=== PATIENT | female | born 1955 ===

== ENCOUNTER 2017-09-01 08:58 | Inpatient (IN) | payer MEDICARE ==
[2017-09-01] MEDS ORDERED: Albuterol 0.083% Inhal Sol (2.5 mg/3 mL) UD IH STA (09:25)
[2017-09-01] MEDS ORDERED: Sodium Chloride 0.9% 1,000 ML IV ONE ×2 (09:25→11:57)
[2017-09-01 09:26] VITALS: BMI 26.6
[2017-09-01] MEDS ORDERED: Piperacill/Tazo 3.375gm in Dex 3.375 GM/50 ML BAG IVPB STA (09:26)
[2017-09-01] MEDS ORDERED: Vancomycin 1 gm/NS 200 ml 1 GM/200 ML BAG IVPB STA (09:26)
--- NOTE | 2017-09-01 09:43 | C.PDOC ---
History Of Present Illness <Gloria Lopez - Last Filed: 09/01/17 17:07> <Kaitlin Baez - Last Filed: 09/08/17 03:34> 62 year old female, with PMHx of diabetes, HTN, hypercholesterolemia, presents to ED for evaluation of flu-like symptoms including runny nose, sore throat, cough, and fever for the past week. Pt reports being seen by PMD, had positive influenza result, was given Rx of Tamiflu which pt completed, however, pt states symptoms have worsened since last night. Pt states she developed productive dry cough with clear sputum, shortness of breath, and generalized weakness. At present time, pt appears sick, is hyperventilating, in respiratory distress. (Gloria Lopez) History Per: Patient History/Exam Limitations: no limitations Onset/Duration Of Symptoms: Days Current Symptoms Are (Timing): Still Present Exacerbating Factor(s): Coughing Associated Symptoms: Productive Cough. denies: Bloody Cough, Heart Racing, Leg/ Calf Pain, Dizziness, Light-headedness Recent travel outside of the [place]: No Additional History Per: Patient <Gloria Lopez - Last Filed: 09/01/17 17:07> <Kaitlin Baez - Last Filed: 09/08/17 03:34> Time Seen by Provider: 09/01/17 09:01 Chief Complaint (Nursing): Shortness Of Breath Past Medical History Reviewed: Historical Data, Nursing Documentation, Vital Signs - Medical History PMH: HTN, Hypercholesterolemia Family History: States: Unknown Family Hx - Social History Hx Alcohol Use: No Hx Substance Use: No - Immunization History Hx Tetanus Toxoid Vaccination: No Hx Influenza Vaccination: Yes Hx Pneumococcal Vaccination: No <Gloria Lopez - Last Filed: 09/01/17 17:07> Vital Signs: Last Vital Signs Temp 99.6 F 09/08/17 01:33 Pulse 87 09/08/17 03:00 Resp 16 09/08/17 03:00 BP 117/53 L 09/08/17 02:59 Pulse Ox 98 09/08/17 03:00 Review Of Systems Except As Marked, All Systems Reviewed And Found Negative. Constitutional: Positive for: Fever, Weakness ENT: Positive for: Nose Discharge (runny nose), Throat Pain Cardiovascular: Negative for: Chest Pain, Palpitations, Light Headedness Respiratory: Positive for: Cough, Shortness of Breath, Sputum. Negative for: Hemoptysis Gastrointestinal: Negative for: Nausea, Vomiting, Abdominal Pain Neurological: Negative for: Headache, Dizziness <JohnGloria - Last Filed: 09/01/17 17:07> Physical Exam - Physical Exam Appears: Non-toxic, Other (sick, in respiratory distress) Skin: Warm, Dry, Pale Head: Normacephalic Eye(s): bilateral: PERRL Oral Mucosa: Moist, No Drooling Neck: Supple Cardiovascular: Rhythm Regular, No Murmur Respiratory: Decreased Breath Sounds, Accessory Muscle Use, Wheezing Gastrointestinal/Abdominal: Soft, No Tenderness Extremity: Normal ROM, No Deformity Neurological/Psych: Oriented x3, Normal Speech <Gloria Lopez - Last Filed: 09/01/17 17:07> ED Course And Treatment - Laboratory Results Result Diagrams: 09/01/17 09:49 09/01/17 09:49 Lab Interpretation: Abnormal ECG: Interpreted By Me, Viewed By Me () Interpretation Of ECG: Sinus tachy@102/min,LAD, Left fascicular block O2 Sat by Pulse Oximetry: 92 Pulse Ox Interpretation: Abnormal - Radiology CXR: Interpreted by Me CXR Interpretation: Yes: Infiltrates - Other Rad CXR X-Ray: Read By Radiologist Interpretation: FINDINGS: LUNGS: 3.3 x 4.3 cm left lateral mid lung zone masslike opacity. Numerous additional smaller nodules throughout both lungs. Interstitial prominence. Biapical pleural thickening. Please note that chest x- ray has limited sensitivity for the detection of pulmonary masses. PLEURA: No significant pleural effusion identified. No definite pneumothorax . CARDIOVASCULAR: Mild cardiomegaly. OSSEOUS STRUCTURES: Degenerative changes. VISUALIZED UPPER ABDOMEN: Unremarkable. OTHER FINDINGS: None. IMPRESSION: 3.3 x 4.3 cm left lateral mid lung zone masslike opacity. Numerous additional smaller nodules throughout both lungs. Interstitial prominence. Biapical pleural thickening. Recommend CT of the chest with IV contrast for further evaluation. Progress Note: After my initial evaluation, was notified about case, pt was evaluated and treatment plan, further care discussed, pt was closely monitored at all time, while in ED. After ABG review, Bipap applied. card monitor. Code sepsis called at 10:02. Abx, tx, hydration intiated as per protocol. Case discussed with , admisison to ICU arranged. Generator Operator Dr. Balbuena consulted, pt admitted to ICU. <Gloria Lopez - Last Filed: 09/01/17 17:07> - Laboratory Results Result Diagrams: 09/07/17 06:32 09/07/17 06:32 <Kaitlin Baez - Last Filed: 09/08/17 03:34> Critical Care Time - Critical Care Note Total Time (in mins): 45 Documented critical care: time excludes all time spent performing seperately billable procedures. <Gloria Lopez - Last Filed: 09/01/17 17:07> Disposition - Disposition Disposition Time: 10:53 <Gloria Lopez - Last Filed: 09/01/17 17:07> <Kaitlin Baez - Last Filed: 09/08/17 03:34> - Disposition Disposition: HOSPITALIZED Condition: CRITICAL - Clinical Impression Clinical Impression: Sepsis, DKA (diabetic ketoacidoses) - PA / EMERGENCY SERVICE RESTORER / Resident Statement MD/DO has reviewed & agrees with the documentation as recorded. - Scribe Statement The provider has reviewed the documentation as recorded by the Scribe <Gloria Lopez - Last Filed: 09/01/17 17:07> <Kaitlin Baez - Last Filed: 09/08/17 03:34> - Scribe Statement Basil Balbuena All medical record entries made by the Scribe were at my direction and personally dictated by me. I have reviewed the chart and agree that the record accurately reflects my personal performance of the history, physical exam, medical decision making, and the department course for this patient. I have also personally directed, reviewed, and agree with the discharge instructions and disposition. (Gloria Lopez)
[2017-09-01 09:54] LABS: BASO # 0.1 K/uL (0.0-0.2); BASO % 0.3 % (0.0-2.0); EOS # 0.1 K/uL (0.0-0.7); EOS % 0.3 % (0.0-4.0); HEMOGLOBIN 15.1 g/dL (11.0-16.0); LYMPH # 1.5 K/uL (1.0-4.3); LYMPH % 4.7 % (20.0-40.0); MEAN CELL VOLUME 77.9 fL (81.0-99.0); MEAN CORPUSCULAR HEMOGLOBIN 25.2 pg (27.0-31.0); MEAN CORPUSCULAR HGB CONC 32.3 g/dL (33.0-37.0); MEAN PLATELET VOLUME 7.8 fL (7.2-11.7); MONO # 2.1 K/uL (0.0-0.8); MONO % 6.5 % (0.0-10.0); NEUT # 28.5 K/uL (1.8-7.0); NEUT % 88.2 % (50.0-75.0); NRBC % 0.1 % (0.0-2.0); PLATELET COUNT 573 K/uL (130-400); RBC 6.02 Mil/uL (3.80-5.20); RED CELL DISTRIBUTION WIDTH 14.8 % (11.5-14.5)
[2017-09-01] MEDS ORDERED: Albuterol 0.083% Inhal Sol (2.5 mg/3 mL) UD ONE (09:54)
[2017-09-01 09:55] LABS: VENOUS BLOOD GAS BASE EXCESS -22.9 mmol/L (0.0-2.0); VENOUS BLOOD GAS PCO2 28 mmHg (40-60); VENOUS BLOOD GAS PO2 31 mm/Hg (30-55); VENOUS BLOOD PH 7.01 (7.32-7.43)
[2017-09-01 10:00] LABS: WHITE BLOOD COUNT 32.3 K/uL (4.8-10.8)
[2017-09-01 10:06] LABS: INR 1.2; PROTHROMBIN TIME 14.3 SECONDS (9.7-12.2)
[2017-09-01] MEDS ORDERED: Sodium Chloride 0.9% 1,000 ML ONE (10:12)
[2017-09-01 10:24] LABS: ALB/GLOB RATIO 0.8 (1.0-2.1); ALBUMIN 3.8 g/dL (3.5-5.0); ALT/SGPT 11 U/L (9-52); AST/SGOT 16 U/L (14-36); BLOOD UREA NITROGEN 16 mg/dL (7-17); GFR AFRICAN-AMERICAN > 60; GFR NON-AFRICAN AMERICAN > 60
--- NOTE | 2017-09-01 10:30 | RAD ---
HISTORY: Sepsis Patient COMPARISON: None available. TECHNIQUE: Chest, one view. FINDINGS: LUNGS: 3.3 x 4.3 cm left lateral mid lung zone masslike opacity. Numerous additional smaller nodules throughout both lungs. Interstitial prominence. Biapical pleural thickening. Please note that chest x-ray has limited sensitivity for the detection of pulmonary masses. PLEURA: No significant pleural effusion identified. No definite pneumothorax . CARDIOVASCULAR: Mild cardiomegaly. OSSEOUS STRUCTURES: Degenerative changes. VISUALIZED UPPER ABDOMEN: Unremarkable. OTHER FINDINGS: None. IMPRESSION: 3.3 x 4.3 cm left lateral mid lung zone masslike opacity. Numerous additional smaller nodules throughout both lungs. Interstitial prominence. Biapical pleural thickening. Recommend CT of the chest with IV contrast for further evaluation.
[2017-09-01 10:41] LABS: B-TYPE NATRIURETIC PEPTIDE 334 pg/mL (0-900)
[2017-09-01 10:51] LABS: BANDS 34 % (0-2); GIANT PLATELETS PRESENT; LARGE PLATELETS PRESENT; LYMPHOCYTE 12 % (20-40); METAMYELOCYTE 1 % (0-0); MONOCYTE 3 % (0-10); NEUTROPHIL 49 % (50-75); PLATELET ESTIMATE INCREASED (NORMAL); REACTIVE LYMPHOCYTES 1 % (0-0); TOTAL CELLS COUNTED 100
[2017-09-01 10:52] LABS: TOXIC GRANULATION PRESENT
[2017-09-01 11:02] LABS: ABG ALLEN TEST POS; ARTERIAL BLOOD GAS HCO3 7.3 mmol/L (21-28); ARTERIAL BLOOD GAS HEMOGLOBIN 13.8 g/dL (11.7-17.4); ARTERIAL BLOOD GAS O2 SAT 100.4 % (95-98); ARTERIAL BLOOD GAS PCO2 19 mm/Hg (35-45); ARTERIAL BLOOD GAS PH 7.08 (7.35-7.45); ARTERIAL BLOOD GAS PO2 246 mm/Hg (80-100); ARTERIAL BLOOD GAS TCO2 6.2 mmol/L (22-28)
[2017-09-01] MEDS ORDERED: Insulin Human Regular 100 UNIT in Sodium Chloride 0.9% 99 ML IV STA (11:09)
[2017-09-01] MEDS ORDERED: Insulin Human Regular 100 UNIT in Sodium Chloride 0.9% 99 ML IV ONE (11:43)
[2017-09-01] MEDS ORDERED: Sodium Bicarbonate (8.4%) 50 Meq Syringe IVP STA (11:48)
[2017-09-01] MEDS ORDERED: Piperacillin/Tazobact 3.375 GM in Sodium Chloride 100 ML IVPB SCH (12:00)
[2017-09-01] MEDS ORDERED: Sodium Bicarbonate (8.4%) 50 Meq Syringe ONE ×3 (12:20→13:14)
[2017-09-01] MEDS ORDERED: Labetalol 25mg/5ml Syringe IVP STA (12:22)
[2017-09-01 12:51] LABS: VENOUS BLOOD GAS BASE EXCESS -22.1 mmol/L (0.0-2.0); VENOUS BLOOD GAS PCO2 42 mmHg (40-60); VENOUS BLOOD GAS PO2 22 mm/Hg (30-55); VENOUS BLOOD PH 6.96 (7.32-7.43)
--- NOTE | 2017-09-01 13:07 | CP.PCM.CON ---
<Afshin Macias - Last Filed: 09/01/17 13:07> Past Patient History - Past Social History Smoking Status: Never Smoked - CARDIAC Hx Hypercholesterolemia: Yes Hx Hypertension: Yes - ENDOCRINE/METABOLIC Hx Diabetes Mellitus Type 1: Yes - PSYCHIATRIC Hx Substance Use: No - SURGICAL HISTORY Hx Surgeries: Yes Other/Comment: oophorectomy; tubal ligation - ANESTHESIA Hx Anesthesia: Yes Hx Anesthesia Reactions: No Meds Allergies/Adverse Reactions: Allergies Allergy/AdvReac Type Severity Reaction Status Date / Time No Known Allergies Allergy Verified 09/01/17 09:17 - Medications Medications: Current Medications Albuterol/Ipratropium (Duoneb 3 Mg/0.5 Mg (3 Ml) Ud) 3 ml INH RQ6 WILLIAM Insulin Human Regular 100 unit (/ Sodium Chloride) 100 mls @ 2 mls/hr IV .Q24H ONE PRN Reason: Protocol Stop: 09/02/17 11:42 Vancomycin/Sodium Chloride (Vancomycin 1 Gm/Ns 200 Ml) 1 gm in 200 mls @ 133.333 mls/hr IVPB Q24H [facility] Stop: 09/07/17 08:01 Piperacillin Sod/Tazobactam Sod (Zosyn 3.375 Gm Iv Premix) 3.375 gm in 50 mls @ 100 mls/hr IVPB Q6H [facility] Oseltamivir Phosphate (Tamiflu Cap) 75 mg PO BID WILL[facility] Stop: 09/06/17 11:54 Results - Vital Signs Recent Vital Signs: Last Vital Signs Temp 98.5 F 09/01/17 09:18 Pulse 97 H 09/01/17 10:31 Resp 33 H 09/01/17 10:31 BP 175/87 H 09/01/17 10:31 Pulse Ox 92 L 09/01/17 11:34 - Labs Result Diagrams: 09/01/17 09:49 09/01/17 09:49 Labs: Laboratory Results - last 24 hr 09/01/17 09/01/17 09/01/17 09:49 09:49 09:49 WBC 32.3 H RBC 6.02 H Hgb 15.1 Hct 46.9 MCV 77.9 L MCH 25.2 L MCHC 32.3 L RDW 14.8 H Plt Count 573 H MPV 7.8 Neut % (Auto) 88.2 H Lymph % (Auto) 4.7 L [place] % (Auto) 6.5 Eos % (Auto) 0.3 Baso % (Auto) 0.3 Neut # 28.5 H Lymph # 1.5 [place] # 2.1 H Eos # 0.1 Baso # 0.1 Neutrophils % (Manual) 49 L Band Neutrophils % 34 H* Lymphocytes % (Manual) 12 L Reactive Lymphs % 1 H Monocytes % (Manual) 3 Metamyelocytes % 1 H Toxic Granulation Present Platelet Estimate Increased H Large Platelets Present Giant Platelets Present RBC Morphology Normal PT 14.3 H INR 1.2 APTT 32 Puncture Site pCO2 pO2 HCO3 ABG pH ABG Total CO2 ABG O2 Saturation ABG Base Excess ABG Hemoglobin ABG Carboxyhemoglobin POC ABG HHb (Measured) ABG Methemoglobin Vince Test VBG pH VBG pCO2 VBG HCO3 VBG Total CO2 VBG O2 Sat (Calc) VBG Base Excess VBG Potassium A-a O2 Difference Respiratory Index Hgb O2 Saturation Glucose Lactate Vent Mode FiO2 Inspiratory BiPAP Expiratory BiPAP Crit Value Called To Crit Value Called By Crit Value Read Back Blood Gas Notified Time Sodium 135 Potassium 4.4 Chloride 103 Carbon Dioxide 6 L* Anion Gap 30 H BUN 16 Creatinine 0.9 Est GFR ( Amer) > 60 Est GFR (Non-Af Amer) > 60 Random Glucose 517 H* Calcium 10.0 Total Bilirubin 0.7 AST 16 ALT 11 Alkaline Phosphatase 221 H Troponin I < 0.0120 NT-Pro-B Natriuret Pep 334 Total Protein 8.6 H Albumin 3.8 Globulin 4.9 H Albumin/Globulin Ratio 0.8 L Venous Blood Potassium Serum Ketones Moderate Influenza Typ A,B (EIA) 09/01/17 09/01/17 09/01/17 09:52 10:57 11:30 WBC RBC Hgb Hct MCV MCH MCHC RDW Plt Count MPV Neut % (Auto) Lymph % (Auto) [place] % (Auto) Eos % (Auto) Baso % (Auto) Neut # Lymph # [place] # Eos # Baso # Neutrophils % (Manual) Band Neutrophils % Lymphocytes % (Manual) Reactive Lymphs % Monocytes % (Manual) Metamyelocytes % Toxic Granulation Platelet Estimate Large Platelets Giant Platelets RBC Morphology PT INR APTT Puncture Site Rr pCO2 19 L* pO2 31 246 H HCO3 7.3 L* ABG pH 7.08 L* ABG Total CO2 6.2 L ABG O2 Saturation 100.4 H ABG Base Excess -22.6 L ABG Hemoglobin 13.8 ABG Carboxyhemoglobin 2.1 H POC ABG HHb (Measured) -0.4 L ABG Methemoglobin 1.6 Vince Test Pos VBG pH 7.01 L* VBG pCO2 28 L VBG HCO3 5.2 VBG Total CO2 8.0 L VBG O2 Sat (Calc) 82.7 H VBG Base Excess -22.9 L VBG Potassium 4.5 A-a O2 Difference 158.0 Respiratory Index 0.6 Hgb O2 Saturation 96.8 Glucose 508 H* Lactate 2.3 H Vent Mode Bipap FiO2 60.0 Inspiratory BiPAP 10 Expiratory BiPAP 5 Crit Value Called To Bhakti larkin Crit Value Called By Ananth thompson bass fisher Safia metcalf bass fisher Crit Value Read Back Y Y Blood Gas Notified Time 956 1105 Sodium 140.0 Potassium Chloride 102.0 Carbon Dioxide Anion Gap BUN Creatinine Est GFR ( Amer) Est GFR (Non-Af Amer) Random Glucose Calcium Total Bilirubin AST ALT Alkaline Phosphatase Troponin I NT-Pro-B Natriuret Pep Total Protein Albumin Globulin Albumin/Globulin Ratio Venous Blood Potassium 4.5 Serum Ketones Influenza Typ A,B (EIA) Negative for flu a/b 09/01/17 12:48 WBC RBC Hgb Hct MCV MCH MCHC RDW Plt Count MPV Neut % (Auto) Lymph % (Auto) [place] % (Auto) Eos % (Auto) Baso % (Auto) Neut # Lymph # [place] # Eos # Baso # Neutrophils % (Manual) Band Neutrophils % Lymphocytes % (Manual) Reactive Lymphs % Monocytes % (Manual) Metamyelocytes % Toxic Granulation Platelet Estimate Large Platelets Giant Platelets RBC Morphology PT INR APTT Puncture Site pCO2 pO2 22 L HCO3 ABG pH ABG Total CO2 ABG O2 Saturation ABG Base Excess ABG Hemoglobin ABG Carboxyhemoglobin POC ABG HHb (Measured) ABG Methemoglobin Vince Test VBG pH 6.96 L* VBG pCO2 42 VBG HCO3 5.4 VBG Total CO2 10.7 L VBG O2 Sat (Calc) 35.6 L VBG Base Excess -22.1 L VBG Potassium 4.2 A-a O2 Difference Respiratory Index Hgb O2 Saturation Glucose 366 H Lactate 2.9 H Vent Mode FiO2 Inspiratory BiPAP Expiratory BiPAP Crit Value Called To Mary tieing machine operator Crit Value Called By David Crit Value Read Back Y Blood Gas Notified Time 1251 Sodium 137.0 Potassium Chloride 111.0 H Carbon Dioxide Anion Gap BUN Creatinine Est GFR ( Amer) Est GFR (Non-Af Amer) Random Glucose Calcium Total Bilirubin AST ALT Alkaline Phosphatase Troponin I NT-Pro-B Natriuret Pep Total Protein Albumin Globulin Albumin/Globulin Ratio Venous Blood Potassium 4.2 Serum Ketones Influenza Typ A,B (EIA) <Leeanne Javier - Last Filed: 09/01/17 17:49> History of Present Illness - History of Present Illness History of Present Illness: 62 y/o female with pmx of DM, HTN presents to [facility] with c/o cough, worsening, dyspnea and SOB. Patient was noted to have severe Metabolix acidosis with DKA. (+)cough being treated by PMD with methyprednisolone, azithromycin and cough supressant with codiene and tamiflu. Patient's clinical condition worsened and patient came to ER. (+)conugh, no runny nose, no fevers, Took solumedrol before comming to [facility] no chest pain, no dysuria, (+)polyuria and polydyspnea Review of Systems - Constitutional Constitutional: Fatigue - Cardiovascular Cardiovascular: absent: Chest Pain with Activity, Dyspnea on Exertion, Edema, Lightheadedness - Respiratory Respiratory: Cough, Dyspnea, Chest Congestion. absent: Wheezing - Gastrointestinal Gastrointestinal: absent: Constipation, Cramping, Dyspepsia, Dysphagia - Genitourinary Genitourinary: absent: Hematuria - Endocrine Endocrine: Polydipsia, Polyphagia, Polyuria Past Patient History - Tetanus Immunizations Tetanus Immunization: Unknown - Past Medical History & Family History Past Medical History?: Yes - Past Social History Chewing Tobacco Use: No Cigar Use: No Occupation: unemployed Alcohol: None Drugs: Denies Home Situation {Lives}: With Family Meds - Medications Medications: Current Medications Albuterol/Ipratropium (Duoneb 3 Mg/0.5 Mg (3 Ml) Ud) 3 ml INH RQ6 WILLIAM Last Admin: 09/01/17 14:30 Dose: 3 ml Albuterol/Ipratropium (Duoneb 3 Mg/0.5 Mg (3 Ml) Ud) 3 ml INH RQ6 WILLIAM Guaifenesin/Dextromethorphan (Robitussin Dm) 5 ml PO Q4H PRN PRN Reason: Cough Insulin Human Regular 100 unit (/ Sodium Chloride) 100 mls @ 2 mls/hr IV .Q24H ONE PRN Reason: Protocol Stop: 09/02/17 11:42 Last Admin: 09/01/17 13:10 Dose: 2 unit/hr, 2 mls/hr Vancomycin/Sodium Chloride (Vancomycin 1 Gm/Ns 200 Ml) 1 gm in 200 mls @ 133.333 mls/hr IVPB Q24H [facility] Stop: 09/07/17 08:01 Piperacillin Sod/Tazobactam Sod (Zosyn 3.375 Gm Iv Premix) 3.375 gm in 50 mls @ 100 mls/hr IVPB Q6H [facility] Lactated Ringer's (Lactated Ringer's) 1,000 mls @ 100 mls/hr IV .Q10H [facility] Last Admin: 09/01/17 15:09 Dose: 100 mls/hr Potassium Phosphate 15 mmole/ (Sodium Chloride) 255 mls @ 63 mls/hr IV ONCE ONE Stop: 09/01/17 19:32 Potassium Chloride (Potassium Chloride 10 Meq/100 Ml) 10 meq in 100 mls @ 100 mls/hr IVPB Q1H [facility] Stop: 09/01/17 19:59 Last Admin: 09/01/17 15:44 Dose: 100 mls/hr Labetalol HCl (Trandate) 10 mg IVP Q4H PRN PRN Reason: Systolic Blood Pressure >150 Last Admin: 09/01/17 15:58 Dose: 10 mg Oseltamivir Phosphate (Tamiflu Cap) 75 mg PO BID [facility] Stop: 09/06/17 11:54 Last Admin: 09/01/17 13:45 Dose: 75 mg Physical Exam - Head Exam Head Exam: ATRAUMATIC, NORMAL INSPECTION, NORMOCEPHALIC - Eye Exam Eye Exam: Normal appearance - ENT Exam ENT Exam: Mucous Membranes Dry - Respiratory Exam Respiratory Exam: Accessory Muscle Use. absent: Rales, Rhonchi - Cardiovascular Exam Cardiovascular Exam: Tachycardia, +S1, +S2, +S4 - GI/Abdominal Exam GI & Abdominal Exam: Normal Bowel Sounds, Soft. absent: Guarding - Extremities Exam Extremities exam: Positive for: normal inspection - Neurological Exam Neurological exam: Alert, Oriented x3 - Skin Skin Exam: Dry Results - Vital Signs Recent Vital Signs: Last Vital Signs Temp 97.6 F 09/01/17 13:45 Pulse 114 H 09/01/17 13:45 Resp 32 H 09/01/17 13:45 BP 184/95 H 09/01/17 13:45 Pulse Ox 100 09/01/17 13:09 - Labs Result Diagrams: 09/01/17 09:49 09/01/17 16:38 Labs: Laboratory Results - last 24 hr 09/01/17 09/01/17 09/01/17 09:49 09:49 09:49 WBC 32.3 H RBC 6.02 H Hgb 15.1 Hct 46.9 MCV 77.9 L MCH 25.2 L MCHC 32.3 L RDW 14.8 H Plt Count 573 H MPV 7.8 Neut % (Auto) 88.2 H Lymph % (Auto) 4.7 L [place] % (Auto) 6.5 Eos % (Auto) 0.3 Baso % (Auto) 0.3 Neut # 28.5 H Lymph # 1.5 [place] # 2.1 H Eos # 0.1 Baso # 0.1 Neutrophils % (Manual) 49 L Band Neutrophils % 34 H* Lymphocytes % (Manual) 12 L Reactive Lymphs % 1 H Monocytes % (Manual) 3 Metamyelocytes % 1 H Toxic Granulation Present Platelet Estimate Increased H Large Platelets Present Giant Platelets Present RBC Morphology Normal PT 14.3 H INR 1.2 APTT 32 Puncture Site pCO2 pO2 HCO3 ABG pH ABG Total CO2 ABG O2 Saturation ABG Base Excess ABG Hemoglobin ABG Carboxyhemoglobin POC ABG HHb (Measured) ABG Methemoglobin Vince Test VBG pH VBG pCO2 VBG HCO3 VBG Total CO2 VBG O2 Sat (Calc) VBG Base Excess VBG Potassium A-a O2 Difference Respiratory Index Hgb O2 Saturation Glucose Lactate Vent Mode FiO2 Inspiratory BiPAP Expiratory BiPAP Crit Value Called To Crit Value Called By Crit Value Read Back Blood Gas Notified Time Sodium 135 Potassium 4.4 Chloride 103 Carbon Dioxide 6 L* Anion Gap 30 H BUN 16 Creatinine 0.9 Est GFR ( Amer) > 60 Est GFR (Non-Af Amer) > 60 POC Glucose (mg/dL) Random Glucose 517 H* Calcium 10.0 Total Bilirubin 0.7 AST 16 ALT 11 Alkaline Phosphatase 221 H Troponin I < 0.0120 NT-Pro-B Natriuret Pep 334 Total Protein 8.6 H Albumin 3.8 Globulin 4.9 H Albumin/Globulin Ratio 0.8 L Venous Blood Potassium Urine Color Urine Clarity Urine pH Ur Specific [place] Urine Protein Urine Glucose (UA) Urine Ketones Urine Blood Urine Nitrate Urine Bilirubin Urine Urobilinogen Ur Leukocyte Esterase Urine WBC (Auto) Urine RBC (Auto) Ur Squamous Epith Cells Urine Bacteria Hyaline Casts Serum Ketones Moderate Influenza Typ A,B (EIA) 09/01/17 09/01/17 09/01/17 09:52 10:57 11:30 WBC RBC Hgb Hct MCV MCH MCHC RDW Plt Count MPV Neut % (Auto) Lymph % (Auto) [place] % (Auto) Eos % (Auto) Baso % (Auto) Neut # Lymph # [place] # Eos # Baso # Neutrophils % (Manual) Band Neutrophils % Lymphocytes % (Manual) Reactive Lymphs % Monocytes % (Manual) Metamyelocytes % Toxic Granulation Platelet Estimate Large Platelets Giant Platelets RBC Morphology PT INR APTT Puncture Site Rr pCO2 19 L* pO2 31 246 H HCO3 7.3 L* ABG pH 7.08 L* ABG Total CO2 6.2 L ABG O2 Saturation 100.4 H ABG Base Excess -22.6 L ABG Hemoglobin 13.8 ABG Carboxyhemoglobin 2.1 H POC ABG HHb (Measured) -0.4 L ABG Methemoglobin 1.6 Vince Test Pos VBG pH 7.01 L* VBG pCO2 28 L VBG HCO3 5.2 VBG Total CO2 8.0 L VBG O2 Sat (Calc) 82.7 H VBG Base Excess -22.9 L VBG Potassium 4.5 A-a O2 Difference 158.0 Respiratory Index 0.6 Hgb O2 Saturation 96.8 Glucose 508 H* Lactate 2.3 H Vent Mode Bipap FiO2 60.0 Inspiratory BiPAP 10 Expiratory BiPAP 5 Crit Value Called To Bhakti larkin Crit Value Called By Ananth thompson bass fisher Safia metcalf bass fisher Crit Value Read Back Y Y Blood Gas Notified Time 956 1105 Sodium 140.0 Potassium Chloride 102.0 Carbon Dioxide Anion Gap BUN Creatinine Est GFR ( Amer) Est GFR (Non-Af Amer) POC Glucose (mg/dL) Random Glucose Calcium Total Bilirubin AST ALT Alkaline Phosphatase Troponin I NT-Pro-B Natriuret Pep Total Protein Albumin Globulin Albumin/Globulin Ratio Venous Blood Potassium 4.5 Urine Color Urine Clarity Urine pH Ur Specific [place] Urine Protein Urine Glucose (UA) Urine Ketones Urine Blood Urine Nitrate Urine Bilirubin Urine Urobilinogen Ur Leukocyte Esterase Urine WBC (Auto) Urine RBC (Auto) Ur Squamous Epith Cells Urine Bacteria Hyaline Casts Serum Ketones Influenza Typ A,B (EIA) Negative for flu a/b 09/01/17 09/01/17 09/01/17 12:48 12:53 13:07 WBC RBC Hgb Hct MCV MCH MCHC RDW Plt Count MPV Neut % (Auto) Lymph % (Auto) [place] % (Auto) Eos % (Auto) Baso % (Auto) Neut # Lymph # [place] # Eos # Baso # Neutrophils % (Manual) Band Neutrophils % Lymphocytes % (Manual) Reactive Lymphs % Monocytes % (Manual) Metamyelocytes % Toxic Granulation Platelet Estimate Large Platelets Giant Platelets RBC Morphology PT INR APTT Puncture Site pCO2 pO2 22 L HCO3 ABG pH ABG Total CO2 ABG O2 Saturation ABG Base Excess ABG Hemoglobin ABG Carboxyhemoglobin POC ABG HHb (Measured) ABG Methemoglobin Vince Test VBG pH 6.96 L* VBG pCO2 42 VBG HCO3 5.4 VBG Total CO2 10.7 L VBG O2 Sat (Calc) 35.6 L VBG Base Excess -22.1 L VBG Potassium 4.2 A-a O2 Difference Respiratory Index Hgb O2 Saturation Glucose 366 H Lactate 2.9 H Vent Mode FiO2 Inspiratory BiPAP Expiratory BiPAP Crit Value Called To Mary haro rn Crit Value Called By David Crit Value Read Back Y Blood Gas Notified Time 1251 Sodium 137.0 Potassium Chloride 111.0 H Carbon Dioxide Anion Gap BUN Creatinine Est GFR ( Amer) Est GFR (Non-Af Amer) POC Glucose (mg/dL) 343 H Random Glucose Calcium Total Bilirubin AST ALT Alkaline Phosphatase Troponin I NT-Pro-B Natriuret Pep Total Protein Albumin Globulin Albumin/Globulin Ratio Venous Blood Potassium 4.2 Urine Color Yellow Urine Clarity Clear Urine pH 5.0 Ur Specific [place] 1.023 Urine Protein 2+ H Urine Glucose (UA) 3+ H Urine Ketones 2+ H Urine Blood 1+ H Urine Nitrate Negative Urine Bilirubin Negative Urine Urobilinogen Normal Ur Leukocyte Esterase Neg Urine WBC (Auto) 1 Urine RBC (Auto) 5 H Ur Squamous Epith Cells < 1 Urine Bacteria Occ H Hyaline Casts 3-5 H Serum Ketones Influenza Typ A,B (EIA) 09/01/17 09/01/17 09/01/17 13:45 14:28 15:56 WBC RBC Hgb Hct MCV MCH MCHC RDW Plt Count MPV Neut % (Auto) Lymph % (Auto) [place] % (Auto) Eos % (Auto) Baso % (Auto) Neut # Lymph # [place] # Eos # Baso # Neutrophils % (Manual) Band Neutrophils % Lymphocytes % (Manual) Reactive Lymphs % Monocytes % (Manual) Metamyelocytes % Toxic Granulation Platelet Estimate Large Platelets Giant Platelets RBC Morphology PT INR APTT Puncture Site pCO2 pO2 125 H HCO3 ABG pH ABG Total CO2 ABG O2 Saturation ABG Base Excess ABG Hemoglobin ABG Carboxyhemoglobin POC ABG HHb (Measured) ABG Methemoglobin Vince Test VBG pH 7.17 L* VBG pCO2 19 L* VBG HCO3 9.7 VBG Total CO2 7.5 L VBG O2 Sat (Calc) 99.4 H VBG Base Excess -19.5 L VBG Potassium 1.6 L* A-a O2 Difference Respiratory Index Hgb O2 Saturation Glucose 159 H Lactate 1.2 Vent Mode FiO2 Inspiratory BiPAP Expiratory BiPAP Crit Value Called To Anna lopez Crit Value Called By Yosi javier,bass fisher Crit Value Read Back Y Blood Gas Notified Time 1355 Sodium 154.0 H Potassium Chloride 132.0 H Carbon Dioxide Anion Gap BUN Creatinine Est GFR ( Amer) Est GFR (Non-Af Amer) POC Glucose (mg/dL) 280 H 256 H Random Glucose Calcium Total Bilirubin AST ALT Alkaline Phosphatase Troponin I NT-Pro-B Natriuret Pep Total Protein Albumin Globulin Albumin/Globulin Ratio Venous Blood Potassium 1.6 L* Urine Color Urine Clarity Urine pH Ur Specific [place] Urine Protein Urine Glucose (UA) Urine Ketones Urine Blood Urine Nitrate Urine Bilirubin Urine Urobilinogen Ur Leukocyte Esterase Urine WBC (Auto) Urine RBC (Auto) Ur Squamous Epith Cells Urine Bacteria Hyaline Casts Serum Ketones Influenza Typ A,B (EIA) Assessment & Plan - Assessment and Plan (Free Text) Plan: Patinet with PMx of DM, HTN, likely CAD [facility] with cough, SOB and high blood sugar (being treated as outpatient by primary physician with tamiflu, azithro and methylprednisolone) -DKA: ketone (+), beta hydroxy butyrate pending, lactic normal, start IVF LR at 100 ml/hr and Insulin ggt at 0.1 units/kg/hr, BGm q1hrs, CMP/mag/phos q6hrs, VBG q2hrs -Patient with cough: perviously treated by primary physician with tamiflu and then azithromycin, patient (+)productice sputum, suspect URTI, check CT Chest r/ o infiltrate/mass, check procalcitonin, and strt vanco, zosyn and doxy, obtain sputum culture, serial lactic until resolves. -a risk of CAD: obtain EKG, trop and bnp, start asa -DM: check HBA1c, insulin ggt -Lactic normal -DVT ppx heparin SQ -PUD ppx protonix Patient's clinical situation of uncontrolled, Dm with oral methyprednisolone resulting in DKA and possible staph infection post viral infection. -Sputum culture, serial lactic and IVF at 100 ml/hr -Patient was on placed on bi-pap with productive sputum. Majority of clinical symptoms 2nd metabolic acidosis. -prognosis guarded as multiple diagnostic tests not available. vbg/cmp/mag/phos/ abg/CT chest. d/w ICu team cc time 40 minutes - Date & Time Date: 09/01/17 Time: 16:52
[2017-09-01 13:10] LABS: SQUAMOUS EPITHIAL < 1 /hpf (0-5); URINE BACTERIA OCC (<OCC); URINE BILIRUBIN NEGATIVE (NEGATIVE); URINE BLOOD 1+ (NEGATIVE); URINE CLARITY Clear (Clear); URINE COLOR Yellow (YELLOW); URINE GLUCOSE (UA) 3+ mg/dL (Normal); URINE LEUKOCYTE ESTERASE NEG Leu/uL (Negative); URINE NITRATE NEGATIVE (NEGATIVE); URINE PROTEIN 2+ mg/dL (NEGATIVE); URINE UROBILINOGEN NORMAL mg/dL (0.2-1.0)
[2017-09-01] MEDS ORDERED: Sodium Bicarbonate (8.4%) 50 Meq Syringe IVP ONE (13:10)
[2017-09-01] MEDS ORDERED: Sodium Chloride 0.9% 250 ML IV ONE (13:20)
[2017-09-01 13:50] LABS: VENOUS BLOOD GAS BASE EXCESS -19.5 mmol/L (0.0-2.0); VENOUS BLOOD GAS PCO2 19 mmHg (40-60); VENOUS BLOOD GAS PO2 125 mm/Hg (30-55); VENOUS BLOOD PH 7.17 (7.32-7.43)
[2017-09-01] MEDS ORDERED: guaiFENesin DM 100 mg-10 mg/5 ml UD PO PRN (13:52)
[2017-09-01] MEDS ORDERED: Lactated Ringer's 1,000 ML IV SCH (14:00)
[2017-09-01] MEDS ORDERED: Albuterol-Ipratrop 3 mg / 0.5 (3 ml) UD INH SCH ×2 (14:00→20:00)
[2017-09-01] MEDS ORDERED: Lidocaine 1% Inj (20ml) IV ONE (14:05)
[2017-09-01] MEDS: Magnesium Sulfate 1 gm in D5W 1 GM/100 ML BAG IVPB SCH ×2 (15:08→17:07)
[2017-09-01] MEDS: Piperacill/Tazo 3.375gm in Dex 3.375 GM/50 ML BAG IVPB SCH ×2 (15:30→22:00)
[2017-09-01] MEDS: Labetalol 25mg/5ml Syringe IVP PRN ×2 (15:58→22:00)
--- NOTE | 2017-09-01 16:09 | CP.PCM.CON ---
History of Present Illness - History of Present Illness History of Present Illness: reason for consultation: shortness of breath and pneumonia 62-year-old female with history of diabetes, hypertension presented to emergency room complaining off cough and fever for the past week. Patient was seen by PMD and started on antibiotics, Tamiflu and steroids. Patient symptoms have worsened with increasing shortness of breath, generalized weakness and productive cough. In the emergency room patient found to be very acidotic with elevated lactate level and bilateral pneumonia. Patient also found to have elevated glucose with positive ketones. started on insulin drip and admitted to intensive care unit. Review of Systems - Review of Systems All systems: reviewed and no additional remarkable complaints except (shortness of breath, generalized weakness) Past Patient History - Past Social History Smoking Status: Never Smoked - CARDIAC Hx Hypercholesterolemia: Yes Hx Hypertension: Yes - ENDOCRINE/METABOLIC Hx Diabetes Mellitus Type 1: Yes - MUSCULOSKELETAL/RHEUMATOLOGICAL Hx Falls: No - PSYCHIATRIC Hx Substance Use: No - SURGICAL HISTORY Hx Surgeries: Yes Other/Comment: oophorectomy; tubal ligation - ANESTHESIA Hx Anesthesia: Yes Hx Anesthesia Reactions: No Meds Allergies/Adverse Reactions: Allergies Allergy/AdvReac Type Severity Reaction Status Date / Time No Known Allergies Allergy Verified 09/01/17 09:17 - Medications Medications: Current Medications Albuterol/Ipratropium (Duoneb 3 Mg/0.5 Mg (3 Ml) Ud) 3 ml INH RQ6 WILLIAM Last Admin: 09/01/17 14:30 Dose: 3 ml Albuterol/Ipratropium (Duoneb 3 Mg/0.5 Mg (3 Ml) Ud) 3 ml INH RQ6 WILLIAM Guaifenesin/Dextromethorphan (Robitussin Dm) 5 ml PO Q4H PRN PRN Reason: Cough Insulin Human Regular 100 unit (/ Sodium Chloride) 100 mls @ 2 mls/hr IV .Q24H ONE PRN Reason: Protocol Stop: 09/02/17 11:42 Last Admin: 09/01/17 13:10 Dose: 2 unit/hr, 2 mls/hr Vancomycin/Sodium Chloride (Vancomycin 1 Gm/Ns 200 Ml) 1 gm in 200 mls @ 133.333 mls/hr IVPB Q24H [facility] Stop: 09/07/17 08:01 Piperacillin Sod/Tazobactam Sod (Zosyn 3.375 Gm Iv Premix) 3.375 gm in 50 mls @ 100 mls/hr IVPB Q6H [facility] Lactated Ringer's (Lactated Ringer's) 1,000 mls @ 100 mls/hr IV .Q10H [facility] Last Admin: 09/01/17 15:09 Dose: 100 mls/hr Potassium Phosphate 15 mmole/ (Sodium Chloride) 255 mls @ 63 mls/hr IV ONCE ONE Stop: 09/01/17 19:32 Potassium Chloride (Potassium Chloride 10 Meq/100 Ml) 10 meq in 100 mls @ 100 mls/hr IVPB Q1H [facility] Stop: 09/01/17 19:59 Last Admin: 09/01/17 15:44 Dose: 100 mls/hr Labetalol HCl (Trandate) 10 mg IVP Q4H PRN PRN Reason: Systolic Blood Pressure >150 Oseltamivir Phosphate (Tamiflu Cap) 75 mg PO BID [facility] Stop: 09/06/17 11:54 Last Admin: 09/01/17 13:45 Dose: 75 mg Physical Exam - Head Exam Head Exam: ATRAUMATIC, NORMOCEPHALIC - ENT Exam ENT Exam: Mucous Membranes Moist - Respiratory Exam Respiratory Exam: Rales - Cardiovascular Exam Cardiovascular Exam: REGULAR RHYTHM - GI/Abdominal Exam GI & Abdominal Exam: Normal Bowel Sounds, Soft - Extremities Exam Extremities exam: Positive for: normal inspection - Neurological Exam Neurological exam: Alert, Oriented x3 Results - Vital Signs Recent Vital Signs: Last Vital Signs Temp 97.6 F 09/01/17 13:45 Pulse 114 H 09/01/17 13:45 Resp 32 H 09/01/17 13:45 BP 184/95 H 09/01/17 13:45 Pulse Ox 100 09/01/17 13:09 - Labs Result Diagrams: 09/01/17 09:49 09/01/17 09:49 Labs: Laboratory Results - last 24 hr 09/01/17 09/01/17 09/01/17 09:49 09:49 09:49 WBC 32.3 H RBC 6.02 H Hgb 15.1 Hct 46.9 MCV 77.9 L MCH 25.2 L MCHC 32.3 L RDW 14.8 H Plt Count 573 H MPV 7.8 Neut % (Auto) 88.2 H Lymph % (Auto) 4.7 L [place] % (Auto) 6.5 Eos % (Auto) 0.3 Baso % (Auto) 0.3 Neut # 28.5 H Lymph # 1.5 [place] # 2.1 H Eos # 0.1 Baso # 0.1 Neutrophils % (Manual) 49 L Band Neutrophils % 34 H* Lymphocytes % (Manual) 12 L Reactive Lymphs % 1 H Monocytes % (Manual) 3 Metamyelocytes % 1 H Toxic Granulation Present Platelet Estimate Increased H Large Platelets Present Giant Platelets Present RBC Morphology Normal PT 14.3 H INR 1.2 APTT 32 Puncture Site pCO2 pO2 HCO3 ABG pH ABG Total CO2 ABG O2 Saturation ABG Base Excess ABG Hemoglobin ABG Carboxyhemoglobin POC ABG HHb (Measured) ABG Methemoglobin Vince Test VBG pH VBG pCO2 VBG HCO3 VBG Total CO2 VBG O2 Sat (Calc) VBG Base Excess VBG Potassium A-a O2 Difference Respiratory Index Hgb O2 Saturation Glucose Lactate Vent Mode FiO2 Inspiratory BiPAP Expiratory BiPAP Crit Value Called To Crit Value Called By Crit Value Read Back Blood Gas Notified Time Sodium 135 Potassium 4.4 Chloride 103 Carbon Dioxide 6 L* Anion Gap 30 H BUN 16 Creatinine 0.9 Est GFR ( Amer) > 60 Est GFR (Non-Af Amer) > 60 POC Glucose (mg/dL) Random Glucose 517 H* Calcium 10.0 Total Bilirubin 0.7 AST 16 ALT 11 Alkaline Phosphatase 221 H Troponin I < 0.0120 NT-Pro-B Natriuret Pep 334 Total Protein 8.6 H Albumin 3.8 Globulin 4.9 H Albumin/Globulin Ratio 0.8 L Venous Blood Potassium Urine Color Urine Clarity Urine pH Ur Specific [place] Urine Protein Urine Glucose (UA) Urine Ketones Urine Blood Urine Nitrate Urine Bilirubin Urine Urobilinogen Ur Leukocyte Esterase Urine WBC (Auto) Urine RBC (Auto) Ur Squamous Epith Cells Urine Bacteria Hyaline Casts Serum Ketones Moderate Influenza Typ A,B (EIA) 09/01/17 09/01/17 09/01/17 09:52 10:57 11:30 WBC RBC Hgb Hct MCV MCH MCHC RDW Plt Count MPV Neut % (Auto) Lymph % (Auto) [place] % (Auto) Eos % (Auto) Baso % (Auto) Neut # Lymph # [place] # Eos # Baso # Neutrophils % (Manual) Band Neutrophils % Lymphocytes % (Manual) Reactive Lymphs % Monocytes % (Manual) Metamyelocytes % Toxic Granulation Platelet Estimate Large Platelets Giant Platelets RBC Morphology PT INR APTT Puncture Site Rr pCO2 19 L* pO2 31 246 H HCO3 7.3 L* ABG pH 7.08 L* ABG Total CO2 6.2 L ABG O2 Saturation 100.4 H ABG Base Excess -22.6 L ABG Hemoglobin 13.8 ABG Carboxyhemoglobin 2.1 H POC ABG HHb (Measured) -0.4 L ABG Methemoglobin 1.6 Vince Test Pos VBG pH 7.01 L* VBG pCO2 28 L VBG HCO3 5.2 VBG Total CO2 8.0 L VBG O2 Sat (Calc) 82.7 H VBG Base Excess -22.9 L VBG Potassium 4.5 A-a O2 Difference 158.0 Respiratory Index 0.6 Hgb O2 Saturation 96.8 Glucose 508 H* Lactate 2.3 H Vent Mode Bipap FiO2 60.0 Inspiratory BiPAP 10 Expiratory BiPAP 5 Crit Value Called To Bhakti larkin Crit Value Called By Ananth thompson banquet line cook Safia metcalf banquet line cook Crit Value Read Back Y Y Blood Gas Notified Time 956 1105 Sodium 140.0 Potassium Chloride 102.0 Carbon Dioxide Anion Gap BUN Creatinine Est GFR ( Amer) Est GFR (Non-Af Amer) POC Glucose (mg/dL) Random Glucose Calcium Total Bilirubin AST ALT Alkaline Phosphatase Troponin I NT-Pro-B Natriuret Pep Total Protein Albumin Globulin Albumin/Globulin Ratio Venous Blood Potassium 4.5 Urine Color Urine Clarity Urine pH Ur Specific [place] Urine Protein Urine Glucose (UA) Urine Ketones Urine Blood Urine Nitrate Urine Bilirubin Urine Urobilinogen Ur Leukocyte Esterase Urine WBC (Auto) Urine RBC (Auto) Ur Squamous Epith Cells Urine Bacteria Hyaline Casts Serum Ketones Influenza Typ A,B (EIA) Negative for flu a/b 09/01/17 09/01/17 09/01/17 12:48 12:53 13:07 WBC RBC Hgb Hct MCV MCH MCHC RDW Plt Count MPV Neut % (Auto) Lymph % (Auto) [place] % (Auto) Eos % (Auto) Baso % (Auto) Neut # Lymph # [place] # Eos # Baso # Neutrophils % (Manual) Band Neutrophils % Lymphocytes % (Manual) Reactive Lymphs % Monocytes % (Manual) Metamyelocytes % Toxic Granulation Platelet Estimate Large Platelets Giant Platelets RBC Morphology PT INR APTT Puncture Site pCO2 pO2 22 L HCO3 ABG pH ABG Total CO2 ABG O2 Saturation ABG Base Excess ABG Hemoglobin ABG Carboxyhemoglobin POC ABG HHb (Measured) ABG Methemoglobin Vince Test VBG pH 6.96 L* VBG pCO2 42 VBG HCO3 5.4 VBG Total CO2 10.7 L VBG O2 Sat (Calc) 35.6 L VBG Base Excess -22.1 L VBG Potassium 4.2 A-a O2 Difference Respiratory Index Hgb O2 Saturation Glucose 366 H Lactate 2.9 H Vent Mode FiO2 Inspiratory BiPAP Expiratory BiPAP Crit Value Called To Mary haro rn Crit Value Called By Sachinl Crit Value Read Back Y Blood Gas Notified Time 1251 Sodium 137.0 Potassium Chloride 111.0 H Carbon Dioxide Anion Gap BUN Creatinine Est GFR ( Amer) Est GFR (Non-Af Amer) POC Glucose (mg/dL) 343 H Random Glucose Calcium Total Bilirubin AST ALT Alkaline Phosphatase Troponin I NT-Pro-B Natriuret Pep Total Protein Albumin Globulin Albumin/Globulin Ratio Venous Blood Potassium 4.2 Urine Color Yellow Urine Clarity Clear Urine pH 5.0 Ur Specific [place] 1.023 Urine Protein 2+ H Urine Glucose (UA) 3+ H Urine Ketones 2+ H Urine Blood 1+ H Urine Nitrate Negative Urine Bilirubin Negative Urine Urobilinogen Normal Ur Leukocyte Esterase Neg Urine WBC (Auto) 1 Urine RBC (Auto) 5 H Ur Squamous Epith Cells < 1 Urine Bacteria Occ H Hyaline Casts 3-5 H Serum Ketones Influenza Typ A,B (EIA) 09/01/17 09/01/17 13:45 14:28 WBC RBC Hgb Hct MCV MCH MCHC RDW Plt Count MPV Neut % (Auto) Lymph % (Auto) [place] % (Auto) Eos % (Auto) Baso % (Auto) Neut # Lymph # [place] # Eos # Baso # Neutrophils % (Manual) Band Neutrophils % Lymphocytes % (Manual) Reactive Lymphs % Monocytes % (Manual) Metamyelocytes % Toxic Granulation Platelet Estimate Large Platelets Giant Platelets RBC Morphology PT INR APTT Puncture Site pCO2 pO2 125 H HCO3 ABG pH ABG Total CO2 ABG O2 Saturation ABG Base Excess ABG Hemoglobin ABG Carboxyhemoglobin POC ABG HHb (Measured) ABG Methemoglobin Vince Test VBG pH 7.17 L* VBG pCO2 19 L* VBG HCO3 9.7 VBG Total CO2 7.5 L VBG O2 Sat (Calc) 99.4 H VBG Base Excess -19.5 L VBG Potassium 1.6 L* A-a O2 Difference Respiratory Index Hgb O2 Saturation Glucose 159 H Lactate 1.2 Vent Mode FiO2 Inspiratory BiPAP Expiratory BiPAP Crit Value Called To Anna lopez Crit Value Called By Yosi javier,banquet line cook Crit Value Read Back Y Blood Gas Notified Time 1355 Sodium 154.0 H Potassium Chloride 132.0 H Carbon Dioxide Anion Gap BUN Creatinine Est GFR ( Amer) Est GFR (Non-Af Amer) POC Glucose (mg/dL) 280 H Random Glucose Calcium Total Bilirubin AST ALT Alkaline Phosphatase Troponin I NT-Pro-B Natriuret Pep Total Protein Albumin Globulin Albumin/Globulin Ratio Venous Blood Potassium 1.6 L* Urine Color Urine Clarity Urine pH Ur Specific [place] Urine Protein Urine Glucose (UA) Urine Ketones Urine Blood Urine Nitrate Urine Bilirubin Urine Urobilinogen Ur Leukocyte Esterase Urine WBC (Auto) Urine RBC (Auto) Ur Squamous Epith Cells Urine Bacteria Hyaline Casts Serum Ketones Influenza Typ A,B (EIA) Assessment & Plan (1) Pneumonia Status: Acute Comment: continue IV antibiotics. CAT scan of the chest. Followup lactate and pro calcitonin. Followup culture and sensitivity (2) DKA (diabetic ketoacidoses) Status: Acute Comment: insulin drip. Monitor potassium level/ketones and anion gap. Followup ABG (3) Sepsis Status: Acute
[2017-09-01 16:54] LABS: ABG ALLEN TEST POS; ARTERIAL BLOOD GAS HCO3 15.2 mmol/L (21-28); ARTERIAL BLOOD GAS O2 SAT 97.3 % (95-98); ARTERIAL BLOOD GAS PCO2 34 mm/Hg (35-45); ARTERIAL BLOOD GAS PH 7.23 (7.35-7.45); ARTERIAL BLOOD GAS PO2 73 mm/Hg (80-100); ARTERIAL BLOOD GAS TCO2 15.2 mmol/L (22-28)
[2017-09-01] MEDS ORDERED: Magnesium Sulfate 1 gm in D5W 1 GM/100 ML BAG IVPB SCH (17:00)
[2017-09-01 17:10] LABS: ALB/GLOB RATIO 0.8 (1.0-2.1); ALBUMIN 2.9 g/dL (3.5-5.0); ALT/SGPT 25 U/L (9-52); AST/SGOT 32 U/L (14-36); BLOOD UREA NITROGEN 12 mg/dL (7-17); CALCIUM 8.2 mg/dl (8.6-10.4); GFR AFRICAN-AMERICAN > 60; GFR NON-AFRICAN AMERICAN > 60
--- NOTE | 2017-09-01 18:28 | CP.PCM.CON ---
History of Present Illness - History of Present Illness History of Present Illness: 62 year old female, with PMHx of diabetes, HTN, hypercholesterolemia, presents to ED for evaluation of flu-like symptoms including runny nose, sore throat, cough, and fever for the past week. Pt reports being seen by PMD, had positive influenza result, was given Rx of Tamiflu which pt completed, however, pt states symptoms have worsened since last night. Pt states she developed productive dry cough with clear sputum, shortness of breath, and generalized weakness. transferred to ICU with sepsis resp failure bilat pneumonia and severe metabolic acidosis - Medical History PMH: HTN, Hypercholesterolemia Family History: States: Unknown Family Hx Review of Systems - Constitutional Constitutional: As Per HPI - EENT Eyes: absent: As Per HPI, Blind Spots, Blurred Vision, Change in Vision, Decreased Night Vision, Diplopia, Discharge, Dry Eye, Exophthalmos, Floaters, Irritation, Itchy Eyes, Loss of Peripheral Vision, Pain, Photophobia, Requires Corrective Lenses, Sees Flashes, Spots in Vision, Tunnel Vision, Other Visual Disturbances, Loss of Vision, Other Ears: absent: As Per HPI, Decreased Hearing, Ear Discharge, Ear Pain, Tinnitus, Abnormal Hearing, Disequilibrium, Dizziness, Other Nose/Mouth/Throat: absent: As Per HPI, Epistaxis, Nasal Congestion, Nasal Discharge, Nasal Obstruction, Nasal Trauma, Nose Pain, Post Nasal Drip, Sinus Pain, Sinus Pressure, Bleeding Gums, Change in Voice, Dental Pain, Dry Mouth, Dysphagia, Halitosis, Hoarsness, Lip Swelling, Mouth Lesions, Mouth Pain, Odynophagia, Sore Throat, Throat Swelling, Tongue Swelling, Facial Pain, Neck Pain, Neck Mass, Other - Breasts Breasts: absent: As Per HPI, Change in Shape, Mass, Pain, Nipple Discharge, Nipple Inversion, Skin Changes, Swelling, Other - Cardiovascular Cardiovascular: As Per HPI - Respiratory Respiratory: As Per HPI, Cough, Dyspnea. absent: Hemoptysis - Gastrointestinal Gastrointestinal: absent: As Per HPI, Abdominal Pain, Belching, Bloating, Change in Bowel Habits, Change in Stool Character, Coffee Ground Emesis, Constipation, Cramping, Diarrhea, Dyspepsia, Dysphagia, Early Satiety, Excessive Flatus, Fecal Incontinence, Heartburn, Hematemesis, Hematochezia, Loose Stools, Melena, Nausea, Odynophagia, Temesmus, Vomiting, Other - Genitourinary Genitourinary: absent: As Per HPI, Change in Urinary Stream, Difficulty Urinating, Dysuria, Flank Pain, Hematuria, Pyuria, Nocturia, Urinary Incontinence, Urinary Frequency, Urinary Hesitance, Urinary Urgency, Voiding Freq/Small Amts, Freq UTI, Hx Renal/Bladder Calculi, Hx /Renal Surgery, Bladder Distension, Other - Reproductive: Female Reproductive:Female: absent: As Per HPI, Amenorrhea, Amenorrhea/ Control, Currently Menstual, Cycle <21 Days, Cycle >35 Days, Cycle Variable, Menses 1-7 Days, Menses >/= 8 Days, Menses Variable, Cycle > 4 Weeks Between, No Menses for 6 Months, Heavy Menses, Light Menses, Normal Menses, Spotting Between Cycles , S/P Hysterectomy, Menopausal, Post Menopausal, Premenarche, Abnormal Vaginal Bleeding, Dysmenorrhea, Dyspareunia, Genital Lesions, Genital Pruritis, Pelvic Pain, Prolapse Symptoms, Sexual Dysfunction, Vaginal Discharge, Vaginal Dryness , Vaginal Odor, Vaginal Pruritis, Other - Menstruation Menstruation: absent: As Per HPI, Amenorrhea, Amenorrhea/ Control, Currently Menstual, Cycle <21 Days, Cycle >35 Days, Cycle Variable, Menses 1-7 Days, Menses >/= 8 Days, Menses Variable, Cycle > 4 Weeks Between, No Menses for 6 Months, Heavy Menses, Light Menses, Normal Menses, Spotting Between Cycles , S/P Hysterectomy, Menopausal, Post Menopausal, Premenarche, Abnormal Vaginal Bleeding, Dysmenorrhea, Other - Musculoskeletal Musculoskeletal: absent: As Per HPI, Abnormal Gait, Arthralgias, Atrophy, Back Pain, Deformity, Joint Swelling, Limited Range of Motion, Loss of Height, Muscle Cramps, Muscle Weakness, Myalgias, Neck Pain, Numbness, Radiating Pain into Limb, Stiffness, Tingling, Other - Integumentary Integumentary: absent: As Per HPI, Acne, Alopecia, Bleeding Lesions, Change in Hair, Change in Nails, Change in Pigmentation, Changing Lesions, Dry Skin, Erythema, Furuncle, Hirsutism, Lesions, New Lesions, Non-Healing Lesions, Photosensitivity, Pruritus, Rash, Skin Pain, Skin Ulcer, Sores, Striae, Swelling , Unusual Bruising, Wounds, Jaundice, Other - Neurological Neurological: absent: As Per HPI, Abnormal Gait, Abnormal Hearing, Abnormal Movements, Abnormal Speech, Behavioral Changes, Burning Sensations, Confusion, Convulsions, Disequilibrium, Dizziness, Numbness, Focal Weakness, Frequent Falls , Headaches, Lack of Coordination, Loss of Vision, Memory Loss, Paresthesias, Radicular Pain, Restless Legs, Sensory Deficit, Syncope, Tingling, Tremor, Vertigo, Weakness, Other Visual Disturbances, Other - Psychiatric Psychiatric: absent: As Per HPI, Abnormal Sleep Pattern, Anhedonia, Anxiety, Auditory Hallucinations, Behavioral Changes, Change in Appetite, Change in Libido, Confusion, Depression, Difficulty Concentrating, Hallucinations, Homicidal Ideation, Hopelessness, Irritability, Memory Loss, Mood Swings, Panic Attacks, Paranoia, Suicidal Ideation, Visual Hallucinations, Tactile Hallucinations, Other - Endocrine Endocrine: absent: As Per HPI, Change in Body Appearance, Change in Libido, Cold Intolorance, Deepening of Voice, Excessive Sweating, Fatigue, Flushing, Heat Intolorance, Increase in Ring/Shoe/Hat Size, Palpitations, Polydipsia, Polyphagia, Polyuria, Other - Hematologic/Lymphatic Hematologic: absent: As Per HPI, Easy Bleeding, Easy Bruising, Lymphadenopathy, Other Past Patient History - Tetanus Immunizations Tetanus Immunization: Unknown - Past Medical History & Family History Past Medical History?: Yes - Past Social History Chewing Tobacco Use: No Cigar Use: No Occupation: unemployed Alcohol: None Drugs: Denies Home Situation {Lives}: With Family - CARDIAC Hx Hypercholesterolemia: Yes Hx Hypertension: Yes - ENDOCRINE/METABOLIC Hx Diabetes Mellitus Type 1: Yes - MUSCULOSKELETAL/RHEUMATOLOGICAL Hx Falls: No - PSYCHIATRIC Hx Substance Use: No - SURGICAL HISTORY Hx Surgeries: Yes Other/Comment: oophorectomy; tubal ligation - ANESTHESIA Hx Anesthesia: Yes Hx Anesthesia Reactions: No Meds Allergies/Adverse Reactions: Allergies Allergy/AdvReac Type Severity Reaction Status Date / Time No Known Allergies Allergy Verified 09/01/17 09:17 - Medications Medications: Current Medications Albuterol/Ipratropium (Duoneb 3 Mg/0.5 Mg (3 Ml) Ud) 3 ml INH RQ4 [facility] Guaifenesin/Dextromethorphan (Robitussin Dm) 5 ml PO Q4H PRN PRN Reason: Cough Insulin Human Regular 100 unit (/ Sodium Chloride) 100 mls @ 2 mls/hr IV .Q24H ONE PRN Reason: Protocol Stop: 09/02/17 11:42 Last Titration: 09/01/17 17:07 Dose: 3 unit/hr, 3 mls/hr Vancomycin/Sodium Chloride (Vancomycin 1 Gm/Ns 200 Ml) 1 gm in 200 mls @ 133.333 mls/hr IVPB Q24H [facility] Stop: 09/07/17 08:01 Piperacillin Sod/Tazobactam Sod (Zosyn 3.375 Gm Iv Premix) 3.375 gm in 50 mls @ 100 mls/hr IVPB Q6H [facility] Last Admin: 09/01/17 15:30 Dose: 100 mls/hr Lactated Ringer's (Lactated Ringer's) 1,000 mls @ 100 mls/hr IV .Q10H [facility] Last Admin: 09/01/17 15:09 Dose: 100 mls/hr Potassium Phosphate 15 mmole/ (Sodium Chloride) 255 mls @ 63 mls/hr IV ONCE ONE Stop: 09/01/17 19:32 Potassium Chloride (Potassium Chloride 10 Meq/100 Ml) 10 meq in 100 mls @ 100 mls/hr IVPB Q1H [facility] Stop: 09/01/17 19:59 Last Admin: 09/01/17 17:13 Dose: 100 mls/hr Doxycycline Hyclate 100 mg/ (Sodium Chloride) 100 mls @ 100 mls/hr IVPB Q12H [facility] Labetalol HCl (Trandate) 10 mg IVP Q4H PRN PRN Reason: Systolic Blood Pressure >150 Last Admin: 09/01/17 15:58 Dose: 10 mg Oseltamivir Phosphate (Tamiflu Cap) 75 mg PO BID [facility] Stop: 09/06/17 11:54 Last Admin: 09/01/17 13:45 Dose: 75 mg Physical Exam - Constitutional Appears: Toxic, In Acute Distress - Head Exam Head Exam: ATRAUMATIC, NORMAL INSPECTION, NORMOCEPHALIC - Eye Exam Eye Exam: PERRL. absent: Scleral icterus - ENT Exam ENT Exam: Mucous Membranes Dry, Normal External Ear Exam - Neck Exam Neck exam: Negative for: Lymphadenopathy, Thyromegaly - Respiratory Exam Respiratory Exam: Decreased Breath Sounds, Prolonged Expiratory Phase, Rales, Rhonchi - Cardiovascular Exam Cardiovascular Exam: REGULAR RHYTHM, +S1, +S2 - GI/Abdominal Exam GI & Abdominal Exam: Diminished Bowel Sounds, Distended, Soft. absent: Rebound , Rigid, Tenderness - Rectal Exam Rectal Exam: Deferred - Exam Exam: NORMAL INSPECTION - Extremities Exam Extremities exam: Positive for: pedal pulses present. Negative for: calf tenderness, pedal edema, tenderness - Back Exam Back exam: absent: CVA tenderness (L), CVA tenderness (R), paraspinal tenderness - Neurological Exam Neurological exam: Alert, CN II-XII Intact, Oriented x3, Reflexes Normal - Psychiatric Exam Psychiatric exam: Depressed - Skin Skin Exam: Dry, Intact Results - Vital Signs Recent Vital Signs: Last Vital Signs Temp 97.6 F 09/01/17 13:45 Pulse 114 H 09/01/17 13:45 Resp 32 H 09/01/17 13:45 BP 184/95 H 09/01/17 13:45 Pulse Ox 92 L 09/01/17 17:29 - Labs Result Diagrams: 09/01/17 09:49 09/01/17 16:38 Labs: Laboratory Results - last 24 hr 09/01/17 09/01/17 09/01/17 09:49 09:49 09:49 WBC 32.3 H RBC 6.02 H Hgb 15.1 Hct 46.9 MCV 77.9 L MCH 25.2 L MCHC 32.3 L RDW 14.8 H Plt Count 573 H MPV 7.8 Neut % (Auto) 88.2 H Lymph % (Auto) 4.7 L Floyd % (Auto) 6.5 Eos % (Auto) 0.3 Baso % (Auto) 0.3 Neut # 28.5 H Lymph # 1.5 Floyd # 2.1 H Eos # 0.1 Baso # 0.1 Neutrophils % (Manual) 49 L Band Neutrophils % 34 H* Lymphocytes % (Manual) 12 L Reactive Lymphs % 1 H Monocytes % (Manual) 3 Metamyelocytes % 1 H Toxic Granulation Present Platelet Estimate Increased H Large Platelets Present Giant Platelets Present RBC Morphology Normal PT 14.3 H INR 1.2 APTT 32 Puncture Site pCO2 pO2 HCO3 ABG pH ABG Total CO2 ABG O2 Saturation ABG Base Excess ABG Hemoglobin ABG Carboxyhemoglobin POC ABG HHb (Measured) ABG Methemoglobin Vince Test ABG Potassium VBG pH VBG pCO2 VBG HCO3 VBG Total CO2 VBG O2 Sat (Calc) VBG Base Excess VBG Potassium A-a O2 Difference Respiratory Index Hgb O2 Saturation Glucose Lactate Vent Mode FiO2 Inspiratory BiPAP Expiratory BiPAP Crit Value Called To Crit Value Called By Crit Value Read Back Blood Gas Notified Time Sodium 135 Potassium 4.4 Chloride 103 Carbon Dioxide 6 L* Anion Gap 30 H BUN 16 Creatinine 0.9 Est GFR ( Amer) > 60 Est GFR (Non-Af Amer) > 60 POC Glucose (mg/dL) Random Glucose 517 H* Calcium 10.0 Total Bilirubin 0.7 AST 16 ALT 11 Alkaline Phosphatase 221 H Troponin I < 0.0120 NT-Pro-B Natriuret Pep 334 Total Protein 8.6 H Albumin 3.8 Globulin 4.9 H Albumin/Globulin Ratio 0.8 L Arterial Blood Potassium Venous Blood Potassium Urine Color Urine Clarity Urine pH Ur Specific [place] Urine Protein Urine Glucose (UA) Urine Ketones Urine Blood Urine Nitrate Urine Bilirubin Urine Urobilinogen Ur Leukocyte Esterase Urine WBC (Auto) Urine RBC (Auto) Ur Squamous Epith Cells Urine Bacteria Hyaline Casts Serum Ketones Moderate Influenza Typ A,B (EIA) 09/01/17 09/01/17 09/01/17 09:52 10:57 11:30 WBC RBC Hgb Hct MCV MCH MCHC RDW Plt Count MPV Neut % (Auto) Lymph % (Auto) Floyd % (Auto) Eos % (Auto) Baso % (Auto) Neut # Lymph # Floyd # Eos # Baso # Neutrophils % (Manual) Band Neutrophils % Lymphocytes % (Manual) Reactive Lymphs % Monocytes % (Manual) Metamyelocytes % Toxic Granulation Platelet Estimate Large Platelets Giant Platelets RBC Morphology PT INR APTT Puncture Site Rr pCO2 19 L* pO2 31 246 H HCO3 7.3 L* ABG pH 7.08 L* ABG Total CO2 6.2 L ABG O2 Saturation 100.4 H ABG Base Excess -22.6 L ABG Hemoglobin 13.8 ABG Carboxyhemoglobin 2.1 H POC ABG HHb (Measured) -0.4 L ABG Methemoglobin 1.6 Vince Test Pos ABG Potassium VBG pH 7.01 L* VBG pCO2 28 L VBG HCO3 5.2 VBG Total CO2 8.0 L VBG O2 Sat (Calc) 82.7 H VBG Base Excess -22.9 L VBG Potassium 4.5 A-a O2 Difference 158.0 Respiratory Index 0.6 Hgb O2 Saturation 96.8 Glucose 508 H* Lactate 2.3 H Vent Mode Bipap FiO2 60.0 Inspiratory BiPAP 10 Expiratory BiPAP 5 Crit Value Called To Bhakti larkin Crit Value Called By Ananth thompson casing sewer Safia metcalf casing sewer Crit Value Read Back Y Y Blood Gas Notified Time 956 1105 Sodium 140.0 Potassium Chloride 102.0 Carbon Dioxide Anion Gap BUN Creatinine Est GFR ( Amer) Est GFR (Non-Af Amer) POC Glucose (mg/dL) Random Glucose Calcium Total Bilirubin AST ALT Alkaline Phosphatase Troponin I NT-Pro-B Natriuret Pep Total Protein Albumin Globulin Albumin/Globulin Ratio Arterial Blood Potassium Venous Blood Potassium 4.5 Urine Color Urine Clarity Urine pH Ur Specific [place] Urine Protein Urine Glucose (UA) Urine Ketones Urine Blood Urine Nitrate Urine Bilirubin Urine Urobilinogen Ur Leukocyte Esterase Urine WBC (Auto) Urine RBC (Auto) Ur Squamous Epith Cells Urine Bacteria Hyaline Casts Serum Ketones Influenza Typ A,B (EIA) Negative for flu a/b 09/01/17 09/01/17 09/01/17 12:48 12:53 13:07 WBC RBC Hgb Hct MCV MCH MCHC RDW Plt Count MPV Neut % (Auto) Lymph % (Auto) Floyd % (Auto) Eos % (Auto) Baso % (Auto) Neut # Lymph # Floyd # Eos # Baso # Neutrophils % (Manual) Band Neutrophils % Lymphocytes % (Manual) Reactive Lymphs % Monocytes % (Manual) Metamyelocytes % Toxic Granulation Platelet Estimate Large Platelets Giant Platelets RBC Morphology PT INR APTT Puncture Site pCO2 pO2 22 L HCO3 ABG pH ABG Total CO2 ABG O2 Saturation ABG Base Excess ABG Hemoglobin ABG Carboxyhemoglobin POC ABG HHb (Measured) ABG Methemoglobin Vince Test ABG Potassium VBG pH 6.96 L* VBG pCO2 42 VBG HCO3 5.4 VBG Total CO2 10.7 L VBG O2 Sat (Calc) 35.6 L VBG Base Excess -22.1 L VBG Potassium 4.2 A-a O2 Difference Respiratory Index Hgb O2 Saturation Glucose 366 H Lactate 2.9 H Vent Mode FiO2 Inspiratory BiPAP Expiratory BiPAP Crit Value Called To Mary pole lift operator Crit Value Called By David Crit Value Read Back Y Blood Gas Notified Time 1251 Sodium 137.0 Potassium Chloride 111.0 H Carbon Dioxide Anion Gap BUN Creatinine Est GFR ( Amer) Est GFR (Non-Af Amer) POC Glucose (mg/dL) 343 H Random Glucose Calcium Total Bilirubin AST ALT Alkaline Phosphatase Troponin I NT-Pro-B Natriuret Pep Total Protein Albumin Globulin Albumin/Globulin Ratio Arterial Blood Potassium Venous Blood Potassium 4.2 Urine Color Yellow Urine Clarity Clear Urine pH 5.0 Ur Specific [place] 1.023 Urine Protein 2+ H Urine Glucose (UA) 3+ H Urine Ketones 2+ H Urine Blood 1+ H Urine Nitrate Negative Urine Bilirubin Negative Urine Urobilinogen Normal Ur Leukocyte Esterase Neg Urine WBC (Auto) 1 Urine RBC (Auto) 5 H Ur Squamous Epith Cells < 1 Urine Bacteria Occ H Hyaline Casts 3-5 H Serum Ketones Influenza Typ A,B (EIA) 09/01/17 09/01/17 09/01/17 13:45 14:28 15:56 WBC RBC Hgb Hct MCV MCH MCHC RDW Plt Count MPV Neut % (Auto) Lymph % (Auto) Floyd % (Auto) Eos % (Auto) Baso % (Auto) Neut # Lymph # Floyd # Eos # Baso # Neutrophils % (Manual) Band Neutrophils % Lymphocytes % (Manual) Reactive Lymphs % Monocytes % (Manual) Metamyelocytes % Toxic Granulation Platelet Estimate Large Platelets Giant Platelets RBC Morphology PT INR APTT Puncture Site pCO2 pO2 125 H HCO3 ABG pH ABG Total CO2 ABG O2 Saturation ABG Base Excess ABG Hemoglobin ABG Carboxyhemoglobin POC ABG HHb (Measured) ABG Methemoglobin Vince Test ABG Potassium VBG pH 7.17 L* VBG pCO2 19 L* VBG HCO3 9.7 VBG Total CO2 7.5 L VBG O2 Sat (Calc) 99.4 H VBG Base Excess -19.5 L VBG Potassium 1.6 L* A-a O2 Difference Respiratory Index Hgb O2 Saturation Glucose 159 H Lactate 1.2 Vent Mode FiO2 Inspiratory BiPAP Expiratory BiPAP Crit Value Called To Anna lopez Crit Value Called By Yosi javier,casing sewer Crit Value Read Back Y Blood Gas Notified Time 1355 Sodium 154.0 H Potassium Chloride 132.0 H Carbon Dioxide Anion Gap BUN Creatinine Est GFR ( Amer) Est GFR (Non-Af Amer) POC Glucose (mg/dL) 280 H 256 H Random Glucose Calcium Total Bilirubin AST ALT Alkaline Phosphatase Troponin I NT-Pro-B Natriuret Pep Total Protein Albumin Globulin Albumin/Globulin Ratio Arterial Blood Potassium Venous Blood Potassium 1.6 L* Urine Color Urine Clarity Urine pH Ur Specific [place] Urine Protein Urine Glucose (UA) Urine Ketones Urine Blood Urine Nitrate Urine Bilirubin Urine Urobilinogen Ur Leukocyte Esterase Urine WBC (Auto) Urine RBC (Auto) Ur Squamous Epith Cells Urine Bacteria Hyaline Casts Serum Ketones Influenza Typ A,B (EIA) 09/01/17 09/01/17 09/01/17 16:38 16:45 17:03 WBC RBC Hgb Hct MCV MCH MCHC RDW Plt Count MPV Neut % (Auto) Lymph % (Auto) Floyd % (Auto) Eos % (Auto) Baso % (Auto) Neut # Lymph # Floyd # Eos # Baso # Neutrophils % (Manual) Band Neutrophils % Lymphocytes % (Manual) Reactive Lymphs % Monocytes % (Manual) Metamyelocytes % Toxic Granulation Platelet Estimate Large Platelets Giant Platelets RBC Morphology PT INR APTT Puncture Site Rra pCO2 34 L pO2 73 L HCO3 15.2 L ABG pH 7.23 L ABG Total CO2 15.2 L ABG O2 Saturation 97.3 ABG Base Excess -12.3 L ABG Hemoglobin ABG Carboxyhemoglobin POC ABG HHb (Measured) ABG Methemoglobin Vince Test Pos ABG Potassium 2.6 L VBG pH VBG pCO2 VBG HCO3 VBG Total CO2 VBG O2 Sat (Calc) VBG Base Excess VBG Potassium A-a O2 Difference 170.0 Respiratory Index 2.3 Hgb O2 Saturation Glucose 271 H Lactate 1.4 Vent Mode FiO2 40.0 Inspiratory BiPAP 10 Expiratory BiPAP 5 Crit Value Called To Crit Value Called By Crit Value Read Back Blood Gas Notified Time Sodium 139 142.0 Potassium 2.7 L Chloride 110 H 112.0 H Carbon Dioxide 15 L Anion Gap 16 BUN 12 Creatinine 0.5 L Est GFR ( Amer) > 60 Est GFR (Non-Af Amer) > 60 POC Glucose (mg/dL) 231 H Random Glucose 287 H Calcium 8.2 L Total Bilirubin 0.6 AST 32 ALT 25 Alkaline Phosphatase 137 H D Troponin I NT-Pro-B Natriuret Pep Total Protein 6.6 Albumin 2.9 L D Globulin 3.8 Albumin/Globulin Ratio 0.8 L Arterial Blood Potassium 2.6 L Venous Blood Potassium Urine Color Urine Clarity Urine pH Ur Specific [place] Urine Protein Urine Glucose (UA) Urine Ketones Urine Blood Urine Nitrate Urine Bilirubin Urine Urobilinogen Ur Leukocyte Esterase Urine WBC (Auto) Urine RBC (Auto) Ur Squamous Epith Cells Urine Bacteria Hyaline Casts Serum Ketones Influenza Typ A,B (EIA) Assessment & Plan (1) DKA (diabetic ketoacidoses) Status: Acute (2) Pneumonia Status: Acute (3) Sepsis Status: Acute - Assessment and Plan (Free Text) Assessment: May need intubation if compensatory mechanisms become depleted Agree with IV antibiotics await cultures Cont Vanco / Zosyn
[2017-09-01 18:47] LABS: MAGNESIUM 2.1 mg/dL (1.6-2.3)
[2017-09-01 19:18] LABS: ALB/GLOB RATIO 0.8 (1.0-2.1); ALBUMIN 2.9 g/dL (3.5-5.0); ALT/SGPT 19 U/L (9-52); AST/SGOT 30 U/L (14-36); BLOOD UREA NITROGEN 12 mg/dL (7-17); CALCIUM 8.4 mg/dl (8.6-10.4); GFR AFRICAN-AMERICAN > 60; GFR NON-AFRICAN AMERICAN > 60; MAGNESIUM 2.1 mg/dL (1.6-2.3)
[2017-09-01 19:21] LABS: B-TYPE NATRIURETIC PEPTIDE 1290 pg/mL (0-900)
--- NOTE | 2017-09-01 19:41 | CT ---
EXAM: CT Chest Without Intravenous Contrast EXAM DATE/TIME: 09/01/2017 1:46 PM CLINICAL HISTORY: 62 years old, female; Signs and symptoms; Shortness of breath; Additional info: SOB TECHNIQUE: Axial computed tomography images of the chest without intravenous contrast. All CT scans at this facility use one or more dose reduction techniques, viz.: automated exposure control; ma/kV adjustment per patient size (including targeted exams where dose is matched to indication; i.e. head); or iterative reconstruction technique. Coronal and sagittal reformatted images were created and reviewed. COMPARISON: No relevant prior studies available. FINDINGS: LIMITATIONS: Mild respiratory motion artifact. LUNGS: Multifocal areas of dense consolidation are seen in the lungs bilaterally, highly suspicious for an extensive, bilateral pneumonia. This involves all 5 lobes. There are also multiple tree in bud opacities and small ill-defined nodules in the lungs bilaterally, most likely due to an infectious bronchiolitis/pneumonia, in an acute setting. No evidence of diffuse pulmonary vascular congestion. PLEURAL SPACE: No pneumothorax or significant pleural effusions seen. HEART: Coronary artery calcification. No significant cardiomegaly. No evidence of significant pericardial effusion. MEDIASTINUM: Small to moderate hiatal hernia. BONES/JOINTS: No acute fractures or other acute bony abnormality noted. SOFT TISSUES: No acute abnormality of the visualized soft tissues is seen. VASCULATURE: Exam is nondiagnostic for aortic dissection and pulmonary emboli, secondary to unenhanced technique. LYMPH NODES: Multiple small lymph nodes seen in the mediastinum, none appearing pathologically enlarged. This is a nonspecific finding. No evidence of diffuse pathologic lymphadenopathy. KIDNEYS AND URETERS: Large round mass incidentally noted in the left abdomen, which is incompletely visualized limits exam. This arises from the left kidney, and projects anteriorly. It is composed of fat density and soft tissue density, and has well-defined margins. It has a CT appearance most compatible with a large left renal angiomyolipoma. It measures 9.5 cm maximally. IMPRESSION: - Findings highly suspicious for an extensive, multifocal bilateral pneumonia, as described. Followup is recommended to document clearing, as this has a micronodular component. - Otherwise, no evidence of significant acute process on this unenhanced exam. 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 - See above for remaining findings.
[2017-09-01] MEDS: Albuterol-Ipratrop 3 mg / 0.5 (3 ml) UD INH SCH (19:55)
--- NOTE | 2017-09-01 20:01 | CP.PCM.PN ---
Subjective - Date & Time of Evaluation Date of Evaluation: 09/01/17 Time of Evaluation: 19:59 - Subjective Subjective: sick looking. Objective - Vital Signs/Intake and Output Vital Signs (last 24 hours): Temp Pulse Resp BP Pulse Ox 97.6 F 114 H 32 H 184/95 H 92 L 09/01/17 13:45 09/01/17 15:45 09/01/17 13:45 09/01/17 13:45 09/01/17 17:29 Intake and Output: 09/01/17 09/02/17 18:59 06:59 Intake Total 10 Balance 10 - Medications Medications: Current Medications Albuterol/Ipratropium (Duoneb 3 Mg/0.5 Mg (3 Ml) Ud) 3 ml INH RQ4 [facility] Last Admin: 09/01/17 19:55 Dose: 3 ml Guaifenesin/Dextromethorphan (Robitussin Dm) 5 ml PO Q4H PRN PRN Reason: Cough Insulin Human Regular 100 unit (/ Sodium Chloride) 100 mls @ 2 mls/hr IV .Q24H ONE PRN Reason: Protocol Stop: 09/02/17 11:42 Last Titration: 09/01/17 17:07 Dose: 3 unit/hr, 3 mls/hr Vancomycin/Sodium Chloride (Vancomycin 1 Gm/Ns 200 Ml) 1 gm in 200 mls @ 133.333 mls/hr IVPB Q24H [facility] Stop: 09/07/17 08:01 Piperacillin Sod/Tazobactam Sod (Zosyn 3.375 Gm Iv Premix) 3.375 gm in 50 mls @ 100 mls/hr IVPB Q6H [facility] Last Admin: 09/01/17 15:30 Dose: 100 mls/hr Lactated Ringer's (Lactated Ringer's) 1,000 mls @ 100 mls/hr IV .Q10H [facility] Last Admin: 09/01/17 15:09 Dose: 100 mls/hr Doxycycline Hyclate 100 mg/ (Sodium Chloride) 100 mls @ 100 mls/hr IVPB Q12H [facility] Last Admin: 09/01/17 18:50 Dose: 100 mls/hr Azithromycin (Zithromax 500mg In Ns Addvantage) 500 mg in 250 mls @ 167 mls/hr IVPB Q24H [facility] Labetalol HCl (Trandate) 10 mg IVP Q4H PRN PRN Reason: Systolic Blood Pressure >150 Last Admin: 09/01/17 15:58 Dose: 10 mg Oseltamivir Phosphate (Tamiflu Cap) 75 mg PO BID [facility] Stop: 09/06/17 11:54 Last Admin: 09/01/17 18:49 Dose: 75 mg - Labs Labs: 09/01/17 09:49 09/01/17 18:51 PT 14.3 SECONDS (9.7-12.2) H 09/01/17 09:49 INR 1.2 09/01/17 09:49 APTT 32 SECONDS (21-34) 09/01/17 09:49 - Constitutional Appears: Toxic - Head Exam Head Exam: NORMOCEPHALIC - Neck Exam Neck Exam: Normal Inspection - Respiratory Exam Respiratory Exam: Rhonchi - Cardiovascular Exam Cardiovascular Exam: Tachycardia, REGULAR RHYTHM - GI/Abdominal Exam GI & Abdominal Exam: Soft - Extremities Exam Extremities Exam: absent: Pedal Edema - Neurological Exam Neurological Exam: Alert, Oriented x3 Assessment and Plan - Assessment and Plan (Free Text) Assessment: dka,getting better. ct noted,extensive pneumonia. seen by pul & id . diss with family re critical condition.
[2017-09-01] MEDS: Potassium Phosphate 15 MMOLE in Sodium Chloride 0.9% 250 ML IV ONE ×2 (21:00→21:36)
--- NOTE | 2017-09-01 21:18 | HP ---
HISTORY OF PRESENT ILLNESS: A 62-year-old female was brought in with a history of increasing cough, shortness of breath to the emergency room. The patient is noted to have history of hypertension, diabetes, and high cholesterol. She was in her usual state of health up until a week ago when she developed cough, fever, went to see another MD and was positive for flu by nasal swab. She was placed on Tamiflu, Medrol Dosepak, and cough medicines. She did not get better, came to the office on 08/29/2017, three days ago with cough. At that time, the vital signs were stable. Lungs, there were no exudates and scattered rhonchi were noted. The patient was given Zithromax, Phenergan with Codeine, and Advair samples were given. The patient was given prescription for chest x-ray also if it did not get better and advised to return to emergency room p.r.n. Case was discussed with the patient and her . This morning, she got worse. Today, was her 5th day for Tamiflu and 3rd day for Zithromax. PAST MEDICAL HISTORY: Hysterectomy. ALLERGIC: SHE IS ALLERGIC TO PENICILLIN. FAMILY HISTORY: Negative for premature coronary artery disease. MEDICATIONS: At home, she is on Diovan 80/12.5 mg, multivitamin 1 a day, Glucovance 5/500, Levemir, Lipitor 40 mg, and Prilosec. REVIEW OF SYSTEMS: Generalized weakness is noted. No fever. No chills. Nonproductive cough, wheeze. No visual disturbances. Denies any chest pains. History of hypertension. No hematemesis. No melena. History of arthritis involving multiple joints. At times, she had some incontinence. Neurologically, no history of TIAs or CVAs. Echocardiogram done in the past had shown normal LV systolic function. PHYSICAL EXAMINATION: GENERAL: Shows middle-aged female, in obvious respiratory distress. VITAL SIGNS: Blood pressure is 170/70, heart rate of 120, respiratory rate of 24. She is afebrile. HEENT: Head is normocephalic. Eyes: No pallor. No icterus. LUNGS: Show diffuse inspiratory and expiratory wheeze. HEART: Heart sounds are distant and tachycardic. ABDOMEN: Soft. EXTREMITIES: No cyanosis, clubbing, or edema. Distal pulses are intact. Chest x-ray shows pneumonia. ASSESSMENT: A 62-year-old female with a history of diabetes, has developed pneumonitis, post flu. PLAN: At this point, is to admit to ICU. Case was explained to Dr. Wilder, the Pulmonary cyber security consultant and discussed also with Dr. Gage and also with ICU physician, Dr. Balbuena. The patient's blood sugar is high and she is likely acidotic. The picture is consistent with diabetic ketoacidosis, secondary to pneumonia. At this point, we will hold off any steroids, pulmonary care, and ID care. Care of plan was explained to the patient's daughter, who was at the bedside and her . CONDITION: Critical. Nikhil Vargas MD
[2017-09-01] MEDS: Azithromycin 500mg/250ML NS 500 MG/250 ML BAG IVPB SCH ×2 (22:00→22:30)
[2017-09-02] MEDS: Albuterol-Ipratrop 3 mg / 0.5 (3 ml) UD INH SCH ×6 (01:40→23:47)
[2017-09-02] MEDS: Piperacill/Tazo 3.375gm in Dex 3.375 GM/50 ML BAG IVPB SCH ×4 (03:47→20:56)
[2017-09-02 05:41] LABS: VENOUS BLOOD GAS BASE EXCESS -4.7 mmol/L (0.0-2.0); VENOUS BLOOD GAS PCO2 33 mmHg (40-60); VENOUS BLOOD GAS PO2 54 mm/Hg (30-55); VENOUS BLOOD PH 7.38 (7.32-7.43)
[2017-09-02 06:18] LABS: BASO # 0.1 K/uL (0.0-0.2); BASO % 0.2 % (0.0-2.0); HEMOGLOBIN 13.7 g/dL (11.0-16.0); LYMPH % 4.3 % (20.0-40.0); MEAN CELL VOLUME 73.4 fL (81.0-99.0); MEAN CORPUSCULAR HEMOGLOBIN 24.3 pg (27.0-31.0); MEAN CORPUSCULAR HGB CONC 33.1 g/dL (33.0-37.0); MEAN PLATELET VOLUME 7.6 fL (7.2-11.7); MONO # 0.8 K/uL (0.0-0.8); MONO % 3.4 % (0.0-10.0); NEUT # 21.9 K/uL (1.8-7.0); NEUT % 92.1 % (50.0-75.0); NRBC % 0.1 % (0.0-2.0); PLATELET COUNT 391 K/uL (130-400); RBC 5.65 Mil/uL (3.80-5.20); RED CELL DISTRIBUTION WIDTH 14.5 % (11.5-14.5); WHITE BLOOD COUNT 23.8 K/uL (4.8-10.8)
[2017-09-02] MEDS: Labetalol 25mg/5ml Syringe IVP PRN ×2 (06:34→11:27)
[2017-09-02 06:38] LABS: ALB/GLOB RATIO 0.8 (1.0-2.1); ALBUMIN 2.8 g/dL (3.5-5.0); ALT/SGPT 16 U/L (9-52); AST/SGOT 24 U/L (14-36); BLOOD UREA NITROGEN 12 mg/dL (7-17); CALCIUM 8.4 mg/dl (8.6-10.4); GFR AFRICAN-AMERICAN > 60; GFR NON-AFRICAN AMERICAN > 60
[2017-09-02] MEDS ORDERED: Vancomycin 1 gm/NS 200 ml 1 GM/200 ML BAG IVPB SCH (08:00)
[2017-09-02] MEDS: (Novolin R) Insulin Human Regular 100 units/ml vial SC SCH ×4 (08:15→20:00)
[2017-09-02 08:19] LABS: BARBITURATES, UR NEGATIVE (NEGATIVE); BENZODIAZEPINES, UR NEGATIVE (NEGATIVE); PHENCYCLIDINE, UR NEGATIVE (NEGATIVE)
[2017-09-02 08:45] LABS: BANDS 40 % (0-2); LYMPHOCYTE 9 % (20-40); METAMYELOCYTE 6 % (0-0); MONOCYTE 9 % (0-10); MYELOCYTE 3 % (0-0); NEUTROPHIL 33 % (50-75); PLATELET ESTIMATE NORMAL (NORMAL); TOTAL CELLS COUNTED 100
[2017-09-02 08:46] LABS: ANISOCYTOSIS SLIGHT; LARGE PLATELETS PRESENT; TOXIC GRANULATION PRESENT
[2017-09-02 08:47] LABS: GIANT PLATELETS PRESENT; MICROCYTOSIS SLIGHT; POLYCHROMIC SLIGHT
[2017-09-02] MEDS ORDERED: Potassium Phosphate 15 MMOLE in Sodium Chloride 0.9% 250 ML IVPB ONE (10:00)
--- NOTE | 2017-09-02 10:56 | RAD ---
Chest x-ray single frontal view History: Infiltrate. Comparison: 09/01/2017 Findings: Prominent increased confluent bilateral airspace opacities throughout both lungs suggestive for worsening infiltrate and or edema. Post treatment interval followup would be helpful to ensure resolution. Tortuous aorta. Mild cardiomegaly. Degenerative changes in the spine and shoulders. Impression: Prominent increased confluent bilateral airspace opacities throughout both lungs suggestive for worsening infiltrate and or edema. Post treatment interval followup would be helpful to ensure resolution. Tortuous aorta. Mild cardiomegaly.
--- NOTE | 2017-09-02 11:29 | CP.CCUPN ---
CCU Subjective - Physician Review Subjective (Free Text): Patient continues to improve Acid base better cmpared to yesterday, Anion gap closed, alctic normalized, continues bi-pap and aerosol mask. Patient, daughter and agrees to temporary ventilator to improve pulmonay toilet 09/02/17 11:25 Critical Care Time Spent (in minutes): 45 CCU Objective - Vital Signs / Intake & Output Vital Signs (Last 4 hours): Vital Signs Pulse Resp BP Pulse Ox 09/02/17 10:00 111 H 48 H 96 09/02/17 09:56 107 H 44 H 163/89 H 96 09/02/17 09:00 96 H 13 94 L 09/02/17 08:57 102 H 24 167/91 H 93 L 09/02/17 08:00 88 42 H 95 09/02/17 07:57 85 44 H 181/86 H 95 Intake and Output (Last 8hrs): Intake & Output 09/01/17 09/02/17 09/02/17 22:59 06:59 14:59 Intake Total 1039 381 0 Output Total 900 700 Balance 139 -319 0 Weight 154 lb 0.9 oz Intake: IV 14 Intake, IV Amount 1025 381 0 Left Antecubital 150 Left Forearm 167 133 Right Antecubital 22 22 0 Right Hand 410 100 Right Hand #2 276 126 Output: Urine 900 700 Urine, Voided 900 700 Other: # Voids Urine, Voided 1 # Bowel Movements 0 - Physical Exam Physical Exam Limitations: Negative for: Altered Mental Status Head: Positive for: Atraumatic, Normocephalic Pupils: Positive for: PERRL Conjunctiva: Positive for: Normal Mouth: Positive for: Moist Mucous Membranes Respiratory/Chest: Positive for: Accessory Muscle Use, Wheezes, Rhonchi, Tachypneic Cardiovascular: Positive for: Regular Rate and Rhythm, Normal S1, S2 - Medications Active Medications: Active Medications Generic Name Dose Route Start Last Admin Trade Name Freq PRN Reason Stop Dose Admin Albuterol/Ipratropium 3 ml 09/01/17 20:00 09/02/17 08:53 Duoneb 3 Mg/0.5 Mg (3 Ml) Ud INH 3 ml RQ4 WILLIAM Administration Aspirin 81 mg 09/02/17 10:00 09/02/17 09:29 Aspirin Chewable PO 81 mg DAILY WILLIAM Administration Guaifenesin/Dextromethorphan 5 ml 09/01/17 13:52 09/01/17 22:56 Robitussin Dm PO 5 ml Q4H PRN Administration Cough Heparin Sodium (Porcine) 5,000 units 09/02/17 06:00 09/02/17 06:28 Heparin SC 5,000 units Q8 WILLIAM Administration Vancomycin/Sodium Chloride 1 gm in 200 mls @ 133.333 mls/hr 09/02/17 08:00 07:55 Vancomycin 1 Gm/Ns 200 Ml IVPB 09/07/17 08:01 133.333 mls/hr Q24H WILLIAM Administration Piperacillin Sod/Tazobactam Sod 3.375 gm in 50 mls @ 100 mls/hr 09/01/17 15: 00 09/02/17 09:29 Zosyn 3.375 Gm Iv Premix IVPB 100 mls/hr Q6H WILLIAM Administration Doxycycline Hyclate 100 mg/ 100 mls @ 100 mls/hr 09/01/17 19:00 09/02/17 06: 35 Sodium Chloride IVPB 100 mls/hr Q12H WILLIAM Administration Potassium Chloride 10 meq in 100 mls @ 100 mls/hr 09/02/17 08:30 09/02/17 10: 34 Potassium Chloride 10 Meq/100 Ml IVPB 09/02/17 12:29 100 mls/hr Q1H WILLIAM Administration Potassium Phosphate 15 mmole/ 255 mls @ 42.5 mls/hr 09/02/17 10:00 09/02/17 10:09 Sodium Chloride IVPB 09/02/17 15:59 42.5 mls/hr ONCE ONE Administration Azithromycin 500 mg/ Sodium 250 mls @ 167 mls/hr 09/02/17 19:00 Chloride IVPB Q24H WILLIAM Propofol 1,000 mg in 100 mls @ 2.096 mls/hr 09/02/17 11:23 Diprivan IV .Q24H PRN TITRATE PER MD ORDER Protocol 5 MCG/KG/MIN Insulin Human Regular 0 unit 09/02/17 07:30 09/02/17 08:15 Novolin R SC 3 unit ACHS WILLIAM Administration Protocol Labetalol HCl 10 mg 09/01/17 14:36 09/02/17 06:34 Trandate IVP 10 mg Q4H PRN Administration Systolic Blood Pressure >150 Oseltamivir Phosphate 75 mg 09/01/17 12:00 09/02/17 09:29 Tamiflu Cap PO 09/06/17 11:54 75 mg BID WILLIAM Administration - Patient Studies Lab Studies: Lab Studies 09/02/17 09/02/17 09/02/17 Range/Units 08:02 07:35 06:11 WBC (4.8-10.8) K/uL RBC (3.80-5.20) Mil/uL Hgb (11.0-16.0) g/dL Hct (34.0-47.0) % MCV (81.0-99.0) fL MCH (27.0-31.0) pg MCHC (33.0-37.0) g/dL RDW (11.5-14.5) % Plt Count (130-400) K/uL MPV (7.2-11.7) fL Neut % (Auto) (50.0-75.0) % Lymph % (Auto) (20.0-40.0) % [place] % (Auto) (0.0-10.0) % Eos % (Auto) (0.0-4.0) % Baso % (Auto) (0.0-2.0) % Neut # (1.8-7.0) K/uL Lymph # (1.0-4.3) K/uL [place] # (0.0-0.8) K/uL Eos # (0.0-0.7) K/uL Baso # (0.0-0.2) K/uL Neutrophils % (Manual) (50-75) % Band Neutrophils % (0-2) % Lymphocytes % (Manual) (20-40) % Monocytes % (Manual) (0-10) % Metamyelocytes % (0-0) % Myelocytes % (0-0) % Toxic Granulation Platelet Estimate (NORMAL) Large Platelets Giant Platelets Polychromasia Anisocytosis (manual) Microcytosis (manual) Puncture Site pCO2 (35-45) mm/Hg pO2 (30-55) mm/Hg HCO3 (21-28) mmol/L ABG pH (7.35-7.45) ABG Total CO2 (22-28) mmol/L ABG O2 Saturation (95-98) % ABG Base Excess (-2.0-3.0) mmol/L Vince Test ABG Potassium (3.6-5.2) mmol/L VBG pH (7.32-7.43) VBG pCO2 (40-60) mmHg VBG HCO3 mmol/L VBG Total CO2 (22-28) mmol/L VBG O2 Sat (Calc) (40-65) % VBG Base Excess (0.0-2.0) mmol/L VBG Potassium (3.6-5.2) mmol/L A-a O2 Difference mm/Hg Respiratory Index Glucose (65-105) mg/dl Lactate (0.7-2.1) mmol/L FiO2 % Inspiratory BiPAP Expiratory BiPAP Crit Value Called To Crit Value Called By Crit Value Read Back Blood Gas Notified Time Sodium (132-148) mmol/L Potassium (3.6-5.2) mmol/L Chloride (98-107) mmol/L Carbon Dioxide (22-30) mmol/L Anion Gap (10-20) BUN (7-17) mg/dL Creatinine (0.7-1.2) mg/dL Est GFR ( Amer) Est GFR (Non-Af Amer) POC Glucose (mg/dL) 222 H 191 H (65-110) mg/dL Random Glucose (65-105) mg/dL Hemoglobin A1c (4.2-6.5) % Calcium (8.6-10.4) mg/dl Phosphorus (2.5-4.5) mg/dL Magnesium (1.6-2.3) mg/dL Total Bilirubin (0.2-1.3) mg/dL AST (14-36) U/L ALT (9-52) U/L Alkaline Phosphatase (38-126) U/L Troponin I (0.00-0.120) ng/mL NT-Pro-B Natriuret Pep (0-900) pg/mL Total Protein (6.3-8.3) g/dL Albumin (3.5-5.0) g/dL Globulin (2.2-3.9) gm/dL Albumin/Globulin Ratio (1.0-2.1) Procalcitonin (0.19-0.49) NG/ML Arterial Blood Potassium (3.6-5.2) mmol/L Venous Blood Potassium (3.6-5.2) mmol/L Urine Color (YELLOW) Urine Clarity (Clear) Urine pH (5.0-8.0) Ur Specific [place] (1.003-1.030) Urine Protein (NEGATIVE) mg/dL Urine Glucose (UA) (Normal) mg/dL Urine Ketones (NEGATIVE) mg/dL Urine Blood (NEGATIVE) Urine Nitrate (NEGATIVE) Urine Bilirubin (NEGATIVE) Urine Urobilinogen (0.2-1.0) mg/dL Ur Leukocyte Esterase (Negative) Mariam/uL Urine WBC (Auto) (0-5) /hpf Urine RBC (Auto) (0-3) /hpf Ur Squamous Epith Cells (0-5) /hpf Urine Bacteria (<OCC) Hyaline Casts (0-2) /lpf Urine Methadone Screen Negative (NEGATIVE) Ur Barbiturates Screen Negative (NEGATIVE) Ur Phencyclidine Scrn Negative (NEGATIVE) U Benzodiazepines Scrn Negative (NEGATIVE) U Oth Cocaine Metabols Negative (NEGATIVE) U Cannabinoids Screen Negative (NEGATIVE) Serum Ketones (NEGATIVE) Influenza Typ A,B (EIA) (NEGATIVE) 09/02/17 09/02/17 09/02/17 Range/Units 06:11 06:11 06:11 WBC 23.8 H (4.8-10.8) K/uL RBC 5.65 H (3.80-5.20) Mil/uL Hgb 13.7 (11.0-16.0) g/dL Hct 41.4 (34.0-47.0) % MCV 73.4 L D (81.0-99.0) fL MCH 24.3 L (27.0-31.0) pg MCHC 33.1 (33.0-37.0) g/dL RDW 14.5 (11.5-14.5) % Plt Count 391 D (130-400) K/uL MPV 7.6 (7.2-11.7) fL Neut % (Auto) 92.1 H (50.0-75.0) % Lymph % (Auto) 4.3 L (20.0-40.0) % [place] % (Auto) 3.4 (0.0-10.0) % Eos % (Auto) 0.0 (0.0-4.0) % Baso % (Auto) 0.2 (0.0-2.0) % Neut # 21.9 H (1.8-7.0) K/uL Lymph # 1.0 (1.0-4.3) K/uL [place] # 0.8 (0.0-0.8) K/uL Eos # 0.0 (0.0-0.7) K/uL Baso # 0.1 (0.0-0.2) K/uL Neutrophils % (Manual) 33 L (50-75) % Band Neutrophils % 40 H* (0-2) % Lymphocytes % (Manual) 9 L (20-40) % Monocytes % (Manual) 9 (0-10) % Metamyelocytes % 6 H (0-0) % Myelocytes % 3 H (0-0) % Toxic Granulation Present Platelet Estimate Normal (NORMAL) Large Platelets Present Giant Platelets Present Polychromasia Slight Anisocytosis (manual) Slight Microcytosis (manual) Slight Puncture Site pCO2 (35-45) mm/Hg pO2 (30-55) mm/Hg HCO3 (21-28) mmol/L ABG pH (7.35-7.45) ABG Total CO2 (22-28) mmol/L ABG O2 Saturation (95-98) % ABG Base Excess (-2.0-3.0) mmol/L Vince Test ABG Potassium (3.6-5.2) mmol/L VBG pH (7.32-7.43) VBG pCO2 (40-60) mmHg VBG HCO3 mmol/L VBG Total CO2 (22-28) mmol/L VBG O2 Sat (Calc) (40-65) % VBG Base Excess (0.0-2.0) mmol/L VBG Potassium (3.6-5.2) mmol/L A-a O2 Difference mm/Hg Respiratory Index Glucose (65-105) mg/dl Lactate (0.7-2.1) mmol/L FiO2 % Inspiratory BiPAP Expiratory BiPAP Crit Value Called To Crit Value Called By Crit Value Read Back Blood Gas Notified Time Sodium 141 (132-148) mmol/L Potassium 3.1 L (3.6-5.2) mmol/L Chloride 112 H (98-107) mmol/L Carbon Dioxide 19 L (22-30) mmol/L Anion Gap 14 (10-20) BUN 12 (7-17) mg/dL Creatinine 0.5 L (0.7-1.2) mg/dL Est GFR ( Amer) > 60 Est GFR (Non-Af Amer) > 60 POC Glucose (mg/dL) (65-110) mg/dL Random Glucose 208 H (65-105) mg/dL Hemoglobin A1c (4.2-6.5) % Calcium 8.4 L (8.6-10.4) mg/dl Phosphorus 1.6 L (2.5-4.5) mg/dL Magnesium 2.0 (1.6-2.3) mg/dL Total Bilirubin 0.6 (0.2-1.3) mg/dL AST 24 (14-36) U/L ALT 16 (9-52) U/L Alkaline Phosphatase 109 (38-126) U/L Troponin I < 0.0120 (0.00-0.120) ng/mL NT-Pro-B Natriuret Pep (0-900) pg/mL Total Protein 6.5 (6.3-8.3) g/dL Albumin 2.8 L (3.5-5.0) g/dL Globulin 3.7 (2.2-3.9) gm/dL Albumin/Globulin Ratio 0.8 L (1.0-2.1) Procalcitonin (0.19-0.49) NG/ML Arterial Blood Potassium (3.6-5.2) mmol/L Venous Blood Potassium (3.6-5.2) mmol/L Urine Color (YELLOW) Urine Clarity (Clear) Urine pH (5.0-8.0) Ur Specific [place] (1.003-1.030) Urine Protein (NEGATIVE) mg/dL Urine Glucose (UA) (Normal) mg/dL Urine Ketones (NEGATIVE) mg/dL Urine Blood (NEGATIVE) Urine Nitrate (NEGATIVE) Urine Bilirubin (NEGATIVE) Urine Urobilinogen (0.2-1.0) mg/dL Ur Leukocyte Esterase (Negative) Mariam/uL Urine WBC (Auto) (0-5) /hpf Urine RBC (Auto) (0-3) /hpf Ur Squamous Epith Cells (0-5) /hpf Urine Bacteria (<OCC) Hyaline Casts (0-2) /lpf Urine Methadone Screen (NEGATIVE) Ur Barbiturates Screen (NEGATIVE) Ur Phencyclidine Scrn (NEGATIVE) U Benzodiazepines Scrn (NEGATIVE) U Oth Cocaine Metabols (NEGATIVE) U Cannabinoids Screen (NEGATIVE) Serum Ketones (NEGATIVE) Influenza Typ A,B (EIA) (NEGATIVE) 09/02/17 09/02/17 09/02/17 Range/Units 05:36 05:08 03:58 WBC (4.8-10.8) K/uL RBC (3.80-5.20) Mil/uL Hgb (11.0-16.0) g/dL Hct (34.0-47.0) % MCV (81.0-99.0) fL MCH (27.0-31.0) pg MCHC (33.0-37.0) g/dL RDW (11.5-14.5) % Plt Count (130-400) K/uL MPV (7.2-11.7) fL Neut % (Auto) (50.0-75.0) % Lymph % (Auto) (20.0-40.0) % [place] % (Auto) (0.0-10.0) % Eos % (Auto) (0.0-4.0) % Baso % (Auto) (0.0-2.0) % Neut # (1.8-7.0) K/uL Lymph # (1.0-4.3) K/uL [place] # (0.0-0.8) K/uL Eos # (0.0-0.7) K/uL Baso # (0.0-0.2) K/uL Neutrophils % (Manual) (50-75) % Band Neutrophils % (0-2) % Lymphocytes % (Manual) (20-40) % Monocytes % (Manual) (0-10) % Metamyelocytes % (0-0) % Myelocytes % (0-0) % Toxic Granulation Platelet Estimate (NORMAL) Large Platelets Giant Platelets Polychromasia Anisocytosis (manual) Microcytosis (manual) Puncture Site pCO2 (35-45) mm/Hg pO2 54 (30-55) mm/Hg HCO3 (21-28) mmol/L ABG pH (7.35-7.45) ABG Total CO2 (22-28) mmol/L ABG O2 Saturation (95-98) % ABG Base Excess (-2.0-3.0) mmol/L Vince Test ABG Potassium (3.6-5.2) mmol/L VBG pH 7.38 (7.32-7.43) VBG pCO2 33 L (40-60) mmHg VBG HCO3 21.0 mmol/L VBG Total CO2 20.5 L (22-28) mmol/L VBG O2 Sat (Calc) 92.8 H (40-65) % VBG Base Excess -4.7 L (0.0-2.0) mmol/L VBG Potassium 2.9 L (3.6-5.2) mmol/L A-a O2 Difference mm/Hg Respiratory Index Glucose 234 H (65-105) mg/dl Lactate 1.7 (0.7-2.1) mmol/L FiO2 40.0 % Inspiratory BiPAP Expiratory BiPAP 5 Crit Value Called To Crit Value Called By Crit Value Read Back Blood Gas Notified Time Sodium 144.0 (132-148) mmol/L Potassium (3.6-5.2) mmol/L Chloride 114.0 H (98-107) mmol/L Carbon Dioxide (22-30) mmol/L Anion Gap (10-20) BUN (7-17) mg/dL Creatinine (0.7-1.2) mg/dL Est GFR ( Amer) Est GFR (Non-Af Amer) POC Glucose (mg/dL) 191 H 215 H (65-110) mg/dL Random Glucose (65-105) mg/dL Hemoglobin A1c (4.2-6.5) % Calcium (8.6-10.4) mg/dl Phosphorus (2.5-4.5) mg/dL Magnesium (1.6-2.3) mg/dL Total Bilirubin (0.2-1.3) mg/dL AST (14-36) U/L ALT (9-52) U/L Alkaline Phosphatase (38-126) U/L Troponin I (0.00-0.120) ng/mL NT-Pro-B Natriuret Pep (0-900) pg/mL Total Protein (6.3-8.3) g/dL Albumin (3.5-5.0) g/dL Globulin (2.2-3.9) gm/dL Albumin/Globulin Ratio (1.0-2.1) Procalcitonin (0.19-0.49) NG/ML Arterial Blood Potassium (3.6-5.2) mmol/L Venous Blood Potassium 2.9 L (3.6-5.2) mmol/L Urine Color (YELLOW) Urine Clarity (Clear) Urine pH (5.0-8.0) Ur Specific [place] (1.003-1.030) Urine Protein (NEGATIVE) mg/dL Urine Glucose (UA) (Normal) mg/dL Urine Ketones (NEGATIVE) mg/dL Urine Blood (NEGATIVE) Urine Nitrate (NEGATIVE) Urine Bilirubin (NEGATIVE) Urine Urobilinogen (0.2-1.0) mg/dL Ur Leukocyte Esterase (Negative) Mariam/uL Urine WBC (Auto) (0-5) /hpf Urine RBC (Auto) (0-3) /hpf Ur Squamous Epith Cells (0-5) /hpf Urine Bacteria (<OCC) Hyaline Casts (0-2) /lpf Urine Methadone Screen (NEGATIVE) Ur Barbiturates Screen (NEGATIVE) Ur Phencyclidine Scrn (NEGATIVE) U Benzodiazepines Scrn (NEGATIVE) U Oth Cocaine Metabols (NEGATIVE) U Cannabinoids Screen (NEGATIVE) Serum Ketones (NEGATIVE) Influenza Typ A,B (EIA) (NEGATIVE) 09/02/17 09/02/17 09/02/17 Range/Units 03:12 02:24 01:12 WBC (4.8-10.8) K/uL RBC (3.80-5.20) Mil/uL Hgb (11.0-16.0) g/dL Hct (34.0-47.0) % MCV (81.0-99.0) fL MCH (27.0-31.0) pg MCHC (33.0-37.0) g/dL RDW (11.5-14.5) % Plt Count (130-400) K/uL MPV (7.2-11.7) fL Neut % (Auto) (50.0-75.0) % Lymph % (Auto) (20.0-40.0) % [place] % (Auto) (0.0-10.0) % Eos % (Auto) (0.0-4.0) % Baso % (Auto) (0.0-2.0) % Neut # (1.8-7.0) K/uL Lymph # (1.0-4.3) K/uL [place] # (0.0-0.8) K/uL Eos # (0.0-0.7) K/uL Baso # (0.0-0.2) K/uL Neutrophils % (Manual) (50-75) % Band Neutrophils % (0-2) % Lymphocytes % (Manual) (20-40) % Monocytes % (Manual) (0-10) % Metamyelocytes % (0-0) % Myelocytes % (0-0) % Toxic Granulation Platelet Estimate (NORMAL) Large Platelets Giant Platelets Polychromasia Anisocytosis (manual) Microcytosis (manual) Puncture Site pCO2 (35-45) mm/Hg pO2 (30-55) mm/Hg HCO3 (21-28) mmol/L ABG pH (7.35-7.45) ABG Total CO2 (22-28) mmol/L ABG O2 Saturation (95-98) % ABG Base Excess (-2.0-3.0) mmol/L Vince Test ABG Potassium (3.6-5.2) mmol/L VBG pH (7.32-7.43) VBG pCO2 (40-60) mmHg VBG HCO3 mmol/L VBG Total CO2 (22-28) mmol/L VBG O2 Sat (Calc) (40-65) % VBG Base Excess (0.0-2.0) mmol/L VBG Potassium (3.6-5.2) mmol/L A-a O2 Difference mm/Hg Respiratory Index Glucose (65-105) mg/dl Lactate (0.7-2.1) mmol/L FiO2 % Inspiratory BiPAP Expiratory BiPAP Crit Value Called To Crit Value Called By Crit Value Read Back Blood Gas Notified Time Sodium (132-148) mmol/L Potassium (3.6-5.2) mmol/L Chloride (98-107) mmol/L Carbon Dioxide (22-30) mmol/L Anion Gap (10-20) BUN (7-17) mg/dL Creatinine (0.7-1.2) mg/dL Est GFR ( Amer) Est GFR (Non-Af Amer) POC Glucose (mg/dL) 206 H 227 H 212 H (65-110) mg/dL Random Glucose (65-105) mg/dL Hemoglobin A1c (4.2-6.5) % Calcium (8.6-10.4) mg/dl Phosphorus (2.5-4.5) mg/dL Magnesium (1.6-2.3) mg/dL Total Bilirubin (0.2-1.3) mg/dL AST (14-36) U/L ALT (9-52) U/L Alkaline Phosphatase (38-126) U/L Troponin I (0.00-0.120) ng/mL NT-Pro-B Natriuret Pep (0-900) pg/mL Total Protein (6.3-8.3) g/dL Albumin (3.5-5.0) g/dL Globulin (2.2-3.9) gm/dL Albumin/Globulin Ratio (1.0-2.1) Procalcitonin (0.19-0.49) NG/ML Arterial Blood Potassium (3.6-5.2) mmol/L Venous Blood Potassium (3.6-5.2) mmol/L Urine Color (YELLOW) Urine Clarity (Clear) Urine pH (5.0-8.0) Ur Specific [place] (1.003-1.030) Urine Protein (NEGATIVE) mg/dL Urine Glucose (UA) (Normal) mg/dL Urine Ketones (NEGATIVE) mg/dL Urine Blood (NEGATIVE) Urine Nitrate (NEGATIVE) Urine Bilirubin (NEGATIVE) Urine Urobilinogen (0.2-1.0) mg/dL Ur Leukocyte Esterase (Negative) Mariam/uL Urine WBC (Auto) (0-5) /hpf Urine RBC (Auto) (0-3) /hpf Ur Squamous Epith Cells (0-5) /hpf Urine Bacteria (<OCC) Hyaline Casts (0-2) /lpf Urine Methadone Screen (NEGATIVE) Ur Barbiturates Screen (NEGATIVE) Ur Phencyclidine Scrn (NEGATIVE) U Benzodiazepines Scrn (NEGATIVE) U Oth Cocaine Metabols (NEGATIVE) U Cannabinoids Screen (NEGATIVE) Serum Ketones (NEGATIVE) Influenza Typ A,B (EIA) (NEGATIVE) 09/01/17 09/01/17 09/01/17 Range/Units 23:55 22:52 22:16 WBC (4.8-10.8) K/uL RBC (3.80-5.20) Mil/uL Hgb (11.0-16.0) g/dL Hct (34.0-47.0) % MCV (81.0-99.0) fL MCH (27.0-31.0) pg MCHC (33.0-37.0) g/dL RDW (11.5-14.5) % Plt Count (130-400) K/uL MPV (7.2-11.7) fL Neut % (Auto) (50.0-75.0) % Lymph % (Auto) (20.0-40.0) % [place] % (Auto) (0.0-10.0) % Eos % (Auto) (0.0-4.0) % Baso % (Auto) (0.0-2.0) % Neut # (1.8-7.0) K/uL Lymph # (1.0-4.3) K/uL [place] # (0.0-0.8) K/uL Eos # (0.0-0.7) K/uL Baso # (0.0-0.2) K/uL Neutrophils % (Manual) (50-75) % Band Neutrophils % (0-2) % Lymphocytes % (Manual) (20-40) % Monocytes % (Manual) (0-10) % Metamyelocytes % (0-0) % Myelocytes % (0-0) % Toxic Granulation Platelet Estimate (NORMAL) Large Platelets Giant Platelets Polychromasia Anisocytosis (manual) Microcytosis (manual) Puncture Site pCO2 (35-45) mm/Hg pO2 (30-55) mm/Hg HCO3 (21-28) mmol/L ABG pH (7.35-7.45) ABG Total CO2 (22-28) mmol/L ABG O2 Saturation (95-98) % ABG Base Excess (-2.0-3.0) mmol/L Vince Test ABG Potassium (3.6-5.2) mmol/L VBG pH (7.32-7.43) VBG pCO2 (40-60) mmHg VBG HCO3 mmol/L VBG Total CO2 (22-28) mmol/L VBG O2 Sat (Calc) (40-65) % VBG Base Excess (0.0-2.0) mmol/L VBG Potassium (3.6-5.2) mmol/L A-a O2 Difference mm/Hg Respiratory Index Glucose (65-105) mg/dl Lactate (0.7-2.1) mmol/L FiO2 % Inspiratory BiPAP Expiratory BiPAP Crit Value Called To Crit Value Called By Crit Value Read Back Blood Gas Notified Time Sodium (132-148) mmol/L Potassium (3.6-5.2) mmol/L Chloride (98-107) mmol/L Carbon Dioxide (22-30) mmol/L Anion Gap (10-20) BUN (7-17) mg/dL Creatinine (0.7-1.2) mg/dL Est GFR ( Amer) Est GFR (Non-Af Amer) POC Glucose (mg/dL) 243 H 235 H 223 H (65-110) mg/dL Random Glucose (65-105) mg/dL Hemoglobin A1c (4.2-6.5) % Calcium (8.6-10.4) mg/dl Phosphorus (2.5-4.5) mg/dL Magnesium (1.6-2.3) mg/dL Total Bilirubin (0.2-1.3) mg/dL AST (14-36) U/L ALT (9-52) U/L Alkaline Phosphatase (38-126) U/L Troponin I (0.00-0.120) ng/mL NT-Pro-B Natriuret Pep (0-900) pg/mL Total Protein (6.3-8.3) g/dL Albumin (3.5-5.0) g/dL Globulin (2.2-3.9) gm/dL Albumin/Globulin Ratio (1.0-2.1) Procalcitonin (0.19-0.49) NG/ML Arterial Blood Potassium (3.6-5.2) mmol/L Venous Blood Potassium (3.6-5.2) mmol/L Urine Color (YELLOW) Urine Clarity (Clear) Urine pH (5.0-8.0) Ur Specific [place] (1.003-1.030) Urine Protein (NEGATIVE) mg/dL Urine Glucose (UA) (Normal) mg/dL Urine Ketones (NEGATIVE) mg/dL Urine Blood (NEGATIVE) Urine Nitrate (NEGATIVE) Urine Bilirubin (NEGATIVE) Urine Urobilinogen (0.2-1.0) mg/dL Ur Leukocyte Esterase (Negative) Mariam/uL Urine WBC (Auto) (0-5) /hpf Urine RBC (Auto) (0-3) /hpf Ur Squamous Epith Cells (0-5) /hpf Urine Bacteria (<OCC) Hyaline Casts (0-2) /lpf Urine Methadone Screen (NEGATIVE) Ur Barbiturates Screen (NEGATIVE) Ur Phencyclidine Scrn (NEGATIVE) U Benzodiazepines Scrn (NEGATIVE) U Oth Cocaine Metabols (NEGATIVE) U Cannabinoids Screen (NEGATIVE) Serum Ketones (NEGATIVE) Influenza Typ A,B (EIA) (NEGATIVE) 09/01/17 09/01/17 09/01/17 Range/Units 21:03 19:19 18:51 WBC (4.8-10.8) K/uL RBC (3.80-5.20) Mil/uL Hgb (11.0-16.0) g/dL Hct (34.0-47.0) % MCV (81.0-99.0) fL MCH (27.0-31.0) pg MCHC (33.0-37.0) g/dL RDW (11.5-14.5) % Plt Count (130-400) K/uL MPV (7.2-11.7) fL Neut % (Auto) (50.0-75.0) % Lymph % (Auto) (20.0-40.0) % [place] % (Auto) (0.0-10.0) % Eos % (Auto) (0.0-4.0) % Baso % (Auto) (0.0-2.0) % Neut # (1.8-7.0) K/uL Lymph # (1.0-4.3) K/uL [place] # (0.0-0.8) K/uL Eos # (0.0-0.7) K/uL Baso # (0.0-0.2) K/uL Neutrophils % (Manual) (50-75) % Band Neutrophils % (0-2) % Lymphocytes % (Manual) (20-40) % Monocytes % (Manual) (0-10) % Metamyelocytes % (0-0) % Myelocytes % (0-0) % Toxic Granulation Platelet Estimate (NORMAL) Large Platelets Giant Platelets Polychromasia Anisocytosis (manual) Microcytosis (manual) Puncture Site pCO2 (35-45) mm/Hg pO2 (30-55) mm/Hg HCO3 (21-28) mmol/L ABG pH (7.35-7.45) ABG Total CO2 (22-28) mmol/L ABG O2 Saturation (95-98) % ABG Base Excess (-2.0-3.0) mmol/L Vince Test ABG Potassium (3.6-5.2) mmol/L VBG pH (7.32-7.43) VBG pCO2 (40-60) mmHg VBG HCO3 mmol/L VBG Total CO2 (22-28) mmol/L VBG O2 Sat (Calc) (40-65) % VBG Base Excess (0.0-2.0) mmol/L VBG Potassium (3.6-5.2) mmol/L A-a O2 Difference mm/Hg Respiratory Index Glucose (65-105) mg/dl Lactate (0.7-2.1) mmol/L FiO2 % Inspiratory BiPAP Expiratory BiPAP Crit Value Called To Crit Value Called By Crit Value Read Back Blood Gas Notified Time Sodium 136 (132-148) mmol/L Potassium 2.8 L (3.6-5.2) mmol/L Chloride 109 H (98-107) mmol/L Carbon Dioxide 21 L (22-30) mmol/L Anion Gap 10 (10-20) BUN 12 (7-17) mg/dL Creatinine 0.5 L (0.7-1.2) mg/dL Est GFR ( Amer) > 60 Est GFR (Non-Af Amer) > 60 POC Glucose (mg/dL) 233 H 190 H (65-110) mg/dL Random Glucose 236 H (65-105) mg/dL Hemoglobin A1c (4.2-6.5) % Calcium 8.4 L (8.6-10.4) mg/dl Phosphorus 0.9 L* (2.5-4.5) mg/dL Magnesium 2.1 (1.6-2.3) mg/dL Total Bilirubin 0.7 (0.2-1.3) mg/dL AST 30 (14-36) U/L ALT 19 (9-52) U/L Alkaline Phosphatase 128 H (38-126) U/L Troponin I (0.00-0.120) ng/mL NT-Pro-B Natriuret Pep 1290 H (0-900) pg/mL Total Protein 6.7 (6.3-8.3) g/dL Albumin 2.9 L (3.5-5.0) g/dL Globulin 3.8 (2.2-3.9) gm/dL Albumin/Globulin Ratio 0.8 L (1.0-2.1) Procalcitonin (0.19-0.49) NG/ML Arterial Blood Potassium (3.6-5.2) mmol/L Venous Blood Potassium (3.6-5.2) mmol/L Urine Color (YELLOW) Urine Clarity (Clear) Urine pH (5.0-8.0) Ur Specific [place] (1.003-1.030) Urine Protein (NEGATIVE) mg/dL Urine Glucose (UA) (Normal) mg/dL Urine Ketones (NEGATIVE) mg/dL Urine Blood (NEGATIVE) Urine Nitrate (NEGATIVE) Urine Bilirubin (NEGATIVE) Urine Urobilinogen (0.2-1.0) mg/dL Ur Leukocyte Esterase (Negative) Mariam/uL Urine WBC (Auto) (0-5) /hpf Urine RBC (Auto) (0-3) /hpf Ur Squamous Epith Cells (0-5) /hpf Urine Bacteria (<OCC) Hyaline Casts (0-2) /lpf Urine Methadone Screen (NEGATIVE) Ur Barbiturates Screen (NEGATIVE) Ur Phencyclidine Scrn (NEGATIVE) U Benzodiazepines Scrn (NEGATIVE) U Oth Cocaine Metabols (NEGATIVE) U Cannabinoids Screen (NEGATIVE) Serum Ketones (NEGATIVE) Influenza Typ A,B (EIA) (NEGATIVE) 09/01/17 09/01/17 09/01/17 Range/Units 18:51 18:51 18:38 WBC (4.8-10.8) K/uL RBC (3.80-5.20) Mil/uL Hgb (11.0-16.0) g/dL Hct (34.0-47.0) % MCV (81.0-99.0) fL MCH (27.0-31.0) pg MCHC (33.0-37.0) g/dL RDW (11.5-14.5) % Plt Count (130-400) K/uL MPV (7.2-11.7) fL Neut % (Auto) (50.0-75.0) % Lymph % (Auto) (20.0-40.0) % [place] % (Auto) (0.0-10.0) % Eos % (Auto) (0.0-4.0) % Baso % (Auto) (0.0-2.0) % Neut # (1.8-7.0) K/uL Lymph # (1.0-4.3) K/uL [place] # (0.0-0.8) K/uL Eos # (0.0-0.7) K/uL Baso # (0.0-0.2) K/uL Neutrophils % (Manual) (50-75) % Band Neutrophils % (0-2) % Lymphocytes % (Manual) (20-40) % Monocytes % (Manual) (0-10) % Metamyelocytes % (0-0) % Myelocytes % (0-0) % Toxic Granulation Platelet Estimate (NORMAL) Large Platelets Giant Platelets Polychromasia Anisocytosis (manual) Microcytosis (manual) Puncture Site pCO2 (35-45) mm/Hg pO2 (30-55) mm/Hg HCO3 (21-28) mmol/L ABG pH (7.35-7.45) ABG Total CO2 (22-28) mmol/L ABG O2 Saturation (95-98) % ABG Base Excess (-2.0-3.0) mmol/L Vince Test ABG Potassium (3.6-5.2) mmol/L VBG pH (7.32-7.43) VBG pCO2 (40-60) mmHg VBG HCO3 mmol/L VBG Total CO2 (22-28) mmol/L VBG O2 Sat (Calc) (40-65) % VBG Base Excess (0.0-2.0) mmol/L VBG Potassium (3.6-5.2) mmol/L A-a O2 Difference mm/Hg Respiratory Index Glucose (65-105) mg/dl Lactate (0.7-2.1) mmol/L FiO2 % Inspiratory BiPAP Expiratory BiPAP Crit Value Called To Crit Value Called By Crit Value Read Back Blood Gas Notified Time Sodium (132-148) mmol/L Potassium (3.6-5.2) mmol/L Chloride (98-107) mmol/L Carbon Dioxide (22-30) mmol/L Anion Gap (10-20) BUN (7-17) mg/dL Creatinine (0.7-1.2) mg/dL Est GFR ( Amer) Est GFR (Non-Af Amer) POC Glucose (mg/dL) (65-110) mg/dL Random Glucose (65-105) mg/dL Hemoglobin A1c 14.7 H (4.2-6.5) % Calcium (8.6-10.4) mg/dl Phosphorus 1.4 L (2.5-4.5) mg/dL Magnesium 2.1 (1.6-2.3) mg/dL Total Bilirubin (0.2-1.3) mg/dL AST (14-36) U/L ALT (9-52) U/L Alkaline Phosphatase (38-126) U/L Troponin I < 0.0120 (0.00-0.120) ng/mL NT-Pro-B Natriuret Pep (0-900) pg/mL Total Protein (6.3-8.3) g/dL Albumin (3.5-5.0) g/dL Globulin (2.2-3.9) gm/dL Albumin/Globulin Ratio (1.0-2.1) Procalcitonin 19.38 H (0.19-0.49) NG/ML Arterial Blood Potassium (3.6-5.2) mmol/L Venous Blood Potassium (3.6-5.2) mmol/L Urine Color (YELLOW) Urine Clarity (Clear) Urine pH (5.0-8.0) Ur Specific [place] (1.003-1.030) Urine Protein (NEGATIVE) mg/dL Urine Glucose (UA) (Normal) mg/dL Urine Ketones (NEGATIVE) mg/dL Urine Blood (NEGATIVE) Urine Nitrate (NEGATIVE) Urine Bilirubin (NEGATIVE) Urine Urobilinogen (0.2-1.0) mg/dL Ur Leukocyte Esterase (Negative) Mariam/uL Urine WBC (Auto) (0-5) /hpf Urine RBC (Auto) (0-3) /hpf Ur Squamous Epith Cells (0-5) /hpf Urine Bacteria (<OCC) Hyaline Casts (0-2) /lpf Urine Methadone Screen (NEGATIVE) Ur Barbiturates Screen (NEGATIVE) Ur Phencyclidine Scrn (NEGATIVE) U Benzodiazepines Scrn (NEGATIVE) U Oth Cocaine Metabols (NEGATIVE) U Cannabinoids Screen (NEGATIVE) Serum Ketones (NEGATIVE) Influenza Typ A,B (EIA) (NEGATIVE) 09/01/17 09/01/17 09/01/17 Range/Units 18:18 17:03 16:45 WBC (4.8-10.8) K/uL RBC (3.80-5.20) Mil/uL Hgb (11.0-16.0) g/dL Hct (34.0-47.0) % MCV (81.0-99.0) fL MCH (27.0-31.0) pg MCHC (33.0-37.0) g/dL RDW (11.5-14.5) % Plt Count (130-400) K/uL MPV (7.2-11.7) fL Neut % (Auto) (50.0-75.0) % Lymph % (Auto) (20.0-40.0) % [place] % (Auto) (0.0-10.0) % Eos % (Auto) (0.0-4.0) % Baso % (Auto) (0.0-2.0) % Neut # (1.8-7.0) K/uL Lymph # (1.0-4.3) K/uL [place] # (0.0-0.8) K/uL Eos # (0.0-0.7) K/uL Baso # (0.0-0.2) K/uL Neutrophils % (Manual) (50-75) % Band Neutrophils % (0-2) % Lymphocytes % (Manual) (20-40) % Monocytes % (Manual) (0-10) % Metamyelocytes % (0-0) % Myelocytes % (0-0) % Toxic Granulation Platelet Estimate (NORMAL) Large Platelets Giant Platelets Polychromasia Anisocytosis (manual) Microcytosis (manual) Puncture Site Rra pCO2 34 L (35-45) mm/Hg pO2 73 L (30-55) mm/Hg HCO3 15.2 L (21-28) mmol/L ABG pH 7.23 L (7.35-7.45) ABG Total CO2 15.2 L (22-28) mmol/L ABG O2 Saturation 97.3 (95-98) % ABG Base Excess -12.3 L (-2.0-3.0) mmol/L Vince Test Pos ABG Potassium 2.6 L (3.6-5.2) mmol/L VBG pH (7.32-7.43) VBG pCO2 (40-60) mmHg VBG HCO3 mmol/L VBG Total CO2 (22-28) mmol/L VBG O2 Sat (Calc) (40-65) % VBG Base Excess (0.0-2.0) mmol/L VBG Potassium (3.6-5.2) mmol/L A-a O2 Difference 170.0 mm/Hg Respiratory Index 2.3 Glucose 271 H (65-105) mg/dl Lactate 1.4 (0.7-2.1) mmol/L FiO2 40.0 % Inspiratory BiPAP 10 Expiratory BiPAP 5 Crit Value Called To Crit Value Called By Crit Value Read Back Blood Gas Notified Time Sodium 142.0 (132-148) mmol/L Potassium (3.6-5.2) mmol/L Chloride 112.0 H (98-107) mmol/L Carbon Dioxide (22-30) mmol/L Anion Gap (10-20) BUN (7-17) mg/dL Creatinine (0.7-1.2) mg/dL Est GFR ( Amer) Est GFR (Non-Af Amer) POC Glucose (mg/dL) 208 H 231 H (65-110) mg/dL Random Glucose (65-105) mg/dL Hemoglobin A1c (4.2-6.5) % Calcium (8.6-10.4) mg/dl Phosphorus (2.5-4.5) mg/dL Magnesium (1.6-2.3) mg/dL Total Bilirubin (0.2-1.3) mg/dL AST (14-36) U/L ALT (9-52) U/L Alkaline Phosphatase (38-126) U/L Troponin I (0.00-0.120) ng/mL NT-Pro-B Natriuret Pep (0-900) pg/mL Total Protein (6.3-8.3) g/dL Albumin (3.5-5.0) g/dL Globulin (2.2-3.9) gm/dL Albumin/Globulin Ratio (1.0-2.1) Procalcitonin (0.19-0.49) NG/ML Arterial Blood Potassium 2.6 L (3.6-5.2) mmol/L Venous Blood Potassium (3.6-5.2) mmol/L Urine Color (YELLOW) Urine Clarity (Clear) Urine pH (5.0-8.0) Ur Specific [place] (1.003-1.030) Urine Protein (NEGATIVE) mg/dL Urine Glucose (UA) (Normal) mg/dL Urine Ketones (NEGATIVE) mg/dL Urine Blood (NEGATIVE) Urine Nitrate (NEGATIVE) Urine Bilirubin (NEGATIVE) Urine Urobilinogen (0.2-1.0) mg/dL Ur Leukocyte Esterase (Negative) Mariam/uL Urine WBC (Auto) (0-5) /hpf Urine RBC (Auto) (0-3) /hpf Ur Squamous Epith Cells (0-5) /hpf Urine Bacteria (<OCC) Hyaline Casts (0-2) /lpf Urine Methadone Screen (NEGATIVE) Ur Barbiturates Screen (NEGATIVE) Ur Phencyclidine Scrn (NEGATIVE) U Benzodiazepines Scrn (NEGATIVE) U Oth Cocaine Metabols (NEGATIVE) U Cannabinoids Screen (NEGATIVE) Serum Ketones (NEGATIVE) Influenza Typ A,B (EIA) (NEGATIVE) 09/01/17 09/01/17 09/01/17 Range/Units 16:38 16:38 15:56 WBC (4.8-10.8) K/uL RBC (3.80-5.20) Mil/uL Hgb (11.0-16.0) g/dL Hct (34.0-47.0) % MCV (81.0-99.0) fL MCH (27.0-31.0) pg MCHC (33.0-37.0) g/dL RDW (11.5-14.5) % Plt Count (130-400) K/uL MPV (7.2-11.7) fL Neut % (Auto) (50.0-75.0) % Lymph % (Auto) (20.0-40.0) % [place] % (Auto) (0.0-10.0) % Eos % (Auto) (0.0-4.0) % Baso % (Auto) (0.0-2.0) % Neut # (1.8-7.0) K/uL Lymph # (1.0-4.3) K/uL [place] # (0.0-0.8) K/uL Eos # (0.0-0.7) K/uL Baso # (0.0-0.2) K/uL Neutrophils % (Manual) (50-75) % Band Neutrophils % (0-2) % Lymphocytes % (Manual) (20-40) % Monocytes % (Manual) (0-10) % Metamyelocytes % (0-0) % Myelocytes % (0-0) % Toxic Granulation Platelet Estimate (NORMAL) Large Platelets Giant Platelets Polychromasia Anisocytosis (manual) Microcytosis (manual) Puncture Site pCO2 (35-45) mm/Hg pO2 (30-55) mm/Hg HCO3 (21-28) mmol/L ABG pH (7.35-7.45) ABG Total CO2 (22-28) mmol/L ABG O2 Saturation (95-98) % ABG Base Excess (-2.0-3.0) mmol/L Vince Test ABG Potassium (3.6-5.2) mmol/L VBG pH (7.32-7.43) VBG pCO2 (40-60) mmHg VBG HCO3 mmol/L VBG Total CO2 (22-28) mmol/L VBG O2 Sat (Calc) (40-65) % VBG Base Excess (0.0-2.0) mmol/L VBG Potassium (3.6-5.2) mmol/L A-a O2 Difference mm/Hg Respiratory Index Glucose (65-105) mg/dl Lactate (0.7-2.1) mmol/L FiO2 % Inspiratory BiPAP Expiratory BiPAP Crit Value Called To Crit Value Called By Crit Value Read Back Blood Gas Notified Time Sodium 139 (132-148) mmol/L Potassium 2.7 L (3.6-5.2) mmol/L Chloride 110 H (98-107) mmol/L Carbon Dioxide 15 L (22-30) mmol/L Anion Gap 16 (10-20) BUN 12 (7-17) mg/dL Creatinine 0.5 L (0.7-1.2) mg/dL Est GFR ( Amer) > 60 Est GFR (Non-Af Amer) > 60 POC Glucose (mg/dL) 256 H (65-110) mg/dL Random Glucose 287 H (65-105) mg/dL Hemoglobin A1c (4.2-6.5) % Calcium 8.2 L (8.6-10.4) mg/dl Phosphorus (2.5-4.5) mg/dL Magnesium (1.6-2.3) mg/dL Total Bilirubin 0.6 (0.2-1.3) mg/dL AST 32 (14-36) U/L ALT 25 (9-52) U/L Alkaline Phosphatase 137 H D (38-126) U/L Troponin I (0.00-0.120) ng/mL NT-Pro-B Natriuret Pep (0-900) pg/mL Total Protein 6.6 (6.3-8.3) g/dL Albumin 2.9 L D (3.5-5.0) g/dL Globulin 3.8 (2.2-3.9) gm/dL Albumin/Globulin Ratio 0.8 L (1.0-2.1) Procalcitonin 13.43 H (0.19-0.49) NG/ML Arterial Blood Potassium (3.6-5.2) mmol/L Venous Blood Potassium (3.6-5.2) mmol/L Urine Color (YELLOW) Urine Clarity (Clear) Urine pH (5.0-8.0) Ur Specific [place] (1.003-1.030) Urine Protein (NEGATIVE) mg/dL Urine Glucose (UA) (Normal) mg/dL Urine Ketones (NEGATIVE) mg/dL Urine Blood (NEGATIVE) Urine Nitrate (NEGATIVE) Urine Bilirubin (NEGATIVE) Urine Urobilinogen (0.2-1.0) mg/dL Ur Leukocyte Esterase (Negative) Mariam/uL Urine WBC (Auto) (0-5) /hpf Urine RBC (Auto) (0-3) /hpf Ur Squamous Epith Cells (0-5) /hpf Urine Bacteria (<OCC) Hyaline Casts (0-2) /lpf Urine Methadone Screen (NEGATIVE) Ur Barbiturates Screen (NEGATIVE) Ur Phencyclidine Scrn (NEGATIVE) U Benzodiazepines Scrn (NEGATIVE) U Oth Cocaine Metabols (NEGATIVE) U Cannabinoids Screen (NEGATIVE) Serum Ketones (NEGATIVE) Influenza Typ A,B (EIA) (NEGATIVE) 09/01/17 09/01/17 09/01/17 Range/Units 14:28 13:45 13:07 WBC (4.8-10.8) K/uL RBC (3.80-5.20) Mil/uL Hgb (11.0-16.0) g/dL Hct (34.0-47.0) % MCV (81.0-99.0) fL MCH (27.0-31.0) pg MCHC (33.0-37.0) g/dL RDW (11.5-14.5) % Plt Count (130-400) K/uL MPV (7.2-11.7) fL Neut % (Auto) (50.0-75.0) % Lymph % (Auto) (20.0-40.0) % [place] % (Auto) (0.0-10.0) % Eos % (Auto) (0.0-4.0) % Baso % (Auto) (0.0-2.0) % Neut # (1.8-7.0) K/uL Lymph # (1.0-4.3) K/uL [place] # (0.0-0.8) K/uL Eos # (0.0-0.7) K/uL Baso # (0.0-0.2) K/uL Neutrophils % (Manual) (50-75) % Band Neutrophils % (0-2) % Lymphocytes % (Manual) (20-40) % Monocytes % (Manual) (0-10) % Metamyelocytes % (0-0) % Myelocytes % (0-0) % Toxic Granulation Platelet Estimate (NORMAL) Large Platelets Giant Platelets Polychromasia Anisocytosis (manual) Microcytosis (manual) Puncture Site pCO2 (35-45) mm/Hg pO2 125 H (30-55) mm/Hg HCO3 (21-28) mmol/L ABG pH (7.35-7.45) ABG Total CO2 (22-28) mmol/L ABG O2 Saturation (95-98) % ABG Base Excess (-2.0-3.0) mmol/L Vince Test ABG Potassium (3.6-5.2) mmol/L VBG pH 7.17 L* (7.32-7.43) VBG pCO2 19 L* (40-60) mmHg VBG HCO3 9.7 mmol/L VBG Total CO2 7.5 L (22-28) mmol/L VBG O2 Sat (Calc) 99.4 H (40-65) % VBG Base Excess -19.5 L (0.0-2.0) mmol/L VBG Potassium 1.6 L* (3.6-5.2) mmol/L A-a O2 Difference mm/Hg Respiratory Index Glucose 159 H (65-105) mg/dl Lactate 1.2 (0.7-2.1) mmol/L FiO2 % Inspiratory BiPAP Expiratory BiPAP Crit Value Called To Anna lopez Crit Value Called By Yosi javier,samantha Crit Value Read Back Y Blood Gas Notified Time 1355 Sodium 154.0 H (132-148) mmol/L Potassium (3.6-5.2) mmol/L Chloride 132.0 H (98-107) mmol/L Carbon Dioxide (22-30) mmol/L Anion Gap (10-20) BUN (7-17) mg/dL Creatinine (0.7-1.2) mg/dL Est GFR ( Amer) Est GFR (Non-Af Amer) POC Glucose (mg/dL) 280 H 343 H (65-110) mg/dL Random Glucose (65-105) mg/dL Hemoglobin A1c (4.2-6.5) % Calcium (8.6-10.4) mg/dl Phosphorus (2.5-4.5) mg/dL Magnesium (1.6-2.3) mg/dL Total Bilirubin (0.2-1.3) mg/dL AST (14-36) U/L ALT (9-52) U/L Alkaline Phosphatase (38-126) U/L Troponin I (0.00-0.120) ng/mL NT-Pro-B Natriuret Pep (0-900) pg/mL Total Protein (6.3-8.3) g/dL Albumin (3.5-5.0) g/dL Globulin (2.2-3.9) gm/dL Albumin/Globulin Ratio (1.0-2.1) Procalcitonin (0.19-0.49) NG/ML Arterial Blood Potassium (3.6-5.2) mmol/L Venous Blood Potassium 1.6 L* (3.6-5.2) mmol/L Urine Color (YELLOW) Urine Clarity (Clear) Urine pH (5.0-8.0) Ur Specific [place] (1.003-1.030) Urine Protein (NEGATIVE) mg/dL Urine Glucose (UA) (Normal) mg/dL Urine Ketones (NEGATIVE) mg/dL Urine Blood (NEGATIVE) Urine Nitrate (NEGATIVE) Urine Bilirubin (NEGATIVE) Urine Urobilinogen (0.2-1.0) mg/dL Ur Leukocyte Esterase (Negative) Mariam/uL Urine WBC (Auto) (0-5) /hpf Urine RBC (Auto) (0-3) /hpf Ur Squamous Epith Cells (0-5) /hpf Urine Bacteria (<OCC) Hyaline Casts (0-2) /lpf Urine Methadone Screen (NEGATIVE) Ur Barbiturates Screen (NEGATIVE) Ur Phencyclidine Scrn (NEGATIVE) U Benzodiazepines Scrn (NEGATIVE) U Oth Cocaine Metabols (NEGATIVE) U Cannabinoids Screen (NEGATIVE) Serum Ketones (NEGATIVE) Influenza Typ A,B (EIA) (NEGATIVE) 09/01/17 09/01/17 09/01/17 Range/Units 12:53 12:48 11:30 WBC (4.8-10.8) K/uL RBC (3.80-5.20) Mil/uL Hgb (11.0-16.0) g/dL Hct (34.0-47.0) % MCV (81.0-99.0) fL MCH (27.0-31.0) pg MCHC (33.0-37.0) g/dL RDW (11.5-14.5) % Plt Count (130-400) K/uL MPV (7.2-11.7) fL Neut % (Auto) (50.0-75.0) % Lymph % (Auto) (20.0-40.0) % [place] % (Auto) (0.0-10.0) % Eos % (Auto) (0.0-4.0) % Baso % (Auto) (0.0-2.0) % Neut # (1.8-7.0) K/uL Lymph # (1.0-4.3) K/uL [place] # (0.0-0.8) K/uL Eos # (0.0-0.7) K/uL Baso # (0.0-0.2) K/uL Neutrophils % (Manual) (50-75) % Band Neutrophils % (0-2) % Lymphocytes % (Manual) (20-40) % Monocytes % (Manual) (0-10) % Metamyelocytes % (0-0) % Myelocytes % (0-0) % Toxic Granulation Platelet Estimate (NORMAL) Large Platelets Giant Platelets Polychromasia Anisocytosis (manual) Microcytosis (manual) Puncture Site pCO2 (35-45) mm/Hg pO2 22 L (30-55) mm/Hg HCO3 (21-28) mmol/L ABG pH (7.35-7.45) ABG Total CO2 (22-28) mmol/L ABG O2 Saturation (95-98) % ABG Base Excess (-2.0-3.0) mmol/L Vince Test ABG Potassium (3.6-5.2) mmol/L VBG pH 6.96 L* (7.32-7.43) VBG pCO2 42 (40-60) mmHg VBG HCO3 5.4 mmol/L VBG Total CO2 10.7 L (22-28) mmol/L VBG O2 Sat (Calc) 35.6 L (40-65) % VBG Base Excess -22.1 L (0.0-2.0) mmol/L VBG Potassium 4.2 (3.6-5.2) mmol/L A-a O2 Difference mm/Hg Respiratory Index Glucose 366 H (65-105) mg/dl Lactate 2.9 H (0.7-2.1) mmol/L FiO2 % Inspiratory BiPAP Expiratory BiPAP Crit Value Called To Mary haro rn Crit Value Called By Sachinl Crit Value Read Back Y Blood Gas Notified Time 1251 Sodium 137.0 (132-148) mmol/L Potassium (3.6-5.2) mmol/L Chloride 111.0 H (98-107) mmol/L Carbon Dioxide (22-30) mmol/L Anion Gap (10-20) BUN (7-17) mg/dL Creatinine (0.7-1.2) mg/dL Est GFR ( Amer) Est GFR (Non-Af Amer) POC Glucose (mg/dL) (65-110) mg/dL Random Glucose (65-105) mg/dL Hemoglobin A1c (4.2-6.5) % Calcium (8.6-10.4) mg/dl Phosphorus (2.5-4.5) mg/dL Magnesium (1.6-2.3) mg/dL Total Bilirubin (0.2-1.3) mg/dL AST (14-36) U/L ALT (9-52) U/L Alkaline Phosphatase (38-126) U/L Troponin I (0.00-0.120) ng/mL NT-Pro-B Natriuret Pep (0-900) pg/mL Total Protein (6.3-8.3) g/dL Albumin (3.5-5.0) g/dL Globulin (2.2-3.9) gm/dL Albumin/Globulin Ratio (1.0-2.1) Procalcitonin (0.19-0.49) NG/ML Arterial Blood Potassium (3.6-5.2) mmol/L Venous Blood Potassium 4.2 (3.6-5.2) mmol/L Urine Color Yellow (YELLOW) Urine Clarity Clear (Clear) Urine pH 5.0 (5.0-8.0) Ur Specific [place] 1.023 (1.003-1.030) Urine Protein 2+ H (NEGATIVE) mg/dL Urine Glucose (UA) 3+ H (Normal) mg/dL Urine Ketones 2+ H (NEGATIVE) mg/dL Urine Blood 1+ H (NEGATIVE) Urine Nitrate Negative (NEGATIVE) Urine Bilirubin Negative (NEGATIVE) Urine Urobilinogen Normal (0.2-1.0) mg/dL Ur Leukocyte Esterase Neg (Negative) Mariam/uL Urine WBC (Auto) 1 (0-5) /hpf Urine RBC (Auto) 5 H (0-3) /hpf Ur Squamous Epith Cells < 1 (0-5) /hpf Urine Bacteria Occ H (<OCC) Hyaline Casts 3-5 H (0-2) /lpf Urine Methadone Screen (NEGATIVE) Ur Barbiturates Screen (NEGATIVE) Ur Phencyclidine Scrn (NEGATIVE) U Benzodiazepines Scrn (NEGATIVE) U Oth Cocaine Metabols (NEGATIVE) U Cannabinoids Screen (NEGATIVE) Serum Ketones (NEGATIVE) Influenza Typ A,B (EIA) Negative for flu a/b (NEGATIVE) 09/01/17 Range/Units 09:49 WBC (4.8-10.8) K/uL RBC (3.80-5.20) Mil/uL Hgb (11.0-16.0) g/dL Hct (34.0-47.0) % MCV (81.0-99.0) fL MCH (27.0-31.0) pg MCHC (33.0-37.0) g/dL RDW (11.5-14.5) % Plt Count (130-400) K/uL MPV (7.2-11.7) fL Neut % (Auto) (50.0-75.0) % Lymph % (Auto) (20.0-40.0) % [place] % (Auto) (0.0-10.0) % Eos % (Auto) (0.0-4.0) % Baso % (Auto) (0.0-2.0) % Neut # (1.8-7.0) K/uL Lymph # (1.0-4.3) K/uL [place] # (0.0-0.8) K/uL Eos # (0.0-0.7) K/uL Baso # (0.0-0.2) K/uL Neutrophils % (Manual) (50-75) % Band Neutrophils % (0-2) % Lymphocytes % (Manual) (20-40) % Monocytes % (Manual) (0-10) % Metamyelocytes % (0-0) % Myelocytes % (0-0) % Toxic Granulation Platelet Estimate (NORMAL) Large Platelets Giant Platelets Polychromasia Anisocytosis (manual) Microcytosis (manual) Puncture Site pCO2 (35-45) mm/Hg pO2 (30-55) mm/Hg HCO3 (21-28) mmol/L ABG pH (7.35-7.45) ABG Total CO2 (22-28) mmol/L ABG O2 Saturation (95-98) % ABG Base Excess (-2.0-3.0) mmol/L Vince Test ABG Potassium (3.6-5.2) mmol/L VBG pH (7.32-7.43) VBG pCO2 (40-60) mmHg VBG HCO3 mmol/L VBG Total CO2 (22-28) mmol/L VBG O2 Sat (Calc) (40-65) % VBG Base Excess (0.0-2.0) mmol/L VBG Potassium (3.6-5.2) mmol/L A-a O2 Difference mm/Hg Respiratory Index Glucose (65-105) mg/dl Lactate (0.7-2.1) mmol/L FiO2 % Inspiratory BiPAP Expiratory BiPAP Crit Value Called To Crit Value Called By Crit Value Read Back Blood Gas Notified Time Sodium 135 (132-148) mmol/L Potassium 4.4 (3.6-5.2) mmol/L Chloride 103 (98-107) mmol/L Carbon Dioxide 6 L* (22-30) mmol/L Anion Gap 30 H (10-20) BUN 16 (7-17) mg/dL Creatinine 0.9 (0.7-1.2) mg/dL Est GFR ( Amer) > 60 Est GFR (Non-Af Amer) > 60 POC Glucose (mg/dL) (65-110) mg/dL Random Glucose 517 H* (65-105) mg/dL Hemoglobin A1c (4.2-6.5) % Calcium 10.0 (8.6-10.4) mg/dl Phosphorus (2.5-4.5) mg/dL Magnesium (1.6-2.3) mg/dL Total Bilirubin 0.7 (0.2-1.3) mg/dL AST 16 (14-36) U/L ALT 11 (9-52) U/L Alkaline Phosphatase 221 H (38-126) U/L Troponin I < 0.0120 (0.00-0.120) ng/mL NT-Pro-B Natriuret Pep 334 (0-900) pg/mL Total Protein 8.6 H (6.3-8.3) g/dL Albumin 3.8 (3.5-5.0) g/dL Globulin 4.9 H (2.2-3.9) gm/dL Albumin/Globulin Ratio 0.8 L (1.0-2.1) Procalcitonin (0.19-0.49) NG/ML Arterial Blood Potassium (3.6-5.2) mmol/L Venous Blood Potassium (3.6-5.2) mmol/L Urine Color (YELLOW) Urine Clarity (Clear) Urine pH (5.0-8.0) Ur Specific [place] (1.003-1.030) Urine Protein (NEGATIVE) mg/dL Urine Glucose (UA) (Normal) mg/dL Urine Ketones (NEGATIVE) mg/dL Urine Blood (NEGATIVE) Urine Nitrate (NEGATIVE) Urine Bilirubin (NEGATIVE) Urine Urobilinogen (0.2-1.0) mg/dL Ur Leukocyte Esterase (Negative) Mariam/uL Urine WBC (Auto) (0-5) /hpf Urine RBC (Auto) (0-3) /hpf Ur Squamous Epith Cells (0-5) /hpf Urine Bacteria (<OCC) Hyaline Casts (0-2) /lpf Urine Methadone Screen (NEGATIVE) Ur Barbiturates Screen (NEGATIVE) Ur Phencyclidine Scrn (NEGATIVE) U Benzodiazepines Scrn (NEGATIVE) U Oth Cocaine Metabols (NEGATIVE) U Cannabinoids Screen (NEGATIVE) Serum Ketones Moderate (NEGATIVE) Influenza Typ A,B (EIA) (NEGATIVE) Laboratory Results - last 24 hr 09/01/17 09/01/17 09/01/17 09:49 11:30 12:48 WBC RBC Hgb Hct MCV MCH MCHC RDW Plt Count MPV Neut % (Auto) Lymph % (Auto) [place] % (Auto) Eos % (Auto) Baso % (Auto) Neut # Lymph # [place] # Eos # Baso # Neutrophils % (Manual) Band Neutrophils % Lymphocytes % (Manual) Monocytes % (Manual) Metamyelocytes % Myelocytes % Toxic Granulation Platelet Estimate Large Platelets Giant Platelets Polychromasia Anisocytosis (manual) Microcytosis (manual) Puncture Site pCO2 pO2 22 L HCO3 ABG pH ABG Total CO2 ABG O2 Saturation ABG Base Excess Vince Test ABG Potassium VBG pH 6.96 L* VBG pCO2 42 VBG HCO3 5.4 VBG Total CO2 10.7 L VBG O2 Sat (Calc) 35.6 L VBG Base Excess -22.1 L VBG Potassium 4.2 A-a O2 Difference Respiratory Index Glucose 366 H Lactate 2.9 H FiO2 Inspiratory BiPAP Expiratory BiPAP Crit Value Called To Mary haro rn Crit Value Called By David Crit Value Read Back Y Blood Gas Notified Time 1251 Sodium 135 137.0 Potassium 4.4 Chloride 103 111.0 H Carbon Dioxide 6 L* Anion Gap 30 H BUN 16 Creatinine 0.9 Est GFR ( Amer) > 60 Est GFR (Non-Af Amer) > 60 POC Glucose (mg/dL) Random Glucose 517 H* Hemoglobin A1c Calcium 10.0 Phosphorus Magnesium Total Bilirubin 0.7 AST 16 ALT 11 Alkaline Phosphatase 221 H Troponin I < 0.0120 NT-Pro-B Natriuret Pep 334 Total Protein 8.6 H Albumin 3.8 Globulin 4.9 H Albumin/Globulin Ratio 0.8 L Procalcitonin Arterial Blood Potassium Venous Blood Potassium 4.2 Urine Color Urine Clarity Urine pH Ur Specific [place] Urine Protein Urine Glucose (UA) Urine Ketones Urine Blood Urine Nitrate Urine Bilirubin Urine Urobilinogen Ur Leukocyte Esterase Urine WBC (Auto) Urine RBC (Auto) Ur Squamous Epith Cells Urine Bacteria Hyaline Casts Urine Methadone Screen Ur Barbiturates Screen Ur Phencyclidine Scrn U Benzodiazepines Scrn U Oth Cocaine Metabols U Cannabinoids Screen Serum Ketones Moderate Influenza Typ A,B (EIA) Negative for flu a/b 09/01/17 09/01/17 09/01/17 12:53 13:07 13:45 WBC RBC Hgb Hct MCV MCH MCHC RDW Plt Count MPV Neut % (Auto) Lymph % (Auto) [place] % (Auto) Eos % (Auto) Baso % (Auto) Neut # Lymph # [place] # Eos # Baso # Neutrophils % (Manual) Band Neutrophils % Lymphocytes % (Manual) Monocytes % (Manual) Metamyelocytes % Myelocytes % Toxic Granulation Platelet Estimate Large Platelets Giant Platelets Polychromasia Anisocytosis (manual) Microcytosis (manual) Puncture Site pCO2 pO2 125 H HCO3 ABG pH ABG Total CO2 ABG O2 Saturation ABG Base Excess Vince Test ABG Potassium VBG pH 7.17 L* VBG pCO2 19 L* VBG HCO3 9.7 VBG Total CO2 7.5 L VBG O2 Sat (Calc) 99.4 H VBG Base Excess -19.5 L VBG Potassium 1.6 L* A-a O2 Difference Respiratory Index Glucose 159 H Lactate 1.2 FiO2 Inspiratory BiPAP Expiratory BiPAP Crit Value Called To Anna lopez Crit Value Called By Yosi javier,solar photovoltaic installer Crit Value Read Back Y Blood Gas Notified Time 1355 Sodium 154.0 H Potassium Chloride 132.0 H Carbon Dioxide Anion Gap BUN Creatinine Est GFR ( Amer) Est GFR (Non-Af Amer) POC Glucose (mg/dL) 343 H Random Glucose Hemoglobin A1c Calcium Phosphorus Magnesium Total Bilirubin AST ALT Alkaline Phosphatase Troponin I NT-Pro-B Natriuret Pep Total Protein Albumin Globulin Albumin/Globulin Ratio Procalcitonin Arterial Blood Potassium Venous Blood Potassium 1.6 L* Urine Color Yellow Urine Clarity Clear Urine pH 5.0 Ur Specific [place] 1.023 Urine Protein 2+ H Urine Glucose (UA) 3+ H Urine Ketones 2+ H Urine Blood 1+ H Urine Nitrate Negative Urine Bilirubin Negative Urine Urobilinogen Normal Ur Leukocyte Esterase Neg Urine WBC (Auto) 1 Urine RBC (Auto) 5 H Ur Squamous Epith Cells < 1 Urine Bacteria Occ H Hyaline Casts 3-5 H Urine Methadone Screen Ur Barbiturates Screen Ur Phencyclidine Scrn U Benzodiazepines Scrn U Oth Cocaine Metabols U Cannabinoids Screen Serum Ketones Influenza Typ A,B (EIA) 09/01/17 09/01/17 09/01/17 14:28 15:56 16:38 WBC RBC Hgb Hct MCV MCH MCHC RDW Plt Count MPV Neut % (Auto) Lymph % (Auto) [place] % (Auto) Eos % (Auto) Baso % (Auto) Neut # Lymph # [place] # Eos # Baso # Neutrophils % (Manual) Band Neutrophils % Lymphocytes % (Manual) Monocytes % (Manual) Metamyelocytes % Myelocytes % Toxic Granulation Platelet Estimate Large Platelets Giant Platelets Polychromasia Anisocytosis (manual) Microcytosis (manual) Puncture Site pCO2 pO2 HCO3 ABG pH ABG Total CO2 ABG O2 Saturation ABG Base Excess Vince Test ABG Potassium VBG pH VBG pCO2 VBG HCO3 VBG Total CO2 VBG O2 Sat (Calc) VBG Base Excess VBG Potassium A-a O2 Difference Respiratory Index Glucose Lactate FiO2 Inspiratory BiPAP Expiratory BiPAP Crit Value Called To Crit Value Called By Crit Value Read Back Blood Gas Notified Time Sodium Potassium Chloride Carbon Dioxide Anion Gap BUN Creatinine Est GFR ( Amer) Est GFR (Non-Af Amer) POC Glucose (mg/dL) 280 H 256 H Random Glucose Hemoglobin A1c Calcium Phosphorus Magnesium Total Bilirubin AST ALT Alkaline Phosphatase Troponin I NT-Pro-B Natriuret Pep Total Protein Albumin Globulin Albumin/Globulin Ratio Procalcitonin 13.43 H Arterial Blood Potassium Venous Blood Potassium Urine Color Urine Clarity Urine pH Ur Specific [place] Urine Protein Urine Glucose (UA) Urine Ketones Urine Blood Urine Nitrate Urine Bilirubin Urine Urobilinogen Ur Leukocyte Esterase Urine WBC (Auto) Urine RBC (Auto) Ur Squamous Epith Cells Urine Bacteria Hyaline Casts Urine Methadone Screen Ur Barbiturates Screen Ur Phencyclidine Scrn U Benzodiazepines Scrn U Oth Cocaine Metabols U Cannabinoids Screen Serum Ketones Influenza Typ A,B (EIA) 09/01/17 09/01/17 09/01/17 16:38 16:45 17:03 WBC RBC Hgb Hct MCV MCH MCHC RDW Plt Count MPV Neut % (Auto) Lymph % (Auto) [place] % (Auto) Eos % (Auto) Baso % (Auto) Neut # Lymph # [place] # Eos # Baso # Neutrophils % (Manual) Band Neutrophils % Lymphocytes % (Manual) Monocytes % (Manual) Metamyelocytes % Myelocytes % Toxic Granulation Platelet Estimate Large Platelets Giant Platelets Polychromasia Anisocytosis (manual) Microcytosis (manual) Puncture Site Rra pCO2 34 L pO2 73 L HCO3 15.2 L ABG pH 7.23 L ABG Total CO2 15.2 L ABG O2 Saturation 97.3 ABG Base Excess -12.3 L Vince Test Pos ABG Potassium 2.6 L VBG pH VBG pCO2 VBG HCO3 VBG Total CO2 VBG O2 Sat (Calc) VBG Base Excess VBG Potassium A-a O2 Difference 170.0 Respiratory Index 2.3 Glucose 271 H Lactate 1.4 FiO2 40.0 Inspiratory BiPAP 10 Expiratory BiPAP 5 Crit Value Called To Crit Value Called By Crit Value Read Back Blood Gas Notified Time Sodium 139 142.0 Potassium 2.7 L Chloride 110 H 112.0 H Carbon Dioxide 15 L Anion Gap 16 BUN 12 Creatinine 0.5 L Est GFR ( Amer) > 60 Est GFR (Non-Af Amer) > 60 POC Glucose (mg/dL) 231 H Random Glucose 287 H Hemoglobin A1c Calcium 8.2 L Phosphorus Magnesium Total Bilirubin 0.6 AST 32 ALT 25 Alkaline Phosphatase 137 H D Troponin I NT-Pro-B Natriuret Pep Total Protein 6.6 Albumin 2.9 L D Globulin 3.8 Albumin/Globulin Ratio 0.8 L Procalcitonin Arterial Blood Potassium 2.6 L Venous Blood Potassium Urine Color Urine Clarity Urine pH Ur Specific [place] Urine Protein Urine Glucose (UA) Urine Ketones Urine Blood Urine Nitrate Urine Bilirubin Urine Urobilinogen Ur Leukocyte Esterase Urine WBC (Auto) Urine RBC (Auto) Ur Squamous Epith Cells Urine Bacteria Hyaline Casts Urine Methadone Screen Ur Barbiturates Screen Ur Phencyclidine Scrn U Benzodiazepines Scrn U Oth Cocaine Metabols U Cannabinoids Screen Serum Ketones Influenza Typ A,B (EIA) 09/01/17 09/01/17 09/01/17 18:18 18:38 18:51 WBC RBC Hgb Hct MCV MCH MCHC RDW Plt Count MPV Neut % (Auto) Lymph % (Auto) [place] % (Auto) Eos % (Auto) Baso % (Auto) Neut # Lymph # [place] # Eos # Baso # Neutrophils % (Manual) Band Neutrophils % Lymphocytes % (Manual) Monocytes % (Manual) Metamyelocytes % Myelocytes % Toxic Granulation Platelet Estimate Large Platelets Giant Platelets Polychromasia Anisocytosis (manual) Microcytosis (manual) Puncture Site pCO2 pO2 HCO3 ABG pH ABG Total CO2 ABG O2 Saturation ABG Base Excess Vince Test ABG Potassium VBG pH VBG pCO2 VBG HCO3 VBG Total CO2 VBG O2 Sat (Calc) VBG Base Excess VBG Potassium A-a O2 Difference Respiratory Index Glucose Lactate FiO2 Inspiratory BiPAP Expiratory BiPAP Crit Value Called To Crit Value Called By Crit Value Read Back Blood Gas Notified Time Sodium Potassium Chloride Carbon Dioxide Anion Gap BUN Creatinine Est GFR ( Amer) Est GFR (Non-Af Amer) POC Glucose (mg/dL) 208 H Random Glucose Hemoglobin A1c Calcium Phosphorus 1.4 L Magnesium 2.1 Total Bilirubin AST ALT Alkaline Phosphatase Troponin I < 0.0120 NT-Pro-B Natriuret Pep Total Protein Albumin Globulin Albumin/Globulin Ratio Procalcitonin 19.38 H Arterial Blood Potassium Venous Blood Potassium Urine Color Urine Clarity Urine pH Ur Specific [place] Urine Protein Urine Glucose (UA) Urine Ketones Urine Blood Urine Nitrate Urine Bilirubin Urine Urobilinogen Ur Leukocyte Esterase Urine WBC (Auto) Urine RBC (Auto) Ur Squamous Epith Cells Urine Bacteria Hyaline Casts Urine Methadone Screen Ur Barbiturates Screen Ur Phencyclidine Scrn U Benzodiazepines Scrn U Oth Cocaine Metabols U Cannabinoids Screen Serum Ketones Influenza Typ A,B (EIA) 09/01/17 09/01/17 09/01/17 18:51 18:51 19:19 WBC RBC Hgb Hct MCV MCH MCHC RDW Plt Count MPV Neut % (Auto) Lymph % (Auto) [place] % (Auto) Eos % (Auto) Baso % (Auto) Neut # Lymph # [place] # Eos # Baso # Neutrophils % (Manual) Band Neutrophils % Lymphocytes % (Manual) Monocytes % (Manual) Metamyelocytes % Myelocytes % Toxic Granulation Platelet Estimate Large Platelets Giant Platelets Polychromasia Anisocytosis (manual) Microcytosis (manual) Puncture Site pCO2 pO2 HCO3 ABG pH ABG Total CO2 ABG O2 Saturation ABG Base Excess Vince Test ABG Potassium VBG pH VBG pCO2 VBG HCO3 VBG Total CO2 VBG O2 Sat (Calc) VBG Base Excess VBG Potassium A-a O2 Difference Respiratory Index Glucose Lactate FiO2 Inspiratory BiPAP Expiratory BiPAP Crit Value Called To Crit Value Called By Crit Value Read Back Blood Gas Notified Time Sodium 136 Potassium 2.8 L Chloride 109 H Carbon Dioxide 21 L Anion Gap 10 BUN 12 Creatinine 0.5 L Est GFR ( Amer) > 60 Est GFR (Non-Af Amer) > 60 POC Glucose (mg/dL) 190 H Random Glucose 236 H Hemoglobin A1c 14.7 H Calcium 8.4 L Phosphorus 0.9 L* Magnesium 2.1 Total Bilirubin 0.7 AST 30 ALT 19 Alkaline Phosphatase 128 H Troponin I NT-Pro-B Natriuret Pep 1290 H Total Protein 6.7 Albumin 2.9 L Globulin 3.8 Albumin/Globulin Ratio 0.8 L Procalcitonin Arterial Blood Potassium Venous Blood Potassium Urine Color Urine Clarity Urine pH Ur Specific [place] Urine Protein Urine Glucose (UA) Urine Ketones Urine Blood Urine Nitrate Urine Bilirubin Urine Urobilinogen Ur Leukocyte Esterase Urine WBC (Auto) Urine RBC (Auto) Ur Squamous Epith Cells Urine Bacteria Hyaline Casts Urine Methadone Screen Ur Barbiturates Screen Ur Phencyclidine Scrn U Benzodiazepines Scrn U Oth Cocaine Metabols U Cannabinoids Screen Serum Ketones Influenza Typ A,B (EIA) 09/01/17 09/01/17 09/01/17 21:03 22:16 22:52 WBC RBC Hgb Hct MCV MCH MCHC RDW Plt Count MPV Neut % (Auto) Lymph % (Auto) [place] % (Auto) Eos % (Auto) Baso % (Auto) Neut # Lymph # [place] # Eos # Baso # Neutrophils % (Manual) Band Neutrophils % Lymphocytes % (Manual) Monocytes % (Manual) Metamyelocytes % Myelocytes % Toxic Granulation Platelet Estimate Large Platelets Giant Platelets Polychromasia Anisocytosis (manual) Microcytosis (manual) Puncture Site pCO2 pO2 HCO3 ABG pH ABG Total CO2 ABG O2 Saturation ABG Base Excess Vince Test ABG Potassium VBG pH VBG pCO2 VBG HCO3 VBG Total CO2 VBG O2 Sat (Calc) VBG Base Excess VBG Potassium A-a O2 Difference Respiratory Index Glucose Lactate FiO2 Inspiratory BiPAP Expiratory BiPAP Crit Value Called To Crit Value Called By Crit Value Read Back Blood Gas Notified Time Sodium Potassium Chloride Carbon Dioxide Anion Gap BUN Creatinine Est GFR ( Amer) Est GFR (Non-Af Amer) POC Glucose (mg/dL) 233 H 223 H 235 H Random Glucose Hemoglobin A1c Calcium Phosphorus Magnesium Total Bilirubin AST ALT Alkaline Phosphatase Troponin I NT-Pro-B Natriuret Pep Total Protein Albumin Globulin Albumin/Globulin Ratio Procalcitonin Arterial Blood Potassium Venous Blood Potassium Urine Color Urine Clarity Urine pH Ur Specific [place] Urine Protein Urine Glucose (UA) Urine Ketones Urine Blood Urine Nitrate Urine Bilirubin Urine Urobilinogen Ur Leukocyte Esterase Urine WBC (Auto) Urine RBC (Auto) Ur Squamous Epith Cells Urine Bacteria Hyaline Casts Urine Methadone Screen Ur Barbiturates Screen Ur Phencyclidine Scrn U Benzodiazepines Scrn U Oth Cocaine Metabols U Cannabinoids Screen Serum Ketones Influenza Typ A,B (EIA) 09/01/17 09/02/17 09/02/17 23:55 01:12 02:24 WBC RBC Hgb Hct MCV MCH MCHC RDW Plt Count MPV Neut % (Auto) Lymph % (Auto) [place] % (Auto) Eos % (Auto) Baso % (Auto) Neut # Lymph # [place] # Eos # Baso # Neutrophils % (Manual) Band Neutrophils % Lymphocytes % (Manual) Monocytes % (Manual) Metamyelocytes % Myelocytes % Toxic Granulation Platelet Estimate Large Platelets Giant Platelets Polychromasia Anisocytosis (manual) Microcytosis (manual) Puncture Site pCO2 pO2 HCO3 ABG pH ABG Total CO2 ABG O2 Saturation ABG Base Excess Vince Test ABG Potassium VBG pH VBG pCO2 VBG HCO3 VBG Total CO2 VBG O2 Sat (Calc) VBG Base Excess VBG Potassium A-a O2 Difference Respiratory Index Glucose Lactate FiO2 Inspiratory BiPAP Expiratory BiPAP Crit Value Called To Crit Value Called By Crit Value Read Back Blood Gas Notified Time Sodium Potassium Chloride Carbon Dioxide Anion Gap BUN Creatinine Est GFR ( Amer) Est GFR (Non-Af Amer) POC Glucose (mg/dL) 243 H 212 H 227 H Random Glucose Hemoglobin A1c Calcium Phosphorus Magnesium Total Bilirubin AST ALT Alkaline Phosphatase Troponin I NT-Pro-B Natriuret Pep Total Protein Albumin Globulin Albumin/Globulin Ratio Procalcitonin Arterial Blood Potassium Venous Blood Potassium Urine Color Urine Clarity Urine pH Ur Specific [place] Urine Protein Urine Glucose (UA) Urine Ketones Urine Blood Urine Nitrate Urine Bilirubin Urine Urobilinogen Ur Leukocyte Esterase Urine WBC (Auto) Urine RBC (Auto) Ur Squamous Epith Cells Urine Bacteria Hyaline Casts Urine Methadone Screen Ur Barbiturates Screen Ur Phencyclidine Scrn U Benzodiazepines Scrn U Oth Cocaine Metabols U Cannabinoids Screen Serum Ketones Influenza Typ A,B (EIA) 09/02/17 09/02/17 09/02/17 03:12 03:58 05:08 WBC RBC Hgb Hct MCV MCH MCHC RDW Plt Count MPV Neut % (Auto) Lymph % (Auto) [place] % (Auto) Eos % (Auto) Baso % (Auto) Neut # Lymph # [place] # Eos # Baso # Neutrophils % (Manual) Band Neutrophils % Lymphocytes % (Manual) Monocytes % (Manual) Metamyelocytes % Myelocytes % Toxic Granulation Platelet Estimate Large Platelets Giant Platelets Polychromasia Anisocytosis (manual) Microcytosis (manual) Puncture Site pCO2 pO2 HCO3 ABG pH ABG Total CO2 ABG O2 Saturation ABG Base Excess Vince Test ABG Potassium VBG pH VBG pCO2 VBG HCO3 VBG Total CO2 VBG O2 Sat (Calc) VBG Base Excess VBG Potassium A-a O2 Difference Respiratory Index Glucose Lactate FiO2 Inspiratory BiPAP Expiratory BiPAP Crit Value Called To Crit Value Called By Crit Value Read Back Blood Gas Notified Time Sodium Potassium Chloride Carbon Dioxide Anion Gap BUN Creatinine Est GFR ( Amer) Est GFR (Non-Af Amer) POC Glucose (mg/dL) 206 H 215 H 191 H Random Glucose Hemoglobin A1c Calcium Phosphorus Magnesium Total Bilirubin AST ALT Alkaline Phosphatase Troponin I NT-Pro-B Natriuret Pep Total Protein Albumin Globulin Albumin/Globulin Ratio Procalcitonin Arterial Blood Potassium Venous Blood Potassium Urine Color Urine Clarity Urine pH Ur Specific [place] Urine Protein Urine Glucose (UA) Urine Ketones Urine Blood Urine Nitrate Urine Bilirubin Urine Urobilinogen Ur Leukocyte Esterase Urine WBC (Auto) Urine RBC (Auto) Ur Squamous Epith Cells Urine Bacteria Hyaline Casts Urine Methadone Screen Ur Barbiturates Screen Ur Phencyclidine Scrn U Benzodiazepines Scrn U Oth Cocaine Metabols U Cannabinoids Screen Serum Ketones Influenza Typ A,B (EIA) 09/02/17 09/02/17 09/02/17 05:36 06:11 06:11 WBC RBC Hgb Hct MCV MCH MCHC RDW Plt Count MPV Neut % (Auto) Lymph % (Auto) [place] % (Auto) Eos % (Auto) Baso % (Auto) Neut # Lymph # [place] # Eos # Baso # Neutrophils % (Manual) Band Neutrophils % Lymphocytes % (Manual) Monocytes % (Manual) Metamyelocytes % Myelocytes % Toxic Granulation Platelet Estimate Large Platelets Giant Platelets Polychromasia Anisocytosis (manual) Microcytosis (manual) Puncture Site pCO2 pO2 54 HCO3 ABG pH ABG Total CO2 ABG O2 Saturation ABG Base Excess Vince Test ABG Potassium VBG pH 7.38 VBG pCO2 33 L VBG HCO3 21.0 VBG Total CO2 20.5 L VBG O2 Sat (Calc) 92.8 H VBG Base Excess -4.7 L VBG Potassium 2.9 L A-a O2 Difference Respiratory Index Glucose 234 H Lactate 1.7 FiO2 40.0 Inspiratory BiPAP Expiratory BiPAP 5 Crit Value Called To Crit Value Called By Crit Value Read Back Blood Gas Notified Time Sodium 144.0 141 Potassium 3.1 L Chloride 114.0 H 112 H Carbon Dioxide 19 L Anion Gap 14 BUN 12 Creatinine 0.5 L Est GFR ( Amer) > 60 Est GFR (Non-Af Amer) > 60 POC Glucose (mg/dL) Random Glucose 208 H Hemoglobin A1c Calcium 8.4 L Phosphorus 1.6 L Magnesium 2.0 Total Bilirubin 0.6 AST 24 ALT 16 Alkaline Phosphatase 109 Troponin I < 0.0120 NT-Pro-B Natriuret Pep Total Protein 6.5 Albumin 2.8 L Globulin 3.7 Albumin/Globulin Ratio 0.8 L Procalcitonin Arterial Blood Potassium Venous Blood Potassium 2.9 L Urine Color Urine Clarity Urine pH Ur Specific [place] Urine Protein Urine Glucose (UA) Urine Ketones Urine Blood Urine Nitrate Urine Bilirubin Urine Urobilinogen Ur Leukocyte Esterase Urine WBC (Auto) Urine RBC (Auto) Ur Squamous Epith Cells Urine Bacteria Hyaline Casts Urine Methadone Screen Ur Barbiturates Screen Ur Phencyclidine Scrn U Benzodiazepines Scrn U Oth Cocaine Metabols U Cannabinoids Screen Serum Ketones Influenza Typ A,B (EIA) 09/02/17 09/02/17 09/02/17 06:11 06:11 07:35 WBC 23.8 H RBC 5.65 H Hgb 13.7 Hct 41.4 MCV 73.4 L D MCH 24.3 L MCHC 33.1 RDW 14.5 Plt Count 391 D MPV 7.6 Neut % (Auto) 92.1 H Lymph % (Auto) 4.3 L [place] % (Auto) 3.4 Eos % (Auto) 0.0 Baso % (Auto) 0.2 Neut # 21.9 H Lymph # 1.0 [place] # 0.8 Eos # 0.0 Baso # 0.1 Neutrophils % (Manual) 33 L Band Neutrophils % 40 H* Lymphocytes % (Manual) 9 L Monocytes % (Manual) 9 Metamyelocytes % 6 H Myelocytes % 3 H Toxic Granulation Present Platelet Estimate Normal Large Platelets Present Giant Platelets Present Polychromasia Slight Anisocytosis (manual) Slight Microcytosis (manual) Slight Puncture Site pCO2 pO2 HCO3 ABG pH ABG Total CO2 ABG O2 Saturation ABG Base Excess Vince Test ABG Potassium VBG pH VBG pCO2 VBG HCO3 VBG Total CO2 VBG O2 Sat (Calc) VBG Base Excess VBG Potassium A-a O2 Difference Respiratory Index Glucose Lactate FiO2 Inspiratory BiPAP Expiratory BiPAP Crit Value Called To Crit Value Called By Crit Value Read Back Blood Gas Notified Time Sodium Potassium Chloride Carbon Dioxide Anion Gap BUN Creatinine Est GFR ( Amer) Est GFR (Non-Af Amer) POC Glucose (mg/dL) 191 H Random Glucose Hemoglobin A1c Calcium Phosphorus Magnesium Total Bilirubin AST ALT Alkaline Phosphatase Troponin I NT-Pro-B Natriuret Pep Total Protein Albumin Globulin Albumin/Globulin Ratio Procalcitonin Arterial Blood Potassium Venous Blood Potassium Urine Color Urine Clarity Urine pH Ur Specific [place] Urine Protein Urine Glucose (UA) Urine Ketones Urine Blood Urine Nitrate Urine Bilirubin Urine Urobilinogen Ur Leukocyte Esterase Urine WBC (Auto) Urine RBC (Auto) Ur Squamous Epith Cells Urine Bacteria Hyaline Casts Urine Methadone Screen Negative Ur Barbiturates Screen Negative Ur Phencyclidine Scrn Negative U Benzodiazepines Scrn Negative U Oth Cocaine Metabols Negative U Cannabinoids Screen Negative Serum Ketones Influenza Typ A,B (EIA) 09/02/17 08:02 WBC RBC Hgb Hct MCV MCH MCHC RDW Plt Count MPV Neut % (Auto) Lymph % (Auto) [place] % (Auto) Eos % (Auto) Baso % (Auto) Neut # Lymph # [place] # Eos # Baso # Neutrophils % (Manual) Band Neutrophils % Lymphocytes % (Manual) Monocytes % (Manual) Metamyelocytes % Myelocytes % Toxic Granulation Platelet Estimate Large Platelets Giant Platelets Polychromasia Anisocytosis (manual) Microcytosis (manual) Puncture Site pCO2 pO2 HCO3 ABG pH ABG Total CO2 ABG O2 Saturation ABG Base Excess Vince Test ABG Potassium VBG pH VBG pCO2 VBG HCO3 VBG Total CO2 VBG O2 Sat (Calc) VBG Base Excess VBG Potassium A-a O2 Difference Respiratory Index Glucose Lactate FiO2 Inspiratory BiPAP Expiratory BiPAP Crit Value Called To Crit Value Called By Crit Value Read Back Blood Gas Notified Time Sodium Potassium Chloride Carbon Dioxide Anion Gap BUN Creatinine Est GFR ( Amer) Est GFR (Non-Af Amer) POC Glucose (mg/dL) 222 H Random Glucose Hemoglobin A1c Calcium Phosphorus Magnesium Total Bilirubin AST ALT Alkaline Phosphatase Troponin I NT-Pro-B Natriuret Pep Total Protein Albumin Globulin Albumin/Globulin Ratio Procalcitonin Arterial Blood Potassium Venous Blood Potassium Urine Color Urine Clarity Urine pH Ur Specific [place] Urine Protein Urine Glucose (UA) Urine Ketones Urine Blood Urine Nitrate Urine Bilirubin Urine Urobilinogen Ur Leukocyte Esterase Urine WBC (Auto) Urine RBC (Auto) Ur Squamous Epith Cells Urine Bacteria Hyaline Casts Urine Methadone Screen Ur Barbiturates Screen Ur Phencyclidine Scrn U Benzodiazepines Scrn U Oth Cocaine Metabols U Cannabinoids Screen Serum Ketones Influenza Typ A,B (EIA) Fingerstick Blood Sugar Results: 222 Assessment/Plan - Assessment and Plan (Free Text) Plan: [place] with PMx of DM, HTN, presents to [facility] with cough, SOB and high blood sugar (being treated as outpatient by primary physician with tamiflu , azithro and methylprednisolone) -DKA(resolved):anion gap closed, currently off IV insulin and IVF, ISS aspart -Multilobar PNA: pending sputum culture, continue barod spectrum abx, post flu bacteria liekly staph, check vanco, contineu tamiflu, vanco/zosyn/tamiflu and doxy (QTC 471) -ACS ruled out: trop neg, EKG and echo reveals diastolic herat failure: restart home antihypertensive medications -DM: check HBA1c, insulin Sliding scale q4hrs, DKA resolved -Lactic normalized -DVT ppx heparin SQ -PUD ppx protonix Patient's clinical situation improved but patient still not able to expectorate on bi-pap I have offered intubation for 2 days to help decrease work of breathing and help pulmonary toilet. Patient, her daughter and father were informed the risks benefits and alternatives. They discussed this with their PMD Dr. AGUILAR and decided to intubate patient to help clear secretions -Anesthesia to intubate -will restart NG tube feeds, ISS lispro, IVF at 84 ml/hr Prognosis guarded pending culture results cc time 45 minutes - Date & Time Date: 09/02/17 Time: 11:40
[2017-09-02 11:33] LABS: OPIATES, UR POSITIVE (NEGATIVE)
[2017-09-02] MEDS ORDERED: Propofol 10 mg/ml Inj (20 ML) ONE (11:40)
[2017-09-02] MEDS ORDERED: Lidocaine 2% Inj (20ml) ONE (11:41)
[2017-09-02] MEDS: Propofol 10 mg/ml 1,000 MG/100 ML VIAL IV PRN ×3 (12:05→20:53)
--- NOTE | 2017-09-02 12:08 | PCM.ANES ---
Anesthesia Emergent Intubation - Diagnosis Working Diagnosis:: respiratory distress - Consult Reason for Consult:: emergent endotracheal intubation - Intubation Attempts Previous Number of Intubation Attempts:: 0 - Pre-Intubation Vital Signs Blood Pressure: 162/79 Heart Rate: 98 Respiratory Rate: 28 O2 Sat: 93 FIO2: 1 Oxygen Delivery Method: BiPAP Level Of Consciousness: Awake/Alert/Oriented x 3 Intubation Meds Given: Propofol (120mg), Succinylcholine (100mg, lidocaine 80mg , and rocuromium 10mg) - Airway Management Oropharyngeal Area Suctioned: No PreOxygenation: 1 (ambubag) Rapid Sequence: Yes Cricoid Pressure: Yes Possible Aspiration: No - Method of Intubation Intubation Method: Oral ETT ETT Size: 8 Lipline@: 21cm Easy: Yes Atramatic: Yes - Intubation Devices Yefri Blade Size Used: 3 Tom Forcepts Used: No [place] Scope Used: No Fiber Optic Scope: No - Placement Confirmation Breath Sounds Present & Equal Bilaterally: Yes Gurgling Sounds Not Audible at Epigastrum: Yes Positive EtCO2: Yes Portable CXR: Yes Recommendations: Ventilator, Chest X Ray, ABG - Post-Intubation Vital Signs Blood Pressure: 80/50 (IV bolus, BP improved to 117/72) Heart Rate: 92 Respiratory Rate: 10 O2 Sat: 100 FIO2: 100
[2017-09-02] MEDS: Lactated Ringer's 1,000 ML IV SCH (12:48)
--- NOTE | 2017-09-02 13:43 | RAD ---
Chest x-ray single frontal view History: Endotracheal tube placement. Comparison: 09/02/2017 Findings: Endotracheal tube extending into the midthoracic trachea. NG tube extending into the stomach. Persistent diffuse confluent bilateral airspace opacities. Cardiomegaly. Degenerative changes in the spine and shoulders. Impression: Endotracheal tube extending into the midthoracic trachea. NG tube extending into the stomach. Persistent diffuse confluent bilateral airspace opacities. Cardiomegaly.
--- NOTE | 2017-09-02 14:55 | CP.PCM.PN ---
Subjective - Date & Time of Evaluation Date of Evaluation: 09/02/17 Time of Evaluation: 11:00 - Subjective Subjective: The patient seen and examined. Intubated for respiratory distress and hypoxemia Being treated for an pneumonia Afebrile sedated on ventilatory support Objective - Vital Signs/Intake and Output Vital Signs (last 24 hours): Temp Pulse Resp BP Pulse Ox 98.4 F 104 H 18 184/88 H 95 09/01/17 20:00 09/02/17 14:08 09/02/17 14:08 09/02/17 14:08 09/02/17 14:08 Intake and Output: 09/02/17 09/02/17 06:59 18:59 Intake Total 798 218 Output Total 1000 300 Balance -202 -82 - Medications Medications: Current Medications Albuterol/Ipratropium (Duoneb 3 Mg/0.5 Mg (3 Ml) Ud) 3 ml INH RQ4 [facility] Last Admin: 09/02/17 08:53 Dose: 3 ml Aspirin (Aspirin Chewable) 81 mg PO DAILY [facility] Last Admin: 09/02/17 09:29 Dose: 81 mg Famotidine (Pepcid) 40 mg PO DAILY [facility] Guaifenesin/Dextromethorphan (Robitussin Dm) 5 ml PO Q4H PRN PRN Reason: Cough Last Admin: 09/01/17 22:56 Dose: 5 ml Heparin Sodium (Porcine) (Heparin) 5,000 units SC Q8 [facility] Last Admin: 09/02/17 13:41 Dose: 5,000 units Vancomycin/Sodium Chloride (Vancomycin 1 Gm/Ns 200 Ml) 1 gm in 200 mls @ 133.333 mls/hr IVPB Q24H [facility] Stop: 09/07/17 08:01 Last Admin: 09/02/17 07:55 Dose: 133.333 mls/hr Piperacillin Sod/Tazobactam Sod (Zosyn 3.375 Gm Iv Premix) 3.375 gm in 50 mls @ 100 mls/hr IVPB Q6H [facility] Last Admin: 09/02/17 14:09 Dose: 100 mls/hr Potassium Phosphate 15 mmole/ (Sodium Chloride) 255 mls @ 42.5 mls/hr IVPB ONCE ONE Stop: 09/02/17 15:59 Last Admin: 09/02/17 10:09 Dose: 42.5 mls/hr Azithromycin 500 mg/ Sodium (Chloride) 250 mls @ 167 mls/hr IVPB Q24H [facility] Propofol (Diprivan) 1,000 mg in 100 mls @ 2.096 mls/hr IV .Q24H PRN; Protocol; 5 MCG/KG/MIN PRN Reason: TITRATE PER MD ORDER Last Titration: 09/02/17 14:00 Dose: 50 mcg/kg/min, 20.964 mls/hr Lactated Ringer's (Lactated Ringer's) 1,000 mls @ 84 mls/hr IV .[id number] [facility] Last Admin: 09/02/17 12:48 Dose: 84 mls/hr Insulin Human Regular (Novolin R) 0 unit SC ACHS [facility] PRN Reason: Protocol Last Admin: 09/02/17 12:39 Dose: 3 unit Labetalol HCl (Trandate) 10 mg IVP Q4H PRN PRN Reason: Systolic Blood Pressure >150 Last Admin: 09/02/17 11:27 Dose: 10 mg Oseltamivir Phosphate (Tamiflu Cap) 75 mg PO BID [facility] Stop: 09/06/17 11:54 Last Admin: 09/02/17 09:29 Dose: 75 mg - Labs Labs: 09/02/17 06:11 09/02/17 06:11 PT 14.3 SECONDS (9.7-12.2) H 09/01/17 09:49 INR 1.2 09/01/17 09:49 APTT 32 SECONDS (21-34) 09/01/17 09:49 - Head Exam Head Exam: ATRAUMATIC, NORMOCEPHALIC - ENT Exam ENT Exam: Mucous Membranes Moist - Respiratory Exam Respiratory Exam: Rales, Rhonchi - Cardiovascular Exam Cardiovascular Exam: REGULAR RHYTHM - GI/Abdominal Exam GI & Abdominal Exam: Soft, Normal Bowel Sounds - Extremities Exam Extremities Exam: Normal Inspection Assessment and Plan (1) Acute respiratory failure with hypoxemia Assessment & Plan: Continue ventilatory support IV sedation Continue antibiotics Gram-positive cocci in the blood followup sensitivity OGT feeding DKA resolved Status: Acute (2) Pneumonia Status: Acute (3) DKA (diabetic ketoacidoses) Status: Acute (4) Sepsis Status: Acute
--- NOTE | 2017-09-02 15:07 | CP.PCM.PN ---
Subjective - Date & Time of Evaluation Date of Evaluation: 09/02/17 Time of Evaluation: 15:06 - Subjective Subjective: intubated,on vent. Objective - Vital Signs/Intake and Output Vital Signs (last 24 hours): Temp Pulse Resp BP Pulse Ox 98.4 F 104 H 18 184/88 H 95 09/01/17 20:00 09/02/17 14:08 09/02/17 14:08 09/02/17 14:08 09/02/17 14:08 Intake and Output: 09/02/17 09/02/17 06:59 18:59 Intake Total 798 680.5 Output Total 1000 300 Balance -202 380.5 - Medications Medications: Current Medications Albuterol/Ipratropium (Duoneb 3 Mg/0.5 Mg (3 Ml) Ud) 3 ml INH RQ4 [facility] Last Admin: 09/02/17 08:53 Dose: 3 ml Aspirin (Aspirin Chewable) 81 mg PO DAILY [facility] Last Admin: 09/02/17 09:29 Dose: 81 mg Famotidine (Pepcid) 40 mg PO DAILY [facility] Guaifenesin/Dextromethorphan (Robitussin Dm) 5 ml PO Q4H PRN PRN Reason: Cough Last Admin: 09/01/17 22:56 Dose: 5 ml Heparin Sodium (Porcine) (Heparin) 5,000 units SC Q8 [facility] Last Admin: 09/02/17 13:41 Dose: 5,000 units Vancomycin/Sodium Chloride (Vancomycin 1 Gm/Ns 200 Ml) 1 gm in 200 mls @ 133.333 mls/hr IVPB Q24H [facility] Stop: 09/07/17 08:01 Last Admin: 09/02/17 07:55 Dose: 133.333 mls/hr Piperacillin Sod/Tazobactam Sod (Zosyn 3.375 Gm Iv Premix) 3.375 gm in 50 mls @ 100 mls/hr IVPB Q6H [facility] Last Admin: 09/02/17 14:09 Dose: 100 mls/hr Potassium Phosphate 15 mmole/ (Sodium Chloride) 255 mls @ 42.5 mls/hr IVPB ONCE ONE Stop: 09/02/17 15:59 Last Admin: 09/02/17 10:09 Dose: 42.5 mls/hr Azithromycin 500 mg/ Sodium (Chloride) 250 mls @ 167 mls/hr IVPB Q24H [facility] Propofol (Diprivan) 1,000 mg in 100 mls @ 2.096 mls/hr IV .Q24H PRN; Protocol; 5 MCG/KG/MIN PRN Reason: TITRATE PER MD ORDER Last Titration: 09/02/17 14:00 Dose: 50 mcg/kg/min, 20.964 mls/hr Lactated Ringer's (Lactated Ringer's) 1,000 mls @ 84 mls/hr IV .[id number] [facility] Last Admin: 09/02/17 12:48 Dose: 84 mls/hr Insulin Human Regular (Novolin R) 0 unit SC ACHS [facility] PRN Reason: Protocol Last Admin: 09/02/17 12:39 Dose: 3 unit Labetalol HCl (Trandate) 10 mg IVP Q4H PRN PRN Reason: Systolic Blood Pressure >150 Last Admin: 09/02/17 11:27 Dose: 10 mg Oseltamivir Phosphate (Tamiflu Cap) 75 mg PO BID [facility] Stop: 09/06/17 11:54 Last Admin: 09/02/17 09:29 Dose: 75 mg - Labs Labs: 09/02/17 06:11 09/02/17 06:11 PT 14.3 SECONDS (9.7-12.2) H 09/01/17 09:49 INR 1.2 09/01/17 09:49 APTT 32 SECONDS (21-34) 09/01/17 09:49 - Constitutional Appears: Toxic - Head Exam Head Exam: NORMOCEPHALIC - ENT Exam ENT Exam: Mucous Membranes Moist - Respiratory Exam Respiratory Exam: Rhonchi - Cardiovascular Exam Cardiovascular Exam: REGULAR RHYTHM - GI/Abdominal Exam GI & Abdominal Exam: Soft - Extremities Exam Extremities Exam: absent: Pedal Edema Assessment and Plan - Assessment and Plan (Free Text) Assessment: sedated,on antibiotics, diss with critical care md,dr sheikh & family
[2017-09-02 16:03] LABS: ARTERIAL BLOOD GAS HCO3 17.1 mmol/L (21-28); ARTERIAL BLOOD GAS O2 SAT 96.8 % (95-98); ARTERIAL BLOOD GAS PCO2 30 mm/Hg (35-45); ARTERIAL BLOOD GAS PH 7.31 (7.35-7.45); ARTERIAL BLOOD GAS PO2 70 mm/Hg (80-100)
[2017-09-02] MEDS ORDERED: Acetylcysteine 20% Inhal Soln (4ml) INH STA (16:07)
[2017-09-02] MEDS ORDERED: Potassium Chloride 20 mEq/15 ml LIQ UD PO ONE (16:15)
--- NOTE | 2017-09-02 18:28 | CARD ---
APPROVED REPORT EXAM: Two-dimensional and M-mode echocardiogram with Doppler and color Doppler. Other Information Quality : TDSRhythm : INDICATION LV Function:Systolic Flu-like Symptoms 2D DIMENSIONS IVSd1.1 (0.7-1.1cm)LVDd3.4 (3.9-5.9cm) PWd1.0 (0.7-1.1cm)LVDs2.3 (2.5-4.0cm) FS (%) 32.5 %LVEF (%)61.9 (>50%) M-Mode DIMENSIONS Left Atrium (MM)3.55 (2.5-4.0cm)Aortic Root2.89 (2.2-3.7cm) Aortic Cusp Exc.1.74 (1.5-2.0cm) Mitral Valve MV E Hxdbilir13.1cm/sMV A Kdqpcctv971.0cm/sE/A ratio0.6 TDI E/Lateral E'0.0E/Medial E'0.0 Tricuspid Valve TR Peak Lphmljmb589tq/sTR Peak Gr.[id number] LEFT VENTRICLE The left ventricle is normal size. There is normal left ventricular wall thickness. The left ventricular function is normal. The left ventricular ejection fraction is within the normal range. 61% No regional wall motion abnormalities noted. Transmitral Doppler flow pattern is Grade I-abnormal relaxation pattern. No left ventricle thrombus noted on this study. There is no ventricular septal defect visualized. There is no left ventricular aneurysm. There is no mass noted in the left ventricle. RIGHT VENTRICLE The right ventricle is normal size. There is normal right ventricular wall thickness. The right ventricular systolic function is normal. ATRIA The left atrium size is normal. The right atrium size is normal. The interatrial septum is intact with no evidence for an atrial septal defect. AORTIC VALVE The aortic valve is normal in structure and function. No aortic regurgitation is present. There is no aortic valvular stenosis. There is no aortic valvular vegetation. MITRAL VALVE The mitral valve is normal in structure and function. There is no evidence of mitral valve prolapse. There is no mitral valve stenosis. There is no mitral valve regurgitation noted. TRICUSPID VALVE The tricuspid valve is normal in structure and function. There is no tricuspid valve regurgitation noted. There is no tricuspid valve prolapse or vegetation. There is no tricuspid valve stenosis. PULMONIC VALVE The pulmonary valve is normal in structure and function. There is no pulmonic valvular regurgitation. There is no pulmonic valvular stenosis. GREAT VESSELS The aortic root is normal in size. The ascending aorta is normal in size. The pulmonary artery is normal. The IVC is normal in size and collapses >50% with inspiration. PERICARDIAL EFFUSION The pericardium appears normal. There is no pleural effusion. <Conclusion> Normal left ventricular systolic function. Normal Doppler. Transmitral Doppler flow pattern is Grade I-abnormal relaxation pattern.
--- NOTE | 2017-09-02 18:35 | CARD ---
APPROVED REPORT EKG Measurement Heart [id number] <Conclusion> Sinus tachycardia with premature atrial complexes Left anterior fascicular block Abnormal ECG
[2017-09-02] MEDS ORDERED: Azithromycin 500 MG in Sodium Chloride 0.9% 250 ML IVPB SCH (19:00)
[2017-09-02] MEDS: Vancomycin 1 gm/NS 200 ml 1 GM/200 ML BAG IVPB SCH (20:00)
[2017-09-03] MEDS: Propofol 10 mg/ml 1,000 MG/100 ML VIAL IV PRN ×5 (00:02→19:16)
[2017-09-03] MEDS: Lactated Ringer's 1,000 ML IV SCH ×3 (00:23→10:14)
[2017-09-03] MEDS: Piperacill/Tazo 3.375gm in Dex 3.375 GM/50 ML BAG IVPB SCH ×2 (02:23→09:31)
[2017-09-03] MEDS: Albuterol-Ipratrop 3 mg / 0.5 (3 ml) UD INH SCH ×6 (03:27→23:34)
[2017-09-03] MEDS: (Novolin R) Insulin Human Regular 100 units/ml vial SC SCH ×5 (04:41→17:38)
[2017-09-03 06:04] LABS: VENOUS BLOOD GAS PCO2 27 mmHg (40-60); VENOUS BLOOD GAS PO2 48 mm/Hg (30-55); VENOUS BLOOD PH 7.31 (7.32-7.43)
[2017-09-03 06:38] LABS: BASO # 0.1 K/uL (0.0-0.2); BASO % 0.3 % (0.0-2.0); HEMOGLOBIN 12.7 g/dL (11.0-16.0); LYMPH % 4.1 % (20.0-40.0); MEAN CORPUSCULAR HEMOGLOBIN 24.5 pg (27.0-31.0); MEAN CORPUSCULAR HGB CONC 33.1 g/dL (33.0-37.0); MONO # 0.7 K/uL (0.0-0.8); MONO % 2.8 % (0.0-10.0); NEUT # 23.4 K/uL (1.8-7.0); NEUT % 92.8 % (50.0-75.0); NRBC % 0.1 % (0.0-2.0); PLATELET COUNT 322 K/uL (130-400); WHITE BLOOD COUNT 25.2 K/uL (4.8-10.8)
[2017-09-03 06:48] LABS: ALB/GLOB RATIO 0.7 (1.0-2.1); ALBUMIN 2.5 g/dL (3.5-5.0); ALT/SGPT 17 U/L (9-52); AST/SGOT 21 U/L (14-36); BLOOD UREA NITROGEN 23 mg/dL (7-17); CALCIUM 8.6 mg/dl (8.6-10.4); GFR AFRICAN-AMERICAN > 60; GFR NON-AFRICAN AMERICAN > 60
--- NOTE | 2017-09-03 07:57 | RAD ---
Chest x-ray single frontal view History: Ventilator. Comparison: 09/02/2017 Findings: Lines and tubes in stable position. Prominent ill-defined consolidative airspace opacities throughout both lungs. Heart size within normal limits. Degenerative changes in the spine and shoulders. Impression: No significant interval change.
[2017-09-03] MEDS: Vancomycin 1 gm/NS 200 ml 1 GM/200 ML BAG IVPB SCH (08:06)
--- NOTE | 2017-09-03 08:51 | CP.CCUPN ---
CCU Subjective - Physician Review Events Since Last Encounter (Free Text): 09/03/17 08:50 Patient is a 62-year-old female with a history of diabetes and hypertension admitted to the hospital with acute respiratory insufficiency following an acute pneumonia. Patient was treated with Tamiflu for possible influenza. Upon arrival to the emergency room patient was having increasing respiratory insufficiency, and intubated. Patient is currently on 40% FiO2, blood pressure is on the stable side. Sedated, but is restless. On examination: Chest bilateral good air entry wheezing noted irregular heart sounds nontender abdomen no pedal edema Chest x-ray showing worsening infiltrative changes. Labs reviewed Elevated WBC. Slight improvement. Lactate is normal. We will repeat the blood gas analysis Assessment and recommendation: 61-year-old female diabetes and hypertension. Admitted with acute hypoxic respiratory insufficiency following a diffuse pneumonia. On ventilator. On antibiotic. Continue the ICU monitoring. Prognosis is guarded. Follow-up the patient Critical Care Time Spent (in minutes): 45 CCU Objective - Vital Signs / Intake & Output Vital Signs (Last 4 hours): Vital Signs Pulse Resp BP Pulse Ox 09/03/17 08:00 97 H 19 96 09/03/17 07:59 98 H 19 122/61 96 09/03/17 07:00 102 H 25 H 95 09/03/17 06:59 104 H 24 129/62 95 09/03/17 05:59 110 H 23 134/64 97 09/03/17 05:00 105 H 23 98 09/03/17 04:59 105 H 24 125/56 L 98 Intake and Output (Last 8hrs): Intake & Output 09/02/17 09/03/17 09/03/17 22:59 06:59 14:59 Intake Total 1533.4 1381.2 297 Output Total 525 370 70 Balance 1008.4 1011.2 227 Weight 155 lb 0.2 oz Intake: IV 202 253 27 Intake, IV Amount 1181.4 898.2 210 Left External Jugular 209.4 218.2 42 Left Forearm 972 680 168 Tube Feeding 90 230 60 Other 60 Output: Urine 525 370 70 Urethral (Nascimento) 525 370 70 Other: # Bowel Movements 0 0 0 - Physical Exam Head: Positive for: Atraumatic, Normocephalic Pupils: Positive for: PERRL Conjunctiva: Positive for: Normal Mouth: Positive for: Moist Mucous Membranes Respiratory/Chest: Positive for: Accessory Muscle Use, Wheezes, Rhonchi, Tachypneic Cardiovascular: Positive for: Regular Rate and Rhythm, Normal S1, S2 - Medications Active Medications: Active Medications Generic Name Dose Route Start Last Admin Trade Name Freq PRN Reason Stop Dose Admin Acetaminophen 650 mg 09/03/17 08:43 Tylenol 325mg Tab PO Q6 PRN Temperature Albuterol/Ipratropium 3 ml 09/01/17 20:00 09/03/17 07:48 Duoneb 3 Mg/0.5 Mg (3 Ml) Ud INH 3 ml RQ4 WILLIAM Administration Aspirin 81 mg 09/02/17 10:00 09/02/17 09:29 Aspirin Chewable PO 81 mg DAILY WILLIAM Administration Famotidine 40 mg 09/02/17 14:00 09/02/17 16:19 Pepcid PO 40 mg DAILY WILLIAM Administration Heparin Sodium (Porcine) 5,000 units 09/02/17 06:00 09/03/17 06:48 Heparin SC 5,000 units Q8 WILLIAM Administration Piperacillin Sod/Tazobactam Sod 3.375 gm in 50 mls @ 100 mls/hr 09/01/17 15: 00 09/03/17 02:23 Zosyn 3.375 Gm Iv Premix IVPB 100 mls/hr Q6H WILLIAM Administration Azithromycin 500 mg/ Sodium 250 mls @ 167 mls/hr 09/02/17 19:00 09/02/17 18: 02 Chloride IVPB 167 mls/hr Q24H WILLIAM Administration Propofol 1,000 mg in 100 mls @ 2.096 mls/hr 09/02/17 11:23 09/03/17 07:59 Diprivan IV 50.08 mcg/kg/min .Q24H PRN 21 mls/hr TITRATE PER MD ORDER Administration Protocol 5 MCG/KG/MIN Vancomycin/Sodium Chloride 1 gm in 200 mls @ 133.333 mls/hr 09/02/17 20:00 08:06 Vancomycin 1 Gm/Ns 200 Ml IVPB 09/07/17 20:01 133.333 mls/hr Q12H WILLIAM Administration Potassium Phosphate 15 mmole/ 255 mls @ 42.5 mls/hr 09/03/17 08:42 Sodium Chloride IVPB 09/03/17 14:41 ONCE ONE Lactated Ringer's 1,000 mls @ 40 mls/hr 09/03/17 08:43 Lactated Ringer's IV .Q24H WILLIAM Insulin Human Regular 0 unit 09/02/17 16:01 09/03/17 08:15 Novolin R SC 6 unit Q4H WILLIAM Administration Protocol Oseltamivir Phosphate 75 mg 09/01/17 12:00 09/02/17 18:03 Tamiflu Cap PO 09/06/17 11:54 75 mg BID WILLIAM Administration - Patient Studies Lab Studies: Microbiology Studies 09/02/17 12:10 Gram Stain - Final Trachasp 09/01/17 16:22 Urine Culture - Final Urine No Growth (<1,000 CFU/ML) 09/01/17 10:20 Blood Culture - Preliminary Blood Gram Positive Cocci Gram Stain - Final 09/01/17 09:20 S.aureus & Coag-Neg Staph PNA FISH - Final Blood Blood Culture - Preliminary Gram Positive Cocci Gram Stain - Final Lab Studies 09/03/17 09/03/17 09/03/17 Range/Units 07:58 06:24 06:24 WBC (4.8-10.8) K/uL RBC (3.80-5.20) Mil/uL Hgb (11.0-16.0) g/dL Hct (34.0-47.0) % MCV (81.0-99.0) fL MCH (27.0-31.0) pg MCHC (33.0-37.0) g/dL RDW (11.5-14.5) % Plt Count (130-400) K/uL MPV (7.2-11.7) fL Neut % (Auto) (50.0-75.0) % Lymph % (Auto) (20.0-40.0) % [place] % (Auto) (0.0-10.0) % Eos % (Auto) (0.0-4.0) % Baso % (Auto) (0.0-2.0) % Neut # (1.8-7.0) K/uL Lymph # (1.0-4.3) K/uL [place] # (0.0-0.8) K/uL Eos # (0.0-0.7) K/uL Baso # (0.0-0.2) K/uL Puncture Site pCO2 (35-45) mm/Hg pO2 (80-100) mm/Hg HCO3 (21-28) mmol/L ABG pH (7.35-7.45) ABG Total CO2 (22-28) mmol/L ABG O2 Saturation (95-98) % ABG Base Excess (-2.0-3.0) mmol/L Vince Test ABG Potassium (3.6-5.2) mmol/L VBG pH (7.32-7.43) VBG pCO2 (40-60) mmHg VBG HCO3 mmol/L VBG Total CO2 (22-28) mmol/L VBG O2 Sat (Calc) (40-65) % VBG Base Excess (0.0-2.0) mmol/L VBG Potassium (3.6-5.2) mmol/L A-a O2 Difference mm/Hg Respiratory Index Sodium 140 (132-148) mmol/l Chloride 114 H (98-107) mmol/L Glucose (65-105) mg/dl Lactate (0.7-2.1) mmol/L Vent Mode FiO2 % Tidal Volume PEEP Crit Value Called To Crit Value Called By Crit Value Read Back Blood Gas Notified Time Potassium 3.6 (3.6-5.2) mmol/L Carbon Dioxide 17 L (22-30) mmol/L Anion Gap 13 (10-20) BUN 23 H (7-17) mg/dL Creatinine 0.6 L (0.7-1.2) mg/dL Est GFR ( Amer) > 60 Est GFR (Non-Af Amer) > 60 POC Glucose (mg/dL) 324 H (65-110) mg/dL Random Glucose 357 H (65-105) mg/dL Calcium 8.6 (8.6-10.4) mg/dl Phosphorus 1.7 L (2.5-4.5) mg/dL Magnesium 2.0 (1.6-2.3) mg/dL Total Bilirubin 0.6 (0.2-1.3) mg/dL AST 21 (14-36) U/L ALT 17 (9-52) U/L Alkaline Phosphatase 168 H D (38-126) U/L Total Protein 6.0 L (6.3-8.3) g/dL Albumin 2.5 L (3.5-5.0) g/dL Globulin 3.5 (2.2-3.9) gm/dL Albumin/Globulin Ratio 0.7 L (1.0-2.1) Arterial Blood Potassium (3.6-5.2) mmol/L Venous Blood Potassium (3.6-5.2) mmol/L Vancomycin Trough 12.7 H (5.0-10.0) ug/mL Urine Opiates Screen (NEGATIVE) Ur Amphetamines Screen (NEGATIVE) 09/03/17 09/03/17 09/03/17 Range/Units 06:23 05:55 04:11 WBC 25.2 H (4.8-10.8) K/uL RBC 5.20 (3.80-5.20) Mil/uL Hgb 12.7 (11.0-16.0) g/dL Hct 38.5 (34.0-47.0) % MCV 74.0 L (81.0-99.0) fL MCH 24.5 L (27.0-31.0) pg MCHC 33.1 (33.0-37.0) g/dL RDW 15.0 H (11.5-14.5) % Plt Count 322 (130-400) K/uL MPV 8.0 (7.2-11.7) fL Neut % (Auto) 92.8 H (50.0-75.0) % Lymph % (Auto) 4.1 L (20.0-40.0) % [place] % (Auto) 2.8 (0.0-10.0) % Eos % (Auto) 0.0 (0.0-4.0) % Baso % (Auto) 0.3 (0.0-2.0) % Neut # 23.4 H (1.8-7.0) K/uL Lymph # 1.0 (1.0-4.3) K/uL [place] # 0.7 (0.0-0.8) K/uL Eos # 0.0 (0.0-0.7) K/uL Baso # 0.1 (0.0-0.2) K/uL Puncture Site pCO2 (35-45) mm/Hg pO2 48 (80-100) mm/Hg HCO3 (21-28) mmol/L ABG pH (7.35-7.45) ABG Total CO2 (22-28) mmol/L ABG O2 Saturation (95-98) % ABG Base Excess (-2.0-3.0) mmol/L Vince Test ABG Potassium (3.6-5.2) mmol/L VBG pH 7.31 L (7.32-7.43) VBG pCO2 27 L (40-60) mmHg VBG HCO3 15.8 mmol/L VBG Total CO2 14.4 L (22-28) mmol/L VBG O2 Sat (Calc) 89.5 H (40-65) % VBG Base Excess -11.0 L (0.0-2.0) mmol/L VBG Potassium 2.3 L* (3.6-5.2) mmol/L A-a O2 Difference mm/Hg Respiratory Index Sodium 150.0 H (132-148) mmol/l Chloride 123.0 H (98-107) mmol/L Glucose 287 H (65-105) mg/dl Lactate 1.5 (0.7-2.1) mmol/L Vent Mode FiO2 % Tidal Volume PEEP Crit Value Called To Merry jones/rn Crit Value Called By Natan keith/rt Crit Value Read Back Y Blood Gas Notified Time 605 Potassium (3.6-5.2) mmol/L Carbon Dioxide (22-30) mmol/L Anion Gap (10-20) BUN (7-17) mg/dL Creatinine (0.7-1.2) mg/dL Est GFR ( Amer) Est GFR (Non-Af Amer) POC Glucose (mg/dL) 310 H (65-110) mg/dL Random Glucose (65-105) mg/dL Calcium (8.6-10.4) mg/dl Phosphorus (2.5-4.5) mg/dL Magnesium (1.6-2.3) mg/dL Total Bilirubin (0.2-1.3) mg/dL AST (14-36) U/L ALT (9-52) U/L Alkaline Phosphatase (38-126) U/L Total Protein (6.3-8.3) g/dL Albumin (3.5-5.0) g/dL Globulin (2.2-3.9) gm/dL Albumin/Globulin Ratio (1.0-2.1) Arterial Blood Potassium (3.6-5.2) mmol/L Venous Blood Potassium 2.3 L* (3.6-5.2) mmol/L Vancomycin Trough (5.0-10.0) ug/mL Urine Opiates Screen (NEGATIVE) Ur Amphetamines Screen (NEGATIVE) 09/02/17 09/02/17 09/02/17 Range/Units 23:54 20:55 16:05 WBC (4.8-10.8) K/uL RBC (3.80-5.20) Mil/uL Hgb (11.0-16.0) g/dL Hct (34.0-47.0) % MCV (81.0-99.0) fL MCH (27.0-31.0) pg MCHC (33.0-37.0) g/dL RDW (11.5-14.5) % Plt Count (130-400) K/uL MPV (7.2-11.7) fL Neut % (Auto) (50.0-75.0) % Lymph % (Auto) (20.0-40.0) % [place] % (Auto) (0.0-10.0) % Eos % (Auto) (0.0-4.0) % Baso % (Auto) (0.0-2.0) % Neut # (1.8-7.0) K/uL Lymph # (1.0-4.3) K/uL [place] # (0.0-0.8) K/uL Eos # (0.0-0.7) K/uL Baso # (0.0-0.2) K/uL Puncture Site pCO2 (35-45) mm/Hg pO2 (80-100) mm/Hg HCO3 (21-28) mmol/L ABG pH (7.35-7.45) ABG Total CO2 (22-28) mmol/L ABG O2 Saturation (95-98) % ABG Base Excess (-2.0-3.0) mmol/L Vince Test ABG Potassium (3.6-5.2) mmol/L VBG pH (7.32-7.43) VBG pCO2 (40-60) mmHg VBG HCO3 mmol/L VBG Total CO2 (22-28) mmol/L VBG O2 Sat (Calc) (40-65) % VBG Base Excess (0.0-2.0) mmol/L VBG Potassium (3.6-5.2) mmol/L A-a O2 Difference mm/Hg Respiratory Index Sodium (132-148) mmol/l Chloride (98-107) mmol/L Glucose (65-105) mg/dl Lactate (0.7-2.1) mmol/L Vent Mode FiO2 % Tidal Volume PEEP Crit Value Called To Crit Value Called By Crit Value Read Back Blood Gas Notified Time Potassium (3.6-5.2) mmol/L Carbon Dioxide (22-30) mmol/L Anion Gap (10-20) BUN (7-17) mg/dL Creatinine (0.7-1.2) mg/dL Est GFR ( Amer) Est GFR (Non-Af Amer) POC Glucose (mg/dL) 245 H 264 H 245 H (65-110) mg/dL Random Glucose (65-105) mg/dL Calcium (8.6-10.4) mg/dl Phosphorus (2.5-4.5) mg/dL Magnesium (1.6-2.3) mg/dL Total Bilirubin (0.2-1.3) mg/dL AST (14-36) U/L ALT (9-52) U/L Alkaline Phosphatase (38-126) U/L Total Protein (6.3-8.3) g/dL Albumin (3.5-5.0) g/dL Globulin (2.2-3.9) gm/dL Albumin/Globulin Ratio (1.0-2.1) Arterial Blood Potassium (3.6-5.2) mmol/L Venous Blood Potassium (3.6-5.2) mmol/L Vancomycin Trough (5.0-10.0) ug/mL Urine Opiates Screen (NEGATIVE) Ur Amphetamines Screen (NEGATIVE) 09/02/17 09/02/17 09/02/17 Range/Units 15:59 12:32 07:35 WBC (4.8-10.8) K/uL RBC (3.80-5.20) Mil/uL Hgb (11.0-16.0) g/dL Hct (34.0-47.0) % MCV (81.0-99.0) fL MCH (27.0-31.0) pg MCHC (33.0-37.0) g/dL RDW (11.5-14.5) % Plt Count (130-400) K/uL MPV (7.2-11.7) fL Neut % (Auto) (50.0-75.0) % Lymph % (Auto) (20.0-40.0) % [place] % (Auto) (0.0-10.0) % Eos % (Auto) (0.0-4.0) % Baso % (Auto) (0.0-2.0) % Neut # (1.8-7.0) K/uL Lymph # (1.0-4.3) K/uL [place] # (0.0-0.8) K/uL Eos # (0.0-0.7) K/uL Baso # (0.0-0.2) K/uL Puncture Site Rra pCO2 30 L (35-45) mm/Hg pO2 70 L (80-100) mm/Hg HCO3 17.1 L (21-28) mmol/L ABG pH 7.31 L (7.35-7.45) ABG Total CO2 16.0 L (22-28) mmol/L ABG O2 Saturation 96.8 (95-98) % ABG Base Excess -9.8 L (-2.0-3.0) mmol/L Vince Test Na ABG Potassium 3.4 L (3.6-5.2) mmol/L VBG pH (7.32-7.43) VBG pCO2 (40-60) mmHg VBG HCO3 mmol/L VBG Total CO2 (22-28) mmol/L VBG O2 Sat (Calc) (40-65) % VBG Base Excess (0.0-2.0) mmol/L VBG Potassium (3.6-5.2) mmol/L A-a O2 Difference 213.0 mm/Hg Respiratory Index 3.0 Sodium 144.0 (132-148) mmol/l Chloride 112.0 H (98-107) mmol/L Glucose 285 H (65-105) mg/dl Lactate 1.5 (0.7-2.1) mmol/L Vent Mode Prvc FiO2 45.0 % Tidal Volume 450 PEEP 5 Crit Value Called To Crit Value Called By Crit Value Read Back Blood Gas Notified Time Potassium (3.6-5.2) mmol/L Carbon Dioxide (22-30) mmol/L Anion Gap (10-20) BUN (7-17) mg/dL Creatinine (0.7-1.2) mg/dL Est GFR ( Amer) Est GFR (Non-Af Amer) POC Glucose (mg/dL) 206 H (65-110) mg/dL Random Glucose (65-105) mg/dL Calcium (8.6-10.4) mg/dl Phosphorus (2.5-4.5) mg/dL Magnesium (1.6-2.3) mg/dL Total Bilirubin (0.2-1.3) mg/dL AST (14-36) U/L ALT (9-52) U/L Alkaline Phosphatase (38-126) U/L Total Protein (6.3-8.3) g/dL Albumin (3.5-5.0) g/dL Globulin (2.2-3.9) gm/dL Albumin/Globulin Ratio (1.0-2.1) Arterial Blood Potassium 3.4 L (3.6-5.2) mmol/L Venous Blood Potassium (3.6-5.2) mmol/L Vancomycin Trough (5.0-10.0) ug/mL Urine Opiates Screen Positive H (NEGATIVE) Ur Amphetamines Screen Negative (NEGATIVE) Laboratory Results - last 24 hr 09/02/17 09/02/17 09/02/17 07:35 12:32 15:59 WBC RBC Hgb Hct MCV MCH MCHC RDW Plt Count MPV Neut % (Auto) Lymph % (Auto) [place] % (Auto) Eos % (Auto) Baso % (Auto) Neut # Lymph # [place] # Eos # Baso # Puncture Site Rra pCO2 30 L pO2 70 L HCO3 17.1 L ABG pH 7.31 L ABG Total CO2 16.0 L ABG O2 Saturation 96.8 ABG Base Excess -9.8 L Vince Test Na ABG Potassium 3.4 L VBG pH VBG pCO2 VBG HCO3 VBG Total CO2 VBG O2 Sat (Calc) VBG Base Excess VBG Potassium A-a O2 Difference 213.0 Respiratory Index 3.0 Sodium 144.0 Chloride 112.0 H Glucose 285 H Lactate 1.5 Vent Mode Prvc FiO2 45.0 Tidal Volume 450 PEEP 5 Crit Value Called To Crit Value Called By Crit Value Read Back Blood Gas Notified Time Potassium Carbon Dioxide Anion Gap BUN Creatinine Est GFR ( Amer) Est GFR (Non-Af Amer) POC Glucose (mg/dL) 206 H Random Glucose Calcium Phosphorus Magnesium Total Bilirubin AST ALT Alkaline Phosphatase Total Protein Albumin Globulin Albumin/Globulin Ratio Arterial Blood Potassium 3.4 L Venous Blood Potassium Vancomycin Trough Urine Opiates Screen Positive H Ur Amphetamines Screen Negative 09/02/17 09/02/17 09/02/17 16:05 20:55 23:54 WBC RBC Hgb Hct MCV MCH MCHC RDW Plt Count MPV Neut % (Auto) Lymph % (Auto) [place] % (Auto) Eos % (Auto) Baso % (Auto) Neut # Lymph # [place] # Eos # Baso # Puncture Site pCO2 pO2 HCO3 ABG pH ABG Total CO2 ABG O2 Saturation ABG Base Excess Vince Test ABG Potassium VBG pH VBG pCO2 VBG HCO3 VBG Total CO2 VBG O2 Sat (Calc) VBG Base Excess VBG Potassium A-a O2 Difference Respiratory Index Sodium Chloride Glucose Lactate Vent Mode FiO2 Tidal Volume PEEP Crit Value Called To Crit Value Called By Crit Value Read Back Blood Gas Notified Time Potassium Carbon Dioxide Anion Gap BUN Creatinine Est GFR ( Amer) Est GFR (Non-Af Amer) POC Glucose (mg/dL) 245 H 264 H 245 H Random Glucose Calcium Phosphorus Magnesium Total Bilirubin AST ALT Alkaline Phosphatase Total Protein Albumin Globulin Albumin/Globulin Ratio Arterial Blood Potassium Venous Blood Potassium Vancomycin Trough Urine Opiates Screen Ur Amphetamines Screen 09/03/17 09/03/17 09/03/17 04:11 05:55 06:23 WBC 25.2 H RBC 5.20 Hgb 12.7 Hct 38.5 MCV 74.0 L MCH 24.5 L MCHC 33.1 RDW 15.0 H Plt Count 322 MPV 8.0 Neut % (Auto) 92.8 H Lymph % (Auto) 4.1 L [place] % (Auto) 2.8 Eos % (Auto) 0.0 Baso % (Auto) 0.3 Neut # 23.4 H Lymph # 1.0 [place] # 0.7 Eos # 0.0 Baso # 0.1 Puncture Site pCO2 pO2 48 HCO3 ABG pH ABG Total CO2 ABG O2 Saturation ABG Base Excess Vince Test ABG Potassium VBG pH 7.31 L VBG pCO2 27 L VBG HCO3 15.8 VBG Total CO2 14.4 L VBG O2 Sat (Calc) 89.5 H VBG Base Excess -11.0 L VBG Potassium 2.3 L* A-a O2 Difference Respiratory Index Sodium 150.0 H Chloride 123.0 H Glucose 287 H Lactate 1.5 Vent Mode FiO2 Tidal Volume PEEP Crit Value Called To Merry jones/rn Crit Value Called By Natan keith/rt Crit Value Read Back Y Blood Gas Notified Time 605 Potassium Carbon Dioxide Anion Gap BUN Creatinine Est GFR ( Amer) Est GFR (Non-Af Amer) POC Glucose (mg/dL) 310 H Random Glucose Calcium Phosphorus Magnesium Total Bilirubin AST ALT Alkaline Phosphatase Total Protein Albumin Globulin Albumin/Globulin Ratio Arterial Blood Potassium Venous Blood Potassium 2.3 L* Vancomycin Trough Urine Opiates Screen Ur Amphetamines Screen 09/03/17 09/03/17 09/03/17 06:24 06:24 07:58 WBC RBC Hgb Hct MCV MCH MCHC RDW Plt Count MPV Neut % (Auto) Lymph % (Auto) [place] % (Auto) Eos % (Auto) Baso % (Auto) Neut # Lymph # [place] # Eos # Baso # Puncture Site pCO2 pO2 HCO3 ABG pH ABG Total CO2 ABG O2 Saturation ABG Base Excess Vince Test ABG Potassium VBG pH VBG pCO2 VBG HCO3 VBG Total CO2 VBG O2 Sat (Calc) VBG Base Excess VBG Potassium A-a O2 Difference Respiratory Index Sodium 140 Chloride 114 H Glucose Lactate Vent Mode FiO2 Tidal Volume PEEP Crit Value Called To Crit Value Called By Crit Value Read Back Blood Gas Notified Time Potassium 3.6 Carbon Dioxide 17 L Anion Gap 13 BUN 23 H Creatinine 0.6 L Est GFR ( Amer) > 60 Est GFR (Non-Af Amer) > 60 POC Glucose (mg/dL) 324 H Random Glucose 357 H Calcium 8.6 Phosphorus 1.7 L Magnesium 2.0 Total Bilirubin 0.6 AST 21 ALT 17 Alkaline Phosphatase 168 H D Total Protein 6.0 L Albumin 2.5 L Globulin 3.5 Albumin/Globulin Ratio 0.7 L Arterial Blood Potassium Venous Blood Potassium Vancomycin Trough 12.7 H Urine Opiates Screen Ur Amphetamines Screen Fingerstick Blood Sugar Results: 324
[2017-09-03 09:10] LABS: BANDS 20 % (0-2); LYMPHOCYTE 3 % (20-40); METAMYELOCYTE 2 % (0-0); MONOCYTE 5 % (0-10); NEUTROPHIL 70 % (50-75); TOTAL CELLS COUNTED 100
[2017-09-03 09:11] LABS: ANISOCYTOSIS SLIGHT; MICROCYTOSIS SLIGHT; PLATELET ESTIMATE NORMAL (NORMAL); POIKILOCYTOSIS SLIGHT; TOXIC GRANULATION PRESENT
[2017-09-03 09:12] LABS: HYPOCHROMIC SLIGHT; LARGE PLATELETS PRESENT; POLYCHROMIC SLIGHT
[2017-09-03 09:13] LABS: BURR CELLS SLIGHT; TEARDROP CELLS SLIGHT
[2017-09-03 09:14] LABS: ARTERIAL BLOOD GAS HCO3 18.6 mmol/L (21-28); ARTERIAL BLOOD GAS HEMOGLOBIN 13.4 g/dL (11.7-17.4); ARTERIAL BLOOD GAS O2 SAT 98.2 % (95-98); ARTERIAL BLOOD GAS PCO2 25 mm/Hg (35-45); ARTERIAL BLOOD GAS PH 7.39 (7.35-7.45); ARTERIAL BLOOD GAS PO2 74 mm/Hg (80-100); ARTERIAL BLOOD GAS TCO2 15.9 mmol/L (22-28)
[2017-09-03] MEDS ORDERED: Potassium Phosphate 15 MMOLE in Sodium Chloride 0.9% 250 ML IVPB ONE (09:30)
--- NOTE | 2017-09-03 12:23 | CP.PCM.PN ---
Subjective - Date & Time of Evaluation Date of Evaluation: 09/03/17 Time of Evaluation: 12:21 - Subjective Subjective: intubated,sedated.labs chest x ray all noted.diss with dr robertson & family. Objective - Vital Signs/Intake and Output Vital Signs (last 24 hours): Temp Pulse Resp BP Pulse Ox 100.6 F H 104 H 27 H 104/36 L 95 09/03/17 08:00 09/03/17 12:00 09/03/17 12:00 09/03/17 12:00 09/03/17 12:00 Intake and Output: 09/03/17 09/03/17 06:59 18:59 Intake Total 2150.2 809.0 Output Total 595 245 Balance 1555.2 564.0 - Medications Medications: Current Medications Acetaminophen (Tylenol 325mg Tab) 650 mg PO Q6 PRN PRN Reason: Temperature Last Admin: 09/03/17 09:54 Dose: 650 mg Albuterol/Ipratropium (Duoneb 3 Mg/0.5 Mg (3 Ml) Ud) 3 ml INH RQ4 [facility] Last Admin: 09/03/17 11:19 Dose: 3 ml Aspirin (Aspirin Chewable) 81 mg PO DAILY [facility] Last Admin: 09/03/17 09:54 Dose: 81 mg Famotidine (Pepcid) 40 mg PO DAILY [facility] Last Admin: 09/03/17 10:10 Dose: 40 mg Heparin Sodium (Porcine) (Heparin) 5,000 units SC Q8 [facility] Last Admin: 09/03/17 06:48 Dose: 5,000 units Azithromycin 500 mg/ Sodium (Chloride) 250 mls @ 167 mls/hr IVPB Q24H [facility] Last Admin: 09/02/17 18:02 Dose: 167 mls/hr Propofol (Diprivan) 1,000 mg in 100 mls @ 2.096 mls/hr IV .Q24H PRN; Protocol; 5 MCG/KG/MIN PRN Reason: TITRATE PER MD ORDER Last Admin: 09/03/17 07:59 Dose: 50.08 mcg/kg/min, 21 mls/hr Vancomycin/Sodium Chloride (Vancomycin 1 Gm/Ns 200 Ml) 1 gm in 200 mls @ 133.333 mls/hr IVPB Q12H [facility] Stop: 09/07/17 20:01 Last Admin: 09/03/17 08:06 Dose: 133.333 mls/hr Potassium Phosphate 15 mmole/ (Sodium Chloride) 255 mls @ 42.5 mls/hr IVPB ONCE ONE Stop: 09/03/17 15:29 Last Admin: 09/03/17 09:55 Dose: 42.5 mls/hr Lactated Ringer's (Lactated Ringer's) 1,000 mls @ 40 mls/hr IV .Q24H [facility] Last Admin: 09/03/17 10:14 Dose: 40 mls/hr Piperacillin Sod/Tazobactam (Sod 3.375 gm/ Sodium Chloride) 100 mls @ 100 mls/ hr IVPB Q6H [facility] Insulin Glargine (Lantus) 5 unit SC Q12 [facility] Insulin Human Regular (Novolin R) 0 unit SC Q6 [facility] PRN Reason: Protocol Lorazepam (Ativan) 1 mg IVP Q6H PRN PRN Reason: Anxiety Last Admin: 09/03/17 11:10 Dose: 1 mg Morphine Sulfate (Morphine) 2 mg IVP Q6 PRN PRN Reason: Pain, moderate (4-7) Oseltamivir Phosphate (Tamiflu Cap) 75 mg PO BID [facility] Stop: 09/06/17 11:54 Last Admin: 09/03/17 09:54 Dose: 75 mg - Labs Labs: 09/03/17 06:23 09/03/17 06:24 PT 14.3 SECONDS (9.7-12.2) H 09/01/17 09:49 INR 1.2 09/01/17 09:49 APTT 32 SECONDS (21-34) 09/01/17 09:49 - Head Exam Head Exam: NORMOCEPHALIC - Neck Exam Neck Exam: Normal Inspection - Respiratory Exam Respiratory Exam: Decreased Breath Sounds - Cardiovascular Exam Cardiovascular Exam: REGULAR RHYTHM - GI/Abdominal Exam GI & Abdominal Exam: Soft - Extremities Exam Extremities Exam: absent: Pedal Edema Assessment and Plan - Assessment and Plan (Free Text) Assessment: vitals are stable.on vent.labs noted.bands are down. will ct current rx.may extubate in am
[2017-09-03] MEDS: (Lantus) Insulin Glargine, Recombinant SC SCH ×2 (12:36→21:21)
--- NOTE | 2017-09-03 14:37 | CP.PCM.PN ---
Subjective - Date & Time of Evaluation Date of Evaluation: 09/03/17 Time of Evaluation: 09:00 - Subjective Subjective: intubated sedated on vent Objective - Vital Signs/Intake and Output Vital Signs (last 24 hours): Temp Pulse Resp BP Pulse Ox 100.6 F H 104 H 27 H 104/36 L 95 09/03/17 08:00 09/03/17 12:00 09/03/17 12:00 09/03/17 12:00 09/03/17 12:00 Intake and Output: 09/03/17 09/03/17 06:59 18:59 Intake Total 2150.2 909.0 Output Total 595 245 Balance 1555.2 664.0 - Medications Medications: Current Medications Acetaminophen (Tylenol 325mg Tab) 650 mg PO Q6 PRN PRN Reason: Temperature Last Admin: 09/03/17 09:54 Dose: 650 mg Albuterol/Ipratropium (Duoneb 3 Mg/0.5 Mg (3 Ml) Ud) 3 ml INH RQ4 [facility] Last Admin: 09/03/17 11:19 Dose: 3 ml Aspirin (Aspirin Chewable) 81 mg PO DAILY [facility] Last Admin: 09/03/17 09:54 Dose: 81 mg Famotidine (Pepcid) 40 mg PO DAILY [facility] Last Admin: 09/03/17 10:10 Dose: 40 mg Heparin Sodium (Porcine) (Heparin) 5,000 units SC Q8 [facility] Last Admin: 09/03/17 14:29 Dose: 5,000 units Propofol (Diprivan) 1,000 mg in 100 mls @ 2.096 mls/hr IV .Q24H PRN; Protocol; 5 MCG/KG/MIN PRN Reason: TITRATE PER MD ORDER Last Admin: 09/03/17 14:29 Dose: 40 mcg/kg/min, 16.771 mls/hr Potassium Phosphate 15 mmole/ (Sodium Chloride) 255 mls @ 42.5 mls/hr IVPB ONCE ONE Stop: 09/03/17 15:29 Last Admin: 09/03/17 09:55 Dose: 42.5 mls/hr Lactated Ringer's (Lactated Ringer's) 1,000 mls @ 40 mls/hr IV .Q24H [facility] Last Admin: 09/03/17 10:14 Dose: 40 mls/hr Piperacillin Sod/Tazobactam (Sod 3.375 gm/ Sodium Chloride) 100 mls @ 100 mls/ hr IVPB Q6H [facility] Linezolid (Zyvox 600mg/300ml D5w) 600 mg in 300 mls @ 200 mls/hr IVPB Q12 [facility] Insulin Glargine (Lantus) 5 unit SC Q12 [facility] Last Admin: 09/03/17 12:36 Dose: 5 unit Insulin Human Regular (Novolin R) 0 unit SC Q6 [facility] PRN Reason: Protocol Lorazepam (Ativan) 1 mg IVP Q6H PRN PRN Reason: Anxiety Last Admin: 09/03/17 11:10 Dose: 1 mg Morphine Sulfate (Morphine) 2 mg IVP Q6 PRN PRN Reason: Pain, moderate (4-7) Oseltamivir Phosphate (Tamiflu Cap) 75 mg PO BID [facility] Stop: 09/06/17 11:54 Last Admin: 09/03/17 09:54 Dose: 75 mg - Labs Labs: 09/03/17 06:23 09/03/17 06:24 PT 14.3 SECONDS (9.7-12.2) H 09/01/17 09:49 INR 1.2 09/01/17 09:49 APTT 32 SECONDS (21-34) 09/01/17 09:49 - Constitutional Appears: Toxic - Head Exam Head Exam: NORMOCEPHALIC - Eye Exam Eye Exam: PERRL - ENT Exam ENT Exam: absent: Mucous Membranes Dry - Neck Exam Neck Exam: absent: Lymphadenopathy - Respiratory Exam Respiratory Exam: Decreased Breath Sounds - Cardiovascular Exam Cardiovascular Exam: REGULAR RHYTHM - GI/Abdominal Exam GI & Abdominal Exam: Distended - Rectal Exam Rectal Exam: Deferred - Exam Exam: NORMAL INSPECTION - Extremities Exam Extremities Exam: absent: Pedal Edema - Back Exam Back Exam: absent: CVA tenderness (L), CVA tenderness (R) - Neurological Exam Neurological Exam: Altered Neuro motor strength exam: Left Upper Extremity: 4, Right Upper Extremity: 4, Left Lower Extremity: 4, Right Lower Extremity: 4 - Psychiatric Exam Psychiatric exam: Depressed - Skin Skin Exam: Dry Assessment and Plan (1) DKA (diabetic ketoacidoses) Status: Acute (2) Pneumonia Status: Acute (3) Sepsis Status: Acute - Assessment and Plan (Free Text) Assessment: MRSA pneumonia and sepsis failing on Vanco- switch to Zyvox consider d/c other antibiotics consider echo / MAY if bacteremia persists
[2017-09-03] MEDS: Piperacillin/Tazobact 3.375 GM in Sodium Chloride 0.9% 100 ML IVPB SCH ×2 (14:42→20:28)
--- NOTE | 2017-09-03 19:22 | CP.PCM.PN ---
Subjective - Date & Time of Evaluation Date of Evaluation: 09/03/17 Time of Evaluation: 17:00 - Subjective Subjective: the patient seen and examined And remained intubated on ventilatory support FiO2 45% with saturation in the upper 90s Sedated on Diprivan Tolerating feeding Minimal secretions from the ET tube No bowel movement but passing gas Objective - Vital Signs/Intake and Output Vital Signs (last 24 hours): Temp Pulse Resp BP Pulse Ox 100.6 F H 100 H 21 141/66 97 09/03/17 08:00 09/03/17 18:00 09/03/17 18:00 09/03/17 17:59 09/03/17 18:00 Intake and Output: 09/03/17 09/04/17 18:59 06:59 Intake Total 1489.0 100 Output Total 530 Balance 959.0 100 - Medications Medications: Current Medications Acetaminophen (Tylenol 325mg Tab) 650 mg PO Q6 PRN PRN Reason: Temperature Last Admin: 09/03/17 09:54 Dose: 650 mg Albuterol/Ipratropium (Duoneb 3 Mg/0.5 Mg (3 Ml) Ud) 3 ml INH RQ4 [facility] Last Admin: 09/03/17 16:56 Dose: 3 ml Aspirin (Aspirin Chewable) 81 mg PO DAILY [facility] Last Admin: 09/03/17 09:54 Dose: 81 mg Famotidine (Pepcid) 40 mg PO DAILY [facility] Last Admin: 09/03/17 10:10 Dose: 40 mg Heparin Sodium (Porcine) (Heparin) 5,000 units SC Q8 [facility] Last Admin: 09/03/17 14:29 Dose: 5,000 units Propofol (Diprivan) 1,000 mg in 100 mls @ 2.096 mls/hr IV .Q24H PRN; Protocol; 5 MCG/KG/MIN PRN Reason: TITRATE PER MD ORDER Last Admin: 09/03/17 19:16 Dose: 40 mcg/kg/min, 16.771 mls/hr Lactated Ringer's (Lactated Ringer's) 1,000 mls @ 40 mls/hr IV .Q24H [facility] Last Admin: 09/03/17 10:14 Dose: 40 mls/hr Piperacillin Sod/Tazobactam (Sod 3.375 gm/ Sodium Chloride) 100 mls @ 100 mls/ hr IVPB Q6H [facility] Last Admin: 09/03/17 14:42 Dose: 100 mls/hr Linezolid (Zyvox 600mg/300ml D5w) 600 mg in 300 mls @ 200 mls/hr IVPB Q12 [facility] Insulin Glargine (Lantus) 5 unit SC Q12 [facility] Last Admin: 09/03/17 12:36 Dose: 5 unit Insulin Human Regular (Novolin R) 0 unit SC Q6 [facility] PRN Reason: Protocol Last Admin: 09/03/17 17:38 Dose: 6 unit Lorazepam (Ativan) 1 mg IVP Q6H PRN PRN Reason: Anxiety Last Admin: 09/03/17 17:55 Dose: 1 mg Morphine Sulfate (Morphine) 2 mg IVP Q6 PRN PRN Reason: Pain, moderate (4-7) Last Admin: 09/03/17 14:42 Dose: 2 mg Oseltamivir Phosphate (Tamiflu Cap) 75 mg PO BID [facility] Stop: 09/06/17 11:54 Last Admin: 09/03/17 17:39 Dose: 75 mg - Labs Labs: 09/03/17 06:23 09/03/17 06:24 PT 14.3 SECONDS (9.7-12.2) H 09/01/17 09:49 INR 1.2 09/01/17 09:49 APTT 32 SECONDS (21-34) 09/01/17 09:49 - Head Exam Head Exam: ATRAUMATIC, NORMOCEPHALIC - ENT Exam ENT Exam: Mucous Membranes Moist - Neck Exam Neck Exam: Normal Inspection - Respiratory Exam Respiratory Exam: Rales - Cardiovascular Exam Cardiovascular Exam: REGULAR RHYTHM - GI/Abdominal Exam GI & Abdominal Exam: Soft Assessment and Plan (1) Acute respiratory failure with hypoxemia Assessment & Plan: continue ventilatory support Weaning trial in a.m. Sedation vacation Continue antibiotics Increase feeding as tolerated Status: Acute (2) Pneumonia Status: Acute (3) DKA (diabetic ketoacidoses) Status: Acute (4) Sepsis Status: Acute
[2017-09-03] MEDS: Linezolid 600 mg in D5W 300 ml 600 MG/300 ML BAG IVPB SCH (21:18)
[2017-09-04] MEDS: (Novolin R) Insulin Human Regular 100 units/ml vial SC SCH ×4 (00:53→18:16)
[2017-09-04] MEDS: Propofol 10 mg/ml 1,000 MG/100 ML VIAL IV PRN ×6 (01:23→23:00)
[2017-09-04] MEDS: Piperacillin/Tazobact 3.375 GM in Sodium Chloride 0.9% 100 ML IVPB SCH ×4 (02:48→20:49)
[2017-09-04] MEDS: Albuterol-Ipratrop 3 mg / 0.5 (3 ml) UD INH SCH ×5 (03:14→19:42)
[2017-09-04 04:19] LABS: ABG ALLEN TEST POS; ARTERIAL BLOOD GAS HCO3 27.1 mmol/L (21-28); ARTERIAL BLOOD GAS HEMOGLOBIN 11.9 g/dL (11.7-17.4); ARTERIAL BLOOD GAS O2 SAT 98.2 % (95-98); ARTERIAL BLOOD GAS PCO2 34 mm/Hg (35-45); ARTERIAL BLOOD GAS PH 7.49 (7.35-7.45); ARTERIAL BLOOD GAS PO2 74 mm/Hg (80-100); ARTERIAL BLOOD GAS TCO2 26.9 mmol/L (22-28)
[2017-09-04 06:36] LABS: BASO # 0.1 K/uL (0.0-0.2); BASO % 0.4 % (0.0-2.0); EOS # 0.1 K/uL (0.0-0.7); EOS % 0.2 % (0.0-4.0); HEMOGLOBIN 11.8 g/dL (11.0-16.0); LYMPH # 1.8 K/uL (1.0-4.3); LYMPH % 6.5 % (20.0-40.0); MEAN CELL VOLUME 73.5 fL (81.0-99.0); MEAN CORPUSCULAR HEMOGLOBIN 24.4 pg (27.0-31.0); MEAN CORPUSCULAR HGB CONC 33.2 g/dL (33.0-37.0); MONO # 0.6 K/uL (0.0-0.8); MONO % 2.3 % (0.0-10.0); NEUT # 24.5 K/uL (1.8-7.0); NEUT % 90.6 % (50.0-75.0); NRBC % 0.1 % (0.0-2.0); PLATELET COUNT 219 K/uL (130-400); RBC 4.84 Mil/uL (3.80-5.20); RED CELL DISTRIBUTION WIDTH 14.7 % (11.5-14.5)
[2017-09-04 06:58] LABS: ALB/GLOB RATIO 0.7 (1.0-2.1); ALBUMIN 2.3 g/dL (3.5-5.0); ALT/SGPT 13 U/L (9-52); AST/SGOT 20 U/L (14-36); BLOOD UREA NITROGEN 24 mg/dL (7-17); CALCIUM 8.2 mg/dl (8.6-10.4); GFR AFRICAN-AMERICAN > 60; GFR NON-AFRICAN AMERICAN > 60
[2017-09-04 08:15] LABS: BANDS 6 % (0-2); LYMPHOCYTE 4 % (20-40); METAMYELOCYTE 1 % (0-0); MONOCYTE 1 % (0-10); MYELOCYTE 2 % (0-0); NEUTROPHIL 86 % (50-75); PLATELET ESTIMATE NORMAL (NORMAL); TOTAL CELLS COUNTED 100
[2017-09-04 08:16] LABS: LARGE PLATELETS PRESENT
--- NOTE | 2017-09-04 08:19 | RAD ---
Chest x-ray single frontal view History: Pneumonia. Comparison: 09/03/2017 Findings: Lines and tubes in stable position. Dense confluent consolidative opacities throughout both lungs. Post treatment interval followup would be helpful to ensure resolution and exclude underlying lesion. Heart size within normal limits. Degenerative changes in the spine and shoulders. Impression: Lines and tubes in stable position. Dense confluent consolidative opacities throughout both lungs. Post treatment interval followup would be helpful to ensure resolution and exclude underlying lesion.
[2017-09-04] MEDS: Lactated Ringer's 1,000 ML IV SCH (08:30)
[2017-09-04] MEDS ORDERED: Vancomycin 1 GM in Sodium Chloride 0.9% 200 ML IVPB SCH (10:00)
[2017-09-04] MEDS: (Lantus) Insulin Glargine, Recombinant SC SCH ×2 (10:31→22:16)
[2017-09-04] MEDS: Linezolid 600 mg in D5W 300 ml 600 MG/300 ML BAG IVPB SCH ×2 (10:33→22:16)
--- NOTE | 2017-09-04 11:44 | CP.CCUPN ---
CCU Subjective - Physician Review Subjective (Free Text): 09/04/17 11:34 patient seen and examined at bedside. intubated PICC today cultures grew MRSA. MRSA in the Blood and sputum family at bedside CCU Objective - Vital Signs / Intake & Output Intake and Output (Last 8hrs): Intake & Output 09/03/17 09/04/17 09/04/17 22:59 06:59 14:59 Intake Total 1212.8 1021.7 188.9 Output Total 365 335 35 Balance 847.8 686.7 153.9 Weight 157 lb Intake: IV 100 200 100 Intake, IV Amount 872.8 581.7 58.9 Left External Jugular 142.8 161.7 18.9 Left Forearm 730 420 40 Tube Feeding 240 240 30 Output: Urine 365 335 35 Urethral (Nascimento) 365 335 35 - Physical Exam Head: Positive for: Atraumatic, Normocephalic Pupils: Positive for: PERRL Conjunctiva: Positive for: Normal Mouth: Positive for: Moist Mucous Membranes Respiratory/Chest: Positive for: Accessory Muscle Use, Wheezes, Rhonchi, Tachypneic Cardiovascular: Positive for: Regular Rate and Rhythm, Normal S1, S2 - Medications Active Medications: Active Medications Generic Name Dose Route Start Last Admin Trade Name Freq PRN Reason Stop Dose Admin Acetaminophen 650 mg 09/03/17 08:43 09/03/17 21:18 Tylenol 325mg Tab PO 650 mg Q6 PRN Administration Temperature Albuterol/Ipratropium 3 ml 09/01/17 20:00 09/04/17 07:50 Duoneb 3 Mg/0.5 Mg (3 Ml) Ud INH 3 ml RQ4 [facility] Administration Aspirin 81 mg 09/02/17 10:00 09/04/17 10:28 Aspirin Chewable PO 81 mg DAILY [facility] Administration Famotidine 40 mg 09/03/17 10:15 09/04/17 10:28 Pepcid PO 40 mg DAILY [facility] Administration Heparin Sodium (Porcine) 5,000 units 09/02/17 06:00 09/04/17 06:18 Heparin SC 5,000 units Q8 [facility] Administration Propofol 1,000 mg in 100 mls @ 2.096 mls/hr 09/02/17 11:23 09/04/17 10:00 Diprivan IV 50.08 mcg/kg/min .Q24H PRN 20.997 mls/hr TITRATE PER MD ORDER Administration Protocol 5 MCG/KG/MIN Piperacillin Sod/Tazobactam 100 mls @ 100 mls/hr 09/03/17 15:00 09/04/17 08: 29 Sod 3.375 gm/ Sodium Chloride IVPB 100 mls/hr Q6H [facility] Administration Linezolid 600 mg in 300 mls @ 200 mls/hr 09/03/17 22:00 09/04/17 10:33 Zyvox 600mg/300ml D5w IVPB 200 mls/hr Q12 [facility] Administration Potassium Chloride 10 meq in 100 mls @ 100 mls/hr 09/04/17 08:00 09/04/17 11: 15 Potassium Chloride 10 Meq/100 Ml IVPB 09/04/17 11:59 100 mls/hr Q1H [facility] Administration Insulin Glargine 5 unit 09/03/17 12:15 09/04/17 10:31 Lantus SC 5 unit Q12 [facility] Administration Insulin Human Regular 0 unit 09/03/17 12:01 09/04/17 06:25 Novolin R SC 6 unit Q6 [facility] Administration Protocol Lorazepam 1 mg 09/03/17 10:49 09/03/17 17:55 Ativan IVP 1 mg Q6H PRN Administration Anxiety Morphine Sulfate 2 mg 09/03/17 10:49 09/03/17 14:42 Morphine IVP 2 mg Q6 PRN Administration Pain, moderate (4-7) Oseltamivir Phosphate 75 mg 09/01/17 12:00 09/04/17 10:30 Tamiflu Cap PO 09/06/17 11:54 75 mg BID [facility] Administration - Patient Studies Lab Studies: Microbiology Studies 09/02/17 12:10 Gram Stain - Final Trachasp Sputum Culture - Final Methicillin Resistant S Aureus 09/01/17 10:20 Blood Culture - Final Blood Methicillin Resistant S Aureus Gram Stain - Final 09/01/17 09:20 S.aureus & Coag-Neg Staph PNA FISH - Final Blood Blood Culture - Final Methicillin Resistant S Aureus Gram Stain - Final 09/01/17 16:56 MRSA Culture (Admit) - Final Nose MRSA DETECTED Lab Studies 09/04/17 09/04/17 09/04/17 Range/Units 06:25 06:23 06:21 WBC 27.0 H (4.8-10.8) K/uL RBC 4.84 (3.80-5.20) Mil/uL Hgb 11.8 (11.0-16.0) g/dL Hct 35.5 (34.0-47.0) % MCV 73.5 L (81.0-99.0) fL MCH 24.4 L (27.0-31.0) pg MCHC 33.2 (33.0-37.0) g/dL RDW 14.7 H (11.5-14.5) % Plt Count 219 D (130-400) K/uL MPV 8.0 (7.2-11.7) fL Neut % (Auto) 90.6 H (50.0-75.0) % Lymph % (Auto) 6.5 L (20.0-40.0) % Frederick % (Auto) 2.3 (0.0-10.0) % Eos % (Auto) 0.2 (0.0-4.0) % Baso % (Auto) 0.4 (0.0-2.0) % Neut # 24.5 H (1.8-7.0) K/uL Lymph # 1.8 (1.0-4.3) K/uL Frederick # 0.6 (0.0-0.8) K/uL Eos # 0.1 (0.0-0.7) K/uL Baso # 0.1 (0.0-0.2) K/uL Neutrophils % (Manual) 86 H (50-75) % Band Neutrophils % 6 H (0-2) % Lymphocytes % (Manual) 4 L (20-40) % Monocytes % (Manual) 1 (0-10) % Metamyelocytes % 1 H (0-0) % Myelocytes % 2 H (0-0) % Platelet Estimate Normal (NORMAL) Large Platelets Present RBC Morphology Normal Puncture Site pCO2 (35-45) mm/Hg pO2 (80-100) mm/Hg HCO3 (21-28) mmol/L ABG pH (7.35-7.45) ABG Total CO2 (22-28) mmol/L ABG O2 Saturation (95-98) % ABG Base Excess (-2.0-3.0) mmol/L ABG Hemoglobin (11.7-17.4) g/dL ABG Carboxyhemoglobin (0.5-1.5) % POC ABG HHb (Measured) (0.0-5.0) % ABG Methemoglobin (0.0-3.0) % Vince Test A-a O2 Difference mm/Hg Respiratory Index Hgb O2 Saturation (95.0-98.0) % Vent Mode Mechanical Rate FiO2 % Tidal Volume PEEP Sodium 143 (132-148) mmol/L Potassium 3.4 L (3.6-5.2) mmol/L Chloride 115 H (98-107) mmol/L Carbon Dioxide 24 (22-30) mmol/L Anion Gap 8 L (10-20) BUN 24 H (7-17) mg/dL Creatinine 0.5 L (0.7-1.2) mg/dL Est GFR ( Amer) > 60 Est GFR (Non-Af Amer) > 60 POC Glucose (mg/dL) 308 H (65-110) mg/dL Random Glucose 317 H (65-105) mg/dL Calcium 8.2 L (8.6-10.4) mg/dl Phosphorus 2.2 L (2.5-4.5) mg/dL Magnesium 2.0 (1.6-2.3) mg/dL Total Bilirubin 0.4 (0.2-1.3) mg/dL AST 20 (14-36) U/L ALT 13 (9-52) U/L Alkaline Phosphatase 181 H (38-126) U/L Total Protein 5.7 L (6.3-8.3) g/dL Albumin 2.3 L (3.5-5.0) g/dL Globulin 3.3 (2.2-3.9) gm/dL Albumin/Globulin Ratio 0.7 L (1.0-2.1) 09/04/17 09/03/17 09/03/17 Range/Units 04:10 23:25 17:27 WBC (4.8-10.8) K/uL RBC (3.80-5.20) Mil/uL Hgb (11.0-16.0) g/dL Hct (34.0-47.0) % MCV (81.0-99.0) fL MCH (27.0-31.0) pg MCHC (33.0-37.0) g/dL RDW (11.5-14.5) % Plt Count (130-400) K/uL MPV (7.2-11.7) fL Neut % (Auto) (50.0-75.0) % Lymph % (Auto) (20.0-40.0) % Frederick % (Auto) (0.0-10.0) % Eos % (Auto) (0.0-4.0) % Baso % (Auto) (0.0-2.0) % Neut # (1.8-7.0) K/uL Lymph # (1.0-4.3) K/uL Frederick # (0.0-0.8) K/uL Eos # (0.0-0.7) K/uL Baso # (0.0-0.2) K/uL Neutrophils % (Manual) (50-75) % Band Neutrophils % (0-2) % Lymphocytes % (Manual) (20-40) % Monocytes % (Manual) (0-10) % Metamyelocytes % (0-0) % Myelocytes % (0-0) % Platelet Estimate (NORMAL) Large Platelets RBC Morphology Puncture Site Rr pCO2 34 L (35-45) mm/Hg pO2 74 L (80-100) mm/Hg HCO3 27.1 (21-28) mmol/L ABG pH 7.49 H (7.35-7.45) ABG Total CO2 26.9 (22-28) mmol/L ABG O2 Saturation 98.2 H (95-98) % ABG Base Excess 2.8 (-2.0-3.0) mmol/L ABG Hemoglobin 11.9 (11.7-17.4) g/dL ABG Carboxyhemoglobin 2.0 H (0.5-1.5) % POC ABG HHb (Measured) 1.7 (0.0-5.0) % ABG Methemoglobin 1.4 (0.0-3.0) % Vince Test Pos A-a O2 Difference 204.0 mm/Hg Respiratory Index 2.8 Hgb O2 Saturation 94.9 L (95.0-98.0) % Vent Mode Prvc Mechanical Rate 19 FiO2 45.0 % Tidal Volume 450 PEEP 5 Sodium (132-148) mmol/L Potassium (3.6-5.2) mmol/L Chloride (98-107) mmol/L Carbon Dioxide (22-30) mmol/L Anion Gap (10-20) BUN (7-17) mg/dL Creatinine (0.7-1.2) mg/dL Est GFR ( Amer) Est GFR (Non-Af Amer) POC Glucose (mg/dL) 304 H 300 H (65-110) mg/dL Random Glucose (65-105) mg/dL Calcium (8.6-10.4) mg/dl Phosphorus (2.5-4.5) mg/dL Magnesium (1.6-2.3) mg/dL Total Bilirubin (0.2-1.3) mg/dL AST (14-36) U/L ALT (9-52) U/L Alkaline Phosphatase (38-126) U/L Total Protein (6.3-8.3) g/dL Albumin (3.5-5.0) g/dL Globulin (2.2-3.9) gm/dL Albumin/Globulin Ratio (1.0-2.1) 09/03/17 Range/Units 11:52 WBC (4.8-10.8) K/uL RBC (3.80-5.20) Mil/uL Hgb (11.0-16.0) g/dL Hct (34.0-47.0) % MCV (81.0-99.0) fL MCH (27.0-31.0) pg MCHC (33.0-37.0) g/dL RDW (11.5-14.5) % Plt Count (130-400) K/uL MPV (7.2-11.7) fL Neut % (Auto) (50.0-75.0) % Lymph % (Auto) (20.0-40.0) % Frederick % (Auto) (0.0-10.0) % Eos % (Auto) (0.0-4.0) % Baso % (Auto) (0.0-2.0) % Neut # (1.8-7.0) K/uL Lymph # (1.0-4.3) K/uL Frederick # (0.0-0.8) K/uL Eos # (0.0-0.7) K/uL Baso # (0.0-0.2) K/uL Neutrophils % (Manual) (50-75) % Band Neutrophils % (0-2) % Lymphocytes % (Manual) (20-40) % Monocytes % (Manual) (0-10) % Metamyelocytes % (0-0) % Myelocytes % (0-0) % Platelet Estimate (NORMAL) Large Platelets RBC Morphology Puncture Site pCO2 (35-45) mm/Hg pO2 (80-100) mm/Hg HCO3 (21-28) mmol/L ABG pH (7.35-7.45) ABG Total CO2 (22-28) mmol/L ABG O2 Saturation (95-98) % ABG Base Excess (-2.0-3.0) mmol/L ABG Hemoglobin (11.7-17.4) g/dL ABG Carboxyhemoglobin (0.5-1.5) % POC ABG HHb (Measured) (0.0-5.0) % ABG Methemoglobin (0.0-3.0) % Vince Test A-a O2 Difference mm/Hg Respiratory Index Hgb O2 Saturation (95.0-98.0) % Vent Mode Mechanical Rate FiO2 % Tidal Volume PEEP Sodium (132-148) mmol/L Potassium (3.6-5.2) mmol/L Chloride (98-107) mmol/L Carbon Dioxide (22-30) mmol/L Anion Gap (10-20) BUN (7-17) mg/dL Creatinine (0.7-1.2) mg/dL Est GFR ( Amer) Est GFR (Non-Af Amer) POC Glucose (mg/dL) 315 H (65-110) mg/dL Random Glucose (65-105) mg/dL Calcium (8.6-10.4) mg/dl Phosphorus (2.5-4.5) mg/dL Magnesium (1.6-2.3) mg/dL Total Bilirubin (0.2-1.3) mg/dL AST (14-36) U/L ALT (9-52) U/L Alkaline Phosphatase (38-126) U/L Total Protein (6.3-8.3) g/dL Albumin (3.5-5.0) g/dL Globulin (2.2-3.9) gm/dL Albumin/Globulin Ratio (1.0-2.1) Laboratory Results - last 24 hr 09/03/17 09/03/17 09/03/17 11:52 17:27 23:25 WBC RBC Hgb Hct MCV MCH MCHC RDW Plt Count MPV Neut % (Auto) Lymph % (Auto) Frederick % (Auto) Eos % (Auto) Baso % (Auto) Neut # Lymph # Frederick # Eos # Baso # Neutrophils % (Manual) Band Neutrophils % Lymphocytes % (Manual) Monocytes % (Manual) Metamyelocytes % Myelocytes % Platelet Estimate Large Platelets RBC Morphology Puncture Site pCO2 pO2 HCO3 ABG pH ABG Total CO2 ABG O2 Saturation ABG Base Excess ABG Hemoglobin ABG Carboxyhemoglobin POC ABG HHb (Measured) ABG Methemoglobin Vince Test A-a O2 Difference Respiratory Index Hgb O2 Saturation Vent Mode Mechanical Rate FiO2 Tidal Volume PEEP Sodium Potassium Chloride Carbon Dioxide Anion Gap BUN Creatinine Est GFR ( Amer) Est GFR (Non-Af Amer) POC Glucose (mg/dL) 315 H 300 H 304 H Random Glucose Calcium Phosphorus Magnesium Total Bilirubin AST ALT Alkaline Phosphatase Total Protein Albumin Globulin Albumin/Globulin Ratio 09/04/17 09/04/17 09/04/17 04:10 06:21 06:23 WBC RBC Hgb Hct MCV MCH MCHC RDW Plt Count MPV Neut % (Auto) Lymph % (Auto) Frederick % (Auto) Eos % (Auto) Baso % (Auto) Neut # Lymph # Frederick # Eos # Baso # Neutrophils % (Manual) Band Neutrophils % Lymphocytes % (Manual) Monocytes % (Manual) Metamyelocytes % Myelocytes % Platelet Estimate Large Platelets RBC Morphology Puncture Site Rr pCO2 34 L pO2 74 L HCO3 27.1 ABG pH 7.49 H ABG Total CO2 26.9 ABG O2 Saturation 98.2 H ABG Base Excess 2.8 ABG Hemoglobin 11.9 ABG Carboxyhemoglobin 2.0 H POC ABG HHb (Measured) 1.7 ABG Methemoglobin 1.4 Vince Test Pos A-a O2 Difference 204.0 Respiratory Index 2.8 Hgb O2 Saturation 94.9 L Vent Mode Prvc Mechanical Rate 19 FiO2 45.0 Tidal Volume 450 PEEP 5 Sodium 143 Potassium 3.4 L Chloride 115 H Carbon Dioxide 24 Anion Gap 8 L BUN 24 H Creatinine 0.5 L Est GFR ( Amer) > 60 Est GFR (Non-Af Amer) > 60 POC Glucose (mg/dL) 308 H Random Glucose 317 H Calcium 8.2 L Phosphorus 2.2 L Magnesium 2.0 Total Bilirubin 0.4 AST 20 ALT 13 Alkaline Phosphatase 181 H Total Protein 5.7 L Albumin 2.3 L Globulin 3.3 Albumin/Globulin Ratio 0.7 L 09/04/17 06:25 WBC 27.0 H RBC 4.84 Hgb 11.8 Hct 35.5 MCV 73.5 L MCH 24.4 L MCHC 33.2 RDW 14.7 H Plt Count 219 D MPV 8.0 Neut % (Auto) 90.6 H Lymph % (Auto) 6.5 L Frederick % (Auto) 2.3 Eos % (Auto) 0.2 Baso % (Auto) 0.4 Neut # 24.5 H Lymph # 1.8 Frederick # 0.6 Eos # 0.1 Baso # 0.1 Neutrophils % (Manual) 86 H Band Neutrophils % 6 H Lymphocytes % (Manual) 4 L Monocytes % (Manual) 1 Metamyelocytes % 1 H Myelocytes % 2 H Platelet Estimate Normal Large Platelets Present RBC Morphology Normal Puncture Site pCO2 pO2 HCO3 ABG pH ABG Total CO2 ABG O2 Saturation ABG Base Excess ABG Hemoglobin ABG Carboxyhemoglobin POC ABG HHb (Measured) ABG Methemoglobin Vince Test A-a O2 Difference Respiratory Index Hgb O2 Saturation Vent Mode Mechanical Rate FiO2 Tidal Volume PEEP Sodium Potassium Chloride Carbon Dioxide Anion Gap BUN Creatinine Est GFR ( Amer) Est GFR (Non-Af Amer) POC Glucose (mg/dL) Random Glucose Calcium Phosphorus Magnesium Total Bilirubin AST ALT Alkaline Phosphatase Total Protein Albumin Globulin Albumin/Globulin Ratio Fingerstick Blood Sugar Results: 308 Assessment/Plan - Assessment and Plan (Free Text) Assessment: 62F MRSA Pneumonia, bacteremia Plan: Psych: anxiety ativan, 1 mg IVP Q6H PRN Neuro: Propofol 10 mg/ml Q24H PRN for sedation Morphine 2 mg IVP Q6 PRN Cards: HTN Lopressor 5 IV PRN ASA 81 mg PO QD MAY to r/o endocarditis Pulm: MRSA Pneumonia Respiratory Failure Intubated: RR 22, tidal 400, PEEP 5, FiO2 50 Duoneb 3 mg/0.5 mg UD INH RQ4 negative flu, Tamiflu Cap 75 mg PO BID Zosyn 3.375 g in NS @ 100 mls/hr IVPB Q6H Linezolid 600 mg in D5W @ 200 mls/hr IVPB Q12 Pulm (Meño) ID (Mangia) GI: No acute issues Tubefeeding: Glucerna 1.5 10ml/hr, goal 50 ml/hr Renal: No acute issues Endo: DM: Novolin ISS, Lantus 5 U SC Q12 POC glucose: 308 PPX: pepcid, heparin
[2017-09-04] MEDS ORDERED: Metoprolol 1 mg/ml Inj IVP ONE (12:08)
--- NOTE | 2017-09-04 12:51 | CP.PCM.PN ---
Subjective - Date & Time of Evaluation Date of Evaluation: 09/04/17 Time of Evaluation: 07:00 - Subjective Subjective: discussed on rounds mrsa bloood and sputum rx in progress consider d/c zosyn Objective - Vital Signs/Intake and Output Vital Signs (last 24 hours): Temp Pulse Resp BP Pulse Ox 101.2 F H 78 24 154/74 H 99 09/03/17 21:18 09/04/17 07:00 09/04/17 07:00 09/04/17 07:00 09/04/17 07:00 Intake and Output: 09/04/17 09/04/17 06:59 18:59 Intake Total 1877.3 188.9 Output Total 505 35 Balance 1372.3 153.9 - Medications Medications: Current Medications Acetaminophen (Tylenol 325mg Tab) 650 mg PO Q6 PRN PRN Reason: Temperature Last Admin: 09/03/17 21:18 Dose: 650 mg Albuterol/Ipratropium (Duoneb 3 Mg/0.5 Mg (3 Ml) Ud) 3 ml INH RQ4 [facility] Last Admin: 09/04/17 07:50 Dose: 3 ml Aspirin (Aspirin Chewable) 81 mg PO DAILY [facility] Last Admin: 09/04/17 10:28 Dose: 81 mg Famotidine (Pepcid) 40 mg PO DAILY [facility] Last Admin: 09/04/17 10:28 Dose: 40 mg Heparin Sodium (Porcine) (Heparin) 5,000 units SC Q8 [facility] Last Admin: 09/04/17 06:18 Dose: 5,000 units Propofol (Diprivan) 1,000 mg in 100 mls @ 2.096 mls/hr IV .Q24H PRN; Protocol; 5 MCG/KG/MIN PRN Reason: TITRATE PER MD ORDER Last Admin: 09/04/17 10:00 Dose: 50.08 mcg/kg/min, 20.997 mls/hr Piperacillin Sod/Tazobactam (Sod 3.375 gm/ Sodium Chloride) 100 mls @ 100 mls/ hr IVPB Q6H [facility] Last Admin: 09/04/17 08:29 Dose: 100 mls/hr Linezolid (Zyvox 600mg/300ml D5w) 600 mg in 300 mls @ 200 mls/hr IVPB Q12 [facility] Last Admin: 09/04/17 10:33 Dose: 200 mls/hr Insulin Glargine (Lantus) 5 unit SC Q12 [facility] Last Admin: 09/04/17 10:31 Dose: 5 unit Insulin Human Regular (Novolin R) 0 unit SC Q6 [facility] PRN Reason: Protocol Last Admin: 09/04/17 12:30 Dose: 6 unit Lorazepam (Ativan) 1 mg IVP Q6H PRN PRN Reason: Anxiety Last Admin: 09/04/17 12:14 Dose: 1 mg Morphine Sulfate (Morphine) 2 mg IVP Q6 PRN PRN Reason: Pain, moderate (4-7) Last Admin: 09/03/17 14:42 Dose: 2 mg Oseltamivir Phosphate (Tamiflu Cap) 75 mg PO BID [facility] Stop: 09/06/17 11:54 Last Admin: 09/04/17 10:30 Dose: 75 mg - Labs Labs: 09/04/17 06:25 09/04/17 06:23 PT 14.3 SECONDS (9.7-12.2) H 09/01/17 09:49 INR 1.2 09/01/17 09:49 APTT 32 SECONDS (21-34) 09/01/17 09:49 - Constitutional Appears: Confused, Chronically Ill - Head Exam Head Exam: NORMOCEPHALIC - Eye Exam Eye Exam: absent: Scleral icterus - ENT Exam ENT Exam: Mucous Membranes Dry - Neck Exam Neck Exam: absent: Lymphadenopathy - Respiratory Exam Respiratory Exam: Decreased Breath Sounds - Cardiovascular Exam Cardiovascular Exam: REGULAR RHYTHM - GI/Abdominal Exam GI & Abdominal Exam: Distended, Soft - Rectal Exam Rectal Exam: Deferred - Exam Exam: NORMAL INSPECTION - Extremities Exam Extremities Exam: absent: Pedal Edema - Back Exam Back Exam: absent: CVA tenderness (L), CVA tenderness (R) Assessment and Plan (1) DKA (diabetic ketoacidoses) Status: Acute (2) Pneumonia Status: Acute (3) Sepsis Status: Acute - Assessment and Plan (Free Text) Assessment: cont iv zyvox check echo
--- NOTE | 2017-09-04 14:27 | CP.PCM.PN ---
Subjective - Date & Time of Evaluation Date of Evaluation: 09/04/17 Time of Evaluation: 14:25 - Subjective Subjective: intubated on vent.sedated.meds,labs noted. Objective - Vital Signs/Intake and Output Vital Signs (last 24 hours): Temp Pulse Resp BP Pulse Ox 101.2 F H 78 24 154/74 H 99 09/03/17 21:18 09/04/17 07:00 09/04/17 07:00 09/04/17 07:00 09/04/17 07:00 Intake and Output: 09/04/17 09/04/17 06:59 18:59 Intake Total 1877.3 188.9 Output Total 505 35 Balance 1372.3 153.9 - Medications Medications: Current Medications Acetaminophen (Tylenol 325mg Tab) 650 mg PO Q6 PRN PRN Reason: Temperature Last Admin: 09/03/17 21:18 Dose: 650 mg Albuterol/Ipratropium (Duoneb 3 Mg/0.5 Mg (3 Ml) Ud) 3 ml INH RQ4 [facility] Last Admin: 09/04/17 13:31 Dose: 3 ml Aspirin (Aspirin Chewable) 81 mg PO DAILY [facility] Last Admin: 09/04/17 10:28 Dose: 81 mg Famotidine (Pepcid) 40 mg PO DAILY [facility] Last Admin: 09/04/17 10:28 Dose: 40 mg Heparin Sodium (Porcine) (Heparin) 5,000 units SC Q8 [facility] Last Admin: 09/04/17 13:31 Dose: 5,000 units Propofol (Diprivan) 1,000 mg in 100 mls @ 2.096 mls/hr IV .Q24H PRN; Protocol; 5 MCG/KG/MIN PRN Reason: TITRATE PER MD ORDER Last Admin: 09/04/17 10:00 Dose: 50.08 mcg/kg/min, 20.997 mls/hr Piperacillin Sod/Tazobactam (Sod 3.375 gm/ Sodium Chloride) 100 mls @ 100 mls/ hr IVPB Q6H [facility] Last Admin: 09/04/17 08:29 Dose: 100 mls/hr Linezolid (Zyvox 600mg/300ml D5w) 600 mg in 300 mls @ 200 mls/hr IVPB Q12 [facility] Last Admin: 09/04/17 10:33 Dose: 200 mls/hr Insulin Glargine (Lantus) 5 unit SC Q12 [facility] Last Admin: 09/04/17 10:31 Dose: 5 unit Insulin Human Regular (Novolin R) 0 unit SC Q6 [facility] PRN Reason: Protocol Last Admin: 09/04/17 12:30 Dose: 6 unit Lorazepam (Ativan) 1 mg IVP Q6H PRN PRN Reason: Anxiety Last Admin: 09/04/17 12:14 Dose: 1 mg Morphine Sulfate (Morphine) 2 mg IVP Q6 PRN PRN Reason: Pain, moderate (4-7) Last Admin: 09/03/17 14:42 Dose: 2 mg Oseltamivir Phosphate (Tamiflu Cap) 75 mg PO BID [facility] Stop: 09/06/17 11:54 Last Admin: 09/04/17 10:30 Dose: 75 mg - Labs Labs: 09/04/17 06:25 09/04/17 06:23 PT 14.3 SECONDS (9.7-12.2) H 09/01/17 09:49 INR 1.2 09/01/17 09:49 APTT 32 SECONDS (21-34) 09/01/17 09:49 - Constitutional Appears: Toxic - Eye Exam Eye Exam: Normal appearance - Respiratory Exam Respiratory Exam: Rhonchi - Cardiovascular Exam Cardiovascular Exam: REGULAR RHYTHM - GI/Abdominal Exam GI & Abdominal Exam: Soft - Extremities Exam Extremities Exam: absent: Pedal Edema Assessment and Plan - Assessment and Plan (Free Text) Assessment: extensive bilateral pneumonia,mrsa in blood. tte noted. will hold off with zayra.ct iv antibiotics. critical. diss with family.
[2017-09-04] MEDS ORDERED: Labetalol 25mg/5ml Syringe IV ONE (14:37)
[2017-09-04] MEDS ORDERED: Labetalol 25mg/5ml Syringe IVP STA (14:43)
--- NOTE | 2017-09-04 16:37 | RAD ---
HISTORY: verify right PICC COMPARISON: No prior. FINDINGS: Current study reveals interval placement right-sided PICC line with tip in the SVC. Situ ETT, tip of which lies approximately 6.6 cm above cecilia. Situ NGT, the tip of which overlies left parasagittal upper abdomen. LUNGS: Diffuse patchy bilateral infiltrates again noted. PLEURA: No significant pleural effusion identified, no pneumothorax apparent. CARDIOVASCULAR: Heart size is unchanged OSSEOUS STRUCTURES: No significant abnormalities. VISUALIZED UPPER ABDOMEN: Normal. OTHER FINDINGS: None. IMPRESSION: Support lines and tubes as above. Patchy bilateral infiltrates again noted.
--- NOTE | 2017-09-04 16:45 | CP.PCM.PN ---
Subjective - Date & Time of Evaluation Date of Evaluation: 09/04/17 Time of Evaluation: 09:00 - Subjective Subjective: patient seen and examined And remained intubated on ventilatory support Blood culture positive for MRSA Sedated on Diprivan Tolerating feeding Objective - Vital Signs/Intake and Output Vital Signs (last 24 hours): Temp Pulse Resp BP Pulse Ox 101.2 F H 107 H 28 H 121/59 L 97 09/03/17 21:18 09/04/17 16:31 09/04/17 16:31 09/04/17 16:31 09/04/17 16:31 Intake and Output: 09/04/17 09/04/17 06:59 18:59 Intake Total 1877.3 1602.9 Output Total 505 35 Balance 1372.3 1567.9 - Medications Medications: Current Medications Acetaminophen (Tylenol 325mg Tab) 650 mg PO Q6 PRN PRN Reason: Temperature Last Admin: 09/03/17 21:18 Dose: 650 mg Albuterol/Ipratropium (Duoneb 3 Mg/0.5 Mg (3 Ml) Ud) 3 ml INH RQ4 [facility] Last Admin: 09/04/17 13:31 Dose: 3 ml Aspirin (Aspirin Chewable) 81 mg PO DAILY [facility] Last Admin: 09/04/17 10:28 Dose: 81 mg Famotidine (Pepcid) 40 mg PO DAILY [facility] Last Admin: 09/04/17 10:28 Dose: 40 mg Heparin Sodium (Porcine) (Heparin) 5,000 units SC Q8 [facility] Last Admin: 09/04/17 13:31 Dose: 5,000 units Propofol (Diprivan) 1,000 mg in 100 mls @ 2.096 mls/hr IV .Q24H PRN; Protocol; 5 MCG/KG/MIN PRN Reason: TITRATE PER MD ORDER Last Admin: 09/04/17 16:03 Dose: 60 mcg/kg/min, 25.156 mls/hr Piperacillin Sod/Tazobactam (Sod 3.375 gm/ Sodium Chloride) 100 mls @ 100 mls/ hr IVPB Q6H [facility] Last Admin: 09/04/17 14:50 Dose: 100 mls/hr Linezolid (Zyvox 600mg/300ml D5w) 600 mg in 300 mls @ 200 mls/hr IVPB Q12 [facility] Last Admin: 09/04/17 10:33 Dose: 200 mls/hr Insulin Glargine (Lantus) 5 unit SC Q12 [facility] Last Admin: 09/04/17 10:31 Dose: 5 unit Insulin Human Regular (Novolin R) 0 unit SC Q6 [facility] PRN Reason: Protocol Last Admin: 09/04/17 12:30 Dose: 6 unit Lorazepam (Ativan) 1 mg IVP Q6H PRN PRN Reason: Anxiety Last Admin: 09/04/17 12:14 Dose: 1 mg Morphine Sulfate (Morphine) 2 mg IVP Q6 PRN PRN Reason: Pain, moderate (4-7) Last Admin: 09/04/17 15:05 Dose: 2 mg Oseltamivir Phosphate (Tamiflu Cap) 75 mg PO BID [facility] Stop: 09/06/17 11:54 Last Admin: 09/04/17 10:30 Dose: 75 mg - Labs Labs: 09/04/17 06:25 09/04/17 06:23 PT 14.3 SECONDS (9.7-12.2) H 09/01/17 09:49 INR 1.2 09/01/17 09:49 APTT 32 SECONDS (21-34) 09/01/17 09:49 - Head Exam Head Exam: ATRAUMATIC, NORMOCEPHALIC - ENT Exam ENT Exam: Mucous Membranes Moist - Neck Exam Neck Exam: Normal Inspection - Respiratory Exam Respiratory Exam: Decreased Breath Sounds - Cardiovascular Exam Cardiovascular Exam: REGULAR RHYTHM - GI/Abdominal Exam GI & Abdominal Exam: Soft, Normal Bowel Sounds - Extremities Exam Extremities Exam: Full ROM - Neurological Exam Neurological Exam: Altered Assessment and Plan (1) Acute respiratory failure with hypoxemia Assessment & Plan: Continue ventilatory Continue antibiotics Feeding Followup chest x-ray and ABG Status: Acute (2) Pneumonia Status: Acute (3) DKA (diabetic ketoacidoses) Status: Acute (4) Sepsis Status: Acute
[2017-09-05] MEDS: (Novolin R) Insulin Human Regular 100 units/ml vial SC SCH ×4 (00:04→18:06)
[2017-09-05] MEDS: Albuterol-Ipratrop 3 mg / 0.5 (3 ml) UD INH SCH ×6 (00:11→19:32)
[2017-09-05] MEDS: Propofol 10 mg/ml 1,000 MG/100 ML VIAL IV PRN ×4 (02:45→22:56)
[2017-09-05] MEDS: Piperacillin/Tazobact 3.375 GM in Sodium Chloride 0.9% 100 ML IVPB SCH ×4 (02:46→20:47)
[2017-09-05 06:09] LABS: ARTERIAL BLOOD GAS HCO3 29.3 mmol/L (21-28); ARTERIAL BLOOD GAS HEMOGLOBIN 11.4 g/dL (11.7-17.4); ARTERIAL BLOOD GAS O2 SAT 95.2 % (95-98); ARTERIAL BLOOD GAS PCO2 31 mm/Hg (35-45); ARTERIAL BLOOD GAS PH 7.56 (7.35-7.45); ARTERIAL BLOOD GAS PO2 55 mm/Hg (80-100); ARTERIAL BLOOD GAS TCO2 28.8 mmol/L (22-28)
[2017-09-05 06:30] LABS: BASO % 0.2 % (0.0-2.0); EOS # 0.2 K/uL (0.0-0.7); EOS % 0.8 % (0.0-4.0); HEMOGLOBIN 12.2 g/dL (11.0-16.0); LYMPH # 2.4 K/uL (1.0-4.3); LYMPH % 11.6 % (20.0-40.0); MEAN CELL VOLUME 73.9 fL (81.0-99.0); MEAN CORPUSCULAR HGB CONC 33.8 g/dL (33.0-37.0); MEAN PLATELET VOLUME 8.7 fL (7.2-11.7); MONO % 4.6 % (0.0-10.0); NEUT # 17.2 K/uL (1.8-7.0); NEUT % 82.8 % (50.0-75.0); NRBC % 0.1 % (0.0-2.0); PLATELET COUNT 171 K/uL (130-400); RBC 4.89 Mil/uL (3.80-5.20); RED CELL DISTRIBUTION WIDTH 14.3 % (11.5-14.5); WHITE BLOOD COUNT 20.8 K/uL (4.8-10.8)
[2017-09-05 06:45] LABS: ALB/GLOB RATIO 0.7 (1.0-2.1); ALBUMIN 2.4 g/dL (3.5-5.0); ALT/SGPT 18 U/L (9-52); AST/SGOT 30 U/L (14-36); BLOOD UREA NITROGEN 20 mg/dL (7-17); CALCIUM 7.8 mg/dl (8.6-10.4); GFR AFRICAN-AMERICAN > 60; GFR NON-AFRICAN AMERICAN > 60
[2017-09-05] MEDS ORDERED: Potassium Phosphate 15 MMOLE in Sodium Chloride 0.9% 100 ML IV ONE (09:00)
--- NOTE | 2017-09-05 09:04 | RAD ---
Chest x-ray single frontal view History: Shortness of breath. Comparison: 09/04/2017 Findings: Lines and tubes in stable position. Dense confluent masslike opacification seen throughout both lungs. Post treatment interval followup would be helpful to exclude underlying lesion. Cardiomegaly. Degenerative changes in the spine and the shoulders. Impression: Dense confluent masslike opacification seen throughout both lungs. Post treatment interval followup would be helpful to exclude underlying lesion. Cardiomegaly
[2017-09-05] MEDS: Linezolid 600 mg in D5W 300 ml 600 MG/300 ML BAG IVPB SCH ×2 (09:35→21:56)
[2017-09-05] MEDS: (Lantus) Insulin Glargine, Recombinant SC SCH ×2 (09:46→21:56)
[2017-09-05 10:52] LABS: ABG ALLEN TEST POS; ARTERIAL BLOOD GAS HCO3 29.4 mmol/L (21-28); ARTERIAL BLOOD GAS O2 SAT 98.2 % (95-98); ARTERIAL BLOOD GAS PCO2 33 mm/Hg (35-45); ARTERIAL BLOOD GAS PH 7.54 (7.35-7.45); ARTERIAL BLOOD GAS PO2 73 mm/Hg (80-100); ARTERIAL BLOOD GAS TCO2 29.2 mmol/L (22-28)
--- NOTE | 2017-09-05 11:46 | CP.CCUPN ---
<Afshin Macias - Last Filed: 09/05/17 13:33> CCU Subjective - Physician Review Subjective (Free Text): 09/05/17 11:44 Patient seen and examined at bedside intubated MRSA blood and sputum r/o endocarditis MAY for this afternoon family at bedside CCU Objective - Vital Signs / Intake & Output Intake and Output (Last 8hrs): Intake & Output 09/04/17 09/05/17 09/05/17 22:59 06:59 14:59 Intake Total 1120 946 161 Output Total 335 296 35 Balance 785 650 126 Weight 159 lb 11.2 oz Intake: IV 150 200 100 Intake, IV Amount 650 276 21 Left External Jugular 125 Left Forearm 100 RIGHT BASILIC PICC BLUE 300 100 PORT RIGHT BASILIC PICC RED 75 176 21 PORT Right Antecubital 50 Tube Feeding 320 320 40 Other 150 Output: Urine 335 295 35 Urethral (Nascimento) 335 295 35 Stool 0 1 0 - Physical Exam Head: Positive for: Atraumatic, Normocephalic Pupils: Positive for: PERRL Conjunctiva: Positive for: Normal Mouth: Positive for: Moist Mucous Membranes Respiratory/Chest: Positive for: Accessory Muscle Use, Wheezes, Rhonchi, Tachypneic Cardiovascular: Positive for: Regular Rate and Rhythm, Normal S1, S2 - Medications Active Medications: Active Medications Generic Name Dose Route Start Last Admin Trade Name Danteq PRN Reason Stop Dose Admin Acetaminophen 650 mg 09/03/17 08:43 09/03/17 21:18 Tylenol 325mg Tab PO 650 mg Q6 PRN Administration Temperature Albuterol/Ipratropium 3 ml 09/01/17 20:00 09/05/17 11:43 Duoneb 3 Mg/0.5 Mg (3 Ml) Ud INH 3 ml RQ4 WILLIAM Administration Aspirin 81 mg 09/02/17 10:00 09/05/17 09:44 Aspirin Chewable PO 81 mg DAILY WILLIAM Administration Famotidine 40 mg 09/03/17 10:15 09/05/17 09:37 Pepcid PO 40 mg DAILY WILLIAM Administration Heparin Sodium (Porcine) 5,000 units 09/02/17 06:00 09/05/17 06:01 Heparin SC 5,000 units Q8 WILLIAM Administration Propofol 1,000 mg in 100 mls @ 2.096 mls/hr 09/02/17 11:23 09/05/17 08:22 Diprivan IV 50.08 mcg/kg/min .Q24H PRN 21 mls/hr TITRATE PER MD ORDER Administration Protocol 5 MCG/KG/MIN Piperacillin Sod/Tazobactam 100 mls @ 100 mls/hr 09/03/17 15:00 09/05/17 09: 34 Sod 3.375 gm/ Sodium Chloride IVPB 100 mls/hr Q6H WILLIAM Administration Linezolid 600 mg in 300 mls @ 200 mls/hr 09/03/17 22:00 09/05/17 09:35 Zyvox 600mg/300ml D5w IVPB 200 mls/hr Q12 WILLIAM Administration Potassium Phosphate 15 mmole/ 105 mls @ 26.25 mls/hr 09/05/17 09:00 09/05/17 09:30 Sodium Chloride IV 09/05/17 12:59 26.25 mls/hr ONCE ONE Administration Insulin Glargine 5 unit 09/03/17 12:15 09/05/17 09:46 Lantus SC 5 unit Q12 WILLIAM Administration Insulin Human Regular 0 unit 09/05/17 09:31 Novolin R SC Q6 WILLIAM Protocol Lorazepam 1 mg 09/03/17 10:49 09/04/17 12:14 Ativan IVP 1 mg Q6H PRN Administration Anxiety Morphine Sulfate 2 mg 09/03/17 10:49 09/04/17 15:05 Morphine IVP 2 mg Q6 PRN Administration Pain, moderate (4-7) - Patient Studies Lab Studies: Microbiology Studies 09/02/17 12:10 Gram Stain - Final Trachasp Sputum Culture - Final Methicillin Resistant S Aureus 09/01/17 10:20 Blood Culture - Final Blood Methicillin Resistant S Aureus Gram Stain - Final 09/01/17 09:20 S.aureus & Coag-Neg Staph PNA FISH - Final Blood Blood Culture - Final Methicillin Resistant S Aureus Gram Stain - Final Lab Studies 09/05/17 09/05/17 09/05/17 Range/Units 10:49 07:42 06:25 WBC 20.8 H (4.8-10.8) K/uL RBC 4.89 (3.80-5.20) Mil/uL Hgb 12.2 (11.0-16.0) g/dL Hct 36.1 (34.0-47.0) % MCV 73.9 L (81.0-99.0) fL MCH 25.0 L (27.0-31.0) pg MCHC 33.8 (33.0-37.0) g/dL RDW 14.3 (11.5-14.5) % Plt Count 171 (130-400) K/uL MPV 8.7 (7.2-11.7) fL Neut % (Auto) 82.8 H (50.0-75.0) % Lymph % (Auto) 11.6 L (20.0-40.0) % Sunflower % (Auto) 4.6 (0.0-10.0) % Eos % (Auto) 0.8 (0.0-4.0) % Baso % (Auto) 0.2 (0.0-2.0) % Neut # 17.2 H (1.8-7.0) K/uL Lymph # 2.4 (1.0-4.3) K/uL Sunflower # 1.0 H (0.0-0.8) K/uL Eos # 0.2 (0.0-0.7) K/uL Baso # 0.0 (0.0-0.2) K/uL Puncture Site Rr pCO2 33 L (35-45) mm/Hg pO2 73 L (80-100) mm/Hg HCO3 29.4 H (21-28) mmol/L ABG pH 7.54 H (7.35-7.45) ABG Total CO2 29.2 H (22-28) mmol/L ABG O2 Saturation 98.2 H (95-98) % ABG Base Excess 5.8 H (-2.0-3.0) mmol/L ABG Hemoglobin (11.7-17.4) g/dL ABG Carboxyhemoglobin (0.5-1.5) % POC ABG HHb (Measured) (0.0-5.0) % ABG Methemoglobin (0.0-3.0) % Vince Test Pos ABG Potassium 2.8 L (3.6-5.2) mmol/L A-a O2 Difference 314.0 mm/Hg Respiratory Index 4.3 Hgb O2 Saturation (95.0-98.0) % Glucose 274 H (65-105) mg/dl Lactate 1.8 (0.7-2.1) mmol/L Vent Mode Prvc Mechanical Rate 12 FiO2 60.0 % Tidal Volume 450 PEEP 5 Sodium 150.0 H (132-148) mmol/L Potassium (3.6-5.2) mmol/L Chloride 116.0 H (98-107) mmol/L Carbon Dioxide (22-30) mmol/L Anion Gap (10-20) BUN (7-17) mg/dL Creatinine (0.7-1.2) mg/dL Est GFR ( Amer) Est GFR (Non-Af Amer) POC Glucose (mg/dL) 214 H (65-110) mg/dL Random Glucose (65-105) mg/dL Calcium (8.6-10.4) mg/dl Phosphorus (2.5-4.5) mg/dL Magnesium (1.6-2.3) mg/dL Total Bilirubin (0.2-1.3) mg/dL AST (14-36) U/L ALT (9-52) U/L Alkaline Phosphatase (38-126) U/L Total Protein (6.3-8.3) g/dL Albumin (3.5-5.0) g/dL Globulin (2.2-3.9) gm/dL Albumin/Globulin Ratio (1.0-2.1) Arterial Blood Potassium 2.8 L (3.6-5.2) mmol/L 09/05/17 09/05/17 09/05/17 Range/Units 06:23 06:05 05:33 WBC (4.8-10.8) K/uL RBC (3.80-5.20) Mil/uL Hgb (11.0-16.0) g/dL Hct (34.0-47.0) % MCV (81.0-99.0) fL MCH (27.0-31.0) pg MCHC (33.0-37.0) g/dL RDW (11.5-14.5) % Plt Count (130-400) K/uL MPV (7.2-11.7) fL Neut % (Auto) (50.0-75.0) % Lymph % (Auto) (20.0-40.0) % Sunflower % (Auto) (0.0-10.0) % Eos % (Auto) (0.0-4.0) % Baso % (Auto) (0.0-2.0) % Neut # (1.8-7.0) K/uL Lymph # (1.0-4.3) K/uL Sunflower # (0.0-0.8) K/uL Eos # (0.0-0.7) K/uL Baso # (0.0-0.2) K/uL Puncture Site Rb pCO2 31 L (35-45) mm/Hg pO2 55 L (80-100) mm/Hg HCO3 29.3 H (21-28) mmol/L ABG pH 7.56 H (7.35-7.45) ABG Total CO2 28.8 H (22-28) mmol/L ABG O2 Saturation 95.2 (95-98) % ABG Base Excess 5.7 H (-2.0-3.0) mmol/L ABG Hemoglobin 11.4 L (11.7-17.4) g/dL ABG Carboxyhemoglobin 2.0 H (0.5-1.5) % POC ABG HHb (Measured) 4.7 (0.0-5.0) % ABG Methemoglobin 1.0 (0.0-3.0) % Vince Test Na ABG Potassium (3.6-5.2) mmol/L A-a O2 Difference 227.0 mm/Hg Respiratory Index 4.1 Hgb O2 Saturation 92.3 L (95.0-98.0) % Glucose (65-105) mg/dl Lactate (0.7-2.1) mmol/L Vent Mode Prvc Mechanical Rate 19 FiO2 45.0 % Tidal Volume 450 PEEP 5 Sodium 144 (132-148) mmol/L Potassium 3.4 L (3.6-5.2) mmol/L Chloride 112 H (98-107) mmol/L Carbon Dioxide 27 (22-30) mmol/L Anion Gap 9 L (10-20) BUN 20 H (7-17) mg/dL Creatinine 0.6 L (0.7-1.2) mg/dL Est GFR ( Amer) > 60 Est GFR (Non-Af Amer) > 60 POC Glucose (mg/dL) 249 H (65-110) mg/dL Random Glucose 277 H (65-105) mg/dL Calcium 7.8 L (8.6-10.4) mg/dl Phosphorus 2.0 L (2.5-4.5) mg/dL Magnesium 2.0 (1.6-2.3) mg/dL Total Bilirubin 0.4 (0.2-1.3) mg/dL AST 30 (14-36) U/L ALT 18 (9-52) U/L Alkaline Phosphatase 233 H D (38-126) U/L Total Protein 5.8 L (6.3-8.3) g/dL Albumin 2.4 L (3.5-5.0) g/dL Globulin 3.5 (2.2-3.9) gm/dL Albumin/Globulin Ratio 0.7 L (1.0-2.1) Arterial Blood Potassium (3.6-5.2) mmol/L 09/05/17 09/04/17 09/04/17 Range/Units 02:03 23:57 18:08 WBC (4.8-10.8) K/uL RBC (3.80-5.20) Mil/uL Hgb (11.0-16.0) g/dL Hct (34.0-47.0) % MCV (81.0-99.0) fL MCH (27.0-31.0) pg MCHC (33.0-37.0) g/dL RDW (11.5-14.5) % Plt Count (130-400) K/uL MPV (7.2-11.7) fL Neut % (Auto) (50.0-75.0) % Lymph % (Auto) (20.0-40.0) % Sunflower % (Auto) (0.0-10.0) % Eos % (Auto) (0.0-4.0) % Baso % (Auto) (0.0-2.0) % Neut # (1.8-7.0) K/uL Lymph # (1.0-4.3) K/uL Sunflower # (0.0-0.8) K/uL Eos # (0.0-0.7) K/uL Baso # (0.0-0.2) K/uL Puncture Site pCO2 (35-45) mm/Hg pO2 (80-100) mm/Hg HCO3 (21-28) mmol/L ABG pH (7.35-7.45) ABG Total CO2 (22-28) mmol/L ABG O2 Saturation (95-98) % ABG Base Excess (-2.0-3.0) mmol/L ABG Hemoglobin (11.7-17.4) g/dL ABG Carboxyhemoglobin (0.5-1.5) % POC ABG HHb (Measured) (0.0-5.0) % ABG Methemoglobin (0.0-3.0) % Vince Test ABG Potassium (3.6-5.2) mmol/L A-a O2 Difference mm/Hg Respiratory Index Hgb O2 Saturation (95.0-98.0) % Glucose (65-105) mg/dl Lactate (0.7-2.1) mmol/L Vent Mode Mechanical Rate FiO2 % Tidal Volume PEEP Sodium (132-148) mmol/L Potassium (3.6-5.2) mmol/L Chloride (98-107) mmol/L Carbon Dioxide (22-30) mmol/L Anion Gap (10-20) BUN (7-17) mg/dL Creatinine (0.7-1.2) mg/dL Est GFR ( Amer) Est GFR (Non-Af Amer) POC Glucose (mg/dL) 287 H 349 H 274 H (65-110) mg/dL Random Glucose (65-105) mg/dL Calcium (8.6-10.4) mg/dl Phosphorus (2.5-4.5) mg/dL Magnesium (1.6-2.3) mg/dL Total Bilirubin (0.2-1.3) mg/dL AST (14-36) U/L ALT (9-52) U/L Alkaline Phosphatase (38-126) U/L Total Protein (6.3-8.3) g/dL Albumin (3.5-5.0) g/dL Globulin (2.2-3.9) gm/dL Albumin/Globulin Ratio (1.0-2.1) Arterial Blood Potassium (3.6-5.2) mmol/L 09/04/17 Range/Units 12:03 WBC (4.8-10.8) K/uL RBC (3.80-5.20) Mil/uL Hgb (11.0-16.0) g/dL Hct (34.0-47.0) % MCV (81.0-99.0) fL MCH (27.0-31.0) pg MCHC (33.0-37.0) g/dL RDW (11.5-14.5) % Plt Count (130-400) K/uL MPV (7.2-11.7) fL Neut % (Auto) (50.0-75.0) % Lymph % (Auto) (20.0-40.0) % Sunflower % (Auto) (0.0-10.0) % Eos % (Auto) (0.0-4.0) % Baso % (Auto) (0.0-2.0) % Neut # (1.8-7.0) K/uL Lymph # (1.0-4.3) K/uL Sunflower # (0.0-0.8) K/uL Eos # (0.0-0.7) K/uL Baso # (0.0-0.2) K/uL Puncture Site pCO2 (35-45) mm/Hg pO2 (80-100) mm/Hg HCO3 (21-28) mmol/L ABG pH (7.35-7.45) ABG Total CO2 (22-28) mmol/L ABG O2 Saturation (95-98) % ABG Base Excess (-2.0-3.0) mmol/L ABG Hemoglobin (11.7-17.4) g/dL ABG Carboxyhemoglobin (0.5-1.5) % POC ABG HHb (Measured) (0.0-5.0) % ABG Methemoglobin (0.0-3.0) % Vnice Test ABG Potassium (3.6-5.2) mmol/L A-a O2 Difference mm/Hg Respiratory Index Hgb O2 Saturation (95.0-98.0) % Glucose (65-105) mg/dl Lactate (0.7-2.1) mmol/L Vent Mode Mechanical Rate FiO2 % Tidal Volume PEEP Sodium (132-148) mmol/L Potassium (3.6-5.2) mmol/L Chloride (98-107) mmol/L Carbon Dioxide (22-30) mmol/L Anion Gap (10-20) BUN (7-17) mg/dL Creatinine (0.7-1.2) mg/dL Est GFR ( Amer) Est GFR (Non-Af Amer) POC Glucose (mg/dL) 311 H (65-110) mg/dL Random Glucose (65-105) mg/dL Calcium (8.6-10.4) mg/dl Phosphorus (2.5-4.5) mg/dL Magnesium (1.6-2.3) mg/dL Total Bilirubin (0.2-1.3) mg/dL AST (14-36) U/L ALT (9-52) U/L Alkaline Phosphatase (38-126) U/L Total Protein (6.3-8.3) g/dL Albumin (3.5-5.0) g/dL Globulin (2.2-3.9) gm/dL Albumin/Globulin Ratio (1.0-2.1) Arterial Blood Potassium (3.6-5.2) mmol/L Laboratory Results - last 24 hr 09/04/17 09/04/17 09/04/17 12:03 18:08 23:57 WBC RBC Hgb Hct MCV MCH MCHC RDW Plt Count MPV Neut % (Auto) Lymph % (Auto) Sunflower % (Auto) Eos % (Auto) Baso % (Auto) Neut # Lymph # Sunflower # Eos # Baso # Puncture Site pCO2 pO2 HCO3 ABG pH ABG Total CO2 ABG O2 Saturation ABG Base Excess ABG Hemoglobin ABG Carboxyhemoglobin POC ABG HHb (Measured) ABG Methemoglobin Vince Test ABG Potassium A-a O2 Difference Respiratory Index Hgb O2 Saturation Glucose Lactate Vent Mode Mechanical Rate FiO2 Tidal Volume PEEP Sodium Potassium Chloride Carbon Dioxide Anion Gap BUN Creatinine Est GFR ( Amer) Est GFR (Non-Af Amer) POC Glucose (mg/dL) 311 H 274 H 349 H Random Glucose Calcium Phosphorus Magnesium Total Bilirubin AST ALT Alkaline Phosphatase Total Protein Albumin Globulin Albumin/Globulin Ratio Arterial Blood Potassium 09/05/17 09/05/17 09/05/17 02:03 05:33 06:05 WBC RBC Hgb Hct MCV MCH MCHC RDW Plt Count MPV Neut % (Auto) Lymph % (Auto) Sunflower % (Auto) Eos % (Auto) Baso % (Auto) Neut # Lymph # Sunflower # Eos # Baso # Puncture Site Rb pCO2 31 L pO2 55 L HCO3 29.3 H ABG pH 7.56 H ABG Total CO2 28.8 H ABG O2 Saturation 95.2 ABG Base Excess 5.7 H ABG Hemoglobin 11.4 L ABG Carboxyhemoglobin 2.0 H POC ABG HHb (Measured) 4.7 ABG Methemoglobin 1.0 Vince Test Na ABG Potassium A-a O2 Difference 227.0 Respiratory Index 4.1 Hgb O2 Saturation 92.3 L Glucose Lactate Vent Mode Prvc Mechanical Rate 19 FiO2 45.0 Tidal Volume 450 PEEP 5 Sodium Potassium Chloride Carbon Dioxide Anion Gap BUN Creatinine Est GFR ( Amer) Est GFR (Non-Af Amer) POC Glucose (mg/dL) 287 H 249 H Random Glucose Calcium Phosphorus Magnesium Total Bilirubin AST ALT Alkaline Phosphatase Total Protein Albumin Globulin Albumin/Globulin Ratio Arterial Blood Potassium 09/05/17 09/05/17 09/05/17 06:23 06:25 07:42 WBC 20.8 H RBC 4.89 Hgb 12.2 Hct 36.1 MCV 73.9 L MCH 25.0 L MCHC 33.8 RDW 14.3 Plt Count 171 MPV 8.7 Neut % (Auto) 82.8 H Lymph % (Auto) 11.6 L Sunflower % (Auto) 4.6 Eos % (Auto) 0.8 Baso % (Auto) 0.2 Neut # 17.2 H Lymph # 2.4 Sunflower # 1.0 H Eos # 0.2 Baso # 0.0 Puncture Site pCO2 pO2 HCO3 ABG pH ABG Total CO2 ABG O2 Saturation ABG Base Excess ABG Hemoglobin ABG Carboxyhemoglobin POC ABG HHb (Measured) ABG Methemoglobin Vince Test ABG Potassium A-a O2 Difference Respiratory Index Hgb O2 Saturation Glucose Lactate Vent Mode Mechanical Rate FiO2 Tidal Volume PEEP Sodium 144 Potassium 3.4 L Chloride 112 H Carbon Dioxide 27 Anion Gap 9 L BUN 20 H Creatinine 0.6 L Est GFR ( Amer) > 60 Est GFR (Non-Af Amer) > 60 POC Glucose (mg/dL) 214 H Random Glucose 277 H Calcium 7.8 L Phosphorus 2.0 L Magnesium 2.0 Total Bilirubin 0.4 AST 30 ALT 18 Alkaline Phosphatase 233 H D Total Protein 5.8 L Albumin 2.4 L Globulin 3.5 Albumin/Globulin Ratio 0.7 L Arterial Blood Potassium 09/05/17 10:49 WBC RBC Hgb Hct MCV MCH MCHC RDW Plt Count MPV Neut % (Auto) Lymph % (Auto) Sunflower % (Auto) Eos % (Auto) Baso % (Auto) Neut # Lymph # Sunflower # Eos # Baso # Puncture Site Rr pCO2 33 L pO2 73 L HCO3 29.4 H ABG pH 7.54 H ABG Total CO2 29.2 H ABG O2 Saturation 98.2 H ABG Base Excess 5.8 H ABG Hemoglobin ABG Carboxyhemoglobin POC ABG HHb (Measured) ABG Methemoglobin Vince Test Pos ABG Potassium 2.8 L A-a O2 Difference 314.0 Respiratory Index 4.3 Hgb O2 Saturation Glucose 274 H Lactate 1.8 Vent Mode Prvc Mechanical Rate 12 FiO2 60.0 Tidal Volume 450 PEEP 5 Sodium 150.0 H Potassium Chloride 116.0 H Carbon Dioxide Anion Gap BUN Creatinine Est GFR ( Amer) Est GFR (Non-Af Amer) POC Glucose (mg/dL) Random Glucose Calcium Phosphorus Magnesium Total Bilirubin AST ALT Alkaline Phosphatase Total Protein Albumin Globulin Albumin/Globulin Ratio Arterial Blood Potassium 2.8 L Fingerstick Blood Sugar Results: 249 Assessment/Plan - Assessment and Plan (Free Text) Assessment: 63 MRSA pneumonia/bacteremia Plan: Psych: anxiety Ativan, 1 mg IVP Q6H PRN Neuro: sedated Propofol 10 mg/ml Q24H PRN Morphine 2 mg IVP Q6 PRN Cards: HTN Lopressor 5 mg IV PRN ASA 81 mg PO QD MAY to r/o endocarditis Pulm: MRSA pneumonia, respiratory failure Intubated RR 22, Tidal 400, PEEP 5 Duoneb 3 mg/0.5 mg UD INH RQ4 negative flu, Tamiflu cap 75 mg PO BID Zosyn 3.375 g in NS @ 100 mls/hr IVPB Q6H Linezolid 600 mg in D5W @ 200 mls/hr IVPB Q12 Pulm (Meño) ID (Mangia) GI: no acute issues Tubefeeding: Glucerna 1.5 10 ml/hr, goal 50 ml/hr Renal: no acute issues Endo: DM Novolin ISS Lantus 5 U SC Q12 POC glucose 277 PPx: Pepcid 40 mg PO QD Heparin 5000 U SC Q8 <Meño,Max S - Last Filed: 09/05/17 17:00> CCU Objective - Vital Signs / Intake & Output Vital Signs (Last 4 hours): Vital Signs Pulse Resp BP Pulse Ox 09/05/17 15:00 99 H 24 156/80 H 99 09/05/17 14:59 102 H 34 H 156/80 H 98 09/05/17 14:37 102 H 32 H 98 09/05/17 14:00 99 H 24 115/73 100 09/05/17 13:00 99 H 17 130/65 99 Intake and Output (Last 8hrs): Intake & Output 09/05/17 09/05/17 09/05/17 06:59 14:59 22:59 Intake Total 946 936.0 29.8 Output Total 296 35 Balance 650 901.0 29.8 Weight 159 lb 11.2 oz Intake: IV 200 100 Intake, IV Amount 276 716.0 29.8 RIGHT BASILIC PICC BLUE 100 500 PORT RIGHT BASILIC PICC RED 176 216.0 29.8 PORT Tube Feeding 320 120 Other 150 Output: Urine 295 35 Urethral (Nascimento) 295 35 Stool 1 0 - Medications Active Medications: Active Medications Generic Name Dose Route Start Last Admin Trade Name Freq PRN Reason Stop Dose Admin Acetaminophen 650 mg 09/03/17 08:43 09/03/17 21:18 Tylenol 325mg Tab PO 650 mg Q6 PRN Administration Temperature Acetaminophen 650 mg 09/05/17 16:41 Tylenol 650mg/20.3ml Solution Ud NG Q6 PRN temp of 101 Albuterol/Ipratropium 3 ml 09/01/17 20:00 09/05/17 16:46 Duoneb 3 Mg/0.5 Mg (3 Ml) Ud INH 3 ml RQ4 WILLIAM Administration Aspirin 81 mg 09/02/17 10:00 09/05/17 09:44 Aspirin Chewable PO 81 mg DAILY WILLIAM Administration Famotidine 40 mg 09/03/17 10:15 09/05/17 09:37 Pepcid PO 40 mg DAILY WILLIAM Administration Heparin Sodium (Porcine) 5,000 units 09/02/17 06:00 09/05/17 06:01 Heparin SC 5,000 units Q8 WILLIAM Administration Propofol 1,000 mg in 100 mls @ 2.096 mls/hr 09/02/17 11:23 09/05/17 08:22 Diprivan IV 50.08 mcg/kg/min .Q24H PRN 21 mls/hr TITRATE PER MD ORDER Administration Protocol 5 MCG/KG/MIN Piperacillin Sod/Tazobactam 100 mls @ 100 mls/hr 09/03/17 15:00 09/05/17 09: 34 Sod 3.375 gm/ Sodium Chloride IVPB 100 mls/hr Q6H WILLIAM Administration Linezolid 600 mg in 300 mls @ 200 mls/hr 09/03/17 22:00 09/05/17 09:35 Zyvox 600mg/300ml D5w IVPB 200 mls/hr Q12 WILLIAM Administration Insulin Glargine 5 unit 09/03/17 12:15 09/05/17 09:46 Lantus SC 5 unit Q12 WILLIAM Administration Insulin Human Regular 0 unit 09/05/17 09:31 09/05/17 12:37 Novolin R SC 6 unit Q6 WILLIAM Administration Protocol Lorazepam 1 mg 09/03/17 10:49 09/05/17 12:42 Ativan IVP 1 mg Q6H PRN Administration Anxiety Morphine Sulfate 2 mg 09/03/17 10:49 09/04/17 15:05 Morphine IVP 2 mg Q6 PRN Administration Pain, moderate (4-7) - Patient Studies Lab Studies: Lab Studies 09/05/17 09/05/17 09/05/17 Range/Units 11:49 10:49 07:42 WBC (4.8-10.8) K/uL RBC (3.80-5.20) Mil/uL Hgb (11.0-16.0) g/dL Hct (34.0-47.0) % MCV (81.0-99.0) fL MCH (27.0-31.0) pg MCHC (33.0-37.0) g/dL RDW (11.5-14.5) % Plt Count (130-400) K/uL MPV (7.2-11.7) fL Neut % (Auto) (50.0-75.0) % Lymph % (Auto) (20.0-40.0) % Sunflower % (Auto) (0.0-10.0) % Eos % (Auto) (0.0-4.0) % Baso % (Auto) (0.0-2.0) % Neut # (1.8-7.0) K/uL Lymph # (1.0-4.3) K/uL Sunflower # (0.0-0.8) K/uL Eos # (0.0-0.7) K/uL Baso # (0.0-0.2) K/uL Neutrophils % (Manual) (50-75) % Band Neutrophils % (0-2) % Lymphocytes % (Manual) (20-40) % Monocytes % (Manual) (0-10) % Metamyelocytes % (0-0) % Myelocytes % (0-0) % Nucleated RBC % (0-0) % Platelet Estimate (NORMAL) Polychromasia Hypochromasia (manual) Anisocytosis (manual) Microcytosis (manual) Tear Drop Cells Puncture Site Rr pCO2 33 L (35-45) mm/Hg pO2 73 L (80-100) mm/Hg HCO3 29.4 H (21-28) mmol/L ABG pH 7.54 H (7.35-7.45) ABG Total CO2 29.2 H (22-28) mmol/L ABG O2 Saturation 98.2 H (95-98) % ABG Base Excess 5.8 H (-2.0-3.0) mmol/L ABG Hemoglobin (11.7-17.4) g/dL ABG Carboxyhemoglobin (0.5-1.5) % POC ABG HHb (Measured) (0.0-5.0) % ABG Methemoglobin (0.0-3.0) % Vince Test Pos ABG Potassium 2.8 L (3.6-5.2) mmol/L A-a O2 Difference 314.0 mm/Hg Respiratory Index 4.3 Hgb O2 Saturation (95.0-98.0) % Glucose 274 H (65-105) mg/dl Lactate 1.8 (0.7-2.1) mmol/L Vent Mode Prvc Mechanical Rate 12 FiO2 60.0 % Tidal Volume 450 PEEP 5 Sodium 150.0 H (132-148) mmol/L Potassium (3.6-5.2) mmol/L Chloride 116.0 H (98-107) mmol/L Carbon Dioxide (22-30) mmol/L Anion Gap (10-20) BUN (7-17) mg/dL Creatinine (0.7-1.2) mg/dL Est GFR ( Amer) Est GFR (Non-Af Amer) POC Glucose (mg/dL) 251 H 214 H (65-110) mg/dL Random Glucose (65-105) mg/dL Calcium (8.6-10.4) mg/dl Phosphorus (2.5-4.5) mg/dL Magnesium (1.6-2.3) mg/dL Total Bilirubin (0.2-1.3) mg/dL AST (14-36) U/L ALT (9-52) U/L Alkaline Phosphatase (38-126) U/L Total Protein (6.3-8.3) g/dL Albumin (3.5-5.0) g/dL Globulin (2.2-3.9) gm/dL Albumin/Globulin Ratio (1.0-2.1) Arterial Blood Potassium 2.8 L (3.6-5.2) mmol/L 09/05/17 09/05/17 09/05/17 Range/Units 06:25 06:23 06:05 WBC 20.8 H (4.8-10.8) K/uL RBC 4.89 (3.80-5.20) Mil/uL Hgb 12.2 (11.0-16.0) g/dL Hct 36.1 (34.0-47.0) % MCV 73.9 L (81.0-99.0) fL MCH 25.0 L (27.0-31.0) pg MCHC 33.8 (33.0-37.0) g/dL RDW 14.3 (11.5-14.5) % Plt Count 171 (130-400) K/uL MPV 8.7 (7.2-11.7) fL Neut % (Auto) 82.8 H (50.0-75.0) % Lymph % (Auto) 11.6 L (20.0-40.0) % Sunflower % (Auto) 4.6 (0.0-10.0) % Eos % (Auto) 0.8 (0.0-4.0) % Baso % (Auto) 0.2 (0.0-2.0) % Neut # 17.2 H (1.8-7.0) K/uL Lymph # 2.4 (1.0-4.3) K/uL Sunflower # 1.0 H (0.0-0.8) K/uL Eos # 0.2 (0.0-0.7) K/uL Baso # 0.0 (0.0-0.2) K/uL Neutrophils % (Manual) 74 (50-75) % Band Neutrophils % 8 H (0-2) % Lymphocytes % (Manual) 7 L (20-40) % Monocytes % (Manual) 5 (0-10) % Metamyelocytes % 1 H (0-0) % Myelocytes % 5 H (0-0) % Nucleated RBC % 1 H (0-0) % Platelet Estimate Normal (NORMAL) Polychromasia Slight Hypochromasia (manual) Slight Anisocytosis (manual) Slight Microcytosis (manual) Slight Tear Drop Cells Slight Puncture Site pCO2 (35-45) mm/Hg pO2 (80-100) mm/Hg HCO3 (21-28) mmol/L ABG pH (7.35-7.45) ABG Total CO2 (22-28) mmol/L ABG O2 Saturation (95-98) % ABG Base Excess (-2.0-3.0) mmol/L ABG Hemoglobin (11.7-17.4) g/dL ABG Carboxyhemoglobin (0.5-1.5) % POC ABG HHb (Measured) (0.0-5.0) % ABG Methemoglobin (0.0-3.0) % Vince Test ABG Potassium (3.6-5.2) mmol/L A-a O2 Difference mm/Hg Respiratory Index Hgb O2 Saturation (95.0-98.0) % Glucose (65-105) mg/dl Lactate (0.7-2.1) mmol/L Vent Mode Mechanical Rate FiO2 % Tidal Volume PEEP Sodium 144 (132-148) mmol/L Potassium 3.4 L (3.6-5.2) mmol/L Chloride 112 H (98-107) mmol/L Carbon Dioxide 27 (22-30) mmol/L Anion Gap 9 L (10-20) BUN 20 H (7-17) mg/dL Creatinine 0.6 L (0.7-1.2) mg/dL Est GFR ( Amer) > 60 Est GFR (Non-Af Amer) > 60 POC Glucose (mg/dL) 249 H (65-110) mg/dL Random Glucose 277 H (65-105) mg/dL Calcium 7.8 L (8.6-10.4) mg/dl Phosphorus 2.0 L (2.5-4.5) mg/dL Magnesium 2.0 (1.6-2.3) mg/dL Total Bilirubin 0.4 (0.2-1.3) mg/dL AST 30 (14-36) U/L ALT 18 (9-52) U/L Alkaline Phosphatase 233 H D (38-126) U/L Total Protein 5.8 L (6.3-8.3) g/dL Albumin 2.4 L (3.5-5.0) g/dL Globulin 3.5 (2.2-3.9) gm/dL Albumin/Globulin Ratio 0.7 L (1.0-2.1) Arterial Blood Potassium (3.6-5.2) mmol/L 09/05/17 09/05/17 09/04/17 Range/Units 05:33 02:03 23:57 WBC (4.8-10.8) K/uL RBC (3.80-5.20) Mil/uL Hgb (11.0-16.0) g/dL Hct (34.0-47.0) % MCV (81.0-99.0) fL MCH (27.0-31.0) pg MCHC (33.0-37.0) g/dL RDW (11.5-14.5) % Plt Count (130-400) K/uL MPV (7.2-11.7) fL Neut % (Auto) (50.0-75.0) % Lymph % (Auto) (20.0-40.0) % Sunflower % (Auto) (0.0-10.0) % Eos % (Auto) (0.0-4.0) % Baso % (Auto) (0.0-2.0) % Neut # (1.8-7.0) K/uL Lymph # (1.0-4.3) K/uL Sunflower # (0.0-0.8) K/uL Eos # (0.0-0.7) K/uL Baso # (0.0-0.2) K/uL Neutrophils % (Manual) (50-75) % Band Neutrophils % (0-2) % Lymphocytes % (Manual) (20-40) % Monocytes % (Manual) (0-10) % Metamyelocytes % (0-0) % Myelocytes % (0-0) % Nucleated RBC % (0-0) % Platelet Estimate (NORMAL) Polychromasia Hypochromasia (manual) Anisocytosis (manual) Microcytosis (manual) Tear Drop Cells Puncture Site Rb pCO2 31 L (35-45) mm/Hg pO2 55 L (80-100) mm/Hg HCO3 29.3 H (21-28) mmol/L ABG pH 7.56 H (7.35-7.45) ABG Total CO2 28.8 H (22-28) mmol/L ABG O2 Saturation 95.2 (95-98) % ABG Base Excess 5.7 H (-2.0-3.0) mmol/L ABG Hemoglobin 11.4 L (11.7-17.4) g/dL ABG Carboxyhemoglobin 2.0 H (0.5-1.5) % POC ABG HHb (Measured) 4.7 (0.0-5.0) % ABG Methemoglobin 1.0 (0.0-3.0) % Vince Test Na ABG Potassium (3.6-5.2) mmol/L A-a O2 Difference 227.0 mm/Hg Respiratory Index 4.1 Hgb O2 Saturation 92.3 L (95.0-98.0) % Glucose (65-105) mg/dl Lactate (0.7-2.1) mmol/L Vent Mode Prvc Mechanical Rate 19 FiO2 45.0 % Tidal Volume 450 PEEP 5 Sodium (132-148) mmol/L Potassium (3.6-5.2) mmol/L Chloride (98-107) mmol/L Carbon Dioxide (22-30) mmol/L Anion Gap (10-20) BUN (7-17) mg/dL Creatinine (0.7-1.2) mg/dL Est GFR ( Amer) Est GFR (Non-Af Amer) POC Glucose (mg/dL) 287 H 349 H (65-110) mg/dL Random Glucose (65-105) mg/dL Calcium (8.6-10.4) mg/dl Phosphorus (2.5-4.5) mg/dL Magnesium (1.6-2.3) mg/dL Total Bilirubin (0.2-1.3) mg/dL AST (14-36) U/L ALT (9-52) U/L Alkaline Phosphatase (38-126) U/L Total Protein (6.3-8.3) g/dL Albumin (3.5-5.0) g/dL Globulin (2.2-3.9) gm/dL Albumin/Globulin Ratio (1.0-2.1) Arterial Blood Potassium (3.6-5.2) mmol/L 09/04/17 Range/Units 18:08 WBC (4.8-10.8) K/uL RBC (3.80-5.20) Mil/uL Hgb (11.0-16.0) g/dL Hct (34.0-47.0) % MCV (81.0-99.0) fL MCH (27.0-31.0) pg MCHC (33.0-37.0) g/dL RDW (11.5-14.5) % Plt Count (130-400) K/uL MPV (7.2-11.7) fL Neut % (Auto) (50.0-75.0) % Lymph % (Auto) (20.0-40.0) % Sunflower % (Auto) (0.0-10.0) % Eos % (Auto) (0.0-4.0) % Baso % (Auto) (0.0-2.0) % Neut # (1.8-7.0) K/uL Lymph # (1.0-4.3) K/uL Sunflower # (0.0-0.8) K/uL Eos # (0.0-0.7) K/uL Baso # (0.0-0.2) K/uL Neutrophils % (Manual) (50-75) % Band Neutrophils % (0-2) % Lymphocytes % (Manual) (20-40) % Monocytes % (Manual) (0-10) % Metamyelocytes % (0-0) % Myelocytes % (0-0) % Nucleated RBC % (0-0) % Platelet Estimate (NORMAL) Polychromasia Hypochromasia (manual) Anisocytosis (manual) Microcytosis (manual) Tear Drop Cells Puncture Site pCO2 (35-45) mm/Hg pO2 (80-100) mm/Hg HCO3 (21-28) mmol/L ABG pH (7.35-7.45) ABG Total CO2 (22-28) mmol/L ABG O2 Saturation (95-98) % ABG Base Excess (-2.0-3.0) mmol/L ABG Hemoglobin (11.7-17.4) g/dL ABG Carboxyhemoglobin (0.5-1.5) % POC ABG HHb (Measured) (0.0-5.0) % ABG Methemoglobin (0.0-3.0) % Vince Test ABG Potassium (3.6-5.2) mmol/L A-a O2 Difference mm/Hg Respiratory Index Hgb O2 Saturation (95.0-98.0) % Glucose (65-105) mg/dl Lactate (0.7-2.1) mmol/L Vent Mode Mechanical Rate FiO2 % Tidal Volume PEEP Sodium (132-148) mmol/L Potassium (3.6-5.2) mmol/L Chloride (98-107) mmol/L Carbon Dioxide (22-30) mmol/L Anion Gap (10-20) BUN (7-17) mg/dL Creatinine (0.7-1.2) mg/dL Est GFR ( Amer) Est GFR (Non-Af Amer) POC Glucose (mg/dL) 274 H (65-110) mg/dL Random Glucose (65-105) mg/dL Calcium (8.6-10.4) mg/dl Phosphorus (2.5-4.5) mg/dL Magnesium (1.6-2.3) mg/dL Total Bilirubin (0.2-1.3) mg/dL AST (14-36) U/L ALT (9-52) U/L Alkaline Phosphatase (38-126) U/L Total Protein (6.3-8.3) g/dL Albumin (3.5-5.0) g/dL Globulin (2.2-3.9) gm/dL Albumin/Globulin Ratio (1.0-2.1) Arterial Blood Potassium (3.6-5.2) mmol/L Laboratory Results - last 24 hr 09/04/17 09/04/17 09/05/17 18:08 23:57 02:03 WBC RBC Hgb Hct MCV MCH MCHC RDW Plt Count MPV Neut % (Auto) Lymph % (Auto) Sunflower % (Auto) Eos % (Auto) Baso % (Auto) Neut # Lymph # Sunflower # Eos # Baso # Neutrophils % (Manual) Band Neutrophils % Lymphocytes % (Manual) Monocytes % (Manual) Metamyelocytes % Myelocytes % Nucleated RBC % Platelet Estimate Polychromasia Hypochromasia (manual) Anisocytosis (manual) Microcytosis (manual) Tear Drop Cells Puncture Site pCO2 pO2 HCO3 ABG pH ABG Total CO2 ABG O2 Saturation ABG Base Excess ABG Hemoglobin ABG Carboxyhemoglobin POC ABG HHb (Measured) ABG Methemoglobin Vince Test ABG Potassium A-a O2 Difference Respiratory Index Hgb O2 Saturation Glucose Lactate Vent Mode Mechanical Rate FiO2 Tidal Volume PEEP Sodium Potassium Chloride Carbon Dioxide Anion Gap BUN Creatinine Est GFR ( Amer) Est GFR (Non-Af Amer) POC Glucose (mg/dL) 274 H 349 H 287 H Random Glucose Calcium Phosphorus Magnesium Total Bilirubin AST ALT Alkaline Phosphatase Total Protein Albumin Globulin Albumin/Globulin Ratio Arterial Blood Potassium 09/05/17 09/05/17 09/05/17 05:33 06:05 06:23 WBC RBC Hgb Hct MCV MCH MCHC RDW Plt Count MPV Neut % (Auto) Lymph % (Auto) Sunflower % (Auto) Eos % (Auto) Baso % (Auto) Neut # Lymph # Sunflower # Eos # Baso # Neutrophils % (Manual) Band Neutrophils % Lymphocytes % (Manual) Monocytes % (Manual) Metamyelocytes % Myelocytes % Nucleated RBC % Platelet Estimate Polychromasia Hypochromasia (manual) Anisocytosis (manual) Microcytosis (manual) Tear Drop Cells Puncture Site Rb pCO2 31 L pO2 55 L HCO3 29.3 H ABG pH 7.56 H ABG Total CO2 28.8 H ABG O2 Saturation 95.2 ABG Base Excess 5.7 H ABG Hemoglobin 11.4 L ABG Carboxyhemoglobin 2.0 H POC ABG HHb (Measured) 4.7 ABG Methemoglobin 1.0 Vince Test Na ABG Potassium A-a O2 Difference 227.0 Respiratory Index 4.1 Hgb O2 Saturation 92.3 L Glucose Lactate Vent Mode Prvc Mechanical Rate 19 FiO2 45.0 Tidal Volume 450 PEEP 5 Sodium 144 Potassium 3.4 L Chloride 112 H Carbon Dioxide 27 Anion Gap 9 L BUN 20 H Creatinine 0.6 L Est GFR ( Amer) > 60 Est GFR (Non-Af Amer) > 60 POC Glucose (mg/dL) 249 H Random Glucose 277 H Calcium 7.8 L Phosphorus 2.0 L Magnesium 2.0 Total Bilirubin 0.4 AST 30 ALT 18 Alkaline Phosphatase 233 H D Total Protein 5.8 L Albumin 2.4 L Globulin 3.5 Albumin/Globulin Ratio 0.7 L Arterial Blood Potassium 09/05/17 09/05/17 09/05/17 06:25 07:42 10:49 WBC 20.8 H RBC 4.89 Hgb 12.2 Hct 36.1 MCV 73.9 L MCH 25.0 L MCHC 33.8 RDW 14.3 Plt Count 171 MPV 8.7 Neut % (Auto) 82.8 H Lymph % (Auto) 11.6 L Sunflower % (Auto) 4.6 Eos % (Auto) 0.8 Baso % (Auto) 0.2 Neut # 17.2 H Lymph # 2.4 Sunflower # 1.0 H Eos # 0.2 Baso # 0.0 Neutrophils % (Manual) 74 Band Neutrophils % 8 H Lymphocytes % (Manual) 7 L Monocytes % (Manual) 5 Metamyelocytes % 1 H Myelocytes % 5 H Nucleated RBC % 1 H Platelet Estimate Normal Polychromasia Slight Hypochromasia (manual) Slight Anisocytosis (manual) Slight Microcytosis (manual) Slight Tear Drop Cells Slight Puncture Site Rr pCO2 33 L pO2 73 L HCO3 29.4 H ABG pH 7.54 H ABG Total CO2 29.2 H ABG O2 Saturation 98.2 H ABG Base Excess 5.8 H ABG Hemoglobin ABG Carboxyhemoglobin POC ABG HHb (Measured) ABG Methemoglobin Vince Test Pos ABG Potassium 2.8 L A-a O2 Difference 314.0 Respiratory Index 4.3 Hgb O2 Saturation Glucose 274 H Lactate 1.8 Vent Mode Prvc Mechanical Rate 12 FiO2 60.0 Tidal Volume 450 PEEP 5 Sodium 150.0 H Potassium Chloride 116.0 H Carbon Dioxide Anion Gap BUN Creatinine Est GFR ( Amer) Est GFR (Non-Af Amer) POC Glucose (mg/dL) 214 H Random Glucose Calcium Phosphorus Magnesium Total Bilirubin AST ALT Alkaline Phosphatase Total Protein Albumin Globulin Albumin/Globulin Ratio Arterial Blood Potassium 2.8 L 09/05/17 11:49 WBC RBC Hgb Hct MCV MCH MCHC RDW Plt Count MPV Neut % (Auto) Lymph % (Auto) Sunflower % (Auto) Eos % (Auto) Baso % (Auto) Neut # Lymph # Sunflower # Eos # Baso # Neutrophils % (Manual) Band Neutrophils % Lymphocytes % (Manual) Monocytes % (Manual) Metamyelocytes % Myelocytes % Nucleated RBC % Platelet Estimate Polychromasia Hypochromasia (manual) Anisocytosis (manual) Microcytosis (manual) Tear Drop Cells Puncture Site pCO2 pO2 HCO3 ABG pH ABG Total CO2 ABG O2 Saturation ABG Base Excess ABG Hemoglobin ABG Carboxyhemoglobin POC ABG HHb (Measured) ABG Methemoglobin Vince Test ABG Potassium A-a O2 Difference Respiratory Index Hgb O2 Saturation Glucose Lactate Vent Mode Mechanical Rate FiO2 Tidal Volume PEEP Sodium Potassium Chloride Carbon Dioxide Anion Gap BUN Creatinine Est GFR ( Amer) Est GFR (Non-Af Amer) POC Glucose (mg/dL) 251 H Random Glucose Calcium Phosphorus Magnesium Total Bilirubin AST ALT Alkaline Phosphatase Total Protein Albumin Globulin Albumin/Globulin Ratio Arterial Blood Potassium Assessment/Plan (1) Acute respiratory failure with hypoxemia Current Visit: Yes Status: Acute (2) Pneumonia Current Visit: Yes Status: Acute (3) DKA (diabetic ketoacidoses) Current Visit: Yes Status: Acute (4) Sepsis Current Visit: Yes Status: Acute Attending/Attestation - Attestation I have personally seen and examined this patient.: Yes I have fully participated in the care of the patient.: Yes I have reviewed all pertinent clinical information: Yes Notes (Text): 09/05/17 16:58 Patient seen and examined in the intensive care unit. Case discussed with house staff in the morning rounds. Patient remained intubated on ventilatory support FiO2 increased to 60% Slight improvement on chest x-ray with bilateral infiltrat Status post MAY with no endocarditis Patient being treated for MRSA bacteremia and pneumonia continue feeding Case discussed with family at length
[2017-09-05 11:56] LABS: BANDS 8 % (0-2); LYMPHOCYTE 7 % (20-40); METAMYELOCYTE 1 % (0-0); MONOCYTE 5 % (0-10); MYELOCYTE 5 % (0-0); NEUTROPHIL 74 % (50-75); NUCLEATED RED BLOOD CELL 1 % (0-0); TOTAL CELLS COUNTED 100
[2017-09-05 11:58] LABS: PLATELET ESTIMATE NORMAL (NORMAL)
[2017-09-05 11:59] LABS: ANISOCYTOSIS SLIGHT; HYPOCHROMIC SLIGHT; MICROCYTOSIS SLIGHT; POLYCHROMIC SLIGHT; TEARDROP CELLS SLIGHT
--- NOTE | 2017-09-05 12:05 | CP.PCM.PN ---
Subjective - Date & Time of Evaluation Date of Evaluation: 09/05/17 Time of Evaluation: 12:03 - Subjective Subjective: sedated,intubated,labs,chest x ray noted.x ray looks better. ' Objective - Vital Signs/Intake and Output Vital Signs (last 24 hours): Temp Pulse Resp BP Pulse Ox 100.9 F H 105 H 26 H 148/64 100 09/05/17 12:00 09/05/17 12:00 09/05/17 12:00 09/05/17 12:00 09/05/17 12:00 Intake and Output: 09/05/17 09/05/17 06:59 18:59 Intake Total 1606 161 Output Total 451 35 Balance 1155 126 - Medications Medications: Current Medications Acetaminophen (Tylenol 325mg Tab) 650 mg PO Q6 PRN PRN Reason: Temperature Last Admin: 09/03/17 21:18 Dose: 650 mg Albuterol/Ipratropium (Duoneb 3 Mg/0.5 Mg (3 Ml) Ud) 3 ml INH RQ4 [facility] Last Admin: 09/05/17 11:43 Dose: 3 ml Aspirin (Aspirin Chewable) 81 mg PO DAILY [facility] Last Admin: 09/05/17 09:44 Dose: 81 mg Famotidine (Pepcid) 40 mg PO DAILY [facility] Last Admin: 09/05/17 09:37 Dose: 40 mg Heparin Sodium (Porcine) (Heparin) 5,000 units SC Q8 [facility] Last Admin: 09/05/17 06:01 Dose: 5,000 units Propofol (Diprivan) 1,000 mg in 100 mls @ 2.096 mls/hr IV .Q24H PRN; Protocol; 5 MCG/KG/MIN PRN Reason: TITRATE PER MD ORDER Last Admin: 09/05/17 08:22 Dose: 50.08 mcg/kg/min, 21 mls/hr Piperacillin Sod/Tazobactam (Sod 3.375 gm/ Sodium Chloride) 100 mls @ 100 mls/ hr IVPB Q6H [facility] Last Admin: 09/05/17 09:34 Dose: 100 mls/hr Linezolid (Zyvox 600mg/300ml D5w) 600 mg in 300 mls @ 200 mls/hr IVPB Q12 [facility] Last Admin: 09/05/17 09:35 Dose: 200 mls/hr Potassium Phosphate 15 mmole/ (Sodium Chloride) 105 mls @ 26.25 mls/hr IV ONCE ONE Stop: 09/05/17 12:59 Last Admin: 09/05/17 09:30 Dose: 26.25 mls/hr Insulin Glargine (Lantus) 5 unit SC Q12 [facility] Last Admin: 09/05/17 09:46 Dose: 5 unit Insulin Human Regular (Novolin R) 0 unit SC Q6 [facility] PRN Reason: Protocol Lorazepam (Ativan) 1 mg IVP Q6H PRN PRN Reason: Anxiety Last Admin: 09/04/17 12:14 Dose: 1 mg Morphine Sulfate (Morphine) 2 mg IVP Q6 PRN PRN Reason: Pain, moderate (4-7) Last Admin: 09/04/17 15:05 Dose: 2 mg - Labs Labs: 09/05/17 06:25 09/05/17 06:23 PT 14.3 SECONDS (9.7-12.2) H 09/01/17 09:49 INR 1.2 09/01/17 09:49 APTT 32 SECONDS (21-34) 09/01/17 09:49 - Constitutional Appears: Toxic - Eye Exam Eye Exam: Normal appearance - Respiratory Exam Respiratory Exam: Rhonchi - Cardiovascular Exam Cardiovascular Exam: REGULAR RHYTHM - GI/Abdominal Exam GI & Abdominal Exam: Soft - Extremities Exam Extremities Exam: absent: Pedal Edema Assessment and Plan - Assessment and Plan (Free Text) Assessment: mrsa,pneumonia. diss with dr de luna.ct zosyn. no need for zayra at this pt.good window tte.
[2017-09-05] MEDS ORDERED: Lidocaine 4% (Laryng-O-Jet) Kit MM ONE (14:09)
[2017-09-05] MEDS ORDERED: Acetaminophen 160 mg/5 ml UD PO ONE (16:45)
[2017-09-05] MEDS: Acetaminophen 650mg/20.3ml solution UD NG PRN (17:04)
--- NOTE | 2017-09-05 23:00 | CP.PCM.PN ---
Subjective - Date & Time of Evaluation Date of Evaluation: 09/05/17 Time of Evaluation: 16:05 - Subjective Subjective: Patient s/p MAY Tolerated the procedure No evidence of endocarditis Normal LV function Objective - Vital Signs/Intake and Output Vital Signs (last 24 hours): Temp Pulse Resp BP Pulse Ox 98.9 F 71 18 145/74 100 09/05/17 21:00 09/05/17 22:00 09/05/17 22:00 09/05/17 21:59 09/05/17 22:00 Intake and Output: 09/05/17 09/06/17 18:59 06:59 Intake Total 1498.8 894 Output Total 415 140 Balance 1083.8 754 - Medications Medications: Current Medications Acetaminophen (Tylenol 325mg Tab) 650 mg PO Q6 PRN PRN Reason: Temperature Last Admin: 09/03/17 21:18 Dose: 650 mg Acetaminophen (Tylenol 650mg/20.3ml Solution Ud) 650 mg NG Q6 PRN PRN Reason: temp of 101 Last Admin: 09/05/17 17:04 Dose: 650 mg Albuterol/Ipratropium (Duoneb 3 Mg/0.5 Mg (3 Ml) Ud) 3 ml INH RQ4 [facility] Last Admin: 09/05/17 19:32 Dose: 3 ml Aspirin (Aspirin Chewable) 81 mg PO DAILY [facility] Last Admin: 09/05/17 09:44 Dose: 81 mg Famotidine (Pepcid) 40 mg PO DAILY [facility] Last Admin: 09/05/17 09:37 Dose: 40 mg Heparin Sodium (Porcine) (Heparin) 5,000 units SC Q8 [facility] Last Admin: 09/05/17 21:56 Dose: 5,000 units Propofol (Diprivan) 1,000 mg in 100 mls @ 2.096 mls/hr IV .Q24H PRN; Protocol; 5 MCG/KG/MIN PRN Reason: TITRATE PER MD ORDER Last Admin: 09/05/17 22:56 Dose: 45.07 mcg/kg/min, 18.9 mls/hr Piperacillin Sod/Tazobactam (Sod 3.375 gm/ Sodium Chloride) 100 mls @ 100 mls/ hr IVPB Q6H [facility] Last Admin: 09/05/17 20:47 Dose: 100 mls/hr Linezolid (Zyvox 600mg/300ml D5w) 600 mg in 300 mls @ 200 mls/hr IVPB Q12 [facility] Last Admin: 09/05/17 21:56 Dose: 200 mls/hr Insulin Glargine (Lantus) 5 unit SC Q12 [facility] Last Admin: 09/05/17 21:56 Dose: 5 unit Insulin Human Regular (Novolin R) 0 unit SC Q6 [facility] PRN Reason: Protocol Last Admin: 09/05/17 18:06 Dose: 6 unit Lorazepam (Ativan) 1 mg IVP Q6H PRN PRN Reason: Anxiety Last Admin: 09/05/17 12:42 Dose: 1 mg Morphine Sulfate (Morphine) 2 mg IVP Q6 PRN PRN Reason: Pain, moderate (4-7) Last Admin: 09/04/17 15:05 Dose: 2 mg - Labs Labs: 09/05/17 06:25 09/05/17 06:23 PT 14.3 SECONDS (9.7-12.2) H 09/01/17 09:49 INR 1.2 09/01/17 09:49 APTT 32 SECONDS (21-34) 09/01/17 09:49
[2017-09-06] MEDS: (Novolin R) Insulin Human Regular 100 units/ml vial SC SCH ×4 (00:10→17:54)
[2017-09-06] MEDS: Albuterol-Ipratrop 3 mg / 0.5 (3 ml) UD INH SCH ×6 (00:19→19:54)
[2017-09-06] MEDS: Piperacillin/Tazobact 3.375 GM in Sodium Chloride 0.9% 100 ML IVPB SCH ×4 (02:44→20:44)
[2017-09-06] MEDS: Propofol 10 mg/ml 1,000 MG/100 ML VIAL IV PRN ×4 (05:20→20:46)
[2017-09-06 05:25] LABS: ABG ALLEN TEST POS; ARTERIAL BLOOD GAS HCO3 29.9 mmol/L (21-28); ARTERIAL BLOOD GAS HEMOGLOBIN 10.9 g/dL (11.7-17.4); ARTERIAL BLOOD GAS O2 SAT 96.9 % (95-98); ARTERIAL BLOOD GAS PCO2 41 mm/Hg (35-45); ARTERIAL BLOOD GAS PH 7.48 (7.35-7.45); ARTERIAL BLOOD GAS PO2 69 mm/Hg (80-100); ARTERIAL BLOOD GAS TCO2 31.8 mmol/L (22-28)
[2017-09-06 06:28] LABS: BASO # 0.1 K/uL (0.0-0.2); BASO % 0.4 % (0.0-2.0); EOS # 0.1 K/uL (0.0-0.7); MONO # 0.6 K/uL (0.0-0.8); NRBC % 0.1 % (0.0-2.0); RED CELL DISTRIBUTION WIDTH 14.9 % (11.5-14.5)
[2017-09-06 07:00] LABS: ALB/GLOB RATIO 0.6 (1.0-2.1); ALBUMIN 2.2 g/dL (3.5-5.0); ALT/SGPT 17 U/L (9-52); AST/SGOT 24 U/L (14-36); BLOOD UREA NITROGEN 22 mg/dL (7-17); CALCIUM 7.3 mg/dl (8.6-10.4); GFR AFRICAN-AMERICAN > 60; GFR NON-AFRICAN AMERICAN > 60
[2017-09-06 07:13] LABS: EOS % 0.6 % (0.0-4.0); HEMOGLOBIN 10.8 g/dL (11.0-16.0); LYMPH % 11.8 % (20.0-40.0); MEAN CELL VOLUME 74.3 fL (81.0-99.0); MEAN CORPUSCULAR HEMOGLOBIN 24.7 pg (27.0-31.0); MEAN CORPUSCULAR HGB CONC 33.3 g/dL (33.0-37.0); MEAN PLATELET VOLUME 9.1 fL (7.2-11.7); MONO % 3.8 % (0.0-10.0); NEUT # 13.9 K/uL (1.8-7.0); NEUT % 83.4 % (50.0-75.0); RBC 4.39 Mil/uL (3.80-5.20); WHITE BLOOD COUNT 16.7 K/uL (4.8-10.8)
--- NOTE | 2017-09-06 08:59 | RAD ---
HISTORY: sob COMPARISON: 09/05/2017 FINDINGS: LUNGS: Extensive bilateral upper lobe/ perihilar opacities, grossly unchanged. There has been improvement in the right medial basilar opacity. PLEURA: No significant pleural effusion identified, no pneumothorax apparent. CARDIOVASCULAR: ET tube, NG tube and right PICC catheter are unchanged in position. OSSEOUS STRUCTURES: No significant abnormalities. VISUALIZED UPPER ABDOMEN: Normal. OTHER FINDINGS: None. IMPRESSION: Multifocal bilateral pulmonary opacities. Suspicious for infectious pneumonia.
[2017-09-06] MEDS: Linezolid 600 mg in D5W 300 ml 600 MG/300 ML BAG IVPB SCH ×2 (09:00→21:35)
[2017-09-06] MEDS: (Lantus) Insulin Glargine, Recombinant SC SCH ×2 (09:06→21:35)
[2017-09-06] MEDS ORDERED: Azithromycin 500 MG in Sodium Chloride 0.9% 250 ML IVPB SCH (10:00)
--- NOTE | 2017-09-06 11:27 | CP.CCUPN ---
<Afshin Macias - Last Filed: 09/06/17 11:20> CCU Subjective - Physician Review Subjective (Free Text): patient seen and examined at [facility] intubated sedated on dip[MAY kraft yesterday negative white count improving spiked fever yesterday 103 but since then afebrile will continue to monitor CCU Objective - Vital Signs / Intake & Output Vital Signs (Last 4 hours): Vital Signs Temp Pulse Resp BP Pulse Ox 09/06/17 09:00 60 17 154/74 H 100 09/06/17 08:00 97.7 F 56 L 20 145/71 98 Intake and Output (Last 8hrs): Intake & Output 09/05/17 09/06/17 09/06/17 22:59 06:59 14:59 Intake Total 1356.8 712.8 470.4 Output Total 280 300 Balance 1076.8 412.8 470.4 Weight 158 lb 9.6 oz Intake: IV 100 100 100 Intake, IV Amount 676.8 142.8 250.4 RIGHT BASILIC PICC BLUE 500 200 PORT RIGHT BASILIC PICC RED 176.8 142.8 50.4 PORT Tube Feeding 280 320 120 Other 300 150 Output: Urine 280 300 Urethral (Nascimento) 280 300 Other: # Bowel Movements 1 1 - Physical Exam Head: Positive for: Atraumatic, Normocephalic Pupils: Positive for: PERRL Conjunctiva: Positive for: Normal Mouth: Positive for: Moist Mucous Membranes Respiratory/Chest: Positive for: Accessory Muscle Use, Wheezes, Rhonchi, Tachypneic Cardiovascular: Positive for: Regular Rate and Rhythm, Normal S1, S2 - Medications Active Medications: Active Medications Generic Name Dose Route Start Last Admin Trade Name Freq PRN Reason Stop Dose Admin Acetaminophen 650 mg 09/03/17 08:43 09/03/17 21:18 Tylenol 325mg Tab PO 650 mg Q6 PRN Administration Temperature Acetaminophen 650 mg 09/05/17 16:41 09/05/17 17:04 Tylenol 650mg/20.3ml Solution Ud NG 650 mg Q6 PRN Administration temp of 101 Albuterol/Ipratropium 3 ml 09/01/17 20:00 09/06/17 11:14 Duoneb 3 Mg/0.5 Mg (3 Ml) Ud INH 3 ml RQ4 WILLIAM Administration Aspirin 81 mg 09/02/17 10:00 09/06/17 09:06 Aspirin Chewable PO 81 mg DAILY WILLIAM Administration Famotidine 40 mg 09/03/17 10:15 09/06/17 09:06 Pepcid PO 40 mg DAILY WILLIAM Administration Heparin Sodium (Porcine) 5,000 units 09/02/17 06:00 09/06/17 06:16 Heparin SC 5,000 units Q8 WILLIAM Administration Propofol 1,000 mg in 100 mls @ 2.096 mls/hr 09/02/17 11:23 09/06/17 09:13 Diprivan IV 40 mcg/kg/min .Q24H PRN 16.771 mls/hr TITRATE PER MD ORDER Administration Protocol 5 MCG/KG/MIN Piperacillin Sod/Tazobactam 100 mls @ 100 mls/hr 09/03/17 15:00 09/06/17 09: 00 Sod 3.375 gm/ Sodium Chloride IVPB 100 mls/hr Q6H WILLIAM Administration Linezolid 600 mg in 300 mls @ 200 mls/hr 09/03/17 22:00 09/06/17 09:00 Zyvox 600mg/300ml D5w IVPB 200 mls/hr Q12 WILLIAM Administration Azithromycin 500 mg/ Sodium 250 mls @ 250 mls/hr 09/06/17 10:00 Chloride IVPB DAILY WILLIAM Insulin Glargine 5 unit 09/03/17 12:15 09/06/17 09:06 Lantus SC 5 unit Q12 WILLIAM Administration Insulin Human Regular 0 unit 09/05/17 09:31 09/06/17 06:16 Novolin R SC 4 unit Q6 WILLIAM Administration Protocol Lorazepam 1 mg 09/03/17 10:49 09/05/17 12:42 Ativan IVP 1 mg Q6H PRN Administration Anxiety Morphine Sulfate 2 mg 09/03/17 10:49 09/04/17 15:05 Morphine IVP 2 mg Q6 PRN Administration Pain, moderate (4-7) - Patient Studies Lab Studies: Microbiology Studies 09/04/17 18:45 Blood Culture - Preliminary Blood NO GROWTH AFTER 24 HOURS 09/04/17 19:15 Blood Culture - Preliminary Blood NO GROWTH AFTER 24 HOURS Lab Studies 09/06/17 09/06/17 09/06/17 Range/Units 06:19 06:18 06:09 WBC 16.7 H (4.8-10.8) K/uL RBC 4.39 (3.80-5.20) Mil/uL Hgb 10.8 L (11.0-16.0) g/dL Hct 32.6 L (34.0-47.0) % MCV 74.3 L (81.0-99.0) fL MCH 24.7 L (27.0-31.0) pg MCHC 33.3 (33.0-37.0) g/dL RDW 14.9 H (11.5-14.5) % Plt Count 121 L D (130-400) K/uL MPV 9.1 (7.2-11.7) fL Neut % (Auto) 83.4 H (50.0-75.0) % Lymph % (Auto) 11.8 L (20.0-40.0) % Dade % (Auto) 3.8 (0.0-10.0) % Eos % (Auto) 0.6 (0.0-4.0) % Baso % (Auto) 0.4 (0.0-2.0) % Neut # (Auto) 13.9 H (1.8-7.0) K/uL Lymph # (Auto) 2.0 (1.0-4.3) K/uL Dade # (Auto) 0.6 (0.0-0.8) K/uL Eos # (Auto) 0.1 (0.0-0.7) K/uL Baso # (Auto) 0.1 (0.0-0.2) K/uL Neutrophils % (Manual) (50-75) % Band Neutrophils % (0-2) % Lymphocytes % (Manual) (20-40) % Monocytes % (Manual) (0-10) % Metamyelocytes % (0-0) % Myelocytes % (0-0) % Nucleated RBC % (0-0) % Platelet Estimate (NORMAL) Polychromasia Hypochromasia (manual) Anisocytosis (manual) Microcytosis (manual) Tear Drop Cells Puncture Site pCO2 (35-45) mm/Hg pO2 (80-100) mm/Hg HCO3 (21-28) mmol/L ABG pH (7.35-7.45) ABG Total CO2 (22-28) mmol/L ABG O2 Saturation (95-98) % ABG Base Excess (-2.0-3.0) mmol/L ABG Hemoglobin (11.7-17.4) g/dL ABG Carboxyhemoglobin (0.5-1.5) % POC ABG HHb (Measured) (0.0-5.0) % ABG Methemoglobin (0.0-3.0) % Vince Test A-a O2 Difference mm/Hg Respiratory Index Hgb O2 Saturation (95.0-98.0) % Vent Mode Mechanical Rate FiO2 % Tidal Volume PEEP Sodium 145 (132-148) mmol/L Potassium 3.6 (3.6-5.2) mmol/L Chloride 110 H (98-107) mmol/L Carbon Dioxide 32 H (22-30) mmol/L Anion Gap 6 L (10-20) BUN 22 H (7-17) mg/dL Creatinine 0.4 L (0.7-1.2) mg/dL Est GFR ( Amer) > 60 Est GFR (Non-Af Amer) > 60 POC Glucose (mg/dL) 242 H (65-110) mg/dL Random Glucose 264 H (65-105) mg/dL Calcium 7.3 L (8.6-10.4) mg/dl Phosphorus 3.4 (2.5-4.5) mg/dL Magnesium 2.0 (1.6-2.3) mg/dL Total Bilirubin 0.6 (0.2-1.3) mg/dL AST 24 (14-36) U/L ALT 17 (9-52) U/L Alkaline Phosphatase 144 H D (38-126) U/L Total Protein 5.8 L (6.3-8.3) g/dL Albumin 2.2 L (3.5-5.0) g/dL Globulin 3.5 (2.2-3.9) gm/dL Albumin/Globulin Ratio 0.6 L (1.0-2.1) Procalcitonin (0.19-0.49) NG/ML 09/06/17 09/05/17 09/05/17 Range/Units 05:11 23:26 18:25 WBC (4.8-10.8) K/uL RBC (3.80-5.20) Mil/uL Hgb (11.0-16.0) g/dL Hct (34.0-47.0) % MCV (81.0-99.0) fL MCH (27.0-31.0) pg MCHC (33.0-37.0) g/dL RDW (11.5-14.5) % Plt Count (130-400) K/uL MPV (7.2-11.7) fL Neut % (Auto) (50.0-75.0) % Lymph % (Auto) (20.0-40.0) % Dade % (Auto) (0.0-10.0) % Eos % (Auto) (0.0-4.0) % Baso % (Auto) (0.0-2.0) % Neut # (Auto) (1.8-7.0) K/uL Lymph # (Auto) (1.0-4.3) K/uL Dade # (Auto) (0.0-0.8) K/uL Eos # (Auto) (0.0-0.7) K/uL Baso # (Auto) (0.0-0.2) K/uL Neutrophils % (Manual) (50-75) % Band Neutrophils % (0-2) % Lymphocytes % (Manual) (20-40) % Monocytes % (Manual) (0-10) % Metamyelocytes % (0-0) % Myelocytes % (0-0) % Nucleated RBC % (0-0) % Platelet Estimate (NORMAL) Polychromasia Hypochromasia (manual) Anisocytosis (manual) Microcytosis (manual) Tear Drop Cells Puncture Site Rr pCO2 41 (35-45) mm/Hg pO2 69 L (80-100) mm/Hg HCO3 29.9 H (21-28) mmol/L ABG pH 7.48 H (7.35-7.45) ABG Total CO2 31.8 H (22-28) mmol/L ABG O2 Saturation 96.9 (95-98) % ABG Base Excess 6.4 H (-2.0-3.0) mmol/L ABG Hemoglobin 10.9 L (11.7-17.4) g/dL ABG Carboxyhemoglobin 2.2 H (0.5-1.5) % POC ABG HHb (Measured) 3.0 (0.0-5.0) % ABG Methemoglobin 1.1 (0.0-3.0) % Vince Test Pos A-a O2 Difference 308.0 mm/Hg Respiratory Index 4.5 Hgb O2 Saturation 93.8 L (95.0-98.0) % Vent Mode Prvc Mechanical Rate 12 FiO2 60.0 % Tidal Volume 450 PEEP 5 Sodium (132-148) mmol/L Potassium (3.6-5.2) mmol/L Chloride (98-107) mmol/L Carbon Dioxide (22-30) mmol/L Anion Gap (10-20) BUN (7-17) mg/dL Creatinine (0.7-1.2) mg/dL Est GFR ( Amer) Est GFR (Non-Af Amer) POC Glucose (mg/dL) 326 H (65-110) mg/dL Random Glucose (65-105) mg/dL Calcium (8.6-10.4) mg/dl Phosphorus (2.5-4.5) mg/dL Magnesium (1.6-2.3) mg/dL Total Bilirubin (0.2-1.3) mg/dL AST (14-36) U/L ALT (9-52) U/L Alkaline Phosphatase (38-126) U/L Total Protein (6.3-8.3) g/dL Albumin (3.5-5.0) g/dL Globulin (2.2-3.9) gm/dL Albumin/Globulin Ratio (1.0-2.1) Procalcitonin 4.27 H (0.19-0.49) NG/ML 09/05/17 09/05/17 09/05/17 Range/Units 17:39 11:49 06:25 WBC (4.8-10.8) K/uL RBC (3.80-5.20) Mil/uL Hgb (11.0-16.0) g/dL Hct (34.0-47.0) % MCV (81.0-99.0) fL MCH (27.0-31.0) pg MCHC (33.0-37.0) g/dL RDW (11.5-14.5) % Plt Count (130-400) K/uL MPV (7.2-11.7) fL Neut % (Auto) (50.0-75.0) % Lymph % (Auto) (20.0-40.0) % Dade % (Auto) (0.0-10.0) % Eos % (Auto) (0.0-4.0) % Baso % (Auto) (0.0-2.0) % Neut # (Auto) (1.8-7.0) K/uL Lymph # (Auto) (1.0-4.3) K/uL Dade # (Auto) (0.0-0.8) K/uL Eos # (Auto) (0.0-0.7) K/uL Baso # (Auto) (0.0-0.2) K/uL Neutrophils % (Manual) 74 (50-75) % Band Neutrophils % 8 H (0-2) % Lymphocytes % (Manual) 7 L (20-40) % Monocytes % (Manual) 5 (0-10) % Metamyelocytes % 1 H (0-0) % Myelocytes % 5 H (0-0) % Nucleated RBC % 1 H (0-0) % Platelet Estimate Normal (NORMAL) Polychromasia Slight Hypochromasia (manual) Slight Anisocytosis (manual) Slight Microcytosis (manual) Slight Tear Drop Cells Slight Puncture Site pCO2 (35-45) mm/Hg pO2 (80-100) mm/Hg HCO3 (21-28) mmol/L ABG pH (7.35-7.45) ABG Total CO2 (22-28) mmol/L ABG O2 Saturation (95-98) % ABG Base Excess (-2.0-3.0) mmol/L ABG Hemoglobin (11.7-17.4) g/dL ABG Carboxyhemoglobin (0.5-1.5) % POC ABG HHb (Measured) (0.0-5.0) % ABG Methemoglobin (0.0-3.0) % Vince Test A-a O2 Difference mm/Hg Respiratory Index Hgb O2 Saturation (95.0-98.0) % Vent Mode Mechanical Rate FiO2 % Tidal Volume PEEP Sodium (132-148) mmol/L Potassium (3.6-5.2) mmol/L Chloride (98-107) mmol/L Carbon Dioxide (22-30) mmol/L Anion Gap (10-20) BUN (7-17) mg/dL Creatinine (0.7-1.2) mg/dL Est GFR ( Amer) Est GFR (Non-Af Amer) POC Glucose (mg/dL) 285 H 251 H (65-110) mg/dL Random Glucose (65-105) mg/dL Calcium (8.6-10.4) mg/dl Phosphorus (2.5-4.5) mg/dL Magnesium (1.6-2.3) mg/dL Total Bilirubin (0.2-1.3) mg/dL AST (14-36) U/L ALT (9-52) U/L Alkaline Phosphatase (38-126) U/L Total Protein (6.3-8.3) g/dL Albumin (3.5-5.0) g/dL Globulin (2.2-3.9) gm/dL Albumin/Globulin Ratio (1.0-2.1) Procalcitonin (0.19-0.49) NG/ML Laboratory Results - last 24 hr 09/05/17 09/05/17 09/05/17 06:25 11:49 17:39 WBC RBC Hgb Hct MCV MCH MCHC RDW Plt Count MPV Neut % (Auto) Lymph % (Auto) Dade % (Auto) Eos % (Auto) Baso % (Auto) Neut # (Auto) Lymph # (Auto) Dade # (Auto) Eos # (Auto) Baso # (Auto) Neutrophils % (Manual) 74 Band Neutrophils % 8 H Lymphocytes % (Manual) 7 L Monocytes % (Manual) 5 Metamyelocytes % 1 H Myelocytes % 5 H Nucleated RBC % 1 H Platelet Estimate Normal Polychromasia Slight Hypochromasia (manual) Slight Anisocytosis (manual) Slight Microcytosis (manual) Slight Tear Drop Cells Slight Puncture Site pCO2 pO2 HCO3 ABG pH ABG Total CO2 ABG O2 Saturation ABG Base Excess ABG Hemoglobin ABG Carboxyhemoglobin POC ABG HHb (Measured) ABG Methemoglobin Vince Test A-a O2 Difference Respiratory Index Hgb O2 Saturation Vent Mode Mechanical Rate FiO2 Tidal Volume PEEP Sodium Potassium Chloride Carbon Dioxide Anion Gap BUN Creatinine Est GFR ( Amer) Est GFR (Non-Af Amer) POC Glucose (mg/dL) 251 H 285 H Random Glucose Calcium Phosphorus Magnesium Total Bilirubin AST ALT Alkaline Phosphatase Total Protein Albumin Globulin Albumin/Globulin Ratio Procalcitonin 09/05/17 09/05/17 09/06/17 18:25 23:26 05:11 WBC RBC Hgb Hct MCV MCH MCHC RDW Plt Count MPV Neut % (Auto) Lymph % (Auto) Dade % (Auto) Eos % (Auto) Baso % (Auto) Neut # (Auto) Lymph # (Auto) Dade # (Auto) Eos # (Auto) Baso # (Auto) Neutrophils % (Manual) Band Neutrophils % Lymphocytes % (Manual) Monocytes % (Manual) Metamyelocytes % Myelocytes % Nucleated RBC % Platelet Estimate Polychromasia Hypochromasia (manual) Anisocytosis (manual) Microcytosis (manual) Tear Drop Cells Puncture Site Rr pCO2 41 pO2 69 L HCO3 29.9 H ABG pH 7.48 H ABG Total CO2 31.8 H ABG O2 Saturation 96.9 ABG Base Excess 6.4 H ABG Hemoglobin 10.9 L ABG Carboxyhemoglobin 2.2 H POC ABG HHb (Measured) 3.0 ABG Methemoglobin 1.1 Vince Test Pos A-a O2 Difference 308.0 Respiratory Index 4.5 Hgb O2 Saturation 93.8 L Vent Mode Prvc Mechanical Rate 12 FiO2 60.0 Tidal Volume 450 PEEP 5 Sodium Potassium Chloride Carbon Dioxide Anion Gap BUN Creatinine Est GFR ( Amer) Est GFR (Non-Af Amer) POC Glucose (mg/dL) 326 H Random Glucose Calcium Phosphorus Magnesium Total Bilirubin AST ALT Alkaline Phosphatase Total Protein Albumin Globulin Albumin/Globulin Ratio Procalcitonin 4.27 H 09/06/17 09/06/17 09/06/17 06:09 06:18 06:19 WBC 16.7 H RBC 4.39 Hgb 10.8 L Hct 32.6 L MCV 74.3 L MCH 24.7 L MCHC 33.3 RDW 14.9 H Plt Count 121 L D MPV 9.1 Neut % (Auto) 83.4 H Lymph % (Auto) 11.8 L Dade % (Auto) 3.8 Eos % (Auto) 0.6 Baso % (Auto) 0.4 Neut # (Auto) 13.9 H Lymph # (Auto) 2.0 Dade # (Auto) 0.6 Eos # (Auto) 0.1 Baso # (Auto) 0.1 Neutrophils % (Manual) Band Neutrophils % Lymphocytes % (Manual) Monocytes % (Manual) Metamyelocytes % Myelocytes % Nucleated RBC % Platelet Estimate Polychromasia Hypochromasia (manual) Anisocytosis (manual) Microcytosis (manual) Tear Drop Cells Puncture Site pCO2 pO2 HCO3 ABG pH ABG Total CO2 ABG O2 Saturation ABG Base Excess ABG Hemoglobin ABG Carboxyhemoglobin POC ABG HHb (Measured) ABG Methemoglobin Vince Test A-a O2 Difference Respiratory Index Hgb O2 Saturation Vent Mode Mechanical Rate FiO2 Tidal Volume PEEP Sodium 145 Potassium 3.6 Chloride 110 H Carbon Dioxide 32 H Anion Gap 6 L BUN 22 H Creatinine 0.4 L Est GFR ( Amer) > 60 Est GFR (Non-Af Amer) > 60 POC Glucose (mg/dL) 242 H Random Glucose 264 H Calcium 7.3 L Phosphorus 3.4 Magnesium 2.0 Total Bilirubin 0.6 AST 24 ALT 17 Alkaline Phosphatase 144 H D Total Protein 5.8 L Albumin 2.2 L Globulin 3.5 Albumin/Globulin Ratio 0.6 L Procalcitonin Fingerstick Blood Sugar Results: 242 Assessment/Plan - Assessment and Plan (Free Text) Assessment: 62F MRSA septicemia Plan: Psych: anxiety Ativan, 1 mg IVP Q6H PRN Neuro: Propofol 10 mg/ml Q24H PRN Morphine 2 mg IVP Q6 PRN Cards: HTN Lopressor 5 mg IV PRN ASA 81 mg PO QD MAY negative for endocarditis Cardio (Malvin) Pulm: MRSA pneumonia, respiratory failure Intubated RR 22, Tidal 400, PEEP 5, FiO2 50 Duoneb 3 mg/0.5 mg UD INH RQ4 negative flu, Tamiflu cap 75 mg PO BID Zosyn 3.375 g in NS @ 100 mls/hr IVPB Q6H Linezolid 600 mg in D5W @ 200 mls/hr IVPB Q12 Zithromax 500 mg in NS @ 250 mls/hr IVPB QD Pulm (Meño) ID (Mangia) GI: no acute issues Tubefeeding: Glucerna 1.5 10 ml/hr, goal 50 ml/hr Renal: no acute issues Endo: DM Novolin ISS Lantus 5 U SC Q12 POC glucose 242 PPx: Pepcid 40 mg PO QD Heparin 5000 U SC Q8 <MeñoMax newman S - Last Filed: 09/06/17 17:13> CCU Objective - Vital Signs / Intake & Output Vital Signs (Last 4 hours): Vital Signs Temp Pulse Resp BP Pulse Ox 09/06/17 16:00 98.1 F 65 20 143/71 99 09/06/17 15:00 67 20 143/76 99 09/06/17 14:00 68 20 144/71 98 Intake and Output (Last 8hrs): Intake & Output 09/06/17 09/06/17 09/06/17 06:59 14:59 22:59 Intake Total 712.8 1144.4 313.6 Output Total 300 Balance 412.8 1144.4 313.6 Weight 158 lb 9.6 oz Intake: IV 100 100 100 Intake, IV Amount 142.8 884.4 133.6 RIGHT BASILIC PICC BLUE 750 100 PORT RIGHT BASILIC PICC RED 142.8 134.4 33.6 PORT Tube Feeding 320 160 80 Other 150 Output: Urine 300 Urethral (Nascimento) 300 Other: # Bowel Movements 1 - Medications Active Medications: Active Medications Generic Name Dose Route Start Last Admin Trade Name Freq PRN Reason Stop Dose Admin Acetaminophen 650 mg 09/03/17 08:43 09/03/17 21:18 Tylenol 325mg Tab PO 650 mg Q6 PRN Administration Temperature Acetaminophen 650 mg 09/05/17 16:41 09/05/17 17:04 Tylenol 650mg/20.3ml Solution Ud NG 650 mg Q6 PRN Administration temp of 101 Albuterol/Ipratropium 3 ml 09/01/17 20:00 09/06/17 16:06 Duoneb 3 Mg/0.5 Mg (3 Ml) Ud INH 3 ml RQ4 WILLIAM Administration Aspirin 81 mg 09/02/17 10:00 09/06/17 09:06 Aspirin Chewable PO 81 mg DAILY WILLIAM Administration Famotidine 40 mg 09/03/17 10:15 09/06/17 09:06 Pepcid PO 40 mg DAILY WILLIAM Administration Heparin Sodium (Porcine) 5,000 units 09/02/17 06:00 09/06/17 14:00 Heparin SC 5,000 units Q8 WILLIAM Administration Propofol 1,000 mg in 100 mls @ 2.096 mls/hr 09/02/17 11:23 09/06/17 15:58 Diprivan IV 40 mcg/kg/min .Q24H PRN 16.771 mls/hr TITRATE PER MD ORDER Administration Protocol 5 MCG/KG/MIN Piperacillin Sod/Tazobactam 100 mls @ 100 mls/hr 09/03/17 15:00 09/06/17 15: 00 Sod 3.375 gm/ Sodium Chloride IVPB 100 mls/hr Q6H WILLIAM Administration Linezolid 600 mg in 300 mls @ 200 mls/hr 09/03/17 22:00 09/06/17 09:00 Zyvox 600mg/300ml D5w IVPB 200 mls/hr Q12 WILLIAM Administration Insulin Glargine 5 unit 09/03/17 12:15 09/06/17 09:06 Lantus SC 5 unit Q12 WILLIAM Administration Insulin Human Regular 0 unit 09/05/17 09:31 09/06/17 12:00 Novolin R SC Not Given Q6 WILLIAM Protocol Lorazepam 1 mg 09/03/17 10:49 09/05/17 12:42 Ativan IVP 1 mg Q6H PRN Administration Anxiety Morphine Sulfate 2 mg 09/03/17 10:49 09/04/17 15:05 Morphine IVP 2 mg Q6 PRN Administration Pain, moderate (4-7) - Patient Studies Lab Studies: Microbiology Studies 09/04/17 18:45 Blood Culture - Preliminary Blood NO GROWTH AFTER 24 HOURS 09/04/17 19:15 Blood Culture - Preliminary Blood NO GROWTH AFTER 24 HOURS Lab Studies 09/06/17 09/06/17 09/06/17 Range/Units 11:46 11:03 06:19 WBC (4.8-10.8) K/uL RBC (3.80-5.20) Mil/uL Hgb (11.0-16.0) g/dL Hct (34.0-47.0) % MCV (81.0-99.0) fL MCH (27.0-31.0) pg MCHC (33.0-37.0) g/dL RDW (11.5-14.5) % Plt Count (130-400) K/uL MPV (7.2-11.7) fL Neut % (Auto) (50.0-75.0) % Lymph % (Auto) (20.0-40.0) % [place] % (Auto) (0.0-10.0) % Eos % (Auto) (0.0-4.0) % Baso % (Auto) (0.0-2.0) % Neut # (Auto) (1.8-7.0) K/uL Lymph # (Auto) (1.0-4.3) K/uL Dade # (Auto) (0.0-0.8) K/uL Eos # (Auto) (0.0-0.7) K/uL Baso # (Auto) (0.0-0.2) K/uL Puncture Site pCO2 (35-45) mm/Hg pO2 (80-100) mm/Hg HCO3 (21-28) mmol/L ABG pH (7.35-7.45) ABG Total CO2 (22-28) mmol/L ABG O2 Saturation (95-98) % ABG Base Excess (-2.0-3.0) mmol/L ABG Hemoglobin (11.7-17.4) g/dL ABG Carboxyhemoglobin (0.5-1.5) % POC ABG HHb (Measured) (0.0-5.0) % ABG Methemoglobin (0.0-3.0) % Vince Test A-a O2 Difference mm/Hg Respiratory Index Hgb O2 Saturation (95.0-98.0) % Vent Mode Mechanical Rate FiO2 % Tidal Volume PEEP Sodium 145 (132-148) mmol/L Potassium 3.6 (3.6-5.2) mmol/L Chloride 110 H (98-107) mmol/L Carbon Dioxide 32 H (22-30) mmol/L Anion Gap 6 L (10-20) BUN 22 H (7-17) mg/dL Creatinine 0.4 L (0.7-1.2) mg/dL Est GFR ( Amer) > 60 Est GFR (Non-Af Amer) > 60 POC Glucose (mg/dL) 175 H (65-110) mg/dL Random Glucose 264 H (65-105) mg/dL Calcium 7.3 L (8.6-10.4) mg/dl Phosphorus 3.4 (2.5-4.5) mg/dL Magnesium 2.0 (1.6-2.3) mg/dL Total Bilirubin 0.6 (0.2-1.3) mg/dL AST 24 (14-36) U/L ALT 17 (9-52) U/L Alkaline Phosphatase 144 H D (38-126) U/L Total Protein 5.8 L (6.3-8.3) g/dL Albumin 2.2 L (3.5-5.0) g/dL Globulin 3.5 (2.2-3.9) gm/dL Albumin/Globulin Ratio 0.6 L (1.0-2.1) Procalcitonin (0.19-0.49) NG/ML Ur L.pneumophila Ag Negative (NEGATIVE) Mycoplasma pneumon IgM Negative (NEGATIVE) 09/06/17 09/06/17 09/06/17 Range/Units 06:18 06:09 05:11 WBC 16.7 H (4.8-10.8) K/uL RBC 4.39 (3.80-5.20) Mil/uL Hgb 10.8 L (11.0-16.0) g/dL Hct 32.6 L (34.0-47.0) % MCV 74.3 L (81.0-99.0) fL MCH 24.7 L (27.0-31.0) pg MCHC 33.3 (33.0-37.0) g/dL RDW 14.9 H (11.5-14.5) % Plt Count 121 L D (130-400) K/uL MPV 9.1 (7.2-11.7) fL Neut % (Auto) 83.4 H (50.0-75.0) % Lymph % (Auto) 11.8 L (20.0-40.0) % [place]ade % (Auto) 3.8 (0.0-10.0) % Eos % (Auto) 0.6 (0.0-4.0) % Baso % (Auto) 0.4 (0.0-2.0) % Neut # (Auto) 13.9 H (1.8-7.0) K/uL Lymph # (Auto) 2.0 (1.0-4.3) K/uL Dade # (Auto) 0.6 (0.0-0.8) K/uL Eos # (Auto) 0.1 (0.0-0.7) K/uL Baso # (Auto) 0.1 (0.0-0.2) K/uL Puncture Site Rr pCO2 41 (35-45) mm/Hg pO2 69 L (80-100) mm/Hg HCO3 29.9 H (21-28) mmol/L ABG pH 7.48 H (7.35-7.45) ABG Total CO2 31.8 H (22-28) mmol/L ABG O2 Saturation 96.9 (95-98) % ABG Base Excess 6.4 H (-2.0-3.0) mmol/L ABG Hemoglobin 10.9 L (11.7-17.4) g/dL ABG Carboxyhemoglobin 2.2 H (0.5-1.5) % POC ABG HHb (Measured) 3.0 (0.0-5.0) % ABG Methemoglobin 1.1 (0.0-3.0) % Vince Test Pos A-a O2 Difference 308.0 mm/Hg Respiratory Index 4.5 Hgb O2 Saturation 93.8 L (95.0-98.0) % Vent Mode Prvc Mechanical Rate 12 FiO2 60.0 % Tidal Volume 450 PEEP 5 Sodium (132-148) mmol/L Potassium (3.6-5.2) mmol/L Chloride (98-107) mmol/L Carbon Dioxide (22-30) mmol/L Anion Gap (10-20) BUN (7-17) mg/dL Creatinine (0.7-1.2) mg/dL Est GFR ( Amer) Est GFR (Non-Af Amer) POC Glucose (mg/dL) 242 H (65-110) mg/dL Random Glucose (65-105) mg/dL Calcium (8.6-10.4) mg/dl Phosphorus (2.5-4.5) mg/dL Magnesium (1.6-2.3) mg/dL Total Bilirubin (0.2-1.3) mg/dL AST (14-36) U/L ALT (9-52) U/L Alkaline Phosphatase (38-126) U/L Total Protein (6.3-8.3) g/dL Albumin (3.5-5.0) g/dL Globulin (2.2-3.9) gm/dL Albumin/Globulin Ratio (1.0-2.1) Procalcitonin (0.19-0.49) NG/ML Ur L.pneumophila Ag (NEGATIVE) Mycoplasma pneumon IgM (NEGATIVE) 09/05/17 09/05/17 09/05/17 Range/Units 23:26 18:25 17:39 WBC (4.8-10.8) K/uL RBC (3.80-5.20) Mil/uL Hgb (11.0-16.0) g/dL Hct (34.0-47.0) % MCV (81.0-99.0) fL MCH (27.0-31.0) pg MCHC (33.0-37.0) g/dL RDW (11.5-14.5) % Plt Count (130-400) K/uL MPV (7.2-11.7) fL Neut % (Auto) (50.0-75.0) % Lymph % (Auto) (20.0-40.0) % Dade % (Auto) (0.0-10.0) % Eos % (Auto) (0.0-4.0) % Baso % (Auto) (0.0-2.0) % Neut # (Auto) (1.8-7.0) K/uL Lymph # (Auto) (1.0-4.3) K/uL Dade # (Auto) (0.0-0.8) K/uL Eos # (Auto) (0.0-0.7) K/uL Baso # (Auto) (0.0-0.2) K/uL Puncture Site pCO2 (35-45) mm/Hg pO2 (80-100) mm/Hg HCO3 (21-28) mmol/L ABG pH (7.35-7.45) ABG Total CO2 (22-28) mmol/L ABG O2 Saturation (95-98) % ABG Base Excess (-2.0-3.0) mmol/L ABG Hemoglobin (11.7-17.4) g/dL ABG Carboxyhemoglobin (0.5-1.5) % POC ABG HHb (Measured) (0.0-5.0) % ABG Methemoglobin (0.0-3.0) % Vince Test A-a O2 Difference mm/Hg Respiratory Index Hgb O2 Saturation (95.0-98.0) % Vent Mode Mechanical Rate FiO2 % Tidal Volume PEEP Sodium (132-148) mmol/L Potassium (3.6-5.2) mmol/L Chloride (98-107) mmol/L Carbon Dioxide (22-30) mmol/L Anion Gap (10-20) BUN (7-17) mg/dL Creatinine (0.7-1.2) mg/dL Est GFR ( Amer) Est GFR (Non-Af Amer) POC Glucose (mg/dL) 326 H 285 H (65-110) mg/dL Random Glucose (65-105) mg/dL Calcium (8.6-10.4) mg/dl Phosphorus (2.5-4.5) mg/dL Magnesium (1.6-2.3) mg/dL Total Bilirubin (0.2-1.3) mg/dL AST (14-36) U/L ALT (9-52) U/L Alkaline Phosphatase (38-126) U/L Total Protein (6.3-8.3) g/dL Albumin (3.5-5.0) g/dL Globulin (2.2-3.9) gm/dL Albumin/Globulin Ratio (1.0-2.1) Procalcitonin 4.27 H (0.19-0.49) NG/ML Ur L.pneumophila Ag (NEGATIVE) Mycoplasma pneumon IgM (NEGATIVE) Laboratory Results - last 24 hr 09/05/17 09/05/17 09/05/17 17:39 18:25 23:26 WBC RBC Hgb Hct MCV MCH MCHC RDW Plt Count MPV Neut % (Auto) Lymph % (Auto) Dade % (Auto) Eos % (Auto) Baso % (Auto) Neut # (Auto) Lymph # (Auto) Dade # (Auto) Eos # (Auto) Baso # (Auto) Puncture Site pCO2 pO2 HCO3 ABG pH ABG Total CO2 ABG O2 Saturation ABG Base Excess ABG Hemoglobin ABG Carboxyhemoglobin POC ABG HHb (Measured) ABG Methemoglobin Vince Test A-a O2 Difference Respiratory Index Hgb O2 Saturation Vent Mode Mechanical Rate FiO2 Tidal Volume PEEP Sodium Potassium Chloride Carbon Dioxide Anion Gap BUN Creatinine Est GFR ( Amer) Est GFR (Non-Af Amer) POC Glucose (mg/dL) 285 H 326 H Random Glucose Calcium Phosphorus Magnesium Total Bilirubin AST ALT Alkaline Phosphatase Total Protein Albumin Globulin Albumin/Globulin Ratio Procalcitonin 4.27 H Ur L.pneumophila Ag Mycoplasma pneumon IgM 09/06/17 09/06/17 09/06/17 05:11 06:09 06:18 WBC 16.7 H RBC 4.39 Hgb 10.8 L Hct 32.6 L MCV 74.3 L MCH 24.7 L MCHC 33.3 RDW 14.9 H Plt Count 121 L D MPV 9.1 Neut % (Auto) 83.4 H Lymph % (Auto) 11.8 L Dade % (Auto) 3.8 Eos % (Auto) 0.6 Baso % (Auto) 0.4 Neut # (Auto) 13.9 H Lymph # (Auto) 2.0 Dade # (Auto) 0.6 Eos # (Auto) 0.1 Baso # (Auto) 0.1 Puncture Site Rr pCO2 41 pO2 69 L HCO3 29.9 H ABG pH 7.48 H ABG Total CO2 31.8 H ABG O2 Saturation 96.9 ABG Base Excess 6.4 H ABG Hemoglobin 10.9 L ABG Carboxyhemoglobin 2.2 H POC ABG HHb (Measured) 3.0 ABG Methemoglobin 1.1 Vince Test Pos A-a O2 Difference 308.0 Respiratory Index 4.5 Hgb O2 Saturation 93.8 L Vent Mode Prvc Mechanical Rate 12 FiO2 60.0 Tidal Volume 450 PEEP 5 Sodium Potassium Chloride Carbon Dioxide Anion Gap BUN Creatinine Est GFR ( Amer) Est GFR (Non-Af Amer) POC Glucose (mg/dL) 242 H Random Glucose Calcium Phosphorus Magnesium Total Bilirubin AST ALT Alkaline Phosphatase Total Protein Albumin Globulin Albumin/Globulin Ratio Procalcitonin Ur L.pneumophila Ag Mycoplasma pneumon IgM 09/06/17 09/06/17 09/06/17 06:19 11:03 11:46 WBC RBC Hgb Hct MCV MCH MCHC RDW Plt Count MPV Neut % (Auto) Lymph % (Auto) Dade % (Auto) Eos % (Auto) Baso % (Auto) Neut # (Auto) Lymph # (Auto) Dade # (Auto) Eos # (Auto) Baso # (Auto) Puncture Site pCO2 pO2 HCO3 ABG pH ABG Total CO2 ABG O2 Saturation ABG Base Excess ABG Hemoglobin ABG Carboxyhemoglobin POC ABG HHb (Measured) ABG Methemoglobin Vince Test A-a O2 Difference Respiratory Index Hgb O2 Saturation Vent Mode Mechanical Rate FiO2 Tidal Volume PEEP Sodium 145 Potassium 3.6 Chloride 110 H Carbon Dioxide 32 H Anion Gap 6 L BUN 22 H Creatinine 0.4 L Est GFR ( Amer) > 60 Est GFR (Non-Af Amer) > 60 POC Glucose (mg/dL) 175 H Random Glucose 264 H Calcium 7.3 L Phosphorus 3.4 Magnesium 2.0 Total Bilirubin 0.6 AST 24 ALT 17 Alkaline Phosphatase 144 H D Total Protein 5.8 L Albumin 2.2 L Globulin 3.5 Albumin/Globulin Ratio 0.6 L Procalcitonin Ur L.pneumophila Ag Negative Mycoplasma pneumon IgM Negative Assessment/Plan (1) Acute respiratory failure with hypoxemia Current Visit: Yes Status: Acute (2) Pneumonia Current Visit: Yes Status: Acute (3) DKA (diabetic ketoacidoses) Current Visit: Yes Status: Acute (4) Sepsis Current Visit: Yes Status: Acute Attending/Attestation - Attestation I have personally seen and examined this patient.: Yes I have fully participated in the care of the patient.: Yes I have reviewed all pertinent clinical information: Yes Notes (Text): 09/06/17 17:12 patient seen and examined in the intensive care unit. Case discussed with house staff in the morning rounds. Patient on ventilator support FiO2 60% No change in bilateral infiltrate Improving pro-calcitonin level and white count Continue antibiotics for MRSA infection On azithromycin, Bronchoscopy if no improvement MAY negative for endocarditis
--- NOTE | 2017-09-06 11:29 | CP.PCM.PN ---
Subjective - Date & Time of Evaluation Date of Evaluation: 09/06/17 Time of Evaluation: 11:28 - Subjective Subjective: intubated on vent.o2 sat 90%.labs better. Objective - Vital Signs/Intake and Output Vital Signs (last 24 hours): Temp Pulse Resp BP Pulse Ox 97.7 F 60 17 154/74 H 100 09/06/17 08:00 09/06/17 09:00 09/06/17 09:00 09/06/17 09:00 09/06/17 09:00 Intake and Output: 09/06/17 09/06/17 06:59 18:59 Intake Total 1606.8 470.4 Output Total 440 Balance 1166.8 470.4 - Medications Medications: Current Medications Acetaminophen (Tylenol 325mg Tab) 650 mg PO Q6 PRN PRN Reason: Temperature Last Admin: 09/03/17 21:18 Dose: 650 mg Acetaminophen (Tylenol 650mg/20.3ml Solution Ud) 650 mg NG Q6 PRN PRN Reason: temp of 101 Last Admin: 09/05/17 17:04 Dose: 650 mg Albuterol/Ipratropium (Duoneb 3 Mg/0.5 Mg (3 Ml) Ud) 3 ml INH RQ4 [facility] Last Admin: 09/06/17 11:14 Dose: 3 ml Aspirin (Aspirin Chewable) 81 mg PO DAILY [facility] Last Admin: 09/06/17 09:06 Dose: 81 mg Famotidine (Pepcid) 40 mg PO DAILY [facility] Last Admin: 09/06/17 09:06 Dose: 40 mg Heparin Sodium (Porcine) (Heparin) 5,000 units SC Q8 [facility] Last Admin: 09/06/17 06:16 Dose: 5,000 units Propofol (Diprivan) 1,000 mg in 100 mls @ 2.096 mls/hr IV .Q24H PRN; Protocol; 5 MCG/KG/MIN PRN Reason: TITRATE PER MD ORDER Last Admin: 09/06/17 09:13 Dose: 40 mcg/kg/min, 16.771 mls/hr Piperacillin Sod/Tazobactam (Sod 3.375 gm/ Sodium Chloride) 100 mls @ 100 mls/ hr IVPB Q6H [facility] Last Admin: 09/06/17 09:00 Dose: 100 mls/hr Linezolid (Zyvox 600mg/300ml D5w) 600 mg in 300 mls @ 200 mls/hr IVPB Q12 [facility] Last Admin: 09/06/17 09:00 Dose: 200 mls/hr Azithromycin 500 mg/ Sodium (Chloride) 250 mls @ 250 mls/hr IVPB DAILY [facility] Insulin Glargine (Lantus) 5 unit SC Q12 [facility] Last Admin: 09/06/17 09:06 Dose: 5 unit Insulin Human Regular (Novolin R) 0 unit SC Q6 [facility] PRN Reason: Protocol Last Admin: 09/06/17 06:16 Dose: 4 unit Lorazepam (Ativan) 1 mg IVP Q6H PRN PRN Reason: Anxiety Last Admin: 09/05/17 12:42 Dose: 1 mg Morphine Sulfate (Morphine) 2 mg IVP Q6 PRN PRN Reason: Pain, moderate (4-7) Last Admin: 09/04/17 15:05 Dose: 2 mg - Labs Labs: 09/06/17 06:18 09/06/17 06:19 PT 14.3 SECONDS (9.7-12.2) H 09/01/17 09:49 INR 1.2 09/01/17 09:49 APTT 32 SECONDS (21-34) 09/01/17 09:49 - Constitutional Appears: Toxic - Eye Exam Eye Exam: Normal appearance - Respiratory Exam Respiratory Exam: Decreased Breath Sounds - Cardiovascular Exam Cardiovascular Exam: REGULAR RHYTHM - GI/Abdominal Exam GI & Abdominal Exam: Soft - Extremities Exam Extremities Exam: absent: Pedal Edema Assessment and Plan - Assessment and Plan (Free Text) Assessment: mrsa in blood.neg [email or web address] getting better.spiked temp.ct iv antibiotics,
[2017-09-06 13:05] LABS: LEGIONELLA AG URINE NEGATIVE (NEGATIVE)
[2017-09-06 13:08] LABS: MYCOPLASMA PNEUMONIAE IGM NEGATIVE (NEGATIVE)
--- NOTE | 2017-09-06 18:43 | CP.PCM.PN ---
Subjective - Date & Time of Evaluation Date of Evaluation: 09/06/17 Time of Evaluation: 09:00 - Subjective Subjective: intubated sedated on dip[rivan, MAY yesterday negative white count improving Objective - Vital Signs/Intake and Output Vital Signs (last 24 hours): Temp Pulse Resp BP Pulse Ox 98.1 F 72 21 135/69 99 09/06/17 16:00 09/06/17 17:00 09/06/17 17:00 09/06/17 17:00 09/06/17 17:00 Intake and Output: 09/06/17 09/06/17 06:59 18:59 Intake Total 1606.8 1479.0 Output Total 440 Balance 1166.8 1479.0 - Medications Medications: Current Medications Acetaminophen (Tylenol 325mg Tab) 650 mg PO Q6 PRN PRN Reason: Temperature Last Admin: 09/03/17 21:18 Dose: 650 mg Acetaminophen (Tylenol 650mg/20.3ml Solution Ud) 650 mg NG Q6 PRN PRN Reason: temp of 101 Last Admin: 09/05/17 17:04 Dose: 650 mg Albuterol/Ipratropium (Duoneb 3 Mg/0.5 Mg (3 Ml) Ud) 3 ml INH RQ4 [facility] Last Admin: 09/06/17 16:06 Dose: 3 ml Aspirin (Aspirin Chewable) 81 mg PO DAILY [facility] Last Admin: 09/06/17 09:06 Dose: 81 mg Famotidine (Pepcid) 40 mg PO DAILY [facility] Last Admin: 09/06/17 09:06 Dose: 40 mg Heparin Sodium (Porcine) (Heparin) 5,000 units SC Q8 [facility] Last Admin: 09/06/17 14:00 Dose: 5,000 units Propofol (Diprivan) 1,000 mg in 100 mls @ 2.096 mls/hr IV .Q24H PRN; Protocol; 5 MCG/KG/MIN PRN Reason: TITRATE PER MD ORDER Last Titration: 09/06/17 17:54 Dose: 50 mcg/kg/min, 20.964 mls/hr Piperacillin Sod/Tazobactam (Sod 3.375 gm/ Sodium Chloride) 100 mls @ 100 mls/ hr IVPB Q6H [facility] Last Admin: 09/06/17 15:00 Dose: 100 mls/hr Linezolid (Zyvox 600mg/300ml D5w) 600 mg in 300 mls @ 200 mls/hr IVPB Q12 [facility] Last Admin: 09/06/17 09:00 Dose: 200 mls/hr Insulin Glargine (Lantus) 5 unit SC Q12 [facility] Last Admin: 09/06/17 09:06 Dose: 5 unit Insulin Human Regular (Novolin R) 0 unit SC Q6 [facility] PRN Reason: Protocol Last Admin: 09/06/17 17:54 Dose: Not Given Lorazepam (Ativan) 1 mg IVP Q6H PRN PRN Reason: Anxiety Last Admin: 09/05/17 12:42 Dose: 1 mg Morphine Sulfate (Morphine) 2 mg IVP Q6 PRN PRN Reason: Pain, moderate (4-7) Last Admin: 09/04/17 15:05 Dose: 2 mg - Labs Labs: 09/06/17 06:18 09/06/17 06:19 PT 14.3 SECONDS (9.7-12.2) H 09/01/17 09:49 INR 1.2 09/01/17 09:49 APTT 32 SECONDS (21-34) 09/01/17 09:49 - Constitutional Appears: Cachectic - Head Exam Head Exam: NORMOCEPHALIC - Eye Exam Eye Exam: PERRL - ENT Exam ENT Exam: Mucous Membranes Dry - Neck Exam Neck Exam: absent: Lymphadenopathy - Respiratory Exam Respiratory Exam: Decreased Breath Sounds - Cardiovascular Exam Cardiovascular Exam: REGULAR RHYTHM - GI/Abdominal Exam GI & Abdominal Exam: Distended, Soft - Rectal Exam Rectal Exam: Deferred - Exam Exam: NORMAL INSPECTION - Extremities Exam Extremities Exam: absent: Pedal Edema - Back Exam Back Exam: absent: CVA tenderness (L), CVA tenderness (R) - Neurological Exam Neurological Exam: Altered - Psychiatric Exam Psychiatric exam: Normal Mood - Skin Skin Exam: Dry Assessment and Plan (1) DKA (diabetic ketoacidoses) Status: Acute (2) Pneumonia Status: Acute (3) Sepsis Status: Acute
[2017-09-06] MEDS: Acetaminophen 650mg/20.3ml solution UD NG PRN (21:57)
[2017-09-07] MEDS: (Novolin R) Insulin Human Regular 100 units/ml vial SC SCH ×4 (00:15→17:34)
[2017-09-07] MEDS: Propofol 10 mg/ml 1,000 MG/100 ML VIAL IV PRN ×6 (00:49→23:53)
[2017-09-07] MEDS: Piperacillin/Tazobact 3.375 GM in Sodium Chloride 0.9% 100 ML IVPB SCH ×4 (03:08→20:49)
[2017-09-07 05:51] LABS: ABG ALLEN TEST POS; ARTERIAL BLOOD GAS HCO3 30.7 mmol/L (21-28); ARTERIAL BLOOD GAS HEMOGLOBIN 11.6 g/dL (11.7-17.4); ARTERIAL BLOOD GAS O2 SAT 98.2 % (95-98); ARTERIAL BLOOD GAS PCO2 44 mm/Hg (35-45); ARTERIAL BLOOD GAS PH 7.47 (7.35-7.45); ARTERIAL BLOOD GAS PO2 80 mm/Hg (80-100); ARTERIAL BLOOD GAS TCO2 33.4 mmol/L (22-28)
--- NOTE | 2017-09-07 06:16 | CP.PCM.PN ---
Subjective - Date & Time of Evaluation Date of Evaluation: 09/07/17 Time of Evaluation: 06:15 - Subjective Subjective: Gradual decline in platelets, heparin discontinued, sent HIT ab, and started preventive dose of eliquis 2.5mg bid. Objective - Vital Signs/Intake and Output Vital Signs (last 24 hours): Temp Pulse Resp BP Pulse Ox 100.2 F H 70 21 142/70 100 09/07/17 00:00 09/07/17 05:00 09/07/17 05:00 09/07/17 04:59 09/07/17 05:00 Intake and Output: 09/06/17 09/07/17 18:59 06:59 Intake Total 1680.0 1621 Output Total 380 Balance 1680.0 1241 - Medications Medications: Current Medications Acetaminophen (Tylenol 325mg Tab) 650 mg PO Q6 PRN PRN Reason: Temperature Last Admin: 09/03/17 21:18 Dose: 650 mg Acetaminophen (Tylenol 650mg/20.3ml Solution Ud) 650 mg NG Q6 PRN PRN Reason: temp of 101 Last Admin: 09/06/17 21:57 Dose: 650 mg Apixaban (Eliquis) 2.5 mg PO BID [facility] Aspirin (Aspirin Chewable) 81 mg PO DAILY [facility] Last Admin: 09/06/17 09:06 Dose: 81 mg Famotidine (Pepcid) 40 mg PO DAILY [facility] Last Admin: 09/06/17 09:06 Dose: 40 mg Propofol (Diprivan) 1,000 mg in 100 mls @ 2.096 mls/hr IV .Q24H PRN; Protocol; 5 MCG/KG/MIN PRN Reason: TITRATE PER MD ORDER Last Admin: 09/07/17 05:41 Dose: 50 mcg/kg/min, 20.964 mls/hr Piperacillin Sod/Tazobactam (Sod 3.375 gm/ Sodium Chloride) 100 mls @ 100 mls/ hr IVPB Q6H [facility] Last Admin: 09/07/17 03:08 Dose: 100 mls/hr Linezolid (Zyvox 600mg/300ml D5w) 600 mg in 300 mls @ 200 mls/hr IVPB Q12 [facility] Last Admin: 09/06/17 21:35 Dose: 200 mls/hr Insulin Glargine (Lantus) 5 unit SC Q12 [facility] Last Admin: 09/06/17 21:35 Dose: 5 unit Insulin Human Regular (Novolin R) 0 unit SC Q6 [facility] PRN Reason: Protocol Last Admin: 09/07/17 00:15 Dose: Not Given Lorazepam (Ativan) 1 mg IVP Q6H PRN PRN Reason: Anxiety Last Admin: 09/05/17 12:42 Dose: 1 mg Morphine Sulfate (Morphine) 2 mg IVP Q6 PRN PRN Reason: Pain, moderate (4-7) Last Admin: 09/04/17 15:05 Dose: 2 mg - Labs Labs: 09/06/17 06:18 09/06/17 06:19 PT 14.3 SECONDS (9.7-12.2) H 09/01/17 09:49 INR 1.2 09/01/17 09:49 APTT 32 SECONDS (21-34) 09/01/17 09:49
[2017-09-07 06:40] LABS: BASO % 0.1 % (0.0-2.0); EOS # 0.3 K/uL (0.0-0.7); EOS % 1.4 % (0.0-4.0); HEMOGLOBIN 11.3 g/dL (11.0-16.0); LYMPH # 1.9 K/uL (1.0-4.3); LYMPH % 9.3 % (20.0-40.0); MEAN CELL VOLUME 73.7 fL (81.0-99.0); MEAN CORPUSCULAR HEMOGLOBIN 24.8 pg (27.0-31.0); MEAN CORPUSCULAR HGB CONC 33.7 g/dL (33.0-37.0); MEAN PLATELET VOLUME 8.9 fL (7.2-11.7); MONO # 0.9 K/uL (0.0-0.8); MONO % 4.4 % (0.0-10.0); NEUT % 84.8 % (50.0-75.0); NRBC % 0.1 % (0.0-2.0); PLATELET COUNT 165 K/uL (130-400); RBC 4.54 Mil/uL (3.80-5.20); RED CELL DISTRIBUTION WIDTH 14.7 % (11.5-14.5)
[2017-09-07 07:01] LABS: ALB/GLOB RATIO 0.7 (1.0-2.1); ALBUMIN 2.4 g/dL (3.5-5.0); ALT/SGPT 15 U/L (9-52); AST/SGOT 17 U/L (14-36); BLOOD UREA NITROGEN 21 mg/dL (7-17); CALCIUM 7.4 mg/dl (8.6-10.4); GFR AFRICAN-AMERICAN > 60; GFR NON-AFRICAN AMERICAN > 60; MAGNESIUM 2.1 mg/dL (1.6-2.3)
[2017-09-07] MEDS ORDERED: Potassium Chloride 20 mEq ER Tab PO ONE (08:07)
[2017-09-07] MEDS ORDERED: Potassium Chloride 20 mEq/15 ml LIQ UD PO ONE (08:38)
[2017-09-07 08:53] LABS: BANDS 7 % (0-2); EOSINOPHIL 1 % (0-4); LYMPHOCYTE 7 % (20-40); METAMYELOCYTE 2 % (0-0); MONOCYTE 1 % (0-10); MYELOCYTE 2 % (0-0); NEUTROPHIL 80 % (50-75); TOTAL CELLS COUNTED 100
[2017-09-07 08:54] LABS: PLATELET ESTIMATE NORMAL (NORMAL)
[2017-09-07 08:55] LABS: TOXIC GRANULATION PRESENT
[2017-09-07] MEDS: (Lantus) Insulin Glargine, Recombinant SC SCH (09:17)
--- NOTE | 2017-09-07 09:23 | RAD ---
Chest x-ray single frontal view History: Shortness of breath. Comparison: 09/06/2017 Findings: Lines and tubes in stable position. Dense confluent airspace opacifications throughout the left lung as well as within the right upper to mid lung zone. Overall this not significantly changed since the prior study. Cardiomegaly. Impression: No significant interval change.
[2017-09-07] MEDS ORDERED: (Lantus) Insulin Glargine, Recombinant SC ONE (10:00)
[2017-09-07] MEDS: Linezolid 600 mg in D5W 300 ml 600 MG/300 ML BAG IVPB SCH ×2 (10:28→21:50)
[2017-09-07] MEDS: Potassium Chloride 20 mEq/15 ml LIQ UD PO SCH ×5 (11:00→18:55)
--- NOTE | 2017-09-07 11:49 | CP.CCUPN ---
<Afshin Macias - Last Filed: 09/07/17 12:44> CCU Subjective - Physician Review Subjective (Free Text): 09/07/17 11:48 patient seen and examined at bedside intubated no improvement on CXR however oxygenation better on ABG will try CPAP today CCU Objective - Vital Signs / Intake & Output Vital Signs (Last 4 hours): Vital Signs Temp Pulse Resp BP Pulse Ox 09/07/17 11:00 85 21 140/71 97 09/07/17 10:00 82 26 H 141/68 98 09/07/17 09:00 77 14 144/68 99 09/07/17 08:00 98 F 73 17 149/70 98 Intake and Output (Last 8hrs): Intake & Output 09/06/17 09/07/17 09/07/17 22:59 06:59 14:59 Intake Total 1379.6 838 145 Output Total 110 310 35 Balance 1269.6 528 110 Weight 162 lb Intake: IV 200 200 Intake, IV Amount 609.6 168 105 RIGHT BASILIC PICC BLUE 450 PORT RIGHT BASILIC PICC RED 159.6 168 105 PORT Tube Feeding 320 320 40 Other 250 150 Output: Urine 110 310 35 Urethral (Nascimento) 110 310 35 Other: # Bowel Movements 0 1 0 - Physical Exam Head: Positive for: Atraumatic, Normocephalic Pupils: Positive for: PERRL Conjunctiva: Positive for: Normal Mouth: Positive for: Moist Mucous Membranes Respiratory/Chest: Positive for: Accessory Muscle Use, Wheezes, Rhonchi, Tachypneic Cardiovascular: Positive for: Regular Rate and Rhythm, Normal S1, S2 - Medications Active Medications: Active Medications Generic Name Dose Route Start Last Admin Trade Name Freq PRN Reason Stop Dose Admin Acetaminophen 650 mg 09/03/17 08:43 09/03/17 21:18 Tylenol 325mg Tab PO 650 mg Q6 PRN Administration Temperature Acetaminophen 650 mg 09/05/17 16:41 09/06/17 21:57 Tylenol 650mg/20.3ml Solution Ud NG 650 mg Q6 PRN Administration temp of 101 Apixaban 2.5 mg 09/07/17 10:00 Eliquis PO BID WILLIAM Aspirin 81 mg 09/02/17 10:00 09/07/17 09:09 Aspirin Chewable PO 81 mg DAILY WILLIAM Administration Famotidine 40 mg 09/03/17 10:15 09/07/17 09:09 Pepcid PO 40 mg DAILY WILLIAM Administration Propofol 1,000 mg in 100 mls @ 2.096 mls/hr 09/02/17 11:23 09/07/17 05:41 Diprivan IV 50 mcg/kg/min .Q24H PRN 20.964 mls/hr TITRATE PER MD ORDER Administration Protocol 5 MCG/KG/MIN Piperacillin Sod/Tazobactam 100 mls @ 100 mls/hr 09/03/17 15:00 09/07/17 09: 02 Sod 3.375 gm/ Sodium Chloride IVPB 100 mls/hr Q6H WILLIAM Administration Linezolid 600 mg in 300 mls @ 200 mls/hr 09/03/17 22:00 09/07/17 10:28 Zyvox 600mg/300ml D5w IVPB 200 mls/hr Q12 WILLIAM Administration Potassium Chloride 20 meq in 100 mls @ 50 mls/hr 09/07/17 12:00 09/07/17 11: 11 Potassium Chloride 20 Meq/100 Ml IVPB 09/08/17 01:59 50 mls/hr Q6H WILLIAM Administration Insulin Glargine 5 unit 09/03/17 12:15 09/07/17 09:17 Lantus SC 5 unit Q12 WILLIAM Administration Insulin Human Regular 0 unit 09/05/17 09:31 09/07/17 07:04 Novolin R SC 4 unit Q6 WILLIAM Administration Protocol Lorazepam 1 mg 09/03/17 10:49 09/07/17 09:00 Ativan IVP 1 mg Q6H PRN Administration Anxiety Potassium Chloride 10 meq 09/07/17 10:00 09/07/17 11:11 Potassium Chloride Oral Soln PO 09/07/17 12:01 10 meq Q1H WILLIAM Administration - Patient Studies Lab Studies: Microbiology Studies 09/04/17 18:45 Blood Culture - Preliminary Blood NO GROWTH AFTER 48 HOURS 09/04/17 19:15 Blood Culture - Preliminary Blood NO GROWTH AFTER 48 HOURS Lab Studies 09/07/17 09/07/17 09/07/17 Range/Units 06:32 06:32 06:31 WBC 20.0 H (4.8-10.8) K/uL RBC 4.54 (3.80-5.20) Mil/uL Hgb 11.3 (11.0-16.0) g/dL Hct 33.5 L (34.0-47.0) % MCV 73.7 L (81.0-99.0) fL MCH 24.8 L (27.0-31.0) pg MCHC 33.7 (33.0-37.0) g/dL RDW 14.7 H (11.5-14.5) % Plt Count 165 (130-400) K/uL MPV 8.9 (7.2-11.7) fL Neut % (Auto) 84.8 H (50.0-75.0) % Lymph % (Auto) 9.3 L (20.0-40.0) % Andrews % (Auto) 4.4 (0.0-10.0) % Eos % (Auto) 1.4 (0.0-4.0) % Baso % (Auto) 0.1 (0.0-2.0) % Neut # (Auto) 17.0 H (1.8-7.0) K/uL Lymph # (Auto) 1.9 (1.0-4.3) K/uL Andrews # (Auto) 0.9 H (0.0-0.8) K/uL Eos # (Auto) 0.3 (0.0-0.7) K/uL Baso # (Auto) 0.0 (0.0-0.2) K/uL Neutrophils % (Manual) 80 H (50-75) % Band Neutrophils % 7 H (0-2) % Lymphocytes % (Manual) 7 L (20-40) % Monocytes % (Manual) 1 (0-10) % Eosinophils % (Manual) 1 (0-4) % Metamyelocytes % 2 H (0-0) % Myelocytes % 2 H (0-0) % Toxic Granulation Present Platelet Estimate Normal (NORMAL) Puncture Site pCO2 (35-45) mm/Hg pO2 (80-100) mm/Hg HCO3 (21-28) mmol/L ABG pH (7.35-7.45) ABG Total CO2 (22-28) mmol/L ABG O2 Saturation (95-98) % ABG Base Excess (-2.0-3.0) mmol/L ABG Hemoglobin (11.7-17.4) g/dL ABG Carboxyhemoglobin (0.5-1.5) % POC ABG HHb (Measured) (0.0-5.0) % ABG Methemoglobin (0.0-3.0) % Vince Test A-a O2 Difference mm/Hg Respiratory Index Hgb O2 Saturation (95.0-98.0) % Vent Mode Mechanical Rate FiO2 % Tidal Volume PEEP Sodium 140 (132-148) mmol/L Potassium 3.0 L (3.6-5.2) mmol/L Chloride 107 (98-107) mmol/L Carbon Dioxide 32 H (22-30) mmol/L Anion Gap 5 L (10-20) BUN 21 H (7-17) mg/dL Creatinine 0.4 L (0.7-1.2) mg/dL Est GFR ( Amer) > 60 Est GFR (Non-Af Amer) > 60 POC Glucose (mg/dL) 239 H (65-110) mg/dL Random Glucose 262 H (65-105) mg/dL Calcium 7.4 L (8.6-10.4) mg/dl Phosphorus 2.7 (2.5-4.5) mg/dL Magnesium 2.1 (1.6-2.3) mg/dL Total Bilirubin 0.4 (0.2-1.3) mg/dL AST 17 (14-36) U/L ALT 15 (9-52) U/L Alkaline Phosphatase 189 H D (38-126) U/L Total Protein 6.0 L (6.3-8.3) g/dL Albumin 2.4 L (3.5-5.0) g/dL Globulin 3.6 (2.2-3.9) gm/dL Albumin/Globulin Ratio 0.7 L (1.0-2.1) Ur L.pneumophila Ag (NEGATIVE) Mycoplasma pneumon IgM (NEGATIVE) 09/07/17 09/06/17 09/06/17 Range/Units 04:57 23:36 17:42 WBC (4.8-10.8) K/uL RBC (3.80-5.20) Mil/uL Hgb (11.0-16.0) g/dL Hct (34.0-47.0) % MCV (81.0-99.0) fL MCH (27.0-31.0) pg MCHC (33.0-37.0) g/dL RDW (11.5-14.5) % Plt Count (130-400) K/uL MPV (7.2-11.7) fL Neut % (Auto) (50.0-75.0) % Lymph % (Auto) (20.0-40.0) % Andrews % (Auto) (0.0-10.0) % Eos % (Auto) (0.0-4.0) % Baso % (Auto) (0.0-2.0) % Neut # (Auto) (1.8-7.0) K/uL Lymph # (Auto) (1.0-4.3) K/uL Andrews # (Auto) (0.0-0.8) K/uL Eos # (Auto) (0.0-0.7) K/uL Baso # (Auto) (0.0-0.2) K/uL Neutrophils % (Manual) (50-75) % Band Neutrophils % (0-2) % Lymphocytes % (Manual) (20-40) % Monocytes % (Manual) (0-10) % Eosinophils % (Manual) (0-4) % Metamyelocytes % (0-0) % Myelocytes % (0-0) % Toxic Granulation Platelet Estimate (NORMAL) Puncture Site Rr pCO2 44 (35-45) mm/Hg pO2 80 (80-100) mm/Hg HCO3 30.7 H (21-28) mmol/L ABG pH 7.47 H (7.35-7.45) ABG Total CO2 33.4 H (22-28) mmol/L ABG O2 Saturation 98.2 H (95-98) % ABG Base Excess 7.5 H (-2.0-3.0) mmol/L ABG Hemoglobin 11.6 L (11.7-17.4) g/dL ABG Carboxyhemoglobin 2.1 H (0.5-1.5) % POC ABG HHb (Measured) 1.7 (0.0-5.0) % ABG Methemoglobin 1.3 (0.0-3.0) % Vince Test Pos A-a O2 Difference 293.0 mm/Hg Respiratory Index 3.7 Hgb O2 Saturation 94.8 L (95.0-98.0) % Vent Mode Prvc Mechanical Rate 12 FiO2 60.0 % Tidal Volume 450 PEEP 5 Sodium (132-148) mmol/L Potassium (3.6-5.2) mmol/L Chloride (98-107) mmol/L Carbon Dioxide (22-30) mmol/L Anion Gap (10-20) BUN (7-17) mg/dL Creatinine (0.7-1.2) mg/dL Est GFR ( Amer) Est GFR (Non-Af Amer) POC Glucose (mg/dL) 228 H 148 H (65-110) mg/dL Random Glucose (65-105) mg/dL Calcium (8.6-10.4) mg/dl Phosphorus (2.5-4.5) mg/dL Magnesium (1.6-2.3) mg/dL Total Bilirubin (0.2-1.3) mg/dL AST (14-36) U/L ALT (9-52) U/L Alkaline Phosphatase (38-126) U/L Total Protein (6.3-8.3) g/dL Albumin (3.5-5.0) g/dL Globulin (2.2-3.9) gm/dL Albumin/Globulin Ratio (1.0-2.1) Ur L.pneumophila Ag (NEGATIVE) Mycoplasma pneumon IgM (NEGATIVE) 09/06/17 09/06/17 Range/Units 11:46 11:03 WBC (4.8-10.8) K/uL RBC (3.80-5.20) Mil/uL Hgb (11.0-16.0) g/dL Hct (34.0-47.0) % MCV (81.0-99.0) fL MCH (27.0-31.0) pg MCHC (33.0-37.0) g/dL RDW (11.5-14.5) % Plt Count (130-400) K/uL MPV (7.2-11.7) fL Neut % (Auto) (50.0-75.0) % Lymph % (Auto) (20.0-40.0) % Andrews % (Auto) (0.0-10.0) % Eos % (Auto) (0.0-4.0) % Baso % (Auto) (0.0-2.0) % Neut # (Auto) (1.8-7.0) K/uL Lymph # (Auto) (1.0-4.3) K/uL Andrews # (Auto) (0.0-0.8) K/uL Eos # (Auto) (0.0-0.7) K/uL Baso # (Auto) (0.0-0.2) K/uL Neutrophils % (Manual) (50-75) % Band Neutrophils % (0-2) % Lymphocytes % (Manual) (20-40) % Monocytes % (Manual) (0-10) % Eosinophils % (Manual) (0-4) % Metamyelocytes % (0-0) % Myelocytes % (0-0) % Toxic Granulation Platelet Estimate (NORMAL) Puncture Site pCO2 (35-45) mm/Hg pO2 (80-100) mm/Hg HCO3 (21-28) mmol/L ABG pH (7.35-7.45) ABG Total CO2 (22-28) mmol/L ABG O2 Saturation (95-98) % ABG Base Excess (-2.0-3.0) mmol/L ABG Hemoglobin (11.7-17.4) g/dL ABG Carboxyhemoglobin (0.5-1.5) % POC ABG HHb (Measured) (0.0-5.0) % ABG Methemoglobin (0.0-3.0) % Vince Test A-a O2 Difference mm/Hg Respiratory Index Hgb O2 Saturation (95.0-98.0) % Vent Mode Mechanical Rate FiO2 % Tidal Volume PEEP Sodium (132-148) mmol/L Potassium (3.6-5.2) mmol/L Chloride (98-107) mmol/L Carbon Dioxide (22-30) mmol/L Anion Gap (10-20) BUN (7-17) mg/dL Creatinine (0.7-1.2) mg/dL Est GFR ( Amer) Est GFR (Non-Af Amer) POC Glucose (mg/dL) 175 H (65-110) mg/dL Random Glucose (65-105) mg/dL Calcium (8.6-10.4) mg/dl Phosphorus (2.5-4.5) mg/dL Magnesium (1.6-2.3) mg/dL Total Bilirubin (0.2-1.3) mg/dL AST (14-36) U/L ALT (9-52) U/L Alkaline Phosphatase (38-126) U/L Total Protein (6.3-8.3) g/dL Albumin (3.5-5.0) g/dL Globulin (2.2-3.9) gm/dL Albumin/Globulin Ratio (1.0-2.1) Ur L.pneumophila Ag Negative (NEGATIVE) Mycoplasma pneumon IgM Negative (NEGATIVE) Laboratory Results - last 24 hr 09/06/17 09/06/17 09/06/17 11:03 11:46 17:42 WBC RBC Hgb Hct MCV MCH MCHC RDW Plt Count MPV Neut % (Auto) Lymph % (Auto) Andrews % (Auto) Eos % (Auto) Baso % (Auto) Neut # (Auto) Lymph # (Auto) Andrews # (Auto) Eos # (Auto) Baso # (Auto) Neutrophils % (Manual) Band Neutrophils % Lymphocytes % (Manual) Monocytes % (Manual) Eosinophils % (Manual) Metamyelocytes % Myelocytes % Toxic Granulation Platelet Estimate Puncture Site pCO2 pO2 HCO3 ABG pH ABG Total CO2 ABG O2 Saturation ABG Base Excess ABG Hemoglobin ABG Carboxyhemoglobin POC ABG HHb (Measured) ABG Methemoglobin Vince Test A-a O2 Difference Respiratory Index Hgb O2 Saturation Vent Mode Mechanical Rate FiO2 Tidal Volume PEEP Sodium Potassium Chloride Carbon Dioxide Anion Gap BUN Creatinine Est GFR ( Amer) Est GFR (Non-Af Amer) POC Glucose (mg/dL) 175 H 148 H Random Glucose Calcium Phosphorus Magnesium Total Bilirubin AST ALT Alkaline Phosphatase Total Protein Albumin Globulin Albumin/Globulin Ratio Ur L.pneumophila Ag Negative Mycoplasma pneumon IgM Negative 09/06/17 09/07/17 09/07/17 23:36 04:57 06:31 WBC RBC Hgb Hct MCV MCH MCHC RDW Plt Count MPV Neut % (Auto) Lymph % (Auto) Andrews % (Auto) Eos % (Auto) Baso % (Auto) Neut # (Auto) Lymph # (Auto) Andrews # (Auto) Eos # (Auto) Baso # (Auto) Neutrophils % (Manual) Band Neutrophils % Lymphocytes % (Manual) Monocytes % (Manual) Eosinophils % (Manual) Metamyelocytes % Myelocytes % Toxic Granulation Platelet Estimate Puncture Site Rr pCO2 44 pO2 80 HCO3 30.7 H ABG pH 7.47 H ABG Total CO2 33.4 H ABG O2 Saturation 98.2 H ABG Base Excess 7.5 H ABG Hemoglobin 11.6 L ABG Carboxyhemoglobin 2.1 H POC ABG HHb (Measured) 1.7 ABG Methemoglobin 1.3 Vince Test Pos A-a O2 Difference 293.0 Respiratory Index 3.7 Hgb O2 Saturation 94.8 L Vent Mode Prvc Mechanical Rate 12 FiO2 60.0 Tidal Volume 450 PEEP 5 Sodium Potassium Chloride Carbon Dioxide Anion Gap BUN Creatinine Est GFR ( Amer) Est GFR (Non-Af Amer) POC Glucose (mg/dL) 228 H 239 H Random Glucose Calcium Phosphorus Magnesium Total Bilirubin AST ALT Alkaline Phosphatase Total Protein Albumin Globulin Albumin/Globulin Ratio Ur L.pneumophila Ag Mycoplasma pneumon IgM 09/07/17 09/07/17 06:32 06:32 WBC 20.0 H RBC 4.54 Hgb 11.3 Hct 33.5 L MCV 73.7 L MCH 24.8 L MCHC 33.7 RDW 14.7 H Plt Count 165 MPV 8.9 Neut % (Auto) 84.8 H Lymph % (Auto) 9.3 L Andrews % (Auto) 4.4 Eos % (Auto) 1.4 Baso % (Auto) 0.1 Neut # (Auto) 17.0 H Lymph # (Auto) 1.9 Andrews # (Auto) 0.9 H Eos # (Auto) 0.3 Baso # (Auto) 0.0 Neutrophils % (Manual) 80 H Band Neutrophils % 7 H Lymphocytes % (Manual) 7 L Monocytes % (Manual) 1 Eosinophils % (Manual) 1 Metamyelocytes % 2 H Myelocytes % 2 H Toxic Granulation Present Platelet Estimate Normal Puncture Site pCO2 pO2 HCO3 ABG pH ABG Total CO2 ABG O2 Saturation ABG Base Excess ABG Hemoglobin ABG Carboxyhemoglobin POC ABG HHb (Measured) ABG Methemoglobin Vince Test A-a O2 Difference Respiratory Index Hgb O2 Saturation Vent Mode Mechanical Rate FiO2 Tidal Volume PEEP Sodium 140 Potassium 3.0 L Chloride 107 Carbon Dioxide 32 H Anion Gap 5 L BUN 21 H Creatinine 0.4 L Est GFR ( Amer) > 60 Est GFR (Non-Af Amer) > 60 POC Glucose (mg/dL) Random Glucose 262 H Calcium 7.4 L Phosphorus 2.7 Magnesium 2.1 Total Bilirubin 0.4 AST 17 ALT 15 Alkaline Phosphatase 189 H D Total Protein 6.0 L Albumin 2.4 L Globulin 3.6 Albumin/Globulin Ratio 0.7 L Ur L.pneumophila Ag Mycoplasma pneumon IgM Fingerstick Blood Sugar Results: 239 Assessment/Plan - Assessment and Plan (Free Text) Assessment: 62F MRSA septicemia Plan: Psych: anxiety Ativan, 1 mg IVP Q6H PRN Neuro: Propofol 10 mg/ml Q24H PRN Morphine 2 mg IVP Q6 PRN Cards: HTN Lopressor 5 mg IV PRN ASA 81 mg PO QD Lasix 20 IVP once MAY negative for endocarditis LVEF 61.9% Cardio (Malvin) Eliquis 2.5 mg PO BID Pulm: MRSA pneumonia, respiratory failure, CPAP today Intubated RR 22, Tidal 400, PEEP 5, FiO2 50 Duoneb 3 mg/0.5 mg UD INH RQ4 negative flu, Tamiflu cap 75 mg PO BID Zosyn 3.375 g in NS @ 100 mls/hr IVPB Q6H Linezolid 600 mg in D5W @ 200 mls/hr IVPB Q12 Zithromax 500 mg in NS @ 250 mls/hr IVPB QD Pulm (Meño) ID (Mangia) GI: no acute issues Tubefeeding: Glucerna 1.5 10 ml/hr, goal 50 ml/hr Renal: no acute issues Endo: DM Novolin ISS Lantus 15 U SC Q12 POC glucose 239 PPx: Pepcid 40 mg PO QD Eliquis 2.5 mg PO BID <Leeanne Balbuena - Last Filed: 09/07/17 18:06> CCU Subjective - Physician Review Critical Care Time Spent (in minutes): 32 CCU Objective - Vital Signs / Intake & Output Vital Signs (Last 4 hours): Vital Signs Temp Pulse Resp BP Pulse Ox 09/07/17 17:00 95 H 24 123/58 L 98 09/07/17 16:59 95 H 26 H 98 09/07/17 16:00 98.4 F 90 21 136/62 98 09/07/17 15:00 92 H 22 131/67 98 Intake and Output (Last 8hrs): Intake & Output 09/07/17 09/07/17 09/07/17 06:59 14:59 22:59 Intake Total 838 1171.2 383 Output Total 310 35 Balance 528 1136.2 383 Weight 162 lb Intake: IV 200 200 Intake, IV Amount 168 651.2 163 RIGHT BASILIC PICC BLUE 500 100 PORT RIGHT BASILIC PICC RED 168 151.2 63 PORT Tube Feeding 320 320 120 Other 150 100 Output: Urine 310 35 Urethral (Nascimento) 310 35 Other: # Bowel Movements 1 0 - Medications Active Medications: Active Medications Generic Name Dose Route Start Last Admin Trade Name Freq PRN Reason Stop Dose Admin Acetaminophen 650 mg 09/03/17 08:43 09/03/17 21:18 Tylenol 325mg Tab PO 650 mg Q6 PRN Administration Temperature Acetaminophen 650 mg 09/05/17 16:41 09/06/17 21:57 Tylenol 650mg/20.3ml Solution Ud NG 650 mg Q6 PRN Administration temp of 101 Albuterol/Ipratropium 3 ml 09/07/17 14:00 09/07/17 13:41 Duoneb 3 Mg/0.5 Mg (3 Ml) Ud INH 3 ml RQ6 WILLIAM Administration Apixaban 2.5 mg 09/07/17 10:00 09/07/17 17:24 Eliquis PO 2.5 mg BID WILLIAM Administration Aspirin 81 mg 09/02/17 10:00 09/07/17 09:09 Aspirin Chewable PO 81 mg DAILY WILLIAM Administration Famotidine 40 mg 09/03/17 10:15 09/07/17 09:09 Pepcid PO 40 mg DAILY WILLIAM Administration Propofol 1,000 mg in 100 mls @ 2.096 mls/hr 09/02/17 11:23 09/07/17 14:40 Diprivan IV 50 mcg/kg/min .Q24H PRN 20.964 mls/hr TITRATE PER MD ORDER Administration Protocol 5 MCG/KG/MIN Piperacillin Sod/Tazobactam 100 mls @ 100 mls/hr 09/03/17 15:00 09/07/17 15: 44 Sod 3.375 gm/ Sodium Chloride IVPB 100 mls/hr Q6H WILLIAM Administration Linezolid 600 mg in 300 mls @ 200 mls/hr 09/03/17 22:00 09/07/17 10:28 Zyvox 600mg/300ml D5w IVPB 200 mls/hr Q12 WILLIAM Administration Insulin Human Regular 0 unit 09/05/17 09:31 09/07/17 17:34 Novolin R SC 2 unit Q6 WILLIAM Administration Protocol Lorazepam 1 mg 09/03/17 10:49 09/07/17 09:00 Ativan IVP 1 mg Q6H PRN Administration Anxiety Potassium Chloride 40 meq 09/07/17 13:00 09/07/17 14:00 Potassium Chloride Oral Soln PO 09/08/17 01:01 40 meq Q6H WILLIAM Administration - Patient Studies Lab Studies: Microbiology Studies 09/04/17 19:15 S.aureus & Coag-Neg Staph PNA FISH - Final Blood Blood Culture - Preliminary Gram Pos Cocci In Clusters Gram Stain - Final 09/04/17 18:45 Blood Culture - Preliminary Blood NO GROWTH AFTER 48 HOURS Lab Studies 09/07/17 09/07/17 09/07/17 Range/Units 17:30 11:49 06:32 WBC (4.8-10.8) K/uL RBC (3.80-5.20) Mil/uL Hgb (11.0-16.0) g/dL Hct (34.0-47.0) % MCV (81.0-99.0) fL MCH (27.0-31.0) pg MCHC (33.0-37.0) g/dL RDW (11.5-14.5) % Plt Count (130-400) K/uL MPV (7.2-11.7) fL Neut % (Auto) (50.0-75.0) % Lymph % (Auto) (20.0-40.0) % Andrews % (Auto) (0.0-10.0) % Eos % (Auto) (0.0-4.0) % Baso % (Auto) (0.0-2.0) % Neut # (Auto) (1.8-7.0) K/uL Lymph # (Auto) (1.0-4.3) K/uL Andrews # (Auto) (0.0-0.8) K/uL Eos # (Auto) (0.0-0.7) K/uL Baso # (Auto) (0.0-0.2) K/uL Neutrophils % (Manual) (50-75) % Band Neutrophils % (0-2) % Lymphocytes % (Manual) (20-40) % Monocytes % (Manual) (0-10) % Eosinophils % (Manual) (0-4) % Metamyelocytes % (0-0) % Myelocytes % (0-0) % Toxic Granulation Platelet Estimate (NORMAL) Puncture Site pCO2 (35-45) mm/Hg pO2 (80-100) mm/Hg HCO3 (21-28) mmol/L ABG pH (7.35-7.45) ABG Total CO2 (22-28) mmol/L ABG O2 Saturation (95-98) % ABG Base Excess (-2.0-3.0) mmol/L ABG Hemoglobin (11.7-17.4) g/dL ABG Carboxyhemoglobin (0.5-1.5) % POC ABG HHb (Measured) (0.0-5.0) % ABG Methemoglobin (0.0-3.0) % Vince Test A-a O2 Difference mm/Hg Respiratory Index Hgb O2 Saturation (95.0-98.0) % Vent Mode Mechanical Rate FiO2 % Tidal Volume PEEP Sodium 140 (132-148) mmol/L Potassium 3.0 L (3.6-5.2) mmol/L Chloride 107 (98-107) mmol/L Carbon Dioxide 32 H (22-30) mmol/L Anion Gap 5 L (10-20) BUN 21 H (7-17) mg/dL Creatinine 0.4 L (0.7-1.2) mg/dL Est GFR ( Amer) > 60 Est GFR (Non-Af Amer) > 60 POC Glucose (mg/dL) 179 H 226 H (65-110) mg/dL Random Glucose 262 H (65-105) mg/dL Calcium 7.4 L (8.6-10.4) mg/dl Phosphorus 2.7 (2.5-4.5) mg/dL Magnesium 2.1 (1.6-2.3) mg/dL Total Bilirubin 0.4 (0.2-1.3) mg/dL AST 17 (14-36) U/L ALT 15 (9-52) U/L Alkaline Phosphatase 189 H D (38-126) U/L Total Protein 6.0 L (6.3-8.3) g/dL Albumin 2.4 L (3.5-5.0) g/dL Globulin 3.6 (2.2-3.9) gm/dL Albumin/Globulin Ratio 0.7 L (1.0-2.1) Ethanolamine Methyl Alcohol Level Isopropanol Acetone Level mg/dL 09/07/17 09/07/17 09/07/17 Range/Units 06:32 06:31 04:57 WBC 20.0 H (4.8-10.8) K/uL RBC 4.54 (3.80-5.20) Mil/uL Hgb 11.3 (11.0-16.0) g/dL Hct 33.5 L (34.0-47.0) % MCV 73.7 L (81.0-99.0) fL MCH 24.8 L (27.0-31.0) pg MCHC 33.7 (33.0-37.0) g/dL RDW 14.7 H (11.5-14.5) % Plt Count 165 (130-400) K/uL MPV 8.9 (7.2-11.7) fL Neut % (Auto) 84.8 H (50.0-75.0) % Lymph % (Auto) 9.3 L (20.0-40.0) % Andrews % (Auto) 4.4 (0.0-10.0) % Eos % (Auto) 1.4 (0.0-4.0) % Baso % (Auto) 0.1 (0.0-2.0) % Neut # (Auto) 17.0 H (1.8-7.0) K/uL Lymph # (Auto) 1.9 (1.0-4.3) K/uL Andrews # (Auto) 0.9 H (0.0-0.8) K/uL Eos # (Auto) 0.3 (0.0-0.7) K/uL Baso # (Auto) 0.0 (0.0-0.2) K/uL Neutrophils % (Manual) 80 H (50-75) % Band Neutrophils % 7 H (0-2) % Lymphocytes % (Manual) 7 L (20-40) % Monocytes % (Manual) 1 (0-10) % Eosinophils % (Manual) 1 (0-4) % Metamyelocytes % 2 H (0-0) % Myelocytes % 2 H (0-0) % Toxic Granulation Present Platelet Estimate Normal (NORMAL) Puncture Site Rr pCO2 44 (35-45) mm/Hg pO2 80 (80-100) mm/Hg HCO3 30.7 H (21-28) mmol/L ABG pH 7.47 H (7.35-7.45) ABG Total CO2 33.4 H (22-28) mmol/L ABG O2 Saturation 98.2 H (95-98) % ABG Base Excess 7.5 H (-2.0-3.0) mmol/L ABG Hemoglobin 11.6 L (11.7-17.4) g/dL ABG Carboxyhemoglobin 2.1 H (0.5-1.5) % POC ABG HHb (Measured) 1.7 (0.0-5.0) % ABG Methemoglobin 1.3 (0.0-3.0) % Vince Test Pos A-a O2 Difference 293.0 mm/Hg Respiratory Index 3.7 Hgb O2 Saturation 94.8 L (95.0-98.0) % Vent Mode Prvc Mechanical Rate 12 FiO2 60.0 % Tidal Volume 450 PEEP 5 Sodium (132-148) mmol/L Potassium (3.6-5.2) mmol/L Chloride (98-107) mmol/L Carbon Dioxide (22-30) mmol/L Anion Gap (10-20) BUN (7-17) mg/dL Creatinine (0.7-1.2) mg/dL Est GFR ( Amer) Est GFR (Non-Af Amer) POC Glucose (mg/dL) 239 H (65-110) mg/dL Random Glucose (65-105) mg/dL Calcium (8.6-10.4) mg/dl Phosphorus (2.5-4.5) mg/dL Magnesium (1.6-2.3) mg/dL Total Bilirubin (0.2-1.3) mg/dL AST (14-36) U/L ALT (9-52) U/L Alkaline Phosphatase (38-126) U/L Total Protein (6.3-8.3) g/dL Albumin (3.5-5.0) g/dL Globulin (2.2-3.9) gm/dL Albumin/Globulin Ratio (1.0-2.1) Ethanolamine Methyl Alcohol Level Isopropanol Acetone Level mg/dL 09/06/17 09/06/17 09/01/17 Range/Units 23:36 17:42 18:51 WBC (4.8-10.8) K/uL RBC (3.80-5.20) Mil/uL Hgb (11.0-16.0) g/dL Hct (34.0-47.0) % MCV (81.0-99.0) fL MCH (27.0-31.0) pg MCHC (33.0-37.0) g/dL RDW (11.5-14.5) % Plt Count (130-400) K/uL MPV (7.2-11.7) fL Neut % (Auto) (50.0-75.0) % Lymph % (Auto) (20.0-40.0) % Andrews % (Auto) (0.0-10.0) % Eos % (Auto) (0.0-4.0) % Baso % (Auto) (0.0-2.0) % Neut # (Auto) (1.8-7.0) K/uL Lymph # (Auto) (1.0-4.3) K/uL Andrews # (Auto) (0.0-0.8) K/uL Eos # (Auto) (0.0-0.7) K/uL Baso # (Auto) (0.0-0.2) K/uL Neutrophils % (Manual) (50-75) % Band Neutrophils % (0-2) % Lymphocytes % (Manual) (20-40) % Monocytes % (Manual) (0-10) % Eosinophils % (Manual) (0-4) % Metamyelocytes % (0-0) % Myelocytes % (0-0) % Toxic Granulation Platelet Estimate (NORMAL) Puncture Site pCO2 (35-45) mm/Hg pO2 (80-100) mm/Hg HCO3 (21-28) mmol/L ABG pH (7.35-7.45) ABG Total CO2 (22-28) mmol/L ABG O2 Saturation (95-98) % ABG Base Excess (-2.0-3.0) mmol/L ABG Hemoglobin (11.7-17.4) g/dL ABG Carboxyhemoglobin (0.5-1.5) % POC ABG HHb (Measured) (0.0-5.0) % ABG Methemoglobin (0.0-3.0) % Vince Test A-a O2 Difference mm/Hg Respiratory Index Hgb O2 Saturation (95.0-98.0) % Vent Mode Mechanical Rate FiO2 % Tidal Volume PEEP Sodium (132-148) mmol/L Potassium (3.6-5.2) mmol/L Chloride (98-107) mmol/L Carbon Dioxide (22-30) mmol/L Anion Gap (10-20) BUN (7-17) mg/dL Creatinine (0.7-1.2) mg/dL Est GFR ( Amer) Est GFR (Non-Af Amer) POC Glucose (mg/dL) 228 H 148 H (65-110) mg/dL Random Glucose (65-105) mg/dL Calcium (8.6-10.4) mg/dl Phosphorus (2.5-4.5) mg/dL Magnesium (1.6-2.3) mg/dL Total Bilirubin (0.2-1.3) mg/dL AST (14-36) U/L ALT (9-52) U/L Alkaline Phosphatase (38-126) U/L Total Protein (6.3-8.3) g/dL Albumin (3.5-5.0) g/dL Globulin (2.2-3.9) gm/dL Albumin/Globulin Ratio (1.0-2.1) Ethanolamine None detected Methyl Alcohol Level None detected Isopropanol None detected Acetone Level 28 H mg/dL Laboratory Results - last 24 hr 09/01/17 09/06/17 09/06/17 18:51 17:42 23:36 WBC RBC Hgb Hct MCV MCH MCHC RDW Plt Count MPV Neut % (Auto) Lymph % (Auto) Andrews % (Auto) Eos % (Auto) Baso % (Auto) Neut # (Auto) Lymph # (Auto) Andrews # (Auto) Eos # (Auto) Baso # (Auto) Neutrophils % (Manual) Band Neutrophils % Lymphocytes % (Manual) Monocytes % (Manual) Eosinophils % (Manual) Metamyelocytes % Myelocytes % Toxic Granulation Platelet Estimate Puncture Site pCO2 pO2 HCO3 ABG pH ABG Total CO2 ABG O2 Saturation ABG Base Excess ABG Hemoglobin ABG Carboxyhemoglobin POC ABG HHb (Measured) ABG Methemoglobin Vince Test A-a O2 Difference Respiratory Index Hgb O2 Saturation Vent Mode Mechanical Rate FiO2 Tidal Volume PEEP Sodium Potassium Chloride Carbon Dioxide Anion Gap BUN Creatinine Est GFR ( Amer) Est GFR (Non-Af Amer) POC Glucose (mg/dL) 148 H 228 H Random Glucose Calcium Phosphorus Magnesium Total Bilirubin AST ALT Alkaline Phosphatase Total Protein Albumin Globulin Albumin/Globulin Ratio Ethanolamine None detected Methyl Alcohol Level None detected Isopropanol None detected Acetone Level 28 H 09/07/17 09/07/17 09/07/17 04:57 06:31 06:32 WBC 20.0 H RBC 4.54 Hgb 11.3 Hct 33.5 L MCV 73.7 L MCH 24.8 L MCHC 33.7 RDW 14.7 H Plt Count 165 MPV 8.9 Neut % (Auto) 84.8 H Lymph % (Auto) 9.3 L Andrews % (Auto) 4.4 Eos % (Auto) 1.4 Baso % (Auto) 0.1 Neut # (Auto) 17.0 H Lymph # (Auto) 1.9 Andrews # (Auto) 0.9 H Eos # (Auto) 0.3 Baso # (Auto) 0.0 Neutrophils % (Manual) 80 H Band Neutrophils % 7 H Lymphocytes % (Manual) 7 L Monocytes % (Manual) 1 Eosinophils % (Manual) 1 Metamyelocytes % 2 H Myelocytes % 2 H Toxic Granulation Present Platelet Estimate Normal Puncture Site Rr pCO2 44 pO2 80 HCO3 30.7 H ABG pH 7.47 H ABG Total CO2 33.4 H ABG O2 Saturation 98.2 H ABG Base Excess 7.5 H ABG Hemoglobin 11.6 L ABG Carboxyhemoglobin 2.1 H POC ABG HHb (Measured) 1.7 ABG Methemoglobin 1.3 Vince Test Pos A-a O2 Difference 293.0 Respiratory Index 3.7 Hgb O2 Saturation 94.8 L Vent Mode Prvc Mechanical Rate 12 FiO2 60.0 Tidal Volume 450 PEEP 5 Sodium Potassium Chloride Carbon Dioxide Anion Gap BUN Creatinine Est GFR ( Amer) Est GFR (Non-Af Amer) POC Glucose (mg/dL) 239 H Random Glucose Calcium Phosphorus Magnesium Total Bilirubin AST ALT Alkaline Phosphatase Total Protein Albumin Globulin Albumin/Globulin Ratio Ethanolamine Methyl Alcohol Level Isopropanol Acetone Level 09/07/17 09/07/17 09/07/17 06:32 11:49 17:30 WBC RBC Hgb Hct MCV MCH MCHC RDW Plt Count MPV Neut % (Auto) Lymph % (Auto) Andrews % (Auto) Eos % (Auto) Baso % (Auto) Neut # (Auto) Lymph # (Auto) Andrews # (Auto) Eos # (Auto) Baso # (Auto) Neutrophils % (Manual) Band Neutrophils % Lymphocytes % (Manual) Monocytes % (Manual) Eosinophils % (Manual) Metamyelocytes % Myelocytes % Toxic Granulation Platelet Estimate Puncture Site pCO2 pO2 HCO3 ABG pH ABG Total CO2 ABG O2 Saturation ABG Base Excess ABG Hemoglobin ABG Carboxyhemoglobin POC ABG HHb (Measured) ABG Methemoglobin Vince Test A-a O2 Difference Respiratory Index Hgb O2 Saturation Vent Mode Mechanical Rate FiO2 Tidal Volume PEEP Sodium 140 Potassium 3.0 L Chloride 107 Carbon Dioxide 32 H Anion Gap 5 L BUN 21 H Creatinine 0.4 L Est GFR ( Amer) > 60 Est GFR (Non-Af Amer) > 60 POC Glucose (mg/dL) 226 H 179 H Random Glucose 262 H Calcium 7.4 L Phosphorus 2.7 Magnesium 2.1 Total Bilirubin 0.4 AST 17 ALT 15 Alkaline Phosphatase 189 H D Total Protein 6.0 L Albumin 2.4 L Globulin 3.6 Albumin/Globulin Ratio 0.7 L Ethanolamine Methyl Alcohol Level Isopropanol Acetone Level Assessment/Plan - Assessment and Plan (Free Text) Plan: Patient seen and examined at bedside. Patient dx with post influenza MRSA lung infection -continue ventilation to keep spo2 >92 and pH b.w 7.35-7.45 -continue abx covering MRSA -DKA resolved: continue ISS aspart q6hrs -continue NG tube feeds -continue dvt/pud ppx cc time 32 minutes - Date & Time Date: 09/07/17 Time: 10:00
--- NOTE | 2017-09-07 13:21 | CP.PCM.PN ---
Subjective - Date & Time of Evaluation Date of Evaluation: 09/07/17 Time of Evaluation: 13:20 - Subjective Subjective: still intubated now on cpap trial.x ray is same.o2 sat better. Objective - Vital Signs/Intake and Output Vital Signs (last 24 hours): Temp Pulse Resp BP Pulse Ox 98.8 F 91 H 22 154/89 H 99 09/07/17 12:00 09/07/17 13:00 09/07/17 13:00 09/07/17 13:00 09/07/17 13:00 Intake and Output: 09/07/17 09/07/17 06:59 18:59 Intake Total 1682 170.2 Output Total 420 35 Balance 1262 135.2 - Medications Medications: Current Medications Acetaminophen (Tylenol 325mg Tab) 650 mg PO Q6 PRN PRN Reason: Temperature Last Admin: 09/03/17 21:18 Dose: 650 mg Acetaminophen (Tylenol 650mg/20.3ml Solution Ud) 650 mg NG Q6 PRN PRN Reason: temp of 101 Last Admin: 09/06/17 21:57 Dose: 650 mg Apixaban (Eliquis) 2.5 mg PO BID [facility] Aspirin (Aspirin Chewable) 81 mg PO DAILY [facility] Last Admin: 09/07/17 09:09 Dose: 81 mg Famotidine (Pepcid) 40 mg PO DAILY [facility] Last Admin: 09/07/17 09:09 Dose: 40 mg Propofol (Diprivan) 1,000 mg in 100 mls @ 2.096 mls/hr IV .Q24H PRN; Protocol; 5 MCG/KG/MIN PRN Reason: TITRATE PER MD ORDER Last Admin: 09/07/17 05:41 Dose: 50 mcg/kg/min, 20.964 mls/hr Piperacillin Sod/Tazobactam (Sod 3.375 gm/ Sodium Chloride) 100 mls @ 100 mls/ hr IVPB Q6H [facility] Last Admin: 09/07/17 09:02 Dose: 100 mls/hr Linezolid (Zyvox 600mg/300ml D5w) 600 mg in 300 mls @ 200 mls/hr IVPB Q12 [facility] Last Admin: 09/07/17 10:28 Dose: 200 mls/hr Insulin Human Regular (Novolin R) 0 unit SC Q6 WILLIAM PRN Reason: Protocol Last Admin: 09/07/17 12:44 Dose: 4 unit Lorazepam (Ativan) 1 mg IVP Q6H PRN PRN Reason: Anxiety Last Admin: 09/07/17 09:00 Dose: 1 mg Potassium Chloride (Potassium Chloride Oral Soln) 40 meq PO Q6H WILLIAM Stop: 09/08/17 01:01 - Labs Labs: 09/07/17 06:32 09/07/17 06:32 PT 14.3 SECONDS (9.7-12.2) H 09/01/17 09:49 INR 1.2 09/01/17 09:49 APTT 32 SECONDS (21-34) 09/01/17 09:49 - Constitutional Appears: No Acute Distress - Eye Exam Eye Exam: Normal appearance - Respiratory Exam Respiratory Exam: Decreased Breath Sounds - Cardiovascular Exam Cardiovascular Exam: REGULAR RHYTHM - GI/Abdominal Exam GI & Abdominal Exam: Soft Assessment and Plan - Assessment and Plan (Free Text) Assessment: mrsa in blood.pneumonia,ct iv antibiotics & pul care
[2017-09-07] MEDS: Albuterol-Ipratrop 3 mg / 0.5 (3 ml) UD INH SCH ×2 (13:41→19:58)
--- NOTE | 2017-09-07 13:42 | CP.PCM.PN ---
Subjective - Date & Time of Evaluation Date of Evaluation: 09/07/17 Time of Evaluation: 08:00 - Subjective Subjective: The patient seen and examined Remains intubated on ventilatory support FiO2 60% Improving oxygenation Remains sedated on Diprivan Afebrile Being treated for MRSA pneumonia Tolerating feeding Objective - Vital Signs/Intake and Output Vital Signs (last 24 hours): Temp Pulse Resp BP Pulse Ox 98.8 F 91 H 22 154/89 H 99 09/07/17 12:00 09/07/17 13:00 09/07/17 13:00 09/07/17 13:00 09/07/17 13:00 Intake and Output: 09/07/17 09/07/17 06:59 18:59 Intake Total 1682 170.2 Output Total 420 35 Balance 1262 135.2 - Medications Medications: Current Medications Acetaminophen (Tylenol 325mg Tab) 650 mg PO Q6 PRN PRN Reason: Temperature Last Admin: 09/03/17 21:18 Dose: 650 mg Acetaminophen (Tylenol 650mg/20.3ml Solution Ud) 650 mg NG Q6 PRN PRN Reason: temp of 101 Last Admin: 09/06/17 21:57 Dose: 650 mg Apixaban (Eliquis) 2.5 mg PO BID [facility] Aspirin (Aspirin Chewable) 81 mg PO DAILY [facility] Last Admin: 09/07/17 09:09 Dose: 81 mg Famotidine (Pepcid) 40 mg PO DAILY [facility] Last Admin: 09/07/17 09:09 Dose: 40 mg Propofol (Diprivan) 1,000 mg in 100 mls @ 2.096 mls/hr IV .Q24H PRN; Protocol; 5 MCG/KG/MIN PRN Reason: TITRATE PER MD ORDER Last Admin: 09/07/17 05:41 Dose: 50 mcg/kg/min, 20.964 mls/hr Piperacillin Sod/Tazobactam (Sod 3.375 gm/ Sodium Chloride) 100 mls @ 100 mls/ hr IVPB Q6H [facility] Last Admin: 09/07/17 09:02 Dose: 100 mls/hr Linezolid (Zyvox 600mg/300ml D5w) 600 mg in 300 mls @ 200 mls/hr IVPB Q12 [facility] Last Admin: 09/07/17 10:28 Dose: 200 mls/hr Insulin Human Regular (Novolin R) 0 unit SC Q6 WILLIAM PRN Reason: Protocol Last Admin: 09/07/17 12:44 Dose: 4 unit Lorazepam (Ativan) 1 mg IVP Q6H PRN PRN Reason: Anxiety Last Admin: 09/07/17 09:00 Dose: 1 mg Potassium Chloride (Potassium Chloride Oral Soln) 40 meq PO Q6H [facility]IAM Stop: 09/08/17 01:01 - Labs Labs: 09/07/17 06:32 09/07/17 06:32 PT 14.3 SECONDS (9.7-12.2) H 09/01/17 09:49 INR 1.2 09/01/17 09:49 APTT 32 SECONDS (21-34) 09/01/17 09:49 - Head Exam Head Exam: ATRAUMATIC, NORMOCEPHALIC - ENT Exam ENT Exam: Mucous Membranes Moist - Neck Exam Neck Exam: Normal Inspection - Respiratory Exam Respiratory Exam: Rales - Cardiovascular Exam Cardiovascular Exam: REGULAR RHYTHM - GI/Abdominal Exam GI & Abdominal Exam: Soft, Normal Bowel Sounds - Extremities Exam Extremities Exam: Normal Inspection - Neurological Exam Neurological Exam: Altered Assessment and Plan (1) Acute respiratory failure with hypoxemia Assessment & Plan: CPAP trial Taper Diprivan Continue antibiotics Continue feeding Followup chest x-ray and ABG Status: Acute (2) Pneumonia Status: Acute (3) DKA (diabetic ketoacidoses) Status: Acute (4) Sepsis Status: Acute
--- NOTE | 2017-09-07 18:02 | CARD ---
APPROVED REPORT EXAM: Transesophageal echocardiogram with color flow Doppler. INDICATION Infection : Rule out subacute bacterial endocarditis Reason For Test : Rule out endocarditis. PROCEDURE After obtaining informed consent, patient underwent transesophageal echo in the ICU. Type of Sedation : Conscious Sedation Sedation was achieved with intravenously. The MAY was performed complications. Throughout the procedure, the blood pressure, pulse oximetry, cardiac rhythm, and rate were monitored. The patient tolerated the procedure without adverse effects. Recovery from conscious sedation was uneventful and vital signs were stable. LEFT VENTRICLE The left ventricle is normal size. There is mild concentric left ventricular hypertrophy. The left ventricular function is normal. The left ventricular ejection fraction is within the normal range. There is normal LV segmental wall motion. Tissue Doppler imaging reveals abnormal left ventricular diastolic dysfunction. No left ventricle thrombus noted on this study. There is no ventricular septal defect visualized. RIGHT VENTRICLE The right ventricle is normal size. The right ventricular systolic function is normal. ATRIA The left atrium size is normal. The right atrium size is normal. The interatrial septum is intact with no evidence for an atrial septal defect. AORTIC VALVE The aortic valve is normal in structure. No aortic regurgitation is present. There is no aortic valvular stenosis. There is no aortic valvular vegetation. MITRAL VALVE The mitral valve is normal in structure. There is no mitral valve stenosis. Mitral regurgitation is mild. TRICUSPID VALVE The tricuspid valve is normal in structure. There is mild tricuspid regurgitation. There is no tricuspid valve stenosis. PULMONIC VALVE There is no pulmonic valvular regurgitation. There is no pulmonic valvular stenosis. GREAT VESSELS The aortic root is normal in size. The ascending aorta is normal in size. <Conclusion> The left ventricular function is normal. The left ventricular ejection fraction is within the normal range. No evidence of endocarditis
[2017-09-08] MEDS: (Novolin R) Insulin Human Regular 100 units/ml vial SC SCH ×4 (00:10→18:26)
[2017-09-08] MEDS: Acetaminophen 650mg/20.3ml solution UD NG PRN ×3 (00:33→12:04)
[2017-09-08] MEDS: Albuterol-Ipratrop 3 mg / 0.5 (3 ml) UD INH SCH ×4 (01:25→20:44)
[2017-09-08] MEDS: Potassium Chloride 20 mEq/15 ml LIQ UD PO SCH (02:52)
[2017-09-08] MEDS: Piperacillin/Tazobact 3.375 GM in Sodium Chloride 0.9% 100 ML IVPB SCH ×3 (03:28→15:30)
[2017-09-08 04:48] LABS: ABG ALLEN TEST POS; ARTERIAL BLOOD GAS HCO3 27.6 mmol/L (21-28); ARTERIAL BLOOD GAS HEMOGLOBIN 18.1 g/dL (11.7-17.4); ARTERIAL BLOOD GAS O2 SAT 99.5 % (95-98); ARTERIAL BLOOD GAS PCO2 40 mm/Hg (35-45); ARTERIAL BLOOD GAS PH 7.45 (7.35-7.45); ARTERIAL BLOOD GAS PO2 119 mm/Hg (80-100)
[2017-09-08] MEDS: Propofol 10 mg/ml 1,000 MG/100 ML VIAL IV PRN ×4 (05:12→19:11)
[2017-09-08 06:45] LABS: BASO % 0.2 % (0.0-2.0); EOS # 0.2 K/uL (0.0-0.7); HEMOGLOBIN 10.9 g/dL (11.0-16.0); LYMPH # 1.9 K/uL (1.0-4.3); LYMPH % 9.3 % (20.0-40.0); MEAN CELL VOLUME 74.9 fL (81.0-99.0); MEAN CORPUSCULAR HEMOGLOBIN 24.2 pg (27.0-31.0); MEAN CORPUSCULAR HGB CONC 32.3 g/dL (33.0-37.0); MEAN PLATELET VOLUME 8.6 fL (7.2-11.7); MONO # 0.7 K/uL (0.0-0.8); MONO % 3.3 % (0.0-10.0); NEUT # 17.6 K/uL (1.8-7.0); NEUT % 86.2 % (50.0-75.0); NRBC % 0.1 % (0.0-2.0); PLATELET COUNT 172 K/uL (130-400); RBC 4.51 Mil/uL (3.80-5.20); RED CELL DISTRIBUTION WIDTH 14.3 % (11.5-14.5); WHITE BLOOD COUNT 20.4 K/uL (4.8-10.8)
[2017-09-08 07:06] LABS: ALB/GLOB RATIO 0.7 (1.0-2.1); ALBUMIN 2.4 g/dL (3.5-5.0); ALT/SGPT 24 U/L (9-52); AST/SGOT 21 U/L (14-36); BLOOD UREA NITROGEN 22 mg/dL (7-17); CALCIUM 7.6 mg/dl (8.6-10.4); GFR AFRICAN-AMERICAN > 60; GFR NON-AFRICAN AMERICAN > 60; MAGNESIUM 2.3 mg/dL (1.6-2.3)
--- NOTE | 2017-09-08 08:31 | RAD ---
Chest x-ray single frontal view History: Follow-up. Comparison: 09/07/2017 Findings: Lines and tubes are in stable position. Persistent dense confluent opacification throughout both lungs, not significantly changed since the prior study most prominent in the mid lung zones. Heart size within normal limits. Degenerative changes in the spine and shoulders. Impression: Lines and tubes are in stable position. Persistent dense confluent opacification throughout both lungs, not significantly changed since the prior study most prominent in the mid lung zones.
[2017-09-08 08:57] LABS: BANDS 7 % (0-2); EOSINOPHIL 1 % (0-4); LYMPHOCYTE 10 % (20-40); METAMYELOCYTE 1 % (0-0); MONOCYTE 3 % (0-10); MYELOCYTE 1 % (0-0); NEUTROPHIL 77 % (50-75); PLATELET ESTIMATE NORMAL (NORMAL); TOTAL CELLS COUNTED 100
[2017-09-08 08:58] LABS: HYPOCHROMIC SLIGHT
[2017-09-08] MEDS: Linezolid 600 mg in D5W 300 ml 600 MG/300 ML BAG IVPB SCH ×2 (10:07→21:27)
--- NOTE | 2017-09-08 11:05 | CP.CCUPN ---
<Afshin Macias - Last Filed: 09/08/17 12:09> CCU Subjective - Physician Review Subjective (Free Text): 09/08/17 11:03 patient seen and examined at bedside cxr improving cpap trials daily continue abx tolerating tube feeds CCU Objective - Vital Signs / Intake & Output Vital Signs (Last 4 hours): Vital Signs Temp 09/08/17 08:04 100.8 F H Intake and Output (Last 8hrs): Intake & Output 09/07/17 09/08/17 09/08/17 22:59 06:59 14:59 Intake Total 1038 659 100 Output Total 295 340 Balance 743 319 100 Weight 160 lb Intake: IV 200 100 100 Intake, IV Amount 618 239 RIGHT BASILIC PICC BLUE 450 50 PORT RIGHT BASILIC PICC RED 168 189 PORT Tube Feeding 120 320 Other 100 Output: Urine 295 340 Urethral (Nascimento) 295 340 Other: # Bowel Movements 2 - Physical Exam Head: Positive for: Atraumatic, Normocephalic Pupils: Positive for: PERRL Conjunctiva: Positive for: Normal Mouth: Positive for: Moist Mucous Membranes Respiratory/Chest: Positive for: Accessory Muscle Use, Wheezes, Rhonchi, Tachypneic Cardiovascular: Positive for: Regular Rate and Rhythm, Normal S1, S2 - Medications Active Medications: Active Medications Generic Name Dose Route Start Last Admin Trade Name Freq PRN Reason Stop Dose Admin Acetaminophen 650 mg 09/03/17 08:43 09/03/17 21:18 Tylenol 325mg Tab PO 650 mg Q6 PRN Administration Temperature Acetaminophen 650 mg 09/05/17 16:41 09/08/17 08:04 Tylenol 650mg/20.3ml Solution Ud NG 650 mg Q6 PRN Administration temp of 101 Albuterol/Ipratropium 3 ml 09/07/17 14:00 09/08/17 08:04 Duoneb 3 Mg/0.5 Mg (3 Ml) Ud INH 3 ml RQ6 WILLIAM Administration Apixaban 2.5 mg 09/07/17 10:00 09/08/17 10:08 Eliquis PO 2.5 mg BID WILLIAM Administration Aspirin 81 mg 09/02/17 10:00 09/08/17 10:08 Aspirin Chewable PO 81 mg DAILY WILLIAM Administration Famotidine 40 mg 09/03/17 10:15 09/08/17 10:08 Pepcid PO 40 mg DAILY WILLIAM Administration Propofol 1,000 mg in 100 mls @ 2.096 mls/hr 09/02/17 11:23 09/08/17 10:09 Diprivan IV 50 mcg/kg/min .Q24H PRN 20.964 mls/hr TITRATE PER MD ORDER Administration Protocol 5 MCG/KG/MIN Piperacillin Sod/Tazobactam 100 mls @ 100 mls/hr 09/03/17 15:00 09/08/17 09: 45 Sod 3.375 gm/ Sodium Chloride IVPB 100 mls/hr Q6H WILLIAM Administration Linezolid 600 mg in 300 mls @ 200 mls/hr 09/03/17 22:00 09/08/17 10:07 Zyvox 600mg/300ml D5w IVPB 200 mls/hr Q12 WILLIAM Administration Doxycycline Hyclate 100 mg/ 100 mls @ 100 mls/hr 09/08/17 08:00 09/08/17 08: 32 Sodium Chloride IVPB 100 mls/hr Q12H WILLIAM Administration Insulin Human Regular 0 unit 09/05/17 09:31 09/08/17 05:41 Novolin R SC 2 unit Q6 WILLIAM Administration Protocol Lorazepam 1 mg 09/03/17 10:49 09/07/17 09:00 Ativan IVP 1 mg Q6H PRN Administration Anxiety - Patient Studies Lab Studies: Microbiology Studies 09/04/17 18:45 Blood Culture - Preliminary Blood NO GROWTH AFTER 3 DAYS 09/04/17 19:15 S.aureus & Coag-Neg Staph PNA FISH - Final Blood Blood Culture - Preliminary Gram Pos Cocci In Clusters Gram Stain - Final Lab Studies 09/08/17 09/08/17 09/08/17 Range/Units 06:40 06:39 05:36 WBC 20.4 H (4.8-10.8) K/uL RBC 4.51 (3.80-5.20) Mil/uL Hgb 10.9 L (11.0-16.0) g/dL Hct 33.7 L (34.0-47.0) % MCV 74.9 L (81.0-99.0) fL MCH 24.2 L (27.0-31.0) pg MCHC 32.3 L (33.0-37.0) g/dL RDW 14.3 (11.5-14.5) % Plt Count 172 (130-400) K/uL MPV 8.6 (7.2-11.7) fL Neut % (Auto) 86.2 H (50.0-75.0) % Lymph % (Auto) 9.3 L (20.0-40.0) % Johnston % (Auto) 3.3 (0.0-10.0) % Eos % (Auto) 1.0 (0.0-4.0) % Baso % (Auto) 0.2 (0.0-2.0) % Neut # (Auto) 17.6 H (1.8-7.0) K/uL Lymph # (Auto) 1.9 (1.0-4.3) K/uL Johnston # (Auto) 0.7 (0.0-0.8) K/uL Eos # (Auto) 0.2 (0.0-0.7) K/uL Baso # (Auto) 0.0 (0.0-0.2) K/uL Neutrophils % (Manual) 77 H (50-75) % Band Neutrophils % 7 H (0-2) % Lymphocytes % (Manual) 10 L (20-40) % Monocytes % (Manual) 3 (0-10) % Eosinophils % (Manual) 1 (0-4) % Metamyelocytes % 1 H (0-0) % Myelocytes % 1 H (0-0) % Platelet Estimate Normal (NORMAL) Hypochromasia (manual) Slight Puncture Site pCO2 (35-45) mm/Hg pO2 (80-100) mm/Hg HCO3 (21-28) mmol/L ABG pH (7.35-7.45) ABG Total CO2 (22-28) mmol/L ABG O2 Saturation (95-98) % ABG Base Excess (-2.0-3.0) mmol/L ABG Hemoglobin (11.7-17.4) g/dL ABG Carboxyhemoglobin (0.5-1.5) % POC ABG HHb (Measured) (0.0-5.0) % ABG Methemoglobin (0.0-3.0) % Vince Test A-a O2 Difference mm/Hg Respiratory Index Hgb O2 Saturation (95.0-98.0) % Vent Mode Mechanical Rate FiO2 % Tidal Volume PEEP Sodium 144 (132-148) mmol/L Potassium 3.9 (3.6-5.2) mmol/L Chloride 109 H (98-107) mmol/L Carbon Dioxide 31 H (22-30) mmol/L Anion Gap 8 L (10-20) BUN 22 H (7-17) mg/dL Creatinine 0.5 L (0.7-1.2) mg/dL Est GFR ( Amer) > 60 Est GFR (Non-Af Amer) > 60 POC Glucose (mg/dL) 195 H (65-110) mg/dL Random Glucose 258 H (65-105) mg/dL Calcium 7.6 L (8.6-10.4) mg/dl Phosphorus 2.7 (2.5-4.5) mg/dL Magnesium 2.3 (1.6-2.3) mg/dL Total Bilirubin 0.4 (0.2-1.3) mg/dL AST 21 (14-36) U/L ALT 24 (9-52) U/L Alkaline Phosphatase 167 H (38-126) U/L Total Protein 6.0 L (6.3-8.3) g/dL Albumin 2.4 L (3.5-5.0) g/dL Globulin 3.6 (2.2-3.9) gm/dL Albumin/Globulin Ratio 0.7 L (1.0-2.1) Ethanolamine Toxicology Panel Methyl Alcohol Level Isopropanol Acetone Level mg/dL 09/08/17 09/08/17 09/07/17 Range/Units 04:40 00:06 17:30 WBC (4.8-10.8) K/uL RBC (3.80-5.20) Mil/uL Hgb (11.0-16.0) g/dL Hct (34.0-47.0) % MCV (81.0-99.0) fL MCH (27.0-31.0) pg MCHC (33.0-37.0) g/dL RDW (11.5-14.5) % Plt Count (130-400) K/uL MPV (7.2-11.7) fL Neut % (Auto) (50.0-75.0) % Lymph % (Auto) (20.0-40.0) % Johnston % (Auto) (0.0-10.0) % Eos % (Auto) (0.0-4.0) % Baso % (Auto) (0.0-2.0) % Neut # (Auto) (1.8-7.0) K/uL Lymph # (Auto) (1.0-4.3) K/uL Johnston # (Auto) (0.0-0.8) K/uL Eos # (Auto) (0.0-0.7) K/uL Baso # (Auto) (0.0-0.2) K/uL Neutrophils % (Manual) (50-75) % Band Neutrophils % (0-2) % Lymphocytes % (Manual) (20-40) % Monocytes % (Manual) (0-10) % Eosinophils % (Manual) (0-4) % Metamyelocytes % (0-0) % Myelocytes % (0-0) % Platelet Estimate (NORMAL) Hypochromasia (manual) Puncture Site Rr pCO2 40 (35-45) mm/Hg pO2 119 H (80-100) mm/Hg HCO3 27.6 (21-28) mmol/L ABG pH 7.45 (7.35-7.45) ABG Total CO2 29.0 H (22-28) mmol/L ABG O2 Saturation 99.5 H (95-98) % ABG Base Excess 3.5 H (-2.0-3.0) mmol/L ABG Hemoglobin 18.1 H (11.7-17.4) g/dL ABG Carboxyhemoglobin 1.8 H (0.5-1.5) % POC ABG HHb (Measured) 0.5 (0.0-5.0) % ABG Methemoglobin 1.1 (0.0-3.0) % Vince Test Pos A-a O2 Difference 259.0 mm/Hg Respiratory Index 2.2 Hgb O2 Saturation 96.6 (95.0-98.0) % Vent Mode Prvc Mechanical Rate 12 FiO2 60.0 % Tidal Volume 450 PEEP 5 Sodium (132-148) mmol/L Potassium (3.6-5.2) mmol/L Chloride (98-107) mmol/L Carbon Dioxide (22-30) mmol/L Anion Gap (10-20) BUN (7-17) mg/dL Creatinine (0.7-1.2) mg/dL Est GFR ( Amer) Est GFR (Non-Af Amer) POC Glucose (mg/dL) 181 H 179 H (65-110) mg/dL Random Glucose (65-105) mg/dL Calcium (8.6-10.4) mg/dl Phosphorus (2.5-4.5) mg/dL Magnesium (1.6-2.3) mg/dL Total Bilirubin (0.2-1.3) mg/dL AST (14-36) U/L ALT (9-52) U/L Alkaline Phosphatase (38-126) U/L Total Protein (6.3-8.3) g/dL Albumin (3.5-5.0) g/dL Globulin (2.2-3.9) gm/dL Albumin/Globulin Ratio (1.0-2.1) Ethanolamine Toxicology Panel Methyl Alcohol Level Isopropanol Acetone Level mg/dL 09/07/17 09/01/17 Range/Units 11:49 18:51 WBC (4.8-10.8) K/uL RBC (3.80-5.20) Mil/uL Hgb (11.0-16.0) g/dL Hct (34.0-47.0) % MCV (81.0-99.0) fL MCH (27.0-31.0) pg MCHC (33.0-37.0) g/dL RDW (11.5-14.5) % Plt Count (130-400) K/uL MPV (7.2-11.7) fL Neut % (Auto) (50.0-75.0) % Lymph % (Auto) (20.0-40.0) % Johnston % (Auto) (0.0-10.0) % Eos % (Auto) (0.0-4.0) % Baso % (Auto) (0.0-2.0) % Neut # (Auto) (1.8-7.0) K/uL Lymph # (Auto) (1.0-4.3) K/uL Johnston # (Auto) (0.0-0.8) K/uL Eos # (Auto) (0.0-0.7) K/uL Baso # (Auto) (0.0-0.2) K/uL Neutrophils % (Manual) (50-75) % Band Neutrophils % (0-2) % Lymphocytes % (Manual) (20-40) % Monocytes % (Manual) (0-10) % Eosinophils % (Manual) (0-4) % Metamyelocytes % (0-0) % Myelocytes % (0-0) % Platelet Estimate (NORMAL) Hypochromasia (manual) Puncture Site pCO2 (35-45) mm/Hg pO2 (80-100) mm/Hg HCO3 (21-28) mmol/L ABG pH (7.35-7.45) ABG Total CO2 (22-28) mmol/L ABG O2 Saturation (95-98) % ABG Base Excess (-2.0-3.0) mmol/L ABG Hemoglobin (11.7-17.4) g/dL ABG Carboxyhemoglobin (0.5-1.5) % POC ABG HHb (Measured) (0.0-5.0) % ABG Methemoglobin (0.0-3.0) % Vince Test A-a O2 Difference mm/Hg Respiratory Index Hgb O2 Saturation (95.0-98.0) % Vent Mode Mechanical Rate FiO2 % Tidal Volume PEEP Sodium (132-148) mmol/L Potassium (3.6-5.2) mmol/L Chloride (98-107) mmol/L Carbon Dioxide (22-30) mmol/L Anion Gap (10-20) BUN (7-17) mg/dL Creatinine (0.7-1.2) mg/dL Est GFR ( Amer) Est GFR (Non-Af Amer) POC Glucose (mg/dL) 226 H (65-110) mg/dL Random Glucose (65-105) mg/dL Calcium (8.6-10.4) mg/dl Phosphorus (2.5-4.5) mg/dL Magnesium (1.6-2.3) mg/dL Total Bilirubin (0.2-1.3) mg/dL AST (14-36) U/L ALT (9-52) U/L Alkaline Phosphatase (38-126) U/L Total Protein (6.3-8.3) g/dL Albumin (3.5-5.0) g/dL Globulin (2.2-3.9) gm/dL Albumin/Globulin Ratio (1.0-2.1) Ethanolamine None detected Toxicology Panel see note Methyl Alcohol Level None detected Isopropanol None detected Acetone Level 28 H mg/dL Laboratory Results - last 24 hr 09/01/17 09/07/17 09/07/17 18:51 11:49 17:30 WBC RBC Hgb Hct MCV MCH MCHC RDW Plt Count MPV Neut % (Auto) Lymph % (Auto) Johnston % (Auto) Eos % (Auto) Baso % (Auto) Neut # (Auto) Lymph # (Auto) Johnston # (Auto) Eos # (Auto) Baso # (Auto) Neutrophils % (Manual) Band Neutrophils % Lymphocytes % (Manual) Monocytes % (Manual) Eosinophils % (Manual) Metamyelocytes % Myelocytes % Platelet Estimate Hypochromasia (manual) Puncture Site pCO2 pO2 HCO3 ABG pH ABG Total CO2 ABG O2 Saturation ABG Base Excess ABG Hemoglobin ABG Carboxyhemoglobin POC ABG HHb (Measured) ABG Methemoglobin Vince Test A-a O2 Difference Respiratory Index Hgb O2 Saturation Vent Mode Mechanical Rate FiO2 Tidal Volume PEEP Sodium Potassium Chloride Carbon Dioxide Anion Gap BUN Creatinine Est GFR ( Amer) Est GFR (Non-Af Amer) POC Glucose (mg/dL) 226 H 179 H Random Glucose Calcium Phosphorus Magnesium Total Bilirubin AST ALT Alkaline Phosphatase Total Protein Albumin Globulin Albumin/Globulin Ratio Ethanolamine None detected Toxicology Panel see note Methyl Alcohol Level None detected Isopropanol None detected Acetone Level 28 H 09/08/17 09/08/17 09/08/17 00:06 04:40 05:36 WBC RBC Hgb Hct MCV MCH MCHC RDW Plt Count MPV Neut % (Auto) Lymph % (Auto) Johnston % (Auto) Eos % (Auto) Baso % (Auto) Neut # (Auto) Lymph # (Auto) Johnston # (Auto) Eos # (Auto) Baso # (Auto) Neutrophils % (Manual) Band Neutrophils % Lymphocytes % (Manual) Monocytes % (Manual) Eosinophils % (Manual) Metamyelocytes % Myelocytes % Platelet Estimate Hypochromasia (manual) Puncture Site Rr pCO2 40 pO2 119 H HCO3 27.6 ABG pH 7.45 ABG Total CO2 29.0 H ABG O2 Saturation 99.5 H ABG Base Excess 3.5 H ABG Hemoglobin 18.1 H ABG Carboxyhemoglobin 1.8 H POC ABG HHb (Measured) 0.5 ABG Methemoglobin 1.1 Vince Test Pos A-a O2 Difference 259.0 Respiratory Index 2.2 Hgb O2 Saturation 96.6 Vent Mode Prvc Mechanical Rate 12 FiO2 60.0 Tidal Volume 450 PEEP 5 Sodium Potassium Chloride Carbon Dioxide Anion Gap BUN Creatinine Est GFR ( Amer) Est GFR (Non-Af Amer) POC Glucose (mg/dL) 181 H 195 H Random Glucose Calcium Phosphorus Magnesium Total Bilirubin AST ALT Alkaline Phosphatase Total Protein Albumin Globulin Albumin/Globulin Ratio Ethanolamine Toxicology Panel Methyl Alcohol Level Isopropanol Acetone Level 09/08/17 09/08/17 06:39 06:40 WBC 20.4 H RBC 4.51 Hgb 10.9 L Hct 33.7 L MCV 74.9 L MCH 24.2 L MCHC 32.3 L RDW 14.3 Plt Count 172 MPV 8.6 Neut % (Auto) 86.2 H Lymph % (Auto) 9.3 L Johnston % (Auto) 3.3 Eos % (Auto) 1.0 Baso % (Auto) 0.2 Neut # (Auto) 17.6 H Lymph # (Auto) 1.9 Johnston # (Auto) 0.7 Eos # (Auto) 0.2 Baso # (Auto) 0.0 Neutrophils % (Manual) 77 H Band Neutrophils % 7 H Lymphocytes % (Manual) 10 L Monocytes % (Manual) 3 Eosinophils % (Manual) 1 Metamyelocytes % 1 H Myelocytes % 1 H Platelet Estimate Normal Hypochromasia (manual) Slight Puncture Site pCO2 pO2 HCO3 ABG pH ABG Total CO2 ABG O2 Saturation ABG Base Excess ABG Hemoglobin ABG Carboxyhemoglobin POC ABG HHb (Measured) ABG Methemoglobin Vince Test A-a O2 Difference Respiratory Index Hgb O2 Saturation Vent Mode Mechanical Rate FiO2 Tidal Volume PEEP Sodium 144 Potassium 3.9 Chloride 109 H Carbon Dioxide 31 H Anion Gap 8 L BUN 22 H Creatinine 0.5 L Est GFR ( Amer) > 60 Est GFR (Non-Af Amer) > 60 POC Glucose (mg/dL) Random Glucose 258 H Calcium 7.6 L Phosphorus 2.7 Magnesium 2.3 Total Bilirubin 0.4 AST 21 ALT 24 Alkaline Phosphatase 167 H Total Protein 6.0 L Albumin 2.4 L Globulin 3.6 Albumin/Globulin Ratio 0.7 L Ethanolamine Toxicology Panel Methyl Alcohol Level Isopropanol Acetone Level Fingerstick Blood Sugar Results: 195 Assessment/Plan - Assessment and Plan (Free Text) Assessment: 62F MRSA septicemia Plan: Psych: anxiety - Ativan, 1 mg IVP Q6H PRN Neuro: - Propofol 10 mg/ml Q24H PRN - Morphine 2 mg IVP Q6 PRN Cards: HTN - Lopressor 5 mg IV PRN - ASA 81 mg PO QD - Lasix 20 IVP once - MAY negative for endocarditis - LVEF 61.9% - Cardio (Malvin) Pulm: MRSA pneumonia, respiratory failure, CPAP trial failed - Intubated RR 22, Tidal 400, PEEP 5, FiO2 50 - Duoneb 3 mg/0.5 mg UD INH RQ4 - Zosyn 3.375 g in NS @ 100 mls/hr IVPB Q6H - Linezolid 600 mg in D5W @ 200 mls/hr IVPB Q12 - Vibramycin 100 mg in NS @ 100 mls/hr IVPB Q12 - Pulm (Meño) - ID (Mangia) GI: no acute issues - Tubefeeding: Glucerna 1.5 10 ml/hr, goal 50 ml/hr Renal: no acute issues Endo: DM Novolin ISS - Lantus 15 U SC Q12 - POC glucose 239 PPx: - Pepcid 40 mg PO QD - Eliquis 2.5 mg PO BID <Leeanne Balbuena - Last Filed: 09/08/17 15:36> CCU Subjective - Physician Review Critical Care Time Spent (in minutes): 35 CCU Objective - Vital Signs / Intake & Output Vital Signs (Last 4 hours): Vital Signs Temp Pulse Resp BP Pulse Ox 09/08/17 14:00 80 19 97 09/08/17 13:59 81 20 143/65 97 09/08/17 13:04 100.3 F H 09/08/17 13:00 82 27 H 97 09/08/17 12:59 82 17 144/63 97 09/08/17 12:04 102.3 F H 09/08/17 12:00 102.3 F H 88 18 95 09/08/17 11:59 88 17 133/66 97 Intake and Output (Last 8hrs): Intake & Output 02/09/2409/08/17 09/08/17 06:59 14:59 22:59 Intake Total 659 1307 Output Total 340 280 Balance 319 1027 Weight 160 lb Intake: IV 100 200 Intake, IV Amount 239 647 RIGHT BASILIC PICC BLUE 50 500 PORT RIGHT BASILIC PICC RED 189 147 PORT Oral 180 Tube Feeding 320 280 Output: Urine 340 280 Urethral (Nascimento) 340 280 Other: # Bowel Movements 2 0 - Medications Active Medications: Active Medications Generic Name Dose Route Start Last Admin Trade Name Freq PRN Reason Stop Dose Admin Acetaminophen 650 mg 09/03/17 08:43 09/03/17 21:18 Tylenol 325mg Tab PO 650 mg Q6 PRN Administration Temperature Acetaminophen 650 mg 09/05/17 16:41 09/08/17 12:04 Tylenol 650mg/20.3ml Solution Ud NG 650 mg Q6 PRN Administration temp of 101 Albuterol/Ipratropium 3 ml 09/07/17 14:00 09/08/17 14:12 Duoneb 3 Mg/0.5 Mg (3 Ml) Ud INH 3 ml RQ6 WILLIAM Administration Apixaban 2.5 mg 09/07/17 10:00 09/08/17 10:08 Eliquis PO 2.5 mg BID WILLIAM Administration Aspirin 81 mg 09/02/17 10:00 09/08/17 10:08 Aspirin Chewable PO 81 mg DAILY WILLIAM Administration Famotidine 40 mg 09/03/17 10:15 09/08/17 10:08 Pepcid PO 40 mg DAILY WILLIAM Administration Propofol 1,000 mg in 100 mls @ 2.096 mls/hr 09/02/17 11:23 09/08/17 14:33 Diprivan IV 50 mcg/kg/min .Q24H PRN 20.964 mls/hr TITRATE PER MD ORDER Administration Protocol 5 MCG/KG/MIN Piperacillin Sod/Tazobactam 100 mls @ 100 mls/hr 09/03/17 15:00 09/08/17 15: 30 Sod 3.375 gm/ Sodium Chloride IVPB 09/08/17 15:59 100 mls/hr Q6H WILLIAM Administration Linezolid 600 mg in 300 mls @ 200 mls/hr 09/03/17 22:00 09/08/17 10:07 Zyvox 600mg/300ml D5w IVPB 200 mls/hr Q12 WILLIAM Administration Doxycycline Hyclate 100 mg/ 100 mls @ 100 mls/hr 09/08/17 08:00 09/08/17 08: 32 Sodium Chloride IVPB 100 mls/hr Q12H WILLIAM Administration Piperacillin Sod/Tazobactam Sod 3.375 gm in 50 mls @ 100 mls/hr 09/08/17 21: 00 Zosyn 3.375 Gm Iv Premix IVPB Q6H [facility] Insulin Human Regular 0 unit 09/05/17 09:31 09/08/17 12:05 Novolin R SC 6 unit Q6 WILLIAM Administration Protocol Lorazepam 1 mg 09/03/17 10:49 09/07/17 09:00 Ativan IVP 1 mg Q6H PRN Administration Anxiety - Patient Studies Lab Studies: Microbiology Studies 09/04/17 18:45 Blood Culture - Preliminary Blood NO GROWTH AFTER 3 DAYS 09/04/17 19:15 S.aureus & Coag-Neg Staph PNA FISH - Final Blood Blood Culture - Preliminary Gram Pos Cocci In Clusters Gram Stain - Final Lab Studies 09/08/17 09/08/17 09/08/17 Range/Units 11:44 06:40 06:39 WBC 20.4 H (4.8-10.8) K/uL RBC 4.51 (3.80-5.20) Mil/uL Hgb 10.9 L (11.0-16.0) g/dL Hct 33.7 L (34.0-47.0) % MCV 74.9 L (81.0-99.0) fL MCH 24.2 L (27.0-31.0) pg MCHC 32.3 L (33.0-37.0) g/dL RDW 14.3 (11.5-14.5) % Plt Count 172 (130-400) K/uL MPV 8.6 (7.2-11.7) fL Neut % (Auto) 86.2 H (50.0-75.0) % Lymph % (Auto) 9.3 L (20.0-40.0) % Johnston % (Auto) 3.3 (0.0-10.0) % Eos % (Auto) 1.0 (0.0-4.0) % Baso % (Auto) 0.2 (0.0-2.0) % Neut # (Auto) 17.6 H (1.8-7.0) K/uL Lymph # (Auto) 1.9 (1.0-4.3) K/uL Johnston # (Auto) 0.7 (0.0-0.8) K/uL Eos # (Auto) 0.2 (0.0-0.7) K/uL Baso # (Auto) 0.0 (0.0-0.2) K/uL Neutrophils % (Manual) 77 H (50-75) % Band Neutrophils % 7 H (0-2) % Lymphocytes % (Manual) 10 L (20-40) % Monocytes % (Manual) 3 (0-10) % Eosinophils % (Manual) 1 (0-4) % Metamyelocytes % 1 H (0-0) % Myelocytes % 1 H (0-0) % Platelet Estimate Normal (NORMAL) Hypochromasia (manual) Slight Puncture Site pCO2 (35-45) mm/Hg pO2 (80-100) mm/Hg HCO3 (21-28) mmol/L ABG pH (7.35-7.45) ABG Total CO2 (22-28) mmol/L ABG O2 Saturation (95-98) % ABG Base Excess (-2.0-3.0) mmol/L ABG Hemoglobin (11.7-17.4) g/dL ABG Carboxyhemoglobin (0.5-1.5) % POC ABG HHb (Measured) (0.0-5.0) % ABG Methemoglobin (0.0-3.0) % Vince Test A-a O2 Difference mm/Hg Respiratory Index Hgb O2 Saturation (95.0-98.0) % Vent Mode Mechanical Rate FiO2 % Tidal Volume PEEP Sodium 144 (132-148) mmol/L Potassium 3.9 (3.6-5.2) mmol/L Chloride 109 H (98-107) mmol/L Carbon Dioxide 31 H (22-30) mmol/L Anion Gap 8 L (10-20) BUN 22 H (7-17) mg/dL Creatinine 0.5 L (0.7-1.2) mg/dL Est GFR ( Amer) > 60 Est GFR (Non-Af Amer) > 60 POC Glucose (mg/dL) 268 H (65-110) mg/dL Random Glucose 258 H (65-105) mg/dL Calcium 7.6 L (8.6-10.4) mg/dl Phosphorus 2.7 (2.5-4.5) mg/dL Magnesium 2.3 (1.6-2.3) mg/dL Total Bilirubin 0.4 (0.2-1.3) mg/dL AST 21 (14-36) U/L ALT 24 (9-52) U/L Alkaline Phosphatase 167 H (38-126) U/L Total Protein 6.0 L (6.3-8.3) g/dL Albumin 2.4 L (3.5-5.0) g/dL Globulin 3.6 (2.2-3.9) gm/dL Albumin/Globulin Ratio 0.7 L (1.0-2.1) Ethanolamine Toxicology Panel Methyl Alcohol Level Isopropanol Acetone Level mg/dL 09/08/17 09/08/17 09/08/17 Range/Units 05:36 04:40 00:06 WBC (4.8-10.8) K/uL RBC (3.80-5.20) Mil/uL Hgb (11.0-16.0) g/dL Hct (34.0-47.0) % MCV (81.0-99.0) fL MCH (27.0-31.0) pg MCHC (33.0-37.0) g/dL RDW (11.5-14.5) % Plt Count (130-400) K/uL MPV (7.2-11.7) fL Neut % (Auto) (50.0-75.0) % Lymph % (Auto) (20.0-40.0) % Johnston % (Auto) (0.0-10.0) % Eos % (Auto) (0.0-4.0) % Baso % (Auto) (0.0-2.0) % Neut # (Auto) (1.8-7.0) K/uL Lymph # (Auto) (1.0-4.3) K/uL Johnston # (Auto) (0.0-0.8) K/uL Eos # (Auto) (0.0-0.7) K/uL Baso # (Auto) (0.0-0.2) K/uL Neutrophils % (Manual) (50-75) % Band Neutrophils % (0-2) % Lymphocytes % (Manual) (20-40) % Monocytes % (Manual) (0-10) % Eosinophils % (Manual) (0-4) % Metamyelocytes % (0-0) % Myelocytes % (0-0) % Platelet Estimate (NORMAL) Hypochromasia (manual) Puncture Site Rr pCO2 40 (35-45) mm/Hg pO2 119 H (80-100) mm/Hg HCO3 27.6 (21-28) mmol/L ABG pH 7.45 (7.35-7.45) ABG Total CO2 29.0 H (22-28) mmol/L ABG O2 Saturation 99.5 H (95-98) % ABG Base Excess 3.5 H (-2.0-3.0) mmol/L ABG Hemoglobin 18.1 H (11.7-17.4) g/dL ABG Carboxyhemoglobin 1.8 H (0.5-1.5) % POC ABG HHb (Measured) 0.5 (0.0-5.0) % ABG Methemoglobin 1.1 (0.0-3.0) % Vince Test Pos A-a O2 Difference 259.0 mm/Hg Respiratory Index 2.2 Hgb O2 Saturation 96.6 (95.0-98.0) % Vent Mode Prvc Mechanical Rate 12 FiO2 60.0 % Tidal Volume 450 PEEP 5 Sodium (132-148) mmol/L Potassium (3.6-5.2) mmol/L Chloride (98-107) mmol/L Carbon Dioxide (22-30) mmol/L Anion Gap (10-20) BUN (7-17) mg/dL Creatinine (0.7-1.2) mg/dL Est GFR ( Amer) Est GFR (Non-Af Amer) POC Glucose (mg/dL) 195 H 181 H (65-110) mg/dL Random Glucose (65-105) mg/dL Calcium (8.6-10.4) mg/dl Phosphorus (2.5-4.5) mg/dL Magnesium (1.6-2.3) mg/dL Total Bilirubin (0.2-1.3) mg/dL AST (14-36) U/L ALT (9-52) U/L Alkaline Phosphatase (38-126) U/L Total Protein (6.3-8.3) g/dL Albumin (3.5-5.0) g/dL Globulin (2.2-3.9) gm/dL Albumin/Globulin Ratio (1.0-2.1) Ethanolamine Toxicology Panel Methyl Alcohol Level Isopropanol Acetone Level mg/dL 09/07/17 09/01/17 Range/Units 17:30 18:51 WBC (4.8-10.8) K/uL RBC (3.80-5.20) Mil/uL Hgb (11.0-16.0) g/dL Hct (34.0-47.0) % MCV (81.0-99.0) fL MCH (27.0-31.0) pg MCHC (33.0-37.0) g/dL RDW (11.5-14.5) % Plt Count (130-400) K/uL MPV (7.2-11.7) fL Neut % (Auto) (50.0-75.0) % Lymph % (Auto) (20.0-40.0) % Johnston % (Auto) (0.0-10.0) % Eos % (Auto) (0.0-4.0) % Baso % (Auto) (0.0-2.0) % Neut # (Auto) (1.8-7.0) K/uL Lymph # (Auto) (1.0-4.3) K/uL Johnston # (Auto) (0.0-0.8) K/uL Eos # (Auto) (0.0-0.7) K/uL Baso # (Auto) (0.0-0.2) K/uL Neutrophils % (Manual) (50-75) % Band Neutrophils % (0-2) % Lymphocytes % (Manual) (20-40) % Monocytes % (Manual) (0-10) % Eosinophils % (Manual) (0-4) % Metamyelocytes % (0-0) % Myelocytes % (0-0) % Platelet Estimate (NORMAL) Hypochromasia (manual) Puncture Site pCO2 (35-45) mm/Hg pO2 (80-100) mm/Hg HCO3 (21-28) mmol/L ABG pH (7.35-7.45) ABG Total CO2 (22-28) mmol/L ABG O2 Saturation (95-98) % ABG Base Excess (-2.0-3.0) mmol/L ABG Hemoglobin (11.7-17.4) g/dL ABG Carboxyhemoglobin (0.5-1.5) % POC ABG HHb (Measured) (0.0-5.0) % ABG Methemoglobin (0.0-3.0) % Vince Test A-a O2 Difference mm/Hg Respiratory Index Hgb O2 Saturation (95.0-98.0) % Vent Mode Mechanical Rate FiO2 % Tidal Volume PEEP Sodium (132-148) mmol/L Potassium (3.6-5.2) mmol/L Chloride (98-107) mmol/L Carbon Dioxide (22-30) mmol/L Anion Gap (10-20) BUN (7-17) mg/dL Creatinine (0.7-1.2) mg/dL Est GFR ( Amer) Est GFR (Non-Af Amer) POC Glucose (mg/dL) 179 H (65-110) mg/dL Random Glucose (65-105) mg/dL Calcium (8.6-10.4) mg/dl Phosphorus (2.5-4.5) mg/dL Magnesium (1.6-2.3) mg/dL Total Bilirubin (0.2-1.3) mg/dL AST (14-36) U/L ALT (9-52) U/L Alkaline Phosphatase (38-126) U/L Total Protein (6.3-8.3) g/dL Albumin (3.5-5.0) g/dL Globulin (2.2-3.9) gm/dL Albumin/Globulin Ratio (1.0-2.1) Ethanolamine None detected Toxicology Panel see note Methyl Alcohol Level None detected Isopropanol None detected Acetone Level 28 H mg/dL Laboratory Results - last 24 hr 09/01/17 09/07/17 09/08/17 18:51 17:30 00:06 WBC RBC Hgb Hct MCV MCH MCHC RDW Plt Count MPV Neut % (Auto) Lymph % (Auto) Johnston % (Auto) Eos % (Auto) Baso % (Auto) Neut # (Auto) Lymph # (Auto) Johnston # (Auto) Eos # (Auto) Baso # (Auto) Neutrophils % (Manual) Band Neutrophils % Lymphocytes % (Manual) Monocytes % (Manual) Eosinophils % (Manual) Metamyelocytes % Myelocytes % Platelet Estimate Hypochromasia (manual) Puncture Site pCO2 pO2 HCO3 ABG pH ABG Total CO2 ABG O2 Saturation ABG Base Excess ABG Hemoglobin ABG Carboxyhemoglobin POC ABG HHb (Measured) ABG Methemoglobin Vince Test A-a O2 Difference Respiratory Index Hgb O2 Saturation Vent Mode Mechanical Rate FiO2 Tidal Volume PEEP Sodium Potassium Chloride Carbon Dioxide Anion Gap BUN Creatinine Est GFR ( Amer) Est GFR (Non-Af Amer) POC Glucose (mg/dL) 179 H 181 H Random Glucose Calcium Phosphorus Magnesium Total Bilirubin AST ALT Alkaline Phosphatase Total Protein Albumin Globulin Albumin/Globulin Ratio Ethanolamine None detected Toxicology Panel see note Methyl Alcohol Level None detected Isopropanol None detected Acetone Level 28 H 09/08/17 09/08/17 09/08/17 04:40 05:36 06:39 WBC 20.4 H RBC 4.51 Hgb 10.9 L Hct 33.7 L MCV 74.9 L MCH 24.2 L MCHC 32.3 L RDW 14.3 Plt Count 172 MPV 8.6 Neut % (Auto) 86.2 H Lymph % (Auto) 9.3 L Johnston % (Auto) 3.3 Eos % (Auto) 1.0 Baso % (Auto) 0.2 Neut # (Auto) 17.6 H Lymph # (Auto) 1.9 Johnston # (Auto) 0.7 Eos # (Auto) 0.2 Baso # (Auto) 0.0 Neutrophils % (Manual) 77 H Band Neutrophils % 7 H Lymphocytes % (Manual) 10 L Monocytes % (Manual) 3 Eosinophils % (Manual) 1 Metamyelocytes % 1 H Myelocytes % 1 H Platelet Estimate Normal Hypochromasia (manual) Slight Puncture Site Rr pCO2 40 pO2 119 H HCO3 27.6 ABG pH 7.45 ABG Total CO2 29.0 H ABG O2 Saturation 99.5 H ABG Base Excess 3.5 H ABG Hemoglobin 18.1 H ABG Carboxyhemoglobin 1.8 H POC ABG HHb (Measured) 0.5 ABG Methemoglobin 1.1 Vince Test Pos A-a O2 Difference 259.0 Respiratory Index 2.2 Hgb O2 Saturation 96.6 Vent Mode Prvc Mechanical Rate 12 FiO2 60.0 Tidal Volume 450 PEEP 5 Sodium Potassium Chloride Carbon Dioxide Anion Gap BUN Creatinine Est GFR ( Amer) Est GFR (Non-Af Amer) POC Glucose (mg/dL) 195 H Random Glucose Calcium Phosphorus Magnesium Total Bilirubin AST ALT Alkaline Phosphatase Total Protein Albumin Globulin Albumin/Globulin Ratio Ethanolamine Toxicology Panel Methyl Alcohol Level Isopropanol Acetone Level 09/08/17 09/08/17 06:40 11:44 WBC RBC Hgb Hct MCV MCH MCHC RDW Plt Count MPV Neut % (Auto) Lymph % (Auto) Johnston % (Auto) Eos % (Auto) Baso % (Auto) Neut # (Auto) Lymph # (Auto) Johnston # (Auto) Eos # (Auto) Baso # (Auto) Neutrophils % (Manual) Band Neutrophils % Lymphocytes % (Manual) Monocytes % (Manual) Eosinophils % (Manual) Metamyelocytes % Myelocytes % Platelet Estimate Hypochromasia (manual) Puncture Site pCO2 pO2 HCO3 ABG pH ABG Total CO2 ABG O2 Saturation ABG Base Excess ABG Hemoglobin ABG Carboxyhemoglobin POC ABG HHb (Measured) ABG Methemoglobin Vince Test A-a O2 Difference Respiratory Index Hgb O2 Saturation Vent Mode Mechanical Rate FiO2 Tidal Volume PEEP Sodium 144 Potassium 3.9 Chloride 109 H Carbon Dioxide 31 H Anion Gap 8 L BUN 22 H Creatinine 0.5 L Est GFR ( Amer) > 60 Est GFR (Non-Af Amer) > 60 POC Glucose (mg/dL) 268 H Random Glucose 258 H Calcium 7.6 L Phosphorus 2.7 Magnesium 2.3 Total Bilirubin 0.4 AST 21 ALT 24 Alkaline Phosphatase 167 H Total Protein 6.0 L Albumin 2.4 L Globulin 3.6 Albumin/Globulin Ratio 0.7 L Ethanolamine Toxicology Panel Methyl Alcohol Level Isopropanol Acetone Level Assessment/Plan - Assessment and Plan (Free Text) Plan: Above resident note reviewed and verified. above management discussed and verified -allergies verified -medications verified -labs reviewed and verified MRSA Pneumonia with bacteremia: abx as per ID -hypoxic respiratory failure: Fio2 40%, tolerating CPAP -continue ng tube feeds -continue dvt/pud ppx Patient remains hemodynamically stable cc time 35 minutes - Date & Time Date: 09/08/17 Time: 12:00
--- NOTE | 2017-09-08 11:45 | CP.PCM.PN ---
Subjective - Date & Time of Evaluation Date of Evaluation: 09/08/17 Time of Evaluation: 11:43 - Subjective Subjective: slow improvement.tolearting cpap. Objective - Vital Signs/Intake and Output Vital Signs (last 24 hours): Temp Pulse Resp BP Pulse Ox 100.8 F H 87 13 138/61 98 09/08/17 08:04 09/08/17 11:00 09/08/17 11:00 09/08/17 10:59 09/08/17 11:00 Intake and Output: 09/08/17 09/08/17 06:59 18:59 Intake Total 1193 974 Output Total 450 150 Balance 743 824 - Medications Medications: Current Medications Acetaminophen (Tylenol 325mg Tab) 650 mg PO Q6 PRN PRN Reason: Temperature Last Admin: 09/03/17 21:18 Dose: 650 mg Acetaminophen (Tylenol 650mg/20.3ml Solution Ud) 650 mg NG Q6 PRN PRN Reason: temp of 101 Last Admin: 09/08/17 08:04 Dose: 650 mg Albuterol/Ipratropium (Duoneb 3 Mg/0.5 Mg (3 Ml) Ud) 3 ml INH RQ6 [facility] Last Admin: 09/08/17 08:04 Dose: 3 ml Apixaban (Eliquis) 2.5 mg PO BID [facility] Last Admin: 09/08/17 10:08 Dose: 2.5 mg Aspirin (Aspirin Chewable) 81 mg PO DAILY [facility] Last Admin: 09/08/17 10:08 Dose: 81 mg Famotidine (Pepcid) 40 mg PO DAILY [facility] Last Admin: 09/08/17 10:08 Dose: 40 mg Propofol (Diprivan) 1,000 mg in 100 mls @ 2.096 mls/hr IV .Q24H PRN; Protocol; 5 MCG/KG/MIN PRN Reason: TITRATE PER MD ORDER Last Admin: 09/08/17 10:09 Dose: 50 mcg/kg/min, 20.964 mls/hr Piperacillin Sod/Tazobactam (Sod 3.375 gm/ Sodium Chloride) 100 mls @ 100 mls/ hr IVPB Q6H [facility] Last Admin: 09/08/17 09:45 Dose: 100 mls/hr Linezolid (Zyvox 600mg/300ml D5w) 600 mg in 300 mls @ 200 mls/hr IVPB Q12 [facility] Last Admin: 09/08/17 10:07 Dose: 200 mls/hr Doxycycline Hyclate 100 mg/ (Sodium Chloride) 100 mls @ 100 mls/hr IVPB Q12H [facility] Last Admin: 09/08/17 08:32 Dose: 100 mls/hr Insulin Human Regular (Novolin R) 0 unit SC Q6 [facility] PRN Reason: Protocol Last Admin: 09/08/17 05:41 Dose: 2 unit Lorazepam (Ativan) 1 mg IVP Q6H PRN PRN Reason: Anxiety Last Admin: 09/07/17 09:00 Dose: 1 mg - Labs Labs: 09/08/17 06:39 09/08/17 06:40 PT 14.3 SECONDS (9.7-12.2) H 09/01/17 09:49 INR 1.2 09/01/17 09:49 APTT 32 SECONDS (21-34) 09/01/17 09:49 - Constitutional Appears: No Acute Distress - Eye Exam Eye Exam: Normal appearance - Neck Exam Neck Exam: Normal Inspection - Respiratory Exam Respiratory Exam: Rhonchi - Cardiovascular Exam Cardiovascular Exam: REGULAR RHYTHM - GI/Abdominal Exam GI & Abdominal Exam: Soft - Extremities Exam Extremities Exam: absent: Pedal Edema Assessment and Plan - Assessment and Plan (Free Text) Assessment: pneumonia.better.hopefully extubate in a day or two
--- NOTE | 2017-09-08 12:31 | CP.PCM.PN ---
Subjective - Date & Time of Evaluation Date of Evaluation: 09/08/17 Time of Evaluation: 08:00 - Subjective Subjective: the patient seen and examined Improving oxygenation Tolerating CPAP resolving infiltrate on chest x-ray Objective - Vital Signs/Intake and Output Vital Signs (last 24 hours): Temp Pulse Resp BP Pulse Ox 102.3 F H 87 13 138/61 98 09/08/17 12:04 09/08/17 11:00 09/08/17 11:00 09/08/17 10:59 09/08/17 11:00 Intake and Output: 09/08/17 09/08/17 06:59 18:59 Intake Total 1193 974 Output Total 450 150 Balance 743 824 - Medications Medications: Current Medications Acetaminophen (Tylenol 325mg Tab) 650 mg PO Q6 PRN PRN Reason: Temperature Last Admin: 09/03/17 21:18 Dose: 650 mg Acetaminophen (Tylenol 650mg/20.3ml Solution Ud) 650 mg NG Q6 PRN PRN Reason: temp of 101 Last Admin: 09/08/17 12:04 Dose: 650 mg Albuterol/Ipratropium (Duoneb 3 Mg/0.5 Mg (3 Ml) Ud) 3 ml INH RQ6 [facility] Last Admin: 09/08/17 08:04 Dose: 3 ml Apixaban (Eliquis) 2.5 mg PO BID [facility] Last Admin: 09/08/17 10:08 Dose: 2.5 mg Aspirin (Aspirin Chewable) 81 mg PO DAILY [facility] Last Admin: 09/08/17 10:08 Dose: 81 mg Famotidine (Pepcid) 40 mg PO DAILY [facility] Last Admin: 09/08/17 10:08 Dose: 40 mg Propofol (Diprivan) 1,000 mg in 100 mls @ 2.096 mls/hr IV .Q24H PRN; Protocol; 5 MCG/KG/MIN PRN Reason: TITRATE PER MD ORDER Last Admin: 09/08/17 10:09 Dose: 50 mcg/kg/min, 20.964 mls/hr Piperacillin Sod/Tazobactam (Sod 3.375 gm/ Sodium Chloride) 100 mls @ 100 mls/ hr IVPB Q6H [facility] Last Admin: 09/08/17 09:45 Dose: 100 mls/hr Linezolid (Zyvox 600mg/300ml D5w) 600 mg in 300 mls @ 200 mls/hr IVPB Q12 [facility] Last Admin: 09/08/17 10:07 Dose: 200 mls/hr Doxycycline Hyclate 100 mg/ (Sodium Chloride) 100 mls @ 100 mls/hr IVPB Q12H [facility] Last Admin: 09/08/17 08:32 Dose: 100 mls/hr Insulin Human Regular (Novolin R) 0 unit SC Q6 [facility] PRN Reason: Protocol Last Admin: 09/08/17 12:05 Dose: 6 unit Lorazepam (Ativan) 1 mg IVP Q6H PRN PRN Reason: Anxiety Last Admin: 09/07/17 09:00 Dose: 1 mg - Labs Labs: 09/08/17 06:39 09/08/17 06:40 PT 14.3 SECONDS (9.7-12.2) H 09/01/17 09:49 INR 1.2 09/01/17 09:49 APTT 32 SECONDS (21-34) 09/01/17 09:49 - Head Exam Head Exam: ATRAUMATIC, NORMOCEPHALIC - ENT Exam ENT Exam: Mucous Membranes Moist - Neck Exam Neck Exam: Normal Inspection - Respiratory Exam Respiratory Exam: Rales - Cardiovascular Exam Cardiovascular Exam: REGULAR RHYTHM - GI/Abdominal Exam GI & Abdominal Exam: Soft, Normal Bowel Sounds - Neurological Exam Neurological Exam: Altered Assessment and Plan (1) Acute respiratory failure with hypoxemia Assessment & Plan: resolving infiltrate Improving oxygenation Continue antibiotics Continue weaning trial Status: Acute (2) Pneumonia Status: Acute (3) DKA (diabetic ketoacidoses) Status: Acute (4) Sepsis Status: Acute
--- NOTE | 2017-09-08 18:09 | CP.PCM.PN ---
Subjective - Date & Time of Evaluation Date of Evaluation: 09/08/17 Time of Evaluation: 08:00 - Subjective Subjective: intubated arousable family at bedside NAD MRSA + pneumonia rx in progress weaning in progress Objective - Vital Signs/Intake and Output Vital Signs (last 24 hours): Temp Pulse Resp BP Pulse Ox 99.5 F 65 16 165/71 H 95 09/08/17 16:00 09/08/17 17:00 09/08/17 17:00 09/08/17 16:59 09/08/17 17:00 Intake and Output: 09/08/17 09/08/17 06:59 18:59 Intake Total 1193 1640 Output Total 450 400 Balance 743 1240 - Medications Medications: Current Medications Acetaminophen (Tylenol 325mg Tab) 650 mg PO Q6 PRN PRN Reason: Temperature Last Admin: 09/03/17 21:18 Dose: 650 mg Acetaminophen (Tylenol 650mg/20.3ml Solution Ud) 650 mg NG Q6 PRN PRN Reason: temp of 101 Last Admin: 09/08/17 12:04 Dose: 650 mg Albuterol/Ipratropium (Duoneb 3 Mg/0.5 Mg (3 Ml) Ud) 3 ml INH RQ6 [facility] Last Admin: 09/08/17 14:12 Dose: 3 ml Apixaban (Eliquis) 2.5 mg PO BID [facility] Last Admin: 09/08/17 10:08 Dose: 2.5 mg Aspirin (Aspirin Chewable) 81 mg PO DAILY [facility] Last Admin: 09/08/17 10:08 Dose: 81 mg Famotidine (Pepcid) 40 mg PO DAILY [facility] Last Admin: 09/08/17 10:08 Dose: 40 mg Propofol (Diprivan) 1,000 mg in 100 mls @ 2.096 mls/hr IV .Q24H PRN; Protocol; 5 MCG/KG/MIN PRN Reason: TITRATE PER MD ORDER Last Admin: 09/08/17 14:33 Dose: 50 mcg/kg/min, 20.964 mls/hr Linezolid (Zyvox 600mg/300ml D5w) 600 mg in 300 mls @ 200 mls/hr IVPB Q12 [facility] Last Admin: 09/08/17 10:07 Dose: 200 mls/hr Doxycycline Hyclate 100 mg/ (Sodium Chloride) 100 mls @ 100 mls/hr IVPB Q12H [facility] Last Admin: 09/08/17 08:32 Dose: 100 mls/hr Piperacillin Sod/Tazobactam Sod (Zosyn 3.375 Gm Iv Premix) 3.375 gm in 50 mls @ 100 mls/hr IVPB Q6H [facility] Insulin Human Regular (Novolin R) 0 unit SC Q6 [facility] PRN Reason: Protocol Last Admin: 09/08/17 12:05 Dose: 6 unit Lorazepam (Ativan) 1 mg IVP Q6H PRN PRN Reason: Anxiety Last Admin: 09/07/17 09:00 Dose: 1 mg - Labs Labs: 09/08/17 06:39 09/08/17 06:40 PT 14.3 SECONDS (9.7-12.2) H 09/01/17 09:49 INR 1.2 09/01/17 09:49 APTT 32 SECONDS (21-34) 09/01/17 09:49 - Constitutional Appears: Cachectic, Chronically Ill - Head Exam Head Exam: NORMOCEPHALIC - Eye Exam Eye Exam: absent: Scleral icterus - ENT Exam ENT Exam: Mucous Membranes Dry - Neck Exam Neck Exam: absent: Lymphadenopathy - Respiratory Exam Respiratory Exam: Decreased Breath Sounds - Cardiovascular Exam Cardiovascular Exam: REGULAR RHYTHM - GI/Abdominal Exam GI & Abdominal Exam: Distended, Soft - Rectal Exam Rectal Exam: Deferred - Exam Exam: NORMAL INSPECTION - Extremities Exam Extremities Exam: absent: Pedal Edema - Back Exam Back Exam: absent: CVA tenderness (L), CVA tenderness (R) - Neurological Exam Neurological Exam: Altered Neuro motor strength exam: Left Upper Extremity: 4, Right Upper Extremity: 4, Left Lower Extremity: 4, Right Lower Extremity: 4 - Psychiatric Exam Psychiatric exam: Depressed Assessment and Plan (1) DKA (diabetic ketoacidoses) Status: Acute (2) Pneumonia Status: Acute (3) Sepsis Status: Acute - Assessment and Plan (Free Text) Assessment: cont iv zyvox reculture
[2017-09-08] MEDS: Piperacill/Tazo 3.375gm in Dex 3.375 GM/50 ML BAG IVPB SCH (20:56)
[2017-09-09] MEDS: (Novolin R) Insulin Human Regular 100 units/ml vial SC SCH ×4 (00:10→18:21)
[2017-09-09] MEDS: Propofol 10 mg/ml 1,000 MG/100 ML VIAL IV PRN (01:09)
[2017-09-09] MEDS: Albuterol-Ipratrop 3 mg / 0.5 (3 ml) UD INH SCH ×4 (01:24→19:28)
[2017-09-09] MEDS: Piperacill/Tazo 3.375gm in Dex 3.375 GM/50 ML BAG IVPB SCH ×3 (02:59→14:33)
[2017-09-09 06:46] LABS: BASO # 0.1 K/uL (0.0-0.2); BASO % 0.3 % (0.0-2.0); EOS # 0.2 K/uL (0.0-0.7); EOS % 0.8 % (0.0-4.0); HEMOGLOBIN 10.6 g/dL (11.0-16.0); LYMPH # 1.6 K/uL (1.0-4.3); LYMPH % 6.8 % (20.0-40.0); MEAN CELL VOLUME 75.1 fL (81.0-99.0); MEAN CORPUSCULAR HEMOGLOBIN 24.1 pg (27.0-31.0); MEAN PLATELET VOLUME 9.1 fL (7.2-11.7); MONO # 0.6 K/uL (0.0-0.8); MONO % 2.8 % (0.0-10.0); NEUT # 20.3 K/uL (1.8-7.0); NEUT % 89.3 % (50.0-75.0); PLATELET COUNT 114 K/uL (130-400); RED CELL DISTRIBUTION WIDTH 14.1 % (11.5-14.5); WHITE BLOOD COUNT 22.8 K/uL (4.8-10.8)
[2017-09-09 07:02] LABS: ALB/GLOB RATIO 0.6 (1.0-2.1); ALBUMIN 2.5 g/dL (3.5-5.0); ALT/SGPT 13 U/L (9-52); AST/SGOT 33 U/L (14-36); BLOOD UREA NITROGEN 17 mg/dL (7-17); CALCIUM 7.5 mg/dl (8.6-10.4); GFR AFRICAN-AMERICAN > 60; GFR NON-AFRICAN AMERICAN > 60; MAGNESIUM 2.1 mg/dL (1.6-2.3)
[2017-09-09 07:03] LABS: ABG ALLEN TEST POS; ARTERIAL BLOOD GAS HCO3 29.3 mmol/L (21-28); ARTERIAL BLOOD GAS O2 SAT 99.5 % (95-98); ARTERIAL BLOOD GAS PCO2 41 mm/Hg (35-45); ARTERIAL BLOOD GAS PH 7.47 (7.35-7.45); ARTERIAL BLOOD GAS PO2 104 mm/Hg (80-100); ARTERIAL BLOOD GAS TCO2 31.1 mmol/L (22-28)
[2017-09-09 10:17] LABS: BANDS 1 % (0-2); LYMPHOCYTE 12 % (20-40); MONOCYTE 2 % (0-10); NEUTROPHIL 84 % (50-75); REACTIVE LYMPHOCYTES 1 % (0-0); TOTAL CELLS COUNTED 100
[2017-09-09 10:18] LABS: ANISOCYTOSIS SLIGHT; MICROCYTOSIS SLIGHT; PLATELET ESTIMATE SLIGHTLY DECREASED (NORMAL); POLYCHROMIC SLIGHT
[2017-09-09] MEDS: Linezolid 600 mg in D5W 300 ml 600 MG/300 ML BAG IVPB SCH ×2 (10:32→21:07)
--- NOTE | 2017-09-09 11:06 | CP.CCUPN ---
CCU Subjective - Physician Review Events Since Last Encounter (Free Text): 09/09/17 11:06 62-year-old female with history of diabetes and hypertension admitted with acute pneumonia, complicated with respiratory insufficiency hypoxic. Patient currently having Staphylococcus aureus persistent infection in the blood , and in the lungs. In spite of Zyvox patient is not improving yet. 3 days ago the culture is positive. Low-grade fever noted. Patient is awake and responding now, on CPAP trial, tolerating. Pressure is also elevated On examination: Vital signs. Afebrile, temperature is 90.9. Pulse 81, saturating 98% blood pressure 154/74 respiration is 18 Chest bilateral good air entry regular heart sounds nontender abdomen edema 1+ Labs reviewed Mild elevation of the WBC noted, diarrhea present, stool C. difficile is pending Chest x-ray persistent infiltrate bilaterally noted Assessment and recommendation: 61-year-old female with a history of diabetes and hypertension admitted with acute respiratory insufficiency following the acute pneumonia, complicated with respiratory failure. Improving, CPAP trial possibly extubate CCU Objective - Vital Signs / Intake & Output Vital Signs (Last 4 hours): Vital Signs Temp Pulse Resp BP Pulse Ox 09/09/17 10:00 80 15 141/70 99 09/09/17 09:00 83 19 144/69 98 09/09/17 08:01 77 22 144/69 94 L 09/09/17 08:00 98.0 F 98 Intake and Output (Last 8hrs): Intake & Output 09/08/17 09/09/17 09/09/17 22:59 06:59 14:59 Intake Total 1231.7 442.9 506.6 Output Total 395 520 180 Balance 836.7 -77.1 326.6 Weight 162 lb 3.2 oz Intake: IV 100 100 82 Intake, IV Amount 711.7 102.9 304.6 RIGHT BASILIC PICC BLUE 550 283 PORT RIGHT BASILIC PICC RED 161.7 102.9 21.6 PORT Oral 150 Tube Feeding 270 240 120 Output: Urine 395 520 180 Urethral (Nascimento) 395 520 180 Other: # Bowel Movements 0 0 0 - Physical Exam Head: Positive for: Atraumatic, Normocephalic Pupils: Positive for: PERRL Conjunctiva: Positive for: Normal Mouth: Positive for: Moist Mucous Membranes Respiratory/Chest: Positive for: Accessory Muscle Use, Wheezes, Rhonchi, Tachypneic Cardiovascular: Positive for: Regular Rate and Rhythm, Normal S1, S2 - Medications Active Medications: Active Medications Generic Name Dose Route Start Last Admin Trade Name Freq PRN Reason Stop Dose Admin Acetaminophen 650 mg 09/03/17 08:43 09/03/17 21:18 Tylenol 325mg Tab PO 650 mg Q6 PRN Administration Temperature Acetaminophen 650 mg 09/05/17 16:41 09/08/17 12:04 Tylenol 650mg/20.3ml Solution Ud NG 650 mg Q6 PRN Administration temp of 101 Albuterol/Ipratropium 3 ml 09/07/17 14:00 09/09/17 08:13 Duoneb 3 Mg/0.5 Mg (3 Ml) Ud INH 3 ml RQ6 [facility] Administration Apixaban 2.5 mg 09/07/17 10:00 09/09/17 09:03 Eliquis PO 2.5 mg BID WILLIAM Administration Aspirin 81 mg 09/02/17 10:00 09/09/17 09:00 Aspirin Chewable PO 81 mg DAILY [facility] Administration Famotidine 40 mg 09/03/17 10:15 09/09/17 09:03 Pepcid PO 40 mg DAILY [facility] Administration Propofol 1,000 mg in 100 mls @ 2.096 mls/hr 09/02/17 11:23 09/09/17 10:00 Diprivan IV 0 mcg/kg/min .Q24H PRN 0 mls/hr TITRATE PER MD ORDER Titration Protocol 5 MCG/KG/MIN Linezolid 600 mg in 300 mls @ 200 mls/hr 09/03/17 22:00 09/09/17 10:32 Zyvox 600mg/300ml D5w IVPB 200 mls/hr Q12 [facility] Administration Doxycycline Hyclate 100 mg/ 100 mls @ 100 mls/hr 09/08/17 08:00 09/09/17 07: 41 Sodium Chloride IVPB 100 mls/hr Q12H [facility] Administration Piperacillin Sod/Tazobactam Sod 3.375 gm in 50 mls @ 100 mls/hr 09/08/17 21: 00 09/09/17 08:57 Zosyn 3.375 Gm Iv Premix IVPB 100 mls/hr Q6H [facility] Administration Insulin Human Regular 0 unit 09/05/17 09:31 09/09/17 06:46 Novolin R SC 4 unit Q6 [facility] Administration Protocol Lorazepam 1 mg 09/03/17 10:49 09/07/17 09:00 Ativan IVP 1 mg Q6H PRN Administration Anxiety Vancomycin HCl 250 mg 09/09/17 14:00 Vancocin (Oral Or Rectal Use) PO QID [facility] - Patient Studies Lab Studies: Microbiology Studies 09/04/17 19:15 S.aureus & Coag-Neg Staph PNA FISH - Final Blood Blood Culture - Final Coagulase Neg Staphylococcus Gram Stain - Final 09/04/17 18:45 Blood Culture - Preliminary Blood NO GROWTH AFTER 4 DAYS Lab Studies 09/09/17 09/09/17 09/09/17 Range/Units 06:38 06:38 06:21 WBC 22.8 H (4.8-10.8) K/uL RBC 4.40 (3.80-5.20) Mil/uL Hgb 10.6 L (11.0-16.0) g/dL Hct 33.1 L (34.0-47.0) % MCV 75.1 L (81.0-99.0) fL MCH 24.1 L (27.0-31.0) pg MCHC 32.0 L (33.0-37.0) g/dL RDW 14.1 (11.5-14.5) % Plt Count 114 L D (130-400) K/uL MPV 9.1 (7.2-11.7) fL Neut % (Auto) 89.3 H (50.0-75.0) % Lymph % (Auto) 6.8 L (20.0-40.0) % [place] % (Auto) 2.8 (0.0-10.0) % Eos % (Auto) 0.8 (0.0-4.0) % Baso % (Auto) 0.3 (0.0-2.0) % Neut # (Auto) 20.3 H (1.8-7.0) K/uL Lymph # (Auto) 1.6 (1.0-4.3) K/uL [place] # (Auto) 0.6 (0.0-0.8) K/uL Eos # (Auto) 0.2 (0.0-0.7) K/uL Baso # (Auto) 0.1 (0.0-0.2) K/uL Neutrophils % (Manual) 84 H (50-75) % Band Neutrophils % 1 (0-2) % Lymphocytes % (Manual) 12 L (20-40) % Reactive Lymphs % 1 H (0-0) % Monocytes % (Manual) 2 (0-10) % Platelet Estimate Slightly decreased L (NORMAL) Polychromasia Slight Anisocytosis (manual) Slight Microcytosis (manual) Slight Puncture Site pCO2 (35-45) mm/Hg pO2 (80-100) mm/Hg HCO3 (21-28) mmol/L ABG pH (7.35-7.45) ABG Total CO2 (22-28) mmol/L ABG O2 Saturation (95-98) % ABG Base Excess (-2.0-3.0) mmol/L Vince Test ABG Potassium (3.6-5.2) mmol/L A-a O2 Difference mm/Hg Respiratory Index Sodium 139 (132-148) mmol/l Chloride 106 (98-107) mmol/L Glucose (65-105) mg/dl Lactate (0.7-2.1) mmol/L Vent Mode Mechanical Rate FiO2 % Tidal Volume PEEP Potassium 5.6 H (3.6-5.2) mmol/L Carbon Dioxide 31 H (22-30) mmol/L Anion Gap 8 L (10-20) BUN 17 (7-17) mg/dL Creatinine 0.3 L (0.7-1.2) mg/dL Est GFR ( Amer) > 60 Est GFR (Non-Af Amer) > 60 POC Glucose (mg/dL) 203 H (65-110) mg/dL Random Glucose 205 H (65-105) mg/dL Calcium 7.5 L (8.6-10.4) mg/dl Phosphorus 3.0 (2.5-4.5) mg/dL Magnesium 2.1 (1.6-2.3) mg/dL Total Bilirubin 0.9 (0.2-1.3) mg/dL AST 33 (14-36) U/L ALT 13 (9-52) U/L Alkaline Phosphatase 153 H (38-126) U/L Total Protein 6.4 (6.3-8.3) g/dL Albumin 2.5 L (3.5-5.0) g/dL Globulin 3.9 (2.2-3.9) gm/dL Albumin/Globulin Ratio 0.6 L (1.0-2.1) Arterial Blood Potassium (3.6-5.2) mmol/L 09/09/17 09/08/17 09/08/17 Range/Units 05:02 23:57 18:19 WBC (4.8-10.8) K/uL RBC (3.80-5.20) Mil/uL Hgb (11.0-16.0) g/dL Hct (34.0-47.0) % MCV (81.0-99.0) fL MCH (27.0-31.0) pg MCHC (33.0-37.0) g/dL RDW (11.5-14.5) % Plt Count (130-400) K/uL MPV (7.2-11.7) fL Neut % (Auto) (50.0-75.0) % Lymph % (Auto) (20.0-40.0) % [place] % (Auto) (0.0-10.0) % Eos % (Auto) (0.0-4.0) % Baso % (Auto) (0.0-2.0) % Neut # (Auto) (1.8-7.0) K/uL Lymph # (Auto) (1.0-4.3) K/uL [place] # (Auto) (0.0-0.8) K/uL Eos # (Auto) (0.0-0.7) K/uL Baso # (Auto) (0.0-0.2) K/uL Neutrophils % (Manual) (50-75) % Band Neutrophils % (0-2) % Lymphocytes % (Manual) (20-40) % Reactive Lymphs % (0-0) % Monocytes % (Manual) (0-10) % Platelet Estimate (NORMAL) Polychromasia Anisocytosis (manual) Microcytosis (manual) Puncture Site Rr pCO2 41 (35-45) mm/Hg pO2 104 H (80-100) mm/Hg HCO3 29.3 H (21-28) mmol/L ABG pH 7.47 H (7.35-7.45) ABG Total CO2 31.1 H (22-28) mmol/L ABG O2 Saturation 99.5 H (95-98) % ABG Base Excess 5.6 H (-2.0-3.0) mmol/L Vince Test Pos ABG Potassium 3.4 L (3.6-5.2) mmol/L A-a O2 Difference 94.0 mm/Hg Respiratory Index 0.9 Sodium 145.0 (132-148) mmol/l Chloride 115.0 H (98-107) mmol/L Glucose 216 H (65-105) mg/dl Lactate 1.4 (0.7-2.1) mmol/L Vent Mode Prvc Mechanical Rate 12 FiO2 35.0 % Tidal Volume 450 PEEP 5 Potassium (3.6-5.2) mmol/L Carbon Dioxide (22-30) mmol/L Anion Gap (10-20) BUN (7-17) mg/dL Creatinine (0.7-1.2) mg/dL Est GFR ( Amer) Est GFR (Non-Af Amer) POC Glucose (mg/dL) 242 H 244 H (65-110) mg/dL Random Glucose (65-105) mg/dL Calcium (8.6-10.4) mg/dl Phosphorus (2.5-4.5) mg/dL Magnesium (1.6-2.3) mg/dL Total Bilirubin (0.2-1.3) mg/dL AST (14-36) U/L ALT (9-52) U/L Alkaline Phosphatase (38-126) U/L Total Protein (6.3-8.3) g/dL Albumin (3.5-5.0) g/dL Globulin (2.2-3.9) gm/dL Albumin/Globulin Ratio (1.0-2.1) Arterial Blood Potassium 3.4 L (3.6-5.2) mmol/L 09/08/17 Range/Units 11:44 WBC (4.8-10.8) K/uL RBC (3.80-5.20) Mil/uL Hgb (11.0-16.0) g/dL Hct (34.0-47.0) % MCV (81.0-99.0) fL MCH (27.0-31.0) pg MCHC (33.0-37.0) g/dL RDW (11.5-14.5) % Plt Count (130-400) K/uL MPV (7.2-11.7) fL Neut % (Auto) (50.0-75.0) % Lymph % (Auto) (20.0-40.0) % [place] % (Auto) (0.0-10.0) % Eos % (Auto) (0.0-4.0) % Baso % (Auto) (0.0-2.0) % Neut # (Auto) (1.8-7.0) K/uL Lymph # (Auto) (1.0-4.3) K/uL [place] # (Auto) (0.0-0.8) K/uL Eos # (Auto) (0.0-0.7) K/uL Baso # (Auto) (0.0-0.2) K/uL Neutrophils % (Manual) (50-75) % Band Neutrophils % (0-2) % Lymphocytes % (Manual) (20-40) % Reactive Lymphs % (0-0) % Monocytes % (Manual) (0-10) % Platelet Estimate (NORMAL) Polychromasia Anisocytosis (manual) Microcytosis (manual) Puncture Site pCO2 (35-45) mm/Hg pO2 (80-100) mm/Hg HCO3 (21-28) mmol/L ABG pH (7.35-7.45) ABG Total CO2 (22-28) mmol/L ABG O2 Saturation (95-98) % ABG Base Excess (-2.0-3.0) mmol/L Vince Test ABG Potassium (3.6-5.2) mmol/L A-a O2 Difference mm/Hg Respiratory Index Sodium (132-148) mmol/l Chloride (98-107) mmol/L Glucose (65-105) mg/dl Lactate (0.7-2.1) mmol/L Vent Mode Mechanical Rate FiO2 % Tidal Volume PEEP Potassium (3.6-5.2) mmol/L Carbon Dioxide (22-30) mmol/L Anion Gap (10-20) BUN (7-17) mg/dL Creatinine (0.7-1.2) mg/dL Est GFR ( Amer) Est GFR (Non-Af Amer) POC Glucose (mg/dL) 268 H (65-110) mg/dL Random Glucose (65-105) mg/dL Calcium (8.6-10.4) mg/dl Phosphorus (2.5-4.5) mg/dL Magnesium (1.6-2.3) mg/dL Total Bilirubin (0.2-1.3) mg/dL AST (14-36) U/L ALT (9-52) U/L Alkaline Phosphatase (38-126) U/L Total Protein (6.3-8.3) g/dL Albumin (3.5-5.0) g/dL Globulin (2.2-3.9) gm/dL Albumin/Globulin Ratio (1.0-2.1) Arterial Blood Potassium (3.6-5.2) mmol/L Laboratory Results - last 24 hr 09/08/17 09/08/17 09/08/17 11:44 18:19 23:57 WBC RBC Hgb Hct MCV MCH MCHC RDW Plt Count MPV Neut % (Auto) Lymph % (Auto) [place] % (Auto) Eos % (Auto) Baso % (Auto) Neut # (Auto) Lymph # (Auto) [place] # (Auto) Eos # (Auto) Baso # (Auto) Neutrophils % (Manual) Band Neutrophils % Lymphocytes % (Manual) Reactive Lymphs % Monocytes % (Manual) Platelet Estimate Polychromasia Anisocytosis (manual) Microcytosis (manual) Puncture Site pCO2 pO2 HCO3 ABG pH ABG Total CO2 ABG O2 Saturation ABG Base Excess Vince Test ABG Potassium A-a O2 Difference Respiratory Index Sodium Chloride Glucose Lactate Vent Mode Mechanical Rate FiO2 Tidal Volume PEEP Potassium Carbon Dioxide Anion Gap BUN Creatinine Est GFR ( Amer) Est GFR (Non-Af Amer) POC Glucose (mg/dL) 268 H 244 H 242 H Random Glucose Calcium Phosphorus Magnesium Total Bilirubin AST ALT Alkaline Phosphatase Total Protein Albumin Globulin Albumin/Globulin Ratio Arterial Blood Potassium 09/09/17 09/09/17 09/09/17 05:02 06:21 06:38 WBC 22.8 H RBC 4.40 Hgb 10.6 L Hct 33.1 L MCV 75.1 L MCH 24.1 L MCHC 32.0 L RDW 14.1 Plt Count 114 L D MPV 9.1 Neut % (Auto) 89.3 H Lymph % (Auto) 6.8 L [place] % (Auto) 2.8 Eos % (Auto) 0.8 Baso % (Auto) 0.3 Neut # (Auto) 20.3 H Lymph # (Auto) 1.6 [place] # (Auto) 0.6 Eos # (Auto) 0.2 Baso # (Auto) 0.1 Neutrophils % (Manual) 84 H Band Neutrophils % 1 Lymphocytes % (Manual) 12 L Reactive Lymphs % 1 H Monocytes % (Manual) 2 Platelet Estimate Slightly decreased L Polychromasia Slight Anisocytosis (manual) Slight Microcytosis (manual) Slight Puncture Site Rr pCO2 41 pO2 104 H HCO3 29.3 H ABG pH 7.47 H ABG Total CO2 31.1 H ABG O2 Saturation 99.5 H ABG Base Excess 5.6 H Vince Test Pos ABG Potassium 3.4 L A-a O2 Difference 94.0 Respiratory Index 0.9 Sodium 145.0 Chloride 115.0 H Glucose 216 H Lactate 1.4 Vent Mode Prvc Mechanical Rate 12 FiO2 35.0 Tidal Volume 450 PEEP 5 Potassium Carbon Dioxide Anion Gap BUN Creatinine Est GFR ( Amer) Est GFR (Non-Af Amer) POC Glucose (mg/dL) 203 H Random Glucose Calcium Phosphorus Magnesium Total Bilirubin AST ALT Alkaline Phosphatase Total Protein Albumin Globulin Albumin/Globulin Ratio Arterial Blood Potassium 3.4 L 09/09/17 06:38 WBC RBC Hgb Hct MCV MCH MCHC RDW Plt Count MPV Neut % (Auto) Lymph % (Auto) [place] % (Auto) Eos % (Auto) Baso % (Auto) Neut # (Auto) Lymph # (Auto) [place] # (Auto) Eos # (Auto) Baso # (Auto) Neutrophils % (Manual) Band Neutrophils % Lymphocytes % (Manual) Reactive Lymphs % Monocytes % (Manual) Platelet Estimate Polychromasia Anisocytosis (manual) Microcytosis (manual) Puncture Site pCO2 pO2 HCO3 ABG pH ABG Total CO2 ABG O2 Saturation ABG Base Excess Vince Test ABG Potassium A-a O2 Difference Respiratory Index Sodium 139 Chloride 106 Glucose Lactate Vent Mode Mechanical Rate FiO2 Tidal Volume PEEP Potassium 5.6 H Carbon Dioxide 31 H Anion Gap 8 L BUN 17 Creatinine 0.3 L Est GFR ( Amer) > 60 Est GFR (Non-Af Amer) > 60 POC Glucose (mg/dL) Random Glucose 205 H Calcium 7.5 L Phosphorus 3.0 Magnesium 2.1 Total Bilirubin 0.9 AST 33 ALT 13 Alkaline Phosphatase 153 H Total Protein 6.4 Albumin 2.5 L Globulin 3.9 Albumin/Globulin Ratio 0.6 L Arterial Blood Potassium Fingerstick Blood Sugar Results: 203
--- NOTE | 2017-09-09 11:53 | RAD ---
HISTORY: intubated COMPARISON: Comparison chest 09/08/2017 FINDINGS: In situ ETT, the tip of which lies at the level of the inferior margins of the clavicular heads. NGT is present, the tip of which has not been included on this film though does lie well below EG junction probably just to the right of midline. No change right-sided PICC line. LUNGS: Re- demonstrated are bilateral infiltrates PLEURA: No significant pleural effusion identified, no pneumothorax apparent. CARDIOVASCULAR: Normal. OSSEOUS STRUCTURES: No significant abnormalities. VISUALIZED UPPER ABDOMEN: Normal. OTHER FINDINGS: None. IMPRESSION: Support lines and tubes as above. Re- demonstrated are bilateral infiltrates
--- NOTE | 2017-09-09 13:10 | CP.PCM.PN ---
Subjective - Date & Time of Evaluation Date of Evaluation: 09/09/17 Time of Evaluation: 09:00 - Subjective Subjective: Patient seen and examined Tolerating CPAP since morning FiO2 35% with saturation in the upper 90s Awake and off sedation Afebrile Minimal secretions Objective - Vital Signs/Intake and Output Vital Signs (last 24 hours): Temp Pulse Resp BP Pulse Ox 98.6 F 83 26 H 154/76 H 98 09/09/17 12:00 09/09/17 12:00 09/09/17 12:00 09/09/17 12:00 09/09/17 12:00 Intake and Output: 09/09/17 09/09/17 06:59 18:59 Intake Total 1190.6 632.6 Output Total 745 300 Balance 445.6 332.6 - Medications Medications: Current Medications Acetaminophen (Tylenol 325mg Tab) 650 mg PO Q6 PRN PRN Reason: Temperature Last Admin: 09/03/17 21:18 Dose: 650 mg Acetaminophen (Tylenol 650mg/20.3ml Solution Ud) 650 mg NG Q6 PRN PRN Reason: temp of 101 Last Admin: 09/08/17 12:04 Dose: 650 mg Albuterol/Ipratropium (Duoneb 3 Mg/0.5 Mg (3 Ml) Ud) 3 ml INH RQ6 [facility] Last Admin: 09/09/17 08:13 Dose: 3 ml Apixaban (Eliquis) 2.5 mg PO BID [facility] Last Admin: 09/09/17 09:03 Dose: 2.5 mg Aspirin (Aspirin Chewable) 81 mg PO DAILY [facility] Last Admin: 09/09/17 09:00 Dose: 81 mg Famotidine (Pepcid) 40 mg PO DAILY [facility] Last Admin: 09/09/17 09:03 Dose: 40 mg Propofol (Diprivan) 1,000 mg in 100 mls @ 2.096 mls/hr IV .Q24H PRN; Protocol; 5 MCG/KG/MIN PRN Reason: TITRATE PER MD ORDER Last Titration: 09/09/17 10:00 Dose: 0 mcg/kg/min, 0 mls/hr Linezolid (Zyvox 600mg/300ml D5w) 600 mg in 300 mls @ 200 mls/hr IVPB Q12 [facility] Last Admin: 09/09/17 10:32 Dose: 200 mls/hr Doxycycline Hyclate 100 mg/ (Sodium Chloride) 100 mls @ 100 mls/hr IVPB Q12H [facility] Last Admin: 09/09/17 07:41 Dose: 100 mls/hr Piperacillin Sod/Tazobactam Sod (Zosyn 3.375 Gm Iv Premix) 3.375 gm in 50 mls @ 100 mls/hr IVPB Q6H [facility] Last Admin: 09/09/17 08:57 Dose: 100 mls/hr Insulin Human Regular (Novolin R) 0 unit SC Q6 [facility] PRN Reason: Protocol Last Admin: 09/09/17 12:23 Dose: 4 unit Lorazepam (Ativan) 1 mg IVP Q6H PRN PRN Reason: Anxiety Last Admin: 09/07/17 09:00 Dose: 1 mg Vancomycin HCl (Vancocin (Oral Or Rectal Use)) 250 mg PO QID [facility] - Labs Labs: 09/09/17 06:38 09/09/17 06:38 PT 14.3 SECONDS (9.7-12.2) H 09/01/17 09:49 INR 1.2 09/01/17 09:49 APTT 32 SECONDS (21-34) 09/01/17 09:49 - Head Exam Head Exam: ATRAUMATIC, NORMOCEPHALIC - ENT Exam ENT Exam: Mucous Membranes Moist - Neck Exam Neck Exam: Normal Inspection - Respiratory Exam Respiratory Exam: Clear to Ausculation Bilateral - Cardiovascular Exam Cardiovascular Exam: REGULAR RHYTHM - GI/Abdominal Exam GI & Abdominal Exam: Soft, Normal Bowel Sounds - Extremities Exam Extremities Exam: Normal Inspection - Neurological Exam Neurological Exam: Awake Assessment and Plan (1) Acute respiratory failure with hypoxemia Assessment & Plan: Patient is tolerating CPAP Extubate patient Continue IV antibiotics Followup chest x-ray and ABG Status: Acute (2) Pneumonia Status: Acute (3) DKA (diabetic ketoacidoses) Status: Acute (4) Sepsis Status: Acute
[2017-09-09] MEDS: Vancomycin 125 MG/5 ML SOLN (ORAL/RECTAL) PO SCH ×3 (14:00→21:05)
--- NOTE | 2017-09-09 19:33 | CP.PCM.PN ---
Subjective - Date & Time of Evaluation Date of Evaluation: 09/09/17 Time of Evaluation: 19:31 - Subjective Subjective: hungry Objective - Vital Signs/Intake and Output Vital Signs (last 24 hours): Temp Pulse Resp BP Pulse Ox 97.4 F L 79 34 H 163/82 H 98 09/09/17 16:00 09/09/17 19:00 09/09/17 19:00 09/09/17 19:00 09/09/17 19:00 Intake and Output: 09/09/17 09/10/17 18:59 06:59 Intake Total 682.6 0 Output Total 670 60 Balance 12.6 -60 - Medications Medications: Current Medications Acetaminophen (Tylenol 325mg Tab) 650 mg PO Q6 PRN PRN Reason: Temperature Last Admin: 09/03/17 21:18 Dose: 650 mg Acetaminophen (Tylenol 650mg/20.3ml Solution Ud) 650 mg NG Q6 PRN PRN Reason: temp of 101 Last Admin: 09/08/17 12:04 Dose: 650 mg Albuterol/Ipratropium (Duoneb 3 Mg/0.5 Mg (3 Ml) Ud) 3 ml INH RQ6 [facility] Last Admin: 09/09/17 19:28 Dose: 3 ml Apixaban (Eliquis) 2.5 mg PO BID [facility] Last Admin: 09/09/17 17:34 Dose: Not Given Aspirin (Aspirin Chewable) 81 mg PO DAILY [facility] Last Admin: 09/09/17 09:00 Dose: 81 mg Famotidine (Pepcid) 40 mg PO DAILY [facility] Last Admin: 09/09/17 09:03 Dose: 40 mg Linezolid (Zyvox 600mg/300ml D5w) 600 mg in 300 mls @ 200 mls/hr IVPB Q12 [facility] Last Admin: 09/09/17 10:32 Dose: 200 mls/hr Doxycycline Hyclate 100 mg/ (Sodium Chloride) 100 mls @ 100 mls/hr IVPB Q12H [facility] Last Admin: 09/09/17 19:06 Dose: 100 mls/hr Piperacillin Sod/Tazobactam (Sod 3.375 gm/ Sodium Chloride) 100 mls @ 100 mls/ hr IVPB Q6H [facility] Insulin Human Regular (Novolin R) 0 unit SC Q6 [facility] PRN Reason: Protocol Last Admin: 09/09/17 18:21 Dose: Not Given Lorazepam (Ativan) 1 mg IVP Q6H PRN PRN Reason: Anxiety Last Admin: 09/07/17 09:00 Dose: 1 mg Vancomycin HCl (Vancocin (Oral Or Rectal Use)) 250 mg PO QID [facility] Last Admin: 09/09/17 18:09 Dose: 250 mg - Labs Labs: 09/09/17 06:38 09/09/17 06:38 PT 14.3 SECONDS (9.7-12.2) H 09/01/17 09:49 INR 1.2 09/01/17 09:49 APTT 32 SECONDS (21-34) 09/01/17 09:49 - Constitutional Appears: No Acute Distress - Head Exam Head Exam: NORMOCEPHALIC - ENT Exam ENT Exam: Normal Exam - Respiratory Exam Respiratory Exam: Rhonchi - Cardiovascular Exam Cardiovascular Exam: REGULAR RHYTHM - GI/Abdominal Exam GI & Abdominal Exam: Soft - Extremities Exam Extremities Exam: Pedal Edema - Neurological Exam Neurological Exam: Alert Assessment and Plan - Assessment and Plan (Free Text) Assessment: extubated.ct iv antibiotics. diss with family.
[2017-09-09] MEDS: Piperacillin/Tazobact 3.375 GM in Sodium Chloride 0.9% 100 ML IVPB SCH (21:03)
[2017-09-10] MEDS: (Novolin R) Insulin Human Regular 100 units/ml vial SC SCH ×5 (00:16→22:03)
[2017-09-10] MEDS: Albuterol-Ipratrop 3 mg / 0.5 (3 ml) UD INH SCH ×4 (01:42→19:45)
[2017-09-10] MEDS: Piperacillin/Tazobact 3.375 GM in Sodium Chloride 0.9% 100 ML IVPB SCH ×4 (02:07→21:00)
[2017-09-10 06:41] LABS: BASO # 0.1 K/uL (0.0-0.2); BASO % 0.3 % (0.0-2.0); EOS # 0.1 K/uL (0.0-0.7); EOS % 0.5 % (0.0-4.0); HEMOGLOBIN 10.2 g/dL (11.0-16.0); LYMPH # 1.4 K/uL (1.0-4.3); MEAN CELL VOLUME 74.1 fL (81.0-99.0); MEAN CORPUSCULAR HEMOGLOBIN 23.8 pg (27.0-31.0); MEAN CORPUSCULAR HGB CONC 32.1 g/dL (33.0-37.0); MONO # 0.4 K/uL (0.0-0.8); MONO % 2.4 % (0.0-10.0); NEUT # 15.7 K/uL (1.8-7.0); NEUT % 88.8 % (50.0-75.0); PLATELET COUNT 132 K/uL (130-400); RED CELL DISTRIBUTION WIDTH 14.2 % (11.5-14.5); WHITE BLOOD COUNT 17.7 K/uL (4.8-10.8)
[2017-09-10 07:13] LABS: ALBUMIN 2.4 g/dL (3.5-5.0); BLOOD UREA NITROGEN 14 mg/dL (7-17); CALCIUM 7.5 mg/dl (8.6-10.4); GFR AFRICAN-AMERICAN > 60; GFR NON-AFRICAN AMERICAN > 60
[2017-09-10 07:14] LABS: ALB/GLOB RATIO 0.7 (1.0-2.1); ALT/SGPT 19 U/L (9-52); AST/SGOT 18 U/L (14-36)
[2017-09-10 08:50] LABS: BANDS 2 % (0-2); LYMPHOCYTE 11 % (20-40); MONOCYTE 4 % (0-10); NEUTROPHIL 83 % (50-75); TOTAL CELLS COUNTED 100
--- NOTE | 2017-09-10 08:50 | CP.CCUPN ---
CCU Subjective - Physician Review Events Since Last Encounter (Free Text): 09/10/17 08:47 62-year-old female with history of diabetes and hypertension admitted with acute pneumonia, complicated with respiratory insufficiency hypoxic. Patient currently having Staphylococcus aureus persistent infection in the blood , and in the lungs. In spite of Zyvox patient is not improving yet. 3 days ago the culture is positive. Low-grade fever noted. Patient is awake and responding now, extubated yesterday. awake and responding no distress On examination: Vital signs. Afebrile, Pulse 81, saturating 98% blood pressure 160/86 respiration is 18 Chest bilateral good air entry regular heart sounds nontender abdomen edema 1+ Labs reviewed Mild elevation of the WBC noted, diarrhea present, stool C. difficile is negative HIT positive Assessment and recommendation: 61-year-old female with a history of diabetes and hypertension admitted with acute respiratory insufficiency following the acute pneumonia, complicated with respiratory failure. NO HEPARIN OR LOVINOX on eliqius for DVT prophylaxis swallow eval PT feeding CCU Objective - Vital Signs / Intake & Output Vital Signs (Last 4 hours): Vital Signs Pulse Resp BP Pulse Ox 09/10/17 07:30 91 H 29 H 98 09/10/17 07:01 89 29 H 163/82 H 99 09/10/17 07:00 87 33 H 97 09/10/17 06:30 87 26 H 99 09/10/17 06:00 89 31 H 153/90 H 98 09/10/17 05:30 92 H 21 98 09/10/17 05:01 90 36 H 155/76 H 97 09/10/17 05:00 91 H 32 H 98 Intake and Output (Last 8hrs): Intake & Output 09/09/17 09/10/17 09/10/17 22:59 06:59 14:59 Intake Total 510 100 Output Total 485 465 50 Balance 25 -365 -50 Weight 163 lb 0.9 oz Intake: Intake, IV Amount 450 100 RIGHT BASILIC PICC BLUE 450 PORT RIGHT BASILIC PICC RED 100 PORT Oral 60 0 Output: Urine 485 465 50 Urethral (Nascimento) 485 465 50 Other: # Bowel Movements 0 0 0 - Physical Exam Head: Positive for: Atraumatic, Normocephalic Pupils: Positive for: PERRL Conjunctiva: Positive for: Normal Mouth: Positive for: Moist Mucous Membranes Respiratory/Chest: Positive for: Accessory Muscle Use, Wheezes, Rhonchi, Tachypneic Cardiovascular: Positive for: Regular Rate and Rhythm, Normal S1, S2 - Medications Active Medications: Active Medications Generic Name Dose Route Start Last Admin Trade Name Freq PRN Reason Stop Dose Admin Acetaminophen 650 mg 09/03/17 08:43 09/03/17 21:18 Tylenol 325mg Tab PO 650 mg Q6 PRN Administration Temperature Albuterol/Ipratropium 3 ml 09/07/17 14:00 09/10/17 07:51 Duoneb 3 Mg/0.5 Mg (3 Ml) Ud INH 3 ml RQ6 WILLIAM Administration Apixaban 2.5 mg 09/07/17 10:00 09/09/17 17:34 Eliquis PO Not Given BID WILLIAM Aspirin 81 mg 09/02/17 10:00 09/09/17 09:00 Aspirin Chewable PO 81 mg DAILY WILLIAM Administration Famotidine 40 mg 09/03/17 10:15 09/09/17 09:03 Pepcid PO 40 mg DAILY WILLIAM Administration Linezolid 600 mg in 300 mls @ 200 mls/hr 09/03/17 22:00 09/09/17 21:07 Zyvox 600mg/300ml D5w IVPB 200 mls/hr Q12 [facility] Administration Doxycycline Hyclate 100 mg/ 100 mls @ 100 mls/hr 09/08/17 08:00 09/09/17 19: 06 Sodium Chloride IVPB 100 mls/hr Q12H [facility]IAM Administration Piperacillin Sod/Tazobactam 100 mls @ 100 mls/hr 09/09/17 21:00 09/10/17 02: 07 Sod 3.375 gm/ Sodium Chloride IVPB 100 mls/hr Q6H [facility]IAM Administration Insulin Human Regular 0 unit 09/05/17 09:31 09/10/17 06:00 Novolin R SC Not Given Q6 WILLIAM Protocol Vancomycin HCl 250 mg 09/09/17 14:00 09/09/17 21:05 Vancocin (Oral Or Rectal Use) PO 250 mg QID WILLIAM Administration - Patient Studies Lab Studies: Microbiology Studies 09/04/17 18:45 Blood Culture - Final Blood NO GROWTH AFTER 5 DAYS Gram Stain - Final TEST NOT PERFORMED 09/08/17 10:00 Blood Culture - Preliminary Blood NO GROWTH AFTER 24 HOURS 02/02/18 10:30 Blood Culture - Preliminary Blood NO GROWTH AFTER 24 HOURS 09/04/17 19:15 S.aureus & Coag-Neg Staph PNA FISH - Final Blood Blood Culture - Final Coagulase Neg Staphylococcus Gram Stain - Final Lab Studies 09/10/17 09/10/17 09/10/17 Range/Units 06:36 06:36 06:16 WBC 17.7 H (4.8-10.8) K/uL RBC 4.30 (3.80-5.20) Mil/uL Hgb 10.2 L (11.0-16.0) g/dL Hct 31.8 L (34.0-47.0) % MCV 74.1 L (81.0-99.0) fL MCH 23.8 L (27.0-31.0) pg MCHC 32.1 L (33.0-37.0) g/dL RDW 14.2 (11.5-14.5) % Plt Count 132 (130-400) K/uL MPV 8.0 (7.2-11.7) fL Neut % (Auto) 88.8 H (50.0-75.0) % Lymph % (Auto) 8.0 L (20.0-40.0) % [place] % (Auto) 2.4 (0.0-10.0) % Eos % (Auto) 0.5 (0.0-4.0) % Baso % (Auto) 0.3 (0.0-2.0) % Neut # (Auto) 15.7 H (1.8-7.0) K/uL Lymph # (Auto) 1.4 (1.0-4.3) K/uL [place] # (Auto) 0.4 (0.0-0.8) K/uL Eos # (Auto) 0.1 (0.0-0.7) K/uL Baso # (Auto) 0.1 (0.0-0.2) K/uL Neutrophils % (Manual) (50-75) % Band Neutrophils % (0-2) % Lymphocytes % (Manual) (20-40) % Reactive Lymphs % (0-0) % Monocytes % (Manual) (0-10) % Platelet Estimate (NORMAL) Polychromasia Anisocytosis (manual) Microcytosis (manual) Sodium 138 (132-148) mmol/L Potassium 3.1 L (3.6-5.2) mmol/L Chloride 104 (98-107) mmol/L Carbon Dioxide 29 (22-30) mmol/L Anion Gap 8 L (10-20) BUN 14 (7-17) mg/dL Creatinine 0.4 L (0.7-1.2) mg/dL Est GFR ( Amer) > 60 Est GFR (Non-Af Amer) > 60 POC Glucose (mg/dL) 192 H (65-110) mg/dL Random Glucose 207 H (65-105) mg/dL Calcium 7.5 L (8.6-10.4) mg/dl Phosphorus 2.8 (2.5-4.5) mg/dL Magnesium 2.0 (1.6-2.3) mg/dL Total Bilirubin 0.4 (0.2-1.3) mg/dL AST 18 (14-36) U/L ALT 19 (9-52) U/L Alkaline Phosphatase 126 (38-126) U/L Total Protein 6.0 L (6.3-8.3) g/dL Albumin 2.4 L (3.5-5.0) g/dL Globulin 3.6 (2.2-3.9) gm/dL Albumin/Globulin Ratio 0.7 L (1.0-2.1) Heparin-induced Plt Ab (Negative) C. difficile Ag & Toxin (NEGATIVE) 09/09/17 09/09/17 09/09/17 Range/Units Unknown 23:38 18:10 WBC (4.8-10.8) K/uL RBC (3.80-5.20) Mil/uL Hgb (11.0-16.0) g/dL Hct (34.0-47.0) % MCV (81.0-99.0) fL MCH (27.0-31.0) pg MCHC (33.0-37.0) g/dL RDW (11.5-14.5) % Plt Count (130-400) K/uL MPV (7.2-11.7) fL Neut % (Auto) (50.0-75.0) % Lymph % (Auto) (20.0-40.0) % [place] % (Auto) (0.0-10.0) % Eos % (Auto) (0.0-4.0) % Baso % (Auto) (0.0-2.0) % Neut # (Auto) (1.8-7.0) K/uL Lymph # (Auto) (1.0-4.3) K/uL [place] # (Auto) (0.0-0.8) K/uL Eos # (Auto) (0.0-0.7) K/uL Baso # (Auto) (0.0-0.2) K/uL Neutrophils % (Manual) (50-75) % Band Neutrophils % (0-2) % Lymphocytes % (Manual) (20-40) % Reactive Lymphs % (0-0) % Monocytes % (Manual) (0-10) % Platelet Estimate (NORMAL) Polychromasia Anisocytosis (manual) Microcytosis (manual) Sodium (132-148) mmol/L Potassium (3.6-5.2) mmol/L Chloride (98-107) mmol/L Carbon Dioxide (22-30) mmol/L Anion Gap (10-20) BUN (7-17) mg/dL Creatinine (0.7-1.2) mg/dL Est GFR ( Amer) Est GFR (Non-Af Amer) POC Glucose (mg/dL) 170 H 177 H (65-110) mg/dL Random Glucose (65-105) mg/dL Calcium (8.6-10.4) mg/dl Phosphorus (2.5-4.5) mg/dL Magnesium (1.6-2.3) mg/dL Total Bilirubin (0.2-1.3) mg/dL AST (14-36) U/L ALT (9-52) U/L Alkaline Phosphatase (38-126) U/L Total Protein (6.3-8.3) g/dL Albumin (3.5-5.0) g/dL Globulin (2.2-3.9) gm/dL Albumin/Globulin Ratio (1.0-2.1) Heparin-induced Plt Ab (Negative) C. difficile Ag & Toxin Negative (NEGATIVE) 09/09/17 09/09/17 09/06/17 Range/Units 11:52 06:38 07:05 WBC (4.8-10.8) K/uL RBC (3.80-5.20) Mil/uL Hgb (11.0-16.0) g/dL Hct (34.0-47.0) % MCV (81.0-99.0) fL MCH (27.0-31.0) pg MCHC (33.0-37.0) g/dL RDW (11.5-14.5) % Plt Count (130-400) K/uL MPV (7.2-11.7) fL Neut % (Auto) (50.0-75.0) % Lymph % (Auto) (20.0-40.0) % [place] % (Auto) (0.0-10.0) % Eos % (Auto) (0.0-4.0) % Baso % (Auto) (0.0-2.0) % Neut # (Auto) (1.8-7.0) K/uL Lymph # (Auto) (1.0-4.3) K/uL [place] # (Auto) (0.0-0.8) K/uL Eos # (Auto) (0.0-0.7) K/uL Baso # (Auto) (0.0-0.2) K/uL Neutrophils % (Manual) 84 H (50-75) % Band Neutrophils % 1 (0-2) % Lymphocytes % (Manual) 12 L (20-40) % Reactive Lymphs % 1 H (0-0) % Monocytes % (Manual) 2 (0-10) % Platelet Estimate Slightly decreased L (NORMAL) Polychromasia Slight Anisocytosis (manual) Slight Microcytosis (manual) Slight Sodium (132-148) mmol/L Potassium (3.6-5.2) mmol/L Chloride (98-107) mmol/L Carbon Dioxide (22-30) mmol/L Anion Gap (10-20) BUN (7-17) mg/dL Creatinine (0.7-1.2) mg/dL Est GFR ( Amer) Est GFR (Non-Af Amer) POC Glucose (mg/dL) 228 H (65-110) mg/dL Random Glucose (65-105) mg/dL Calcium (8.6-10.4) mg/dl Phosphorus (2.5-4.5) mg/dL Magnesium (1.6-2.3) mg/dL Total Bilirubin (0.2-1.3) mg/dL AST (14-36) U/L ALT (9-52) U/L Alkaline Phosphatase (38-126) U/L Total Protein (6.3-8.3) g/dL Albumin (3.5-5.0) g/dL Globulin (2.2-3.9) gm/dL Albumin/Globulin Ratio (1.0-2.1) Heparin-induced Plt Ab Positive H (Negative) C. difficile Ag & Toxin (NEGATIVE) Laboratory Results - last 24 hr 09/06/17 09/09/17 09/09/17 07:05 06:38 11:52 WBC RBC Hgb Hct MCV MCH MCHC RDW Plt Count MPV Neut % (Auto) Lymph % (Auto) [place] % (Auto) Eos % (Auto) Baso % (Auto) Neut # (Auto) Lymph # (Auto) [place] # (Auto) Eos # (Auto) Baso # (Auto) Neutrophils % (Manual) 84 H Band Neutrophils % 1 Lymphocytes % (Manual) 12 L Reactive Lymphs % 1 H Monocytes % (Manual) 2 Platelet Estimate Slightly decreased L Polychromasia Slight Anisocytosis (manual) Slight Microcytosis (manual) Slight Sodium Potassium Chloride Carbon Dioxide Anion Gap BUN Creatinine Est GFR ( Amer) Est GFR (Non-Af Amer) POC Glucose (mg/dL) 228 H Random Glucose Calcium Phosphorus Magnesium Total Bilirubin AST ALT Alkaline Phosphatase Total Protein Albumin Globulin Albumin/Globulin Ratio Heparin-induced Plt Ab Positive H C. difficile Ag & Toxin 09/09/17 09/09/17 09/09/17 18:10 23:38 Unknown WBC RBC Hgb Hct MCV MCH MCHC RDW Plt Count MPV Neut % (Auto) Lymph % (Auto) [place] % (Auto) Eos % (Auto) Baso % (Auto) Neut # (Auto) Lymph # (Auto) [place] # (Auto) Eos # (Auto) Baso # (Auto) Neutrophils % (Manual) Band Neutrophils % Lymphocytes % (Manual) Reactive Lymphs % Monocytes % (Manual) Platelet Estimate Polychromasia Anisocytosis (manual) Microcytosis (manual) Sodium Potassium Chloride Carbon Dioxide Anion Gap BUN Creatinine Est GFR ( Amer) Est GFR (Non-Af Amer) POC Glucose (mg/dL) 177 H 170 H Random Glucose Calcium Phosphorus Magnesium Total Bilirubin AST ALT Alkaline Phosphatase Total Protein Albumin Globulin Albumin/Globulin Ratio Heparin-induced Plt Ab C. difficile Ag & Toxin Negative 09/10/17 09/10/17 09/10/17 06:16 06:36 06:36 WBC 17.7 H RBC 4.30 Hgb 10.2 L Hct 31.8 L MCV 74.1 L MCH 23.8 L MCHC 32.1 L RDW 14.2 Plt Count 132 MPV 8.0 Neut % (Auto) 88.8 H Lymph % (Auto) 8.0 L [place] % (Auto) 2.4 Eos % (Auto) 0.5 Baso % (Auto) 0.3 Neut # (Auto) 15.7 H Lymph # (Auto) 1.4 [place] # (Auto) 0.4 Eos # (Auto) 0.1 Baso # (Auto) 0.1 Neutrophils % (Manual) Band Neutrophils % Lymphocytes % (Manual) Reactive Lymphs % Monocytes % (Manual) Platelet Estimate Polychromasia Anisocytosis (manual) Microcytosis (manual) Sodium 138 Potassium 3.1 L Chloride 104 Carbon Dioxide 29 Anion Gap 8 L BUN 14 Creatinine 0.4 L Est GFR ( Amer) > 60 Est GFR (Non-Af Amer) > 60 POC Glucose (mg/dL) 192 H Random Glucose 207 H Calcium 7.5 L Phosphorus 2.8 Magnesium 2.0 Total Bilirubin 0.4 AST 18 ALT 19 Alkaline Phosphatase 126 Total Protein 6.0 L Albumin 2.4 L Globulin 3.6 Albumin/Globulin Ratio 0.7 L Heparin-induced Plt Ab C. difficile Ag & Toxin Fingerstick Blood Sugar Results: 170
[2017-09-10 08:51] LABS: ANISOCYTOSIS SLIGHT; HYPOCHROMIC SLIGHT; MICROCYTOSIS SLIGHT; PLATELET ESTIMATE NORMAL (NORMAL)
[2017-09-10] MEDS: Linezolid 600 mg in D5W 300 ml 600 MG/300 ML BAG IVPB SCH ×2 (09:47→22:00)
[2017-09-10] MEDS: Vancomycin 125 MG/5 ML SOLN (ORAL/RECTAL) PO SCH ×4 (09:59→22:15)
--- NOTE | 2017-09-10 15:07 | CP.PCM.PN ---
Subjective - Date & Time of Evaluation Date of Evaluation: 09/10/17 Time of Evaluation: 06:00 - Subjective Subjective: 62-year-old female with history of diabetes and hypertension admitted with acute pneumonia, complicated with respiratory insufficiency hypoxic. Patient currently having Staphylococcus aureus persistent infection in the blood , and in the lungs. Objective - Vital Signs/Intake and Output Vital Signs (last 24 hours): Temp Pulse Resp BP Pulse Ox 98.5 F 91 H 29 H 163/82 H 98 09/10/17 04:00 09/10/17 07:30 09/10/17 07:30 09/10/17 07:01 09/10/17 07:30 Intake and Output: 09/10/17 09/10/17 06:59 18:59 Intake Total 560 Output Total 710 50 Balance -150 -50 - Medications Medications: Current Medications Acetaminophen (Tylenol 325mg Tab) 650 mg PO Q6 PRN PRN Reason: Temperature Last Admin: 09/03/17 21:18 Dose: 650 mg Albuterol/Ipratropium (Duoneb 3 Mg/0.5 Mg (3 Ml) Ud) 3 ml INH RQ6 [facility] Last Admin: 09/10/17 13:30 Dose: Not Given Apixaban (Eliquis) 2.5 mg PO BID [facility] Last Admin: 09/10/17 09:47 Dose: 2.5 mg Aspirin (Aspirin Chewable) 81 mg PO DAILY [facility] Last Admin: 09/10/17 09:47 Dose: 81 mg Famotidine (Pepcid) 40 mg PO DAILY [facility] Last Admin: 09/10/17 09:47 Dose: 40 mg Linezolid (Zyvox 600mg/300ml D5w) 600 mg in 300 mls @ 200 mls/hr IVPB Q12 [facility] Last Admin: 09/10/17 09:47 Dose: 200 mls/hr Doxycycline Hyclate 100 mg/ (Sodium Chloride) 100 mls @ 100 mls/hr IVPB Q12H [facility] Last Admin: 09/10/17 07:30 Dose: 100 mls/hr Piperacillin Sod/Tazobactam (Sod 3.375 gm/ Sodium Chloride) 100 mls @ 100 mls/ hr IVPB Q6H [facility] Last Admin: 09/10/17 14:16 Dose: 100 mls/hr Insulin Human Regular (Novolin R) 0 unit SC Q6 WILLIAM PRN Reason: Protocol Last Admin: 09/10/17 12:09 Dose: 6 unit Vancomycin HCl (Vancocin (Oral Or Rectal Use)) 250 mg PO QID [facility] Last Admin: 09/10/17 14:05 Dose: 250 mg - Labs Labs: 09/10/17 06:36 09/10/17 06:36 PT 14.3 SECONDS (9.7-12.2) H 09/01/17 09:49 INR 1.2 09/01/17 09:49 APTT 32 SECONDS (21-34) 09/01/17 09:49 - Constitutional Appears: Non-toxic, Cachectic, Chronically Ill - Head Exam Head Exam: NORMOCEPHALIC - Eye Exam Eye Exam: PERRL - ENT Exam ENT Exam: Mucous Membranes Dry - Neck Exam Neck Exam: absent: Lymphadenopathy - Respiratory Exam Respiratory Exam: Decreased Breath Sounds - Cardiovascular Exam Cardiovascular Exam: REGULAR RHYTHM - GI/Abdominal Exam GI & Abdominal Exam: Distended - Rectal Exam Rectal Exam: Deferred - Exam Exam: NORMAL INSPECTION - Extremities Exam Extremities Exam: absent: Pedal Edema - Back Exam Back Exam: absent: CVA tenderness (L), CVA tenderness (R) - Neurological Exam Neurological Exam: Altered Assessment and Plan (1) DKA (diabetic ketoacidoses) Status: Acute (2) Pneumonia Status: Acute (3) Sepsis Status: Acute - Assessment and Plan (Free Text) Assessment: cont iv rx
[2017-09-11] MEDS: Albuterol-Ipratrop 3 mg / 0.5 (3 ml) UD INH SCH ×4 (01:12→20:08)
[2017-09-11] MEDS: Piperacillin/Tazobact 3.375 GM in Sodium Chloride 0.9% 100 ML IVPB SCH ×4 (03:00→21:00)
[2017-09-11 06:26] LABS: BASO # 0.1 K/uL (0.0-0.2); BASO % 0.4 % (0.0-2.0); EOS # 0.1 K/uL (0.0-0.7); EOS % 0.6 % (0.0-4.0); HEMOGLOBIN 10.3 g/dL (11.0-16.0); LYMPH # 1.3 K/uL (1.0-4.3); MEAN CELL VOLUME 74.5 fL (81.0-99.0); MEAN CORPUSCULAR HEMOGLOBIN 23.8 pg (27.0-31.0); MEAN PLATELET VOLUME 8.2 fL (7.2-11.7); MONO # 0.6 K/uL (0.0-0.8); MONO % 3.4 % (0.0-10.0); NEUT # 14.5 K/uL (1.8-7.0); NEUT % 87.6 % (50.0-75.0); PLATELET COUNT 126 K/uL (130-400); RBC 4.32 Mil/uL (3.80-5.20); RED CELL DISTRIBUTION WIDTH 14.1 % (11.5-14.5); WHITE BLOOD COUNT 16.5 K/uL (4.8-10.8)
[2017-09-11 06:42] LABS: ALB/GLOB RATIO 0.7 (1.0-2.1); ALBUMIN 2.3 g/dL (3.5-5.0); ALT/SGPT 24 U/L (9-52); AST/SGOT 20 U/L (14-36); BLOOD UREA NITROGEN 10 mg/dL (7-17); CALCIUM 7.2 mg/dl (8.6-10.4); GFR AFRICAN-AMERICAN > 60; GFR NON-AFRICAN AMERICAN > 60; MAGNESIUM 1.8 mg/dL (1.6-2.3)
[2017-09-11] MEDS: (Novolin R) Insulin Human Regular 100 units/ml vial SC SCH ×4 (07:49→22:00)
[2017-09-11 08:32] LABS: BANDS 1 % (0-2); EOSINOPHIL 1 % (0-4); LYMPHOCYTE 5 % (20-40); MONOCYTE 2 % (0-10); NEUTROPHIL 91 % (50-75); TOTAL CELLS COUNTED 100
[2017-09-11 08:34] LABS: HYPOCHROMIC SLIGHT; PLATELET ESTIMATE SLIGHTLY DECREASED (NORMAL); POLYCHROMIC SLIGHT
[2017-09-11 08:35] LABS: MICROCYTOSIS SLIGHT
[2017-09-11] MEDS: Potassium Phosphate 15 MMOLE in Sodium Chloride 0.9% 250 ML IV SCH ×2 (08:47→12:56)
[2017-09-11] MEDS: Vancomycin 125 MG/5 ML SOLN (ORAL/RECTAL) PO SCH (09:20)
[2017-09-11] MEDS ORDERED: Magnesium Sulfate 1 gm in D5W 1 GM/100 ML BAG IVPB ONE (09:22)
--- NOTE | 2017-09-11 10:25 | CP.PCM.PN ---
Subjective - Date & Time of Evaluation Date of Evaluation: 09/11/17 Time of Evaluation: 10:24 - Subjective Subjective: weak Objective - Vital Signs/Intake and Output Vital Signs (last 24 hours): Temp Pulse Resp BP Pulse Ox 97.6 F 88 27 H 147/73 100 09/11/17 04:00 09/11/17 08:01 09/11/17 08:01 09/11/17 08:01 09/11/17 08:01 Intake and Output: 09/11/17 09/11/17 06:59 18:59 Intake Total 900 0 Output Total 1 Balance 899 0 - Medications Medications: Current Medications Acetaminophen (Tylenol 325mg Tab) 650 mg PO Q6 PRN PRN Reason: Temperature Last Admin: 09/03/17 21:18 Dose: 650 mg Albuterol/Ipratropium (Duoneb 3 Mg/0.5 Mg (3 Ml) Ud) 3 ml INH RQ6 [facility] Last Admin: 09/11/17 07:57 Dose: 3 ml Apixaban (Eliquis) 2.5 mg PO BID [facility] Last Admin: 09/11/17 09:19 Dose: 2.5 mg Aspirin (Aspirin Chewable) 81 mg PO DAILY [facility] Last Admin: 09/11/17 09:19 Dose: 81 mg Famotidine (Pepcid) 40 mg PO DAILY [facility] Last Admin: 09/11/17 09:19 Dose: 40 mg Linezolid (Zyvox 600mg/300ml D5w) 600 mg in 300 mls @ 200 mls/hr IVPB Q12 [facility] Last Admin: 09/10/17 22:00 Dose: 200 mls/hr Doxycycline Hyclate 100 mg/ (Sodium Chloride) 100 mls @ 100 mls/hr IVPB Q12H [facility] Last Admin: 09/11/17 08:24 Dose: 100 mls/hr Piperacillin Sod/Tazobactam (Sod 3.375 gm/ Sodium Chloride) 100 mls @ 100 mls/ hr IVPB Q6H [facility] Last Admin: 09/11/17 09:16 Dose: 100 mls/hr Potassium Phosphate 15 mmole/ (Sodium Chloride) 255 mls @ 63 mls/hr IV Q4 [facility] Stop: 09/11/17 15:59 Last Admin: 09/11/17 08:47 Dose: 63 mls/hr Insulin Human Regular (Novolin R) 0 unit SC ACHS WILLIAM PRN Reason: Protocol Last Admin: 09/11/17 07:49 Dose: 4 unit - Labs Labs: 09/11/17 06:19 09/11/17 06:19 PT 14.3 SECONDS (9.7-12.2) H 09/01/17 09:49 INR 1.2 09/01/17 09:49 APTT 32 SECONDS (21-34) 09/01/17 09:49 - Constitutional Appears: No Acute Distress - Head Exam Head Exam: NORMOCEPHALIC - Eye Exam Eye Exam: Normal appearance - ENT Exam ENT Exam: Mucous Membranes Moist - Respiratory Exam Respiratory Exam: Clear to Ausculation Bilateral - Cardiovascular Exam Cardiovascular Exam: REGULAR RHYTHM - GI/Abdominal Exam GI & Abdominal Exam: Soft - Extremities Exam Extremities Exam: absent: Pedal Edema - Neurological Exam Neurological Exam: Alert, Oriented x3 Assessment and Plan - Assessment and Plan (Free Text) Assessment: resolving pneumonia.dm
[2017-09-11] MEDS: Linezolid 600 mg in D5W 300 ml 600 MG/300 ML BAG IVPB SCH ×2 (10:28→22:00)
--- NOTE | 2017-09-11 10:33 | CP.CCUPN ---
CCU Subjective - Physician Review Events Since Last Encounter (Free Text): 09/11/17 10:32 62-year-old female with history of diabetes and hypertension admitted with acute pneumonia, complicated with respiratory insufficiency hypoxic. Patient currently having Staphylococcus aureus persistent infection in the blood , and in the lungs. patient is improving ecent culture is negative Low-grade fever noted. Patient is awake and responding now, patient was extubated awake and responding no distress but significant weakness generalized On examination: Vital signs. Afebrile, Pulse 81, saturating 98% blood pressure 160/86 respiration is 18 Chest bilateral good air entry regular heart sounds nontender abdomen edema 1+ Labs reviewed Mild elevation of the WBC noted, diarrhea present, stool C. difficile is negative HIT positive Assessment and recommendation: 61-year-old female with a history of diabetes and hypertension admitted with acute respiratory insufficiency following the acute pneumonia, complicated with respiratory failure. heparin-induced thrombus cytopenia NO HEPARIN OR LOVINOX on eliqius for DVT prophylaxis swallow eval PT feeding CCU Objective - Vital Signs / Intake & Output Vital Signs (Last 4 hours): Vital Signs Pulse Resp BP Pulse Ox 09/11/17 08:01 88 27 H 147/73 100 09/11/17 08:00 84 29 H 99 09/11/17 07:30 83 31 H 97 09/11/17 07:01 91 H 31 H 147/69 97 09/11/17 07:00 93 H 18 97 Intake and Output (Last 8hrs): Intake & Output 09/10/17 09/11/17 09/11/17 22:59 06:59 14:59 Intake Total 1000 350 0 Output Total 1 Balance 1000 349 0 Weight 165 lb Intake: Intake, IV Amount 500 200 0 RIGHT BASILIC PICC RED 500 200 0 PORT Oral 500 150 0 Output: Urine/Stool Mix 1 Other: # Voids Urethral (Nascimento) 1 - Physical Exam Head: Positive for: Atraumatic, Normocephalic Pupils: Positive for: PERRL Conjunctiva: Positive for: Normal Mouth: Positive for: Moist Mucous Membranes Respiratory/Chest: Positive for: Accessory Muscle Use, Wheezes, Rhonchi, Tachypneic Cardiovascular: Positive for: Regular Rate and Rhythm, Normal S1, S2 - Medications Active Medications: Active Medications Generic Name Dose Route Start Last Admin Trade Name Freq PRN Reason Stop Dose Admin Acetaminophen 650 mg 09/03/17 08:43 09/03/17 21:18 Tylenol 325mg Tab PO 650 mg Q6 PRN Administration Temperature Albuterol/Ipratropium 3 ml 09/07/17 14:00 09/11/17 07:57 Duoneb 3 Mg/0.5 Mg (3 Ml) Ud INH 3 ml RQ6 [facility] Administration Apixaban 2.5 mg 09/07/17 10:00 09/11/17 09:19 Eliquis PO 2.5 mg BID [facility] Administration Aspirin 81 mg 09/02/17 10:00 09/11/17 09:19 Aspirin Chewable PO 81 mg DAILY [facility] Administration Famotidine 40 mg 09/03/17 10:15 09/11/17 09:19 Pepcid PO 40 mg DAILY [facility] Administration Linezolid 600 mg in 300 mls @ 200 mls/hr 09/03/17 22:00 09/11/17 10:28 Zyvox 600mg/300ml D5w IVPB 200 mls/hr Q12 [facility] Administration Doxycycline Hyclate 100 mg/ 100 mls @ 100 mls/hr 09/08/17 08:00 09/11/17 08: 24 Sodium Chloride IVPB 100 mls/hr Q12H [facility] Administration Piperacillin Sod/Tazobactam 100 mls @ 100 mls/hr 09/09/17 21:00 09/11/17 09: 16 Sod 3.375 gm/ Sodium Chloride IVPB 100 mls/hr Q6H [facility] Administration Potassium Phosphate 15 mmole/ 255 mls @ 63 mls/hr 09/11/17 08:00 09/11/17 08: 47 Sodium Chloride IV 09/11/17 15:59 63 mls/hr Q4 [facility] Administration Insulin Human Regular 0 unit 09/10/17 16:30 09/11/17 07:49 Novolin R SC 4 unit ACHS [facility] Administration Protocol - Patient Studies Lab Studies: Microbiology Studies 09/08/17 10:00 Blood Culture - Preliminary Blood NO GROWTH AFTER 48 HOURS 09/08/17 10:30 Blood Culture - Preliminary Blood NO GROWTH AFTER 48 HOURS 09/09/17 08:55 Blood Culture - Preliminary Blood-Venous NO GROWTH AFTER 24 HOURS 09/09/17 09:25 Blood Culture - Preliminary Blood-Venous NO GROWTH AFTER 24 HOURS Lab Studies 09/11/17 09/11/17 09/11/17 Range/Units 07:25 06:19 06:19 WBC 16.5 H (4.8-10.8) K/uL RBC 4.32 (3.80-5.20) Mil/uL Hgb 10.3 L (11.0-16.0) g/dL Hct 32.1 L (34.0-47.0) % MCV 74.5 L (81.0-99.0) fL MCH 23.8 L (27.0-31.0) pg MCHC 32.0 L (33.0-37.0) g/dL RDW 14.1 (11.5-14.5) % Plt Count 126 L (130-400) K/uL MPV 8.2 (7.2-11.7) fL Neut % (Auto) 87.6 H (50.0-75.0) % Lymph % (Auto) 8.0 L (20.0-40.0) % [place] % (Auto) 3.4 (0.0-10.0) % Eos % (Auto) 0.6 (0.0-4.0) % Baso % (Auto) 0.4 (0.0-2.0) % Neut # (Auto) 14.5 H (1.8-7.0) K/uL Lymph # (Auto) 1.3 (1.0-4.3) K/uL [place] # (Auto) 0.6 (0.0-0.8) K/uL Eos # (Auto) 0.1 (0.0-0.7) K/uL Baso # (Auto) 0.1 (0.0-0.2) K/uL Neutrophils % (Manual) 91 H (50-75) % Band Neutrophils % 1 (0-2) % Lymphocytes % (Manual) 5 L (20-40) % Monocytes % (Manual) 2 (0-10) % Eosinophils % (Manual) 1 (0-4) % Platelet Estimate Slightly decreased L (NORMAL) Polychromasia Slight Hypochromasia (manual) Slight Microcytosis (manual) Slight Sodium 131 L (132-148) mmol/L Potassium 2.8 L (3.6-5.2) mmol/L Chloride 98 (98-107) mmol/L Carbon Dioxide 27 (22-30) mmol/L Anion Gap 8 L (10-20) BUN 10 (7-17) mg/dL Creatinine 0.3 L (0.7-1.2) mg/dL Est GFR ( Amer) > 60 Est GFR (Non-Af Amer) > 60 POC Glucose (mg/dL) 208 H (65-110) mg/dL Random Glucose 219 H (65-105) mg/dL Calcium 7.2 L (8.6-10.4) mg/dl Phosphorus 2.2 L (2.5-4.5) mg/dL Magnesium 1.8 (1.6-2.3) mg/dL Total Bilirubin 0.4 (0.2-1.3) mg/dL AST 20 (14-36) U/L ALT 24 (9-52) U/L Alkaline Phosphatase 135 H (38-126) U/L Total Protein 5.8 L (6.3-8.3) g/dL Albumin 2.3 L (3.5-5.0) g/dL Globulin 3.5 (2.2-3.9) gm/dL Albumin/Globulin Ratio 0.7 L (1.0-2.1) 09/10/17 09/10/17 09/10/17 Range/Units 21:13 16:22 11:38 WBC (4.8-10.8) K/uL RBC (3.80-5.20) Mil/uL Hgb (11.0-16.0) g/dL Hct (34.0-47.0) % MCV (81.0-99.0) fL MCH (27.0-31.0) pg MCHC (33.0-37.0) g/dL RDW (11.5-14.5) % Plt Count (130-400) K/uL MPV (7.2-11.7) fL Neut % (Auto) (50.0-75.0) % Lymph % (Auto) (20.0-40.0) % [place] % (Auto) (0.0-10.0) % Eos % (Auto) (0.0-4.0) % Baso % (Auto) (0.0-2.0) % Neut # (Auto) (1.8-7.0) K/uL Lymph # (Auto) (1.0-4.3) K/uL [place] # (Auto) (0.0-0.8) K/uL Eos # (Auto) (0.0-0.7) K/uL Baso # (Auto) (0.0-0.2) K/uL Neutrophils % (Manual) (50-75) % Band Neutrophils % (0-2) % Lymphocytes % (Manual) (20-40) % Monocytes % (Manual) (0-10) % Eosinophils % (Manual) (0-4) % Platelet Estimate (NORMAL) Polychromasia Hypochromasia (manual) Microcytosis (manual) Sodium (132-148) mmol/L Potassium (3.6-5.2) mmol/L Chloride (98-107) mmol/L Carbon Dioxide (22-30) mmol/L Anion Gap (10-20) BUN (7-17) mg/dL Creatinine (0.7-1.2) mg/dL Est GFR ( Amer) Est GFR (Non-Af Amer) POC Glucose (mg/dL) 179 H 239 H 293 H (65-110) mg/dL Random Glucose (65-105) mg/dL Calcium (8.6-10.4) mg/dl Phosphorus (2.5-4.5) mg/dL Magnesium (1.6-2.3) mg/dL Total Bilirubin (0.2-1.3) mg/dL AST (14-36) U/L ALT (9-52) U/L Alkaline Phosphatase (38-126) U/L Total Protein (6.3-8.3) g/dL Albumin (3.5-5.0) g/dL Globulin (2.2-3.9) gm/dL Albumin/Globulin Ratio (1.0-2.1) Laboratory Results - last 24 hr 09/10/17 09/10/17 09/10/17 11:38 16:22 21:13 WBC RBC Hgb Hct MCV MCH MCHC RDW Plt Count MPV Neut % (Auto) Lymph % (Auto) [place] % (Auto) Eos % (Auto) Baso % (Auto) Neut # (Auto) Lymph # (Auto) [place] # (Auto) Eos # (Auto) Baso # (Auto) Neutrophils % (Manual) Band Neutrophils % Lymphocytes % (Manual) Monocytes % (Manual) Eosinophils % (Manual) Platelet Estimate Polychromasia Hypochromasia (manual) Microcytosis (manual) Sodium Potassium Chloride Carbon Dioxide Anion Gap BUN Creatinine Est GFR ( Amer) Est GFR (Non-Af Amer) POC Glucose (mg/dL) 293 H 239 H 179 H Random Glucose Calcium Phosphorus Magnesium Total Bilirubin AST ALT Alkaline Phosphatase Total Protein Albumin Globulin Albumin/Globulin Ratio 09/11/17 09/11/17 09/11/17 06:19 06:19 07:25 WBC 16.5 H RBC 4.32 Hgb 10.3 L Hct 32.1 L MCV 74.5 L MCH 23.8 L MCHC 32.0 L RDW 14.1 Plt Count 126 L MPV 8.2 Neut % (Auto) 87.6 H Lymph % (Auto) 8.0 L [place] % (Auto) 3.4 Eos % (Auto) 0.6 Baso % (Auto) 0.4 Neut # (Auto) 14.5 H Lymph # (Auto) 1.3 [place] # (Auto) 0.6 Eos # (Auto) 0.1 Baso # (Auto) 0.1 Neutrophils % (Manual) 91 H Band Neutrophils % 1 Lymphocytes % (Manual) 5 L Monocytes % (Manual) 2 Eosinophils % (Manual) 1 Platelet Estimate Slightly decreased L Polychromasia Slight Hypochromasia (manual) Slight Microcytosis (manual) Slight Sodium 131 L Potassium 2.8 L Chloride 98 Carbon Dioxide 27 Anion Gap 8 L BUN 10 Creatinine 0.3 L Est GFR ( Amer) > 60 Est GFR (Non-Af Amer) > 60 POC Glucose (mg/dL) 208 H Random Glucose 219 H Calcium 7.2 L Phosphorus 2.2 L Magnesium 1.8 Total Bilirubin 0.4 AST 20 ALT 24 Alkaline Phosphatase 135 H Total Protein 5.8 L Albumin 2.3 L Globulin 3.5 Albumin/Globulin Ratio 0.7 L Fingerstick Blood Sugar Results: 208 Critical Care Progress Note - Nutrition Nutrition: Nutrition Category Date Time Status Heart Healthy Diet [DIET] Diets 09/11/17 Breakfast Active
--- NOTE | 2017-09-11 11:40 | CP.PCM.PN ---
Subjective - Date & Time of Evaluation Date of Evaluation: 09/11/17 Time of Evaluation: 08:00 - Subjective Subjective: improving extubated awake alert IV rx in progress consider d/c zosyn and doxy Objective - Vital Signs/Intake and Output Vital Signs (last 24 hours): Temp Pulse Resp BP Pulse Ox 97.6 F 95 H 22 125/69 99 09/11/17 04:00 09/11/17 11:00 09/11/17 11:00 09/11/17 11:00 09/11/17 11:00 Intake and Output: 09/11/17 09/11/17 06:59 18:59 Intake Total 900 0 Output Total 1 Balance 899 0 - Medications Medications: Current Medications Acetaminophen (Tylenol 325mg Tab) 650 mg PO Q6 PRN PRN Reason: Temperature Last Admin: 09/03/17 21:18 Dose: 650 mg Albuterol/Ipratropium (Duoneb 3 Mg/0.5 Mg (3 Ml) Ud) 3 ml INH RQ6 [facility] Last Admin: 09/11/17 07:57 Dose: 3 ml Apixaban (Eliquis) 2.5 mg PO BID [facility] Last Admin: 09/11/17 09:19 Dose: 2.5 mg Aspirin (Aspirin Chewable) 81 mg PO DAILY [facility] Last Admin: 09/11/17 09:19 Dose: 81 mg Famotidine (Pepcid) 40 mg PO DAILY [facility] Last Admin: 09/11/17 09:19 Dose: 40 mg Linezolid (Zyvox 600mg/300ml D5w) 600 mg in 300 mls @ 200 mls/hr IVPB Q12 [facility] Last Admin: 09/11/17 10:28 Dose: 200 mls/hr Doxycycline Hyclate 100 mg/ (Sodium Chloride) 100 mls @ 100 mls/hr IVPB Q12H [facility] Last Admin: 09/11/17 08:24 Dose: 100 mls/hr Piperacillin Sod/Tazobactam (Sod 3.375 gm/ Sodium Chloride) 100 mls @ 100 mls/ hr IVPB Q6H [facility] Last Admin: 09/11/17 09:16 Dose: 100 mls/hr Potassium Phosphate 15 mmole/ (Sodium Chloride) 255 mls @ 63 mls/hr IV Q4 [facility] Stop: 09/11/17 15:59 Last Admin: 09/11/17 08:47 Dose: 63 mls/hr Insulin Human Regular (Novolin R) 0 unit SC ACHS [facility] PRN Reason: Protocol Last Admin: 09/11/17 07:49 Dose: 4 unit - Labs Labs: 09/11/17 06:19 09/11/17 06:19 PT 14.3 SECONDS (9.7-12.2) H 09/01/17 09:49 INR 1.2 09/01/17 09:49 APTT 32 SECONDS (21-34) 09/01/17 09:49 - Constitutional Appears: Non-toxic, Chronically Ill - Head Exam Head Exam: NORMOCEPHALIC - Eye Exam Eye Exam: PERRL - ENT Exam ENT Exam: Mucous Membranes Dry - Neck Exam Neck Exam: absent: Lymphadenopathy - Respiratory Exam Respiratory Exam: Decreased Breath Sounds - Cardiovascular Exam Cardiovascular Exam: REGULAR RHYTHM - GI/Abdominal Exam GI & Abdominal Exam: Distended Assessment and Plan (1) DKA (diabetic ketoacidoses) Status: Acute (2) Pneumonia Status: Acute (3) Sepsis Status: Acute
--- NOTE | 2017-09-11 13:41 | CP.PCM.PN ---
Subjective - Date & Time of Evaluation Date of Evaluation: 09/11/17 Time of Evaluation: 09:30 - Subjective Subjective: patient seen and examined Lying comfortably in no acute distress Status post extubation Afebrile Off heparin for thrombocytopenia Objective - Vital Signs/Intake and Output Vital Signs (last 24 hours): Temp Pulse Resp BP Pulse Ox 98.6 F 88 14 138/78 98 09/11/17 12:00 09/11/17 13:01 09/11/17 13:01 09/11/17 13:01 09/11/17 13:01 Intake and Output: 09/11/17 09/11/17 06:59 18:59 Intake Total 900 1452.5 Output Total 1 200 Balance 899 1252.5 - Medications Medications: Current Medications Acetaminophen (Tylenol 325mg Tab) 650 mg PO Q6 PRN PRN Reason: Temperature Last Admin: 09/03/17 21:18 Dose: 650 mg Albuterol/Ipratropium (Duoneb 3 Mg/0.5 Mg (3 Ml) Ud) 3 ml INH RQ6 [facility] Last Admin: 09/11/17 07:57 Dose: 3 ml Apixaban (Eliquis) 2.5 mg PO BID [facility] Last Admin: 09/11/17 09:19 Dose: 2.5 mg Aspirin (Aspirin Chewable) 81 mg PO DAILY [facility] Last Admin: 09/11/17 09:19 Dose: 81 mg Famotidine (Pepcid) 40 mg PO DAILY [facility] Last Admin: 09/11/17 09:19 Dose: 40 mg Linezolid (Zyvox 600mg/300ml D5w) 600 mg in 300 mls @ 200 mls/hr IVPB Q12 [facility] Last Admin: 09/11/17 10:28 Dose: 200 mls/hr Doxycycline Hyclate 100 mg/ (Sodium Chloride) 100 mls @ 100 mls/hr IVPB Q12H [facility] Last Admin: 09/11/17 08:24 Dose: 100 mls/hr Piperacillin Sod/Tazobactam (Sod 3.375 gm/ Sodium Chloride) 100 mls @ 100 mls/ hr IVPB Q6H [facility] Last Admin: 09/11/17 09:16 Dose: 100 mls/hr Potassium Phosphate 15 mmole/ (Sodium Chloride) 255 mls @ 63 mls/hr IV Q4 [facility] Stop: 09/11/17 15:59 Last Admin: 09/11/17 12:56 Dose: 63 mls/hr Insulin Human Regular (Novolin R) 0 unit SC ACHS [facility] PRN Reason: Protocol Last Admin: 09/11/17 11:39 Dose: 10 unit - Labs Labs: 09/11/17 06:19 09/11/17 06:19 PT 14.3 SECONDS (9.7-12.2) H 09/01/17 09:49 INR 1.2 09/01/17 09:49 APTT 32 SECONDS (21-34) 09/01/17 09:49 - Head Exam Head Exam: ATRAUMATIC, NORMOCEPHALIC - ENT Exam ENT Exam: Mucous Membranes Moist - Neck Exam Neck Exam: Normal Inspection - Respiratory Exam Respiratory Exam: Rales - GI/Abdominal Exam GI & Abdominal Exam: Soft, Normal Bowel Sounds Assessment and Plan (1) Acute respiratory failure with hypoxemia Assessment & Plan: Status post extubation Comfortable in no respiratory distress Swallowing evaluation Potassium supplement Continue antibiotics Followup chest x-ray Status: Acute (2) Pneumonia Status: Acute (3) DKA (diabetic ketoacidoses) Status: Acute (4) Sepsis Status: Acute
[2017-09-12] MEDS: Albuterol-Ipratrop 3 mg / 0.5 (3 ml) UD INH SCH ×4 (01:40→20:01)
[2017-09-12] MEDS: Piperacillin/Tazobact 3.375 GM in Sodium Chloride 0.9% 100 ML IVPB SCH ×4 (03:00→20:51)
[2017-09-12] MEDS ORDERED: Potassium Phosphate 15 MMOLE in Sodium Chloride 0.9% 250 ML IV ONE (07:26)
[2017-09-12] MEDS: Metoprolol 1 mg/ml Inj IVP SCH ×3 (08:30→19:21)
[2017-09-12] MEDS: (Novolin R) Insulin Human Regular 100 units/ml vial SC SCH ×4 (08:50→23:31)
[2017-09-12 10:45] LABS: BETA-HYDROXYBUTYRIC ACID 260 mcg/mL
[2017-09-12 10:45] LABS: BETA-HYDROXYBUTYRIC ACID 520 mcg/mL
[2017-09-12 10:45] LABS: BETA-HYDROXYBUTYRIC ACID 210 mcg/mL
[2017-09-12] MEDS: Linezolid 600 mg in D5W 300 ml 600 MG/300 ML BAG IVPB SCH ×2 (11:42→21:28)
--- NOTE | 2017-09-12 18:12 | CP.PCM.PN ---
Subjective - Date & Time of Evaluation Date of Evaluation: 09/12/17 Time of Evaluation: 09:00 - Subjective Subjective: Patient seen and examined. No respiratory distress noted Patient is awake and responsive afebrile Being treated for pneumonia Stable for transfer to floor Objective - Vital Signs/Intake and Output Vital Signs (last 24 hours): Temp Pulse Resp BP Pulse Ox 97.9 F 85 27 H 155/78 H 99 09/12/17 04:00 09/12/17 10:01 09/12/17 10:01 09/12/17 10:01 09/12/17 10:01 Intake and Output: 09/12/17 09/12/17 06:59 18:59 Intake Total 1050 0 Output Total 400 Balance 650 0 - Medications Medications: Current Medications Acetaminophen (Tylenol 325mg Tab) 650 mg PO Q6 PRN PRN Reason: Temperature Last Admin: 09/03/17 21:18 Dose: 650 mg Albuterol/Ipratropium (Duoneb 3 Mg/0.5 Mg (3 Ml) Ud) 3 ml INH RQ6 [facility] Last Admin: 09/12/17 14:15 Dose: 3 ml Apixaban (Eliquis) 2.5 mg PO BID [facility] Last Admin: 09/12/17 18:07 Dose: 2.5 mg Aspirin (Aspirin Chewable) 81 mg PO DAILY [facility] Last Admin: 09/12/17 10:01 Dose: 81 mg Famotidine (Pepcid) 40 mg PO DAILY [facility] Last Admin: 09/12/17 10:02 Dose: 40 mg Linezolid (Zyvox 600mg/300ml D5w) 600 mg in 300 mls @ 200 mls/hr IVPB Q12 [facility] Last Admin: 09/12/17 11:42 Dose: 200 mls/hr Doxycycline Hyclate 100 mg/ (Sodium Chloride) 100 mls @ 100 mls/hr IVPB Q12H [facility] Last Admin: 09/12/17 10:31 Dose: 100 mls/hr Piperacillin Sod/Tazobactam (Sod 3.375 gm/ Sodium Chloride) 100 mls @ 100 mls/ hr IVPB Q6H [facility] Last Admin: 09/12/17 14:19 Dose: 100 mls/hr Insulin Human Regular (Novolin R) 0 unit SC ACHS [facility] PRN Reason: Protocol Last Admin: 09/12/17 16:30 Dose: Not Given Metoprolol Tartrate (Lopressor) 5 mg IVP Q6H [facility] Last Admin: 09/12/17 14:18 Dose: 5 mg - Labs Labs: 09/11/17 06:19 09/11/17 06:19 PT 14.3 SECONDS (9.7-12.2) H 09/01/17 09:49 INR 1.2 09/01/17 09:49 APTT 32 SECONDS (21-34) 09/01/17 09:49 Assessment and Plan (1) Acute respiratory failure with hypoxemia Status: Acute (2) Pneumonia Status: Acute (3) DKA (diabetic ketoacidoses) Status: Acute (4) Sepsis Status: Acute
--- NOTE | 2017-09-12 21:19 | CP.PCM.PN ---
Subjective - Date & Time of Evaluation Date of Evaluation: 09/12/17 Time of Evaluation: 21:18 - Subjective Subjective: wants to go home. Objective - Vital Signs/Intake and Output Vital Signs (last 24 hours): Temp Pulse Resp BP Pulse Ox 98.1 F 85 27 H 155/78 H 99 09/12/17 16:00 09/12/17 10:01 09/12/17 10:01 09/12/17 10:01 09/12/17 10:01 Intake and Output: 09/12/17 09/13/17 18:59 06:59 Intake Total 1652 0 Output Total 1000 Balance 652 0 - Medications Medications: Current Medications Acetaminophen (Tylenol 325mg Tab) 650 mg PO Q6 PRN PRN Reason: Temperature Last Admin: 09/03/17 21:18 Dose: 650 mg Albuterol/Ipratropium (Duoneb 3 Mg/0.5 Mg (3 Ml) Ud) 3 ml INH RQ6 [facility] Last Admin: 09/12/17 20:01 Dose: 3 ml Apixaban (Eliquis) 2.5 mg PO BID [facility] Last Admin: 09/12/17 18:07 Dose: 2.5 mg Aspirin (Aspirin Chewable) 81 mg PO DAILY [facility] Last Admin: 09/12/17 10:01 Dose: 81 mg Famotidine (Pepcid) 40 mg PO DAILY [facility] Last Admin: 09/12/17 10:02 Dose: 40 mg Linezolid (Zyvox 600mg/300ml D5w) 600 mg in 300 mls @ 200 mls/hr IVPB Q12 [facility] Last Admin: 09/12/17 11:42 Dose: 200 mls/hr Doxycycline Hyclate 100 mg/ (Sodium Chloride) 100 mls @ 100 mls/hr IVPB Q12H [facility] Last Admin: 09/12/17 19:17 Dose: 100 mls/hr Piperacillin Sod/Tazobactam (Sod 3.375 gm/ Sodium Chloride) 100 mls @ 100 mls/ hr IVPB Q6H [facility] Last Admin: 09/12/17 20:51 Dose: 100 mls/hr Insulin Human Regular (Novolin R) 0 unit SC ACHS [facility] PRN Reason: Protocol Last Admin: 09/12/17 16:30 Dose: Not Given Metoprolol Tartrate (Lopressor) 5 mg IVP Q6H [facility] Last Admin: 09/12/17 19:21 Dose: 5 mg - Labs Labs: 09/11/17 06:19 09/11/17 06:19 PT 14.3 SECONDS (9.7-12.2) H 09/01/17 09:49 INR 1.2 09/01/17 09:49 APTT 32 SECONDS (21-34) 09/01/17 09:49 - Constitutional Appears: No Acute Distress - Eye Exam Eye Exam: Normal appearance - Respiratory Exam Respiratory Exam: Clear to Ausculation Bilateral - Cardiovascular Exam Cardiovascular Exam: REGULAR RHYTHM - GI/Abdominal Exam GI & Abdominal Exam: Soft - Extremities Exam Extremities Exam: absent: Pedal Edema - Neurological Exam Neurological Exam: Alert Assessment and Plan - Assessment and Plan (Free Text) Assessment: pneumonia getting better.confusion.
[2017-09-13] MEDS: Albuterol-Ipratrop 3 mg / 0.5 (3 ml) UD INH SCH ×4 (01:08→19:43)
[2017-09-13] MEDS: Metoprolol 1 mg/ml Inj IVP SCH ×4 (02:21→19:50)
[2017-09-13] MEDS: Piperacillin/Tazobact 3.375 GM in Sodium Chloride 0.9% 100 ML IVPB SCH ×3 (02:25→15:55)
[2017-09-13 08:05] LABS: BASO # 0.1 K/uL (0.0-0.2); BASO % 0.7 % (0.0-2.0); EOS # 0.1 K/uL (0.0-0.7); EOS % 0.6 % (0.0-4.0); HEMOGLOBIN 10.6 g/dL (11.0-16.0); LYMPH # 1.4 K/uL (1.0-4.3); LYMPH % 11.7 % (20.0-40.0); MEAN CELL VOLUME 72.6 fL (81.0-99.0); MEAN CORPUSCULAR HEMOGLOBIN 24.3 pg (27.0-31.0); MEAN CORPUSCULAR HGB CONC 33.4 g/dL (33.0-37.0); MEAN PLATELET VOLUME 7.6 fL (7.2-11.7); MONO # 0.4 K/uL (0.0-0.8); NEUT # 10.4 K/uL (1.8-7.0); RBC 4.38 Mil/uL (3.80-5.20); RED CELL DISTRIBUTION WIDTH 13.7 % (11.5-14.5); WHITE BLOOD COUNT 12.4 K/uL (4.8-10.8)
[2017-09-13] MEDS: (Novolin R) Insulin Human Regular 100 units/ml vial SC SCH ×4 (08:40→22:15)
[2017-09-13 09:09] LABS: ALB/GLOB RATIO 0.7 (1.0-2.1); ALBUMIN 2.5 g/dL (3.5-5.0); ALT/SGPT 23 U/L (9-52); AST/SGOT 15 U/L (14-36); BLOOD UREA NITROGEN 5 mg/dL (7-17); CALCIUM 7.7 mg/dl (8.6-10.4); GFR AFRICAN-AMERICAN > 60; GFR NON-AFRICAN AMERICAN > 60; MAGNESIUM 1.9 mg/dL (1.6-2.3)
[2017-09-13] MEDS: Linezolid 600 mg in D5W 300 ml 600 MG/300 ML BAG IVPB SCH ×2 (10:59→20:59)
--- NOTE | 2017-09-13 12:47 | CP.PCM.PN ---
Subjective - Date & Time of Evaluation Date of Evaluation: 09/13/17 Time of Evaluation: 12:46 - Subjective Subjective: more allert.no sob. Objective - Vital Signs/Intake and Output Vital Signs (last 24 hours): Temp Pulse Resp BP Pulse Ox 97.8 F 92 H 18 154/80 H 97 09/13/17 04:00 09/13/17 04:00 09/13/17 04:00 09/13/17 04:00 09/13/17 04:00 Intake and Output: 09/13/17 09/13/17 06:59 18:59 Intake Total 800 Output Total 1200 Balance -400 - Medications Medications: Current Medications Acetaminophen (Tylenol 325mg Tab) 650 mg PO Q6 PRN PRN Reason: Temperature Last Admin: 09/03/17 21:18 Dose: 650 mg Albuterol/Ipratropium (Duoneb 3 Mg/0.5 Mg (3 Ml) Ud) 3 ml INH RQ6 [facility] Last Admin: 09/13/17 07:49 Dose: 3 ml Apixaban (Eliquis) 2.5 mg PO BID [facility] Last Admin: 09/13/17 10:58 Dose: 2.5 mg Aspirin (Aspirin Chewable) 81 mg PO DAILY [facility] Last Admin: 09/13/17 10:58 Dose: 81 mg Famotidine (Pepcid) 40 mg PO DAILY [facility] Last Admin: 09/13/17 11:04 Dose: 40 mg Linezolid (Zyvox 600mg/300ml D5w) 600 mg in 300 mls @ 200 mls/hr IVPB Q12 [facility] Last Admin: 09/13/17 10:59 Dose: 200 mls/hr Doxycycline Hyclate 100 mg/ (Sodium Chloride) 100 mls @ 100 mls/hr IVPB Q12H [facility] Last Admin: 09/13/17 08:50 Dose: 100 mls/hr Piperacillin Sod/Tazobactam (Sod 3.375 gm/ Sodium Chloride) 100 mls @ 100 mls/ hr IVPB Q6H [facility] Last Admin: 09/13/17 09:00 Dose: 100 mls/hr Insulin Human Regular (Novolin R) 0 unit SC ACHS [facility] PRN Reason: Protocol Last Admin: 09/13/17 08:40 Dose: 4 unit Metoprolol Tartrate (Lopressor) 5 mg IVP Q6H [facility] Last Admin: 09/13/17 08:44 Dose: 5 mg - Labs Labs: 09/13/17 08:00 09/13/17 08:00 PT 14.3 SECONDS (9.7-12.2) H 09/01/17 09:49 INR 1.2 09/01/17 09:49 APTT 32 SECONDS (21-34) 09/01/17 09:49 - Constitutional Appears: No Acute Distress - Eye Exam Eye Exam: Normal appearance - Respiratory Exam Respiratory Exam: Clear to Ausculation Bilateral - Cardiovascular Exam Cardiovascular Exam: REGULAR RHYTHM - GI/Abdominal Exam GI & Abdominal Exam: Soft - Neurological Exam Neurological Exam: Alert, Oriented x3 Assessment and Plan - Assessment and Plan (Free Text) Assessment: pneumonia. transfer to floor.
--- NOTE | 2017-09-13 16:01 | CP.PCM.PN ---
Subjective - Date & Time of Evaluation Date of Evaluation: 09/13/17 Time of Evaluation: 10:00 - Subjective Subjective: Patient seen and examined Patient is out of bed to chair Breathing and cough much improved Awake and responsive tolerating food Objective - Vital Signs/Intake and Output Vital Signs (last 24 hours): Temp Pulse Resp BP Pulse Ox 97.8 F 92 H 18 154/80 H 97 09/13/17 04:00 09/13/17 04:00 09/13/17 04:00 09/13/17 04:00 09/13/17 04:00 Intake and Output: 09/13/17 09/13/17 06:59 18:59 Intake Total 800 Output Total 1200 Balance -400 - Medications Medications: Current Medications Acetaminophen (Tylenol 325mg Tab) 650 mg PO Q6 PRN PRN Reason: Temperature Last Admin: 09/03/17 21:18 Dose: 650 mg Albuterol/Ipratropium (Duoneb 3 Mg/0.5 Mg (3 Ml) Ud) 3 ml INH RQ6 [facility] Last Admin: 09/13/17 14:01 Dose: 3 ml Apixaban (Eliquis) 2.5 mg PO BID [facility] Last Admin: 09/13/17 10:58 Dose: 2.5 mg Aspirin (Aspirin Chewable) 81 mg PO DAILY [facility] Last Admin: 09/13/17 10:58 Dose: 81 mg Famotidine (Pepcid) 40 mg PO DAILY [facility] Last Admin: 09/13/17 11:04 Dose: 40 mg Linezolid (Zyvox 600mg/300ml D5w) 600 mg in 300 mls @ 200 mls/hr IVPB Q12 [facility] Last Admin: 09/13/17 10:59 Dose: 200 mls/hr Doxycycline Hyclate 100 mg/ (Sodium Chloride) 100 mls @ 100 mls/hr IVPB Q12H [facility] Last Admin: 09/13/17 08:50 Dose: 100 mls/hr Piperacillin Sod/Tazobactam (Sod 3.375 gm/ Sodium Chloride) 100 mls @ 100 mls/ hr IVPB Q6H [facility] Last Admin: 09/13/17 15:55 Dose: 100 mls/hr Insulin Human Regular (Novolin R) 0 unit SC ACHS WILLIAM PRN Reason: Protocol Last Admin: 09/13/17 13:15 Dose: 6 unit Metoprolol Tartrate (Lopressor) 5 mg IVP Q6H [facility] Last Admin: 09/13/17 13:34 Dose: 5 mg - Labs Labs: 09/13/17 08:00 09/13/17 08:00 PT 14.3 SECONDS (9.7-12.2) H 09/01/17 09:49 INR 1.2 09/01/17 09:49 APTT 32 SECONDS (21-34) 09/01/17 09:49 - Head Exam Head Exam: ATRAUMATIC, NORMOCEPHALIC - Eye Exam Eye Exam: Normal appearance - ENT Exam ENT Exam: Mucous Membranes Moist - Neck Exam Neck Exam: Normal Inspection - Respiratory Exam Respiratory Exam: Rales - Cardiovascular Exam Cardiovascular Exam: REGULAR RHYTHM - GI/Abdominal Exam GI & Abdominal Exam: Soft, Normal Bowel Sounds Assessment and Plan (1) Acute respiratory failure with hypoxemia Assessment & Plan: continue IV antibiotics Patient is awaiting for transfer to floor Physical therapy Status: Acute (2) Pneumonia Status: Acute (3) DKA (diabetic ketoacidoses) Status: Acute (4) Sepsis Status: Acute
--- NOTE | 2017-09-13 17:48 | CP.PCM.PN ---
Subjective - Date & Time of Evaluation Date of Evaluation: 09/13/17 Time of Evaluation: 09:00 - Subjective Subjective: awake alert extubated confused at times family at the bedside Objective - Vital Signs/Intake and Output Vital Signs (last 24 hours): Temp Pulse Resp BP Pulse Ox 97.8 F 92 H 18 154/80 H 97 09/13/17 04:00 09/13/17 04:00 09/13/17 04:00 09/13/17 04:00 09/13/17 04:00 Intake and Output: 09/13/17 09/13/17 06:59 18:59 Intake Total 800 Output Total 1200 Balance -400 - Medications Medications: Current Medications Acetaminophen (Tylenol 325mg Tab) 650 mg PO Q6 PRN PRN Reason: Temperature Last Admin: 09/03/17 21:18 Dose: 650 mg Albuterol/Ipratropium (Duoneb 3 Mg/0.5 Mg (3 Ml) Ud) 3 ml INH RQ6 [facility] Last Admin: 09/13/17 14:01 Dose: 3 ml Apixaban (Eliquis) 2.5 mg PO BID [facility] Last Admin: 09/13/17 10:58 Dose: 2.5 mg Aspirin (Aspirin Chewable) 81 mg PO DAILY [facility] Last Admin: 09/13/17 10:58 Dose: 81 mg Famotidine (Pepcid) 40 mg PO DAILY [facility] Last Admin: 09/13/17 11:04 Dose: 40 mg Linezolid (Zyvox 600mg/300ml D5w) 600 mg in 300 mls @ 200 mls/hr IVPB Q12 [facility] Last Admin: 09/13/17 10:59 Dose: 200 mls/hr Doxycycline Hyclate 100 mg/ (Sodium Chloride) 100 mls @ 100 mls/hr IVPB Q12H [facility] Last Admin: 09/13/17 08:50 Dose: 100 mls/hr Piperacillin Sod/Tazobactam Sod (Zosyn 3.375 Gm Iv Premix) 3.375 gm in 50 mls @ 100 mls/hr IVPB Q6H [facility] Insulin Human Regular (Novolin R) 0 unit SC ACHS [facility] PRN Reason: Protocol Last Admin: 09/13/17 13:15 Dose: 6 unit Metoprolol Tartrate (Lopressor) 5 mg IVP Q6H [facility] Last Admin: 09/13/17 13:34 Dose: 5 mg - Labs Labs: 09/13/17 08:00 09/13/17 08:00 PT 14.3 SECONDS (9.7-12.2) H 09/01/17 09:49 INR 1.2 09/01/17 09:49 APTT 32 SECONDS (21-34) 09/01/17 09:49 - Constitutional Appears: Non-toxic, Chronically Ill - Head Exam Head Exam: NORMOCEPHALIC - Eye Exam Eye Exam: PERRL - ENT Exam ENT Exam: Mucous Membranes Dry - Neck Exam Neck Exam: absent: Lymphadenopathy - Respiratory Exam Respiratory Exam: Decreased Breath Sounds, Rhonchi - Cardiovascular Exam Cardiovascular Exam: REGULAR RHYTHM, +S1, +S2 - GI/Abdominal Exam GI & Abdominal Exam: Distended, Soft - Rectal Exam Rectal Exam: Deferred - Exam Exam: NORMAL INSPECTION - Extremities Exam Extremities Exam: absent: Pedal Edema - Back Exam Back Exam: absent: CVA tenderness (L), CVA tenderness (R) - Neurological Exam Neurological Exam: Alert, Awake, CN II-XII Intact Assessment and Plan (1) DKA (diabetic ketoacidoses) Status: Acute (2) Pneumonia Status: Acute (3) Sepsis Status: Acute - Assessment and Plan (Free Text) Assessment: consider d/c zosyn
[2017-09-13] MEDS: Piperacill/Tazo 3.375gm in Dex 3.375 GM/50 ML BAG IVPB SCH (20:11)
[2017-09-14] MEDS: Albuterol-Ipratrop 3 mg / 0.5 (3 ml) UD INH SCH ×3 (01:17→13:14)
[2017-09-14] MEDS: Metoprolol 1 mg/ml Inj IVP SCH ×3 (01:43→14:02)
[2017-09-14] MEDS: Piperacill/Tazo 3.375gm in Dex 3.375 GM/50 ML BAG IVPB SCH ×2 (02:13→08:31)
[2017-09-14] MEDS: (Novolin R) Insulin Human Regular 100 units/ml vial SC SCH ×3 (08:27→17:20)
[2017-09-14 08:41] VITALS: RESP 20; O2SAT 97
[2017-09-14] MEDS: Linezolid 600 mg in D5W 300 ml 600 MG/300 ML BAG IVPB SCH (09:25)
[2017-09-14 12:23] VITALS: PULSE 89
--- NOTE | 2017-09-14 14:01 | CP.PCM.PN ---
Subjective - Date & Time of Evaluation Date of Evaluation: 09/14/17 Time of Evaluation: 14:01 - Subjective Subjective: PATIENT WAS ADMITTED FLU LIKE SYMPTOM; AAOX3; DENIES CHEST PAIN, SOB NAUSEA OR VOMITING; NO SIGN OF DISTRESS NOTED Objective - Vital Signs/Intake and Output Vital Signs (last 24 hours): Temp Pulse Resp BP Pulse Ox 97.5 F L 89 20 149/77 97 09/14/17 08:00 09/14/17 10:00 09/14/17 08:00 09/14/17 08:00 09/14/17 08:00 Intake and Output: 09/14/17 09/14/17 06:59 18:59 Intake Total 500 Output Total 650 Balance -150 - Medications Medications: Current Medications Acetaminophen (Tylenol 325mg Tab) 650 mg PO Q6 PRN PRN Reason: Temperature Last Admin: 09/03/17 21:18 Dose: 650 mg Albuterol/Ipratropium (Duoneb 3 Mg/0.5 Mg (3 Ml) Ud) 3 ml INH RQ6 [facility] Last Admin: 09/14/17 13:14 Dose: 3 ml Apixaban (Eliquis) 2.5 mg PO BID [facility] Last Admin: 09/14/17 10:56 Dose: 2.5 mg Aspirin (Aspirin Chewable) 81 mg PO DAILY [facility] Last Admin: 09/14/17 09:31 Dose: 81 mg Famotidine (Pepcid) 40 mg PO DAILY [facility] Last Admin: 09/14/17 09:31 Dose: 40 mg Linezolid (Zyvox 600mg/300ml D5w) 600 mg in 300 mls @ 200 mls/hr IVPB Q12 [facility] Last Admin: 09/14/17 09:25 Dose: 200 mls/hr Doxycycline Hyclate 100 mg/ (Sodium Chloride) 100 mls @ 100 mls/hr IVPB Q12H [facility] Last Admin: 09/14/17 08:28 Dose: 100 mls/hr Potassium Chloride (Potassium Chloride 20 Meq/100 Ml) 20 meq in 100 mls @ 50 mls/hr IVPB ONCE ONE Stop: 09/14/17 14:15 Last Admin: 09/14/17 12:34 Dose: 50 mls/hr Insulin Human Regular (Novolin R) 0 unit SC ACHS [facility] PRN Reason: Protocol Last Admin: 09/14/17 11:50 Dose: 6 unit Metoprolol Tartrate (Lopressor) 5 mg IVP Q6H [facility] Last Admin: 09/14/17 08:40 Dose: 5 mg - Labs Labs: 09/13/17 08:00 09/13/17 08:00 PT 14.3 SECONDS (9.7-12.2) H 09/01/17 09:49 INR 1.2 09/01/17 09:49 APTT 32 SECONDS (21-34) 09/01/17 09:49 Assessment and Plan - Assessment and Plan (Free Text) Assessment: PATIENT IS SEEN AND EXAMINED AT THE BEDSIDE LUNG SOUND CLEAR JOSE ELIAS DISCUSS WITH DR BUCIO AND DR ERIC BOTH CLEAR THE PATIENT PLACE UNDER THE SERVICE OF DR WHITE at [facility] -----CALL UPON ARRIVAL FOR ADMITTING ORDER AND BED ASSIGNMENT CONTINUE ALL YOUR HOME MEDICATION NEW PRESCRIPTION GIVEN ZYVOX 600 MG BY MOUTH EVERY 12 HOURS FOR 7 DAYS ACTIVITY TOLERATED AND PHYSICAL THERAPY ORDER AND FACILITY PROTOCOL CALL DR WHITE FOR FURTHER ORDERS DISCUSS WITH PATIENT AND PATIENT'S FAMILY WHO AGREE AND VERBALIZED UNDERSTANDING
[2017-09-14 14:30] LABS: BASO # 0.1 K/uL (0.0-0.2); BASO % 0.6 % (0.0-2.0); EOS # 0.1 K/uL (0.0-0.7); EOS % 0.6 % (0.0-4.0); LYMPH # 2.3 K/uL (1.0-4.3); LYMPH % 17.9 % (20.0-40.0); MEAN CELL VOLUME 73.6 fL (81.0-99.0); MEAN CORPUSCULAR HGB CONC 32.7 g/dL (33.0-37.0); MEAN PLATELET VOLUME 7.9 fL (7.2-11.7); MONO # 0.5 K/uL (0.0-0.8); NEUT # 10.1 K/uL (1.8-7.0); NEUT % 76.9 % (50.0-75.0); RBC 4.16 Mil/uL (3.80-5.20); RED CELL DISTRIBUTION WIDTH 13.8 % (11.5-14.5); WHITE BLOOD COUNT 13.1 K/uL (4.8-10.8)
[2017-09-14 15:05] LABS: ALB/GLOB RATIO 0.7 (1.0-2.1); ALBUMIN 2.6 g/dL (3.5-5.0); ALT/SGPT 17 U/L (9-52); AST/SGOT 14 U/L (14-36); BLOOD UREA NITROGEN 7 mg/dL (7-17); CALCIUM 7.8 mg/dl (8.6-10.4); GFR AFRICAN-AMERICAN > 60; GFR NON-AFRICAN AMERICAN > 60; MAGNESIUM 1.7 mg/dL (1.6-2.3)
--- NOTE | 2017-09-14 17:55 | CP.PCM.PN ---
Subjective - Date & Time of Evaluation Date of Evaluation: 09/14/17 Time of Evaluation: 10:00 - Subjective Subjective: repeat cultures so far neg recc to cont IV antibiotics Objective - Vital Signs/Intake and Output Vital Signs (last 24 hours): Temp Pulse Resp BP Pulse Ox 97.5 F L 89 20 149/77 97 09/14/17 08:00 09/14/17 10:00 09/14/17 08:00 09/14/17 08:00 09/14/17 08:00 Intake and Output: 09/14/17 09/14/17 06:59 18:59 Intake Total 500 Output Total 650 Balance -150 - Medications Medications: Current Medications Acetaminophen (Tylenol 325mg Tab) 650 mg PO Q6 PRN PRN Reason: Temperature Last Admin: 09/03/17 21:18 Dose: 650 mg Albuterol/Ipratropium (Duoneb 3 Mg/0.5 Mg (3 Ml) Ud) 3 ml INH RQ6 [facility] Last Admin: 09/14/17 13:14 Dose: 3 ml Apixaban (Eliquis) 2.5 mg PO BID [facility] Last Admin: 09/14/17 17:20 Dose: 2.5 mg Aspirin (Aspirin Chewable) 81 mg PO DAILY [facility] Last Admin: 09/14/17 09:31 Dose: 81 mg Famotidine (Pepcid) 40 mg PO DAILY [facility] Last Admin: 09/14/17 09:31 Dose: 40 mg Linezolid (Zyvox 600mg/300ml D5w) 600 mg in 300 mls @ 200 mls/hr IVPB Q12 [facility] Last Admin: 09/14/17 09:25 Dose: 200 mls/hr Doxycycline Hyclate 100 mg/ (Sodium Chloride) 100 mls @ 100 mls/hr IVPB Q12H [facility] Last Admin: 09/14/17 08:28 Dose: 100 mls/hr Insulin Human Regular (Novolin R) 0 unit SC ACHS [facility] PRN Reason: Protocol Last Admin: 09/14/17 17:20 Dose: 4 unit Metoprolol Tartrate (Lopressor) 5 mg IVP Q6H [facility] Last Admin: 09/14/17 14:02 Dose: 5 mg - Labs Labs: 09/14/17 14:18 09/14/17 14:18 PT 14.3 SECONDS (9.7-12.2) H 09/01/17 09:49 INR 1.2 09/01/17 09:49 APTT 32 SECONDS (21-34) 09/01/17 09:49 - Constitutional Appears: Chronically Ill - Head Exam Head Exam: NORMOCEPHALIC - Eye Exam Eye Exam: PERRL - ENT Exam ENT Exam: Mucous Membranes Dry - Neck Exam Neck Exam: absent: Lymphadenopathy - Respiratory Exam Respiratory Exam: Decreased Breath Sounds - Cardiovascular Exam Cardiovascular Exam: REGULAR RHYTHM - GI/Abdominal Exam GI & Abdominal Exam: Distended, Soft Assessment and Plan (1) DKA (diabetic ketoacidoses) Status: Acute (2) Pneumonia Status: Acute (3) Sepsis Status: Acute
--- NOTE | 2017-09-14 18:01 | CP.PCM.PN ---
Subjective - Date & Time of Evaluation Date of Evaluation: 09/14/17 Time of Evaluation: 12:10 - Subjective Subjective: Patient seen and examined Breathing much improved Pneumonia improving Fair appetite Awaiting transfer to subacute Continue antibiotics Followup chest x-ray Physical therapy Objective - Vital Signs/Intake and Output Vital Signs (last 24 hours): Temp Pulse Resp BP Pulse Ox 97.5 F L 89 20 149/77 97 09/14/17 08:00 09/14/17 10:00 09/14/17 08:00 09/14/17 08:00 09/14/17 08:00 Intake and Output: 09/14/17 09/14/17 06:59 18:59 Intake Total 500 Output Total 650 Balance -150 - Medications Medications: Current Medications Acetaminophen (Tylenol 325mg Tab) 650 mg PO Q6 PRN PRN Reason: Temperature Last Admin: 09/03/17 21:18 Dose: 650 mg Albuterol/Ipratropium (Duoneb 3 Mg/0.5 Mg (3 Ml) Ud) 3 ml INH RQ6 [facility] Last Admin: 09/14/17 13:14 Dose: 3 ml Apixaban (Eliquis) 2.5 mg PO BID [facility] Last Admin: 09/14/17 17:20 Dose: 2.5 mg Aspirin (Aspirin Chewable) 81 mg PO DAILY [facility] Last Admin: 09/14/17 09:31 Dose: 81 mg Famotidine (Pepcid) 40 mg PO DAILY [facility] Last Admin: 09/14/17 09:31 Dose: 40 mg Linezolid (Zyvox 600mg/300ml D5w) 600 mg in 300 mls @ 200 mls/hr IVPB Q12 [facility] Last Admin: 09/14/17 09:25 Dose: 200 mls/hr Doxycycline Hyclate 100 mg/ (Sodium Chloride) 100 mls @ 100 mls/hr IVPB Q12H [facility] Last Admin: 09/14/17 08:28 Dose: 100 mls/hr Insulin Human Regular (Novolin R) 0 unit SC ACHS [facility] PRN Reason: Protocol Last Admin: 09/14/17 17:20 Dose: 4 unit Metoprolol Tartrate (Lopressor) 5 mg IVP Q6H [facility] Last Admin: 09/14/17 14:02 Dose: 5 mg - Labs Labs: 09/14/17 14:18 09/14/17 14:18 PT 14.3 SECONDS (9.7-12.2) H 09/01/17 09:49 INR 1.2 09/01/17 09:49 APTT 32 SECONDS (21-34) 09/01/17 09:49 Assessment and Plan (1) Acute respiratory failure with hypoxemia Status: Acute (2) Pneumonia Status: Acute (3) DKA (diabetic ketoacidoses) Status: Acute (4) Sepsis Status: Acute
[2017-09-14 18:07] VITALS: BP 137/65; TEMP 97.6
--- NOTE | 2017-09-15 10:52 | DS ---
The patient is being transferred to rehab today, 09/14/2017. HISTORY OF PRESENT ILLNESS; A 62-year-old female was brought in with pneumonia. She was found to have MRSA in her blood. She was treated for flu a few days ago. Subsequently, she was here in the office and was treated with a Z-Jordan. The patient's condition deteriorated, came to the emergency room where she was found to have extensive pneumonitis all over the lung field. Pulmonary consult with Dr. Wilder, Infectious consultation with Dr. Gage were done. The patient was intubated on the ventilator, and subsequently, placed on vancomycin, Zyvox and Zosyn with improvement. The patient was subsequently extubated, doing better now, and transferred to rehab to be continued on p.o. Vibramycin for another week. ____ will be started. The patient will be transferred to rehab under Dr. Black. FINAL DIAGNOSES: Pneumonitis, history of diabetes, and hypertension. Nikhil Vargas MD <
== END 2017-09-14 18:23 | disposition designated cancer center or children's hospital (05) | DRG 870 ==
LOC: C.ER 08:58 → C.9E 10:50 → C.9I 13:46
PROVIDERS: ADMIT Internal Medicine Cardiovascular Disease; ATTEND Internal Medicine Cardiovascular Disease
PROC: 5A09457 Assistance with Respiratory Ventilation, 24-96 Consecutive Hours, Continuous Positive Airway Pressure (ICD-10-PCS; 2017-09-01)
PROC: 5A1955Z Respiratory Ventilation, Greater than 96 Consecutive Hours (ICD-10-PCS; 2017-09-02)
PROC: 0BH17EZ Insertion of Endotracheal Airway into Trachea, Via Natural or Artificial Opening (ICD-10-PCS; 2017-09-02)
PROC: 02HV33Z Insertion of Infusion Device into Superior Vena Cava, Percutaneous Approach (ICD-10-PCS; principal; 2017-09-04)
DX: A41.02 Sepsis due to Methicillin resistant Staphylococcus aureus (principal); J96.01 Acute respiratory failure with hypoxia; J15.212 Pneumonia due to Methicillin resistant Staphylococcus aureus; E11.10 Type 2 diabetes mellitus with ketoacidosis without coma; D69.6 Thrombocytopenia, unspecified; I10 Essential (primary) hypertension; Z23 Encounter for immunization; Z79.4 Long term (current) use of insulin; Z88.0 Allergy status to penicillin; E78.00 Pure hypercholesterolemia, unspecified

== ENCOUNTER 2017-10-22 11:36 | Emergency (ER) | payer MEDICAID, MEDICARE ==
[2017-10-22 11:37] VITALS: BMI 26.6
[2017-10-22 12:11] VITALS: RESP 20
[2017-10-22 12:15] VITALS: O2SAT 100
--- NOTE | 2017-10-22 12:15 | C.PDOC ---
History Of Present Illness 62-year-old female w/PMHx of HTN, IDDM, recent hx of DKA, PNA w/resp. failure s/ p intubation, recent hx of H.Zoster 2 weeks ago, comes in for evaluation of right sided lateral chest pain " developed with onset of shingles one month ago ". Patient admits, completed treatment for Zoster with complete resolution of rash " come in for persistent pain". Patient describes pain as Right sided lateral chest wall "deep aching pain", constant, non-radiating. Otherwise, pt denies recent illness, fever, chills, headache, dizziness, neck pain, cough, CP , SOB, dyspnea, diaphoresis, palpitation, abd. pain, nausea/vomiting/diarrhea or any otehr active complaints. Ambulate to Ed for evaluation, not in any apparent distress. High BP noted on triage, pt admits, took her BP medication Metoprolol 25 mg 1 tab this AM, otherwise denies any associated sx with it. Time Seen by Provider: 10/22/17 11:49 Chief Complaint (Nursing): Shortness Of Breath History Per: Patient History/Exam Limitations: no limitations Onset/Duration Of Symptoms: Days Current Symptoms Are (Timing): Still Present Severity: Moderate Past Medical History Reviewed: Historical Data, Nursing Documentation, Vital Signs Vital Signs: Last Vital Signs Temp 97.9 F 10/22/17 12:33 Pulse 79 10/22/17 12:33 Resp 20 10/22/17 12:33 BP 180/94 H 10/22/17 12:33 Pulse Ox 100 10/22/17 13:08 - Medical History PMH: HTN, Hypercholesterolemia - [facility] Procedures ASSISTANCE WITH RESPIRATORY VENTILATION, 24-96 HRS, CPAP (09/01/17) INSERTION OF ENDOTRACHEAL AIRWAY INTO TRACHEA, VIA OPENING (09/01/17) INSERTION OF INFUSION DEV INTO SUP VENA CAVA, PERC APPROACH (09/01/17) RESPIRATORY VENTILATION, GREATER THAN 96 CONSECUTIVE HOURS (09/01/17) Family History: States: No Known Family Hx - Social History Hx Alcohol Use: No Hx Substance Use: No - Immunization History Hx Tetanus Toxoid Vaccination: No Hx Influenza Vaccination: Yes Hx Pneumococcal Vaccination: No Review Of Systems Except As Marked, All Systems Reviewed And Found Negative. Constitutional: Negative for: Fever, Chills Cardiovascular: Negative for: Palpitations, Edema, Light Headedness Respiratory: Negative for: Cough, Shortness of Breath Gastrointestinal: Negative for: Vomiting Musculoskeletal: Negative for: Neck Pain, Back Pain Skin: Positive for: Rash Neurological: Negative for: Weakness, Numbness, Headache, Dizziness Physical Exam - Physical Exam Appears: Well, Non-toxic, No Acute Distress Skin: Warm, Dry, Rash ( well healed trace rash to lateral Right chest wall extend from posterior to anterior chest wall, not crossing midline. No edema, erythema, no cellulitis.) Head: Normacephalic Eye(s): bilateral: PERRL Nose: No Flaring, No Discharge Oral Mucosa: Moist, No Drooling Throat: No Erythema, No Exudate, No Drooling Neck: Trachea Midline, Supple Chest: Symmetrical, No Deformity, No Tenderness, No Ecchymosis, No Subcutaneous Emphysema Cardiovascular: Rhythm Regular, No Murmur Respiratory: No Decreased Breath Sounds, No Accessory Muscle Use, No Stridor, No Wheezing Gastrointestinal/Abdominal: Soft, No Tenderness, No Distention, No Guarding Back: No CVA Tenderness Extremity: Normal ROM, No Deformity, No Swelling Neurological/Psych: Oriented x3, Normal Speech ED Course And Treatment ECG: Interpreted By Me, Viewed By Me ECG Rhythm: Sinus Rhythm ECG Interpretation: No Changes From Prior (09/01/17) Interpretation Of ECG: SR@82/min, LAD, LAFB, no acute ST-T changes O2 Sat by Pulse Oximetry: 100 (RA) Pulse Ox Interpretation: Normal - Other Rad CXR X-Ray: Read By Radiologist Interpretation: IMPRESSION: 2 cm nodular opacity mid left lung. Rule out neoplasm. Consider further evaluation with computed tomography of the chest. No acute infiltrate. Progress Note: On re-evaluation, pt is afebrile, hemodynamicaly stable. Non- toxic. Ambulatory in ED with stable gait. PulseOx 100% RA. Neck: Supple, (-) carotid bruits, (-) JVD. Lungs: CTA B/L, BS equal B/L. CVS: (+)S1S2, reg. Abd : benign, (-) guarding, (-) rebound. Skin: well healing Right lateral chest wall H.Zoster overlying Right T5-6 dermatime, no evidence of cellulitis or superimposed infection. Neurologicaly intact. EKG- review, no new acute findings compare ti old studuy. CXR results review and discussed with rad , compare to adalid old images from 2 months ago, no indication for emergent CT chest. Routine outpt f/u with CT chest recommend. results review and discussed with pt. Copy of imaging given. Pt has clinical findings c /w Right chest wall pain r/o neuropathy secondary to H.Zoster. HTN, asymptomatic. Pt advised on course of ds. recommend to take dose of BP medication immediately. ref. to f/u with PMD in 2 -3 days for re-eval.without fail. Return to ED if any worsening or new changes. Pt understand and agrees with plan. Pt is stable for discharge now. Disposition Counseled Patient/Family Regarding: Diagnosis, Need For Followup, Rx Given - Disposition Referrals: Nikhil Vargas MD [Staff Provider] - Disposition: HOME/ ROUTINE Disposition Time: 12:20 Condition: STABLE Additional Instructions: Take Ibuprofen during the day Take pain medication as prescribed as need Take blood pressure medication twice daily Follow up with PMD in 2-3 days for re-evaluation. return to ED if any worsening or new changes. 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 I have reviewed the chart and agree that the record accurately reflects my personal performance of the history, physical exam, medical decision making, and the department course for this patient. I have also personally directed, reviewed, and agree with the discharge instructions and disposition.
[2017-10-22 12:34] VITALS: BP 180/94; PULSE 79; TEMP 97.9
--- NOTE | 2017-10-22 12:47 | RAD ---
HISTORY: Cough COMPARISON: 09/09/2017 TECHNIQUE: Chest PA and lateral FINDINGS: LUNGS: No acute infiltrate. There is a roughly 2 cm nodular opacity in the mid left lung, laterally, not clearly evident the lateral projection. The possibility of a neoplasm must be considered. Further evaluation with computed tomography the chest should be considered. Alternatively, follow-up with chest radiography, to clearing, should be pursued to exclude underlying neoplasm. There are coarse linear markings in the left lung common nonspecific. . PLEURA: No significant pleural effusion identified. No pneumothorax apparent. CARDIOVASCULAR: Normal. OSSEOUS STRUCTURES: No significant abnormalities. VISUALIZED UPPER ABDOMEN: Normal. OTHER FINDINGS: None. IMPRESSION: 2 cm nodular opacity mid left lung. Rule out neoplasm. Consider further evaluation with computed tomography of the chest. No acute infiltrate.
--- NOTE | 2017-10-27 22:56 | CARD ---
APPROVED REPORT EKG Measurement Heart [id number] <Conclusion> Normal sinus rhythm Possible Left atrial enlargement Left anterior fascicular block Abnormal ECG
== END 2017-10-22 13:19 | disposition home or self-care (01) ==
LOC: C.ER 11:36
DX: B02.23 Postherpetic polyneuropathy (principal); I10 Essential (primary) hypertension